=== PATIENT | female | born 1960 | race Caucasian/White ===

== ENCOUNTER 2023-01-13 11:48 | Outpatient (OUT) | payer OTHER, SELFPAY ==
[2023-01-13 12:17] LABS: Basophils Percent Auto 0.3 % (0.2-2.0); Eosinophils Absolute Auto 0.1 10^3/uL (0.0-0.7); Eosinophils Percent Auto 0.5 % (0.9-7.0); Hematocrit 39.6 % (36.0-48.0); Hemoglobin 13.7 g/dL (12.0-16.0); Immature Granulocytes Abs Auto 0.07 10^3/uL (0.00-0.03); Immature Granulocytes Pct Auto 0.5 % (0.0-0.5); Lymphocytes Absolute Auto 1.5 10^3/uL (1.2-3.8); Lymphocytes Percent Auto 11.8 % (20.5-60.0); Mean Corpuscular HGB Conc 34.6 g/dL (29.9-35.2); Mean Corpuscular Volume 109.7 fL (81.0-99.0); Mean Platelet Volume 8.8 fL (9.5-13.5); Monocytes Percent Auto 8.1 % (1.7-12.0); Neutrophils Absolute Auto 10.1 10^3/uL (1.4-6.5); Neutrophils Percent Auto 78.8 % (43.0-75.0); Platelet Count 405 10^3/uL (150-450); Red Blood Count 3.61 10^6/uL (4.20-5.40); Red Cell Distribution Width 15.8 % (11.0-15.0); White Blood Count 12.8 10^3/uL (4.0-11.0)
[2023-01-13 12:22] LABS: Erythrocyte Sedimentation Rate 17 mm/hr (<=30)
[2023-01-13 12:29] LABS: Bilirubin Urine NEGATIVE (NEGATIVE); Blood Urine NEGATIVE (NEGATIVE); Clarity Urine CLEAR (CLEAR); Color Urine YELLOW (YELLOW); Glucose Urine UA NEGATIVE (NEGATIVE); Ketones Urine NEGATIVE (NEGATIVE); Leukocyte Esterase Urine NEGATIVE (NEGATIVE); Nitrite Urine POSITIVE (NEGATIVE); Protein Urine NEGATIVE (NEG/TRACE)
[2023-01-13 12:44] LABS: Alanine Aminotransferase 60 U/L (14-59); Albumin Globulin Ratio 0.7; Albumin Level 2.9 g/dL (3.4-5.0); Alkaline Phosphatase 213 U/L (46-116); Amylase 46 U/L (25-115); Anion Gap 17.4; Aspartate Amino Transferase 100 U/L (15-37); BUN Creatinine Ratio 14.9; Bilirubin Total 0.4 mg/dL (0.2-1.0); Calcium 8.5 mg/dL (8.5-10.1); Carbon Dioxide 23.9 mmol/L (21.0-32.0); Chloride 101 mmol/L (98-107); Chol HDL Ratio 3.7; Cholesterol 174 mg/dL (<=200); Estimated GFR (African America >60 (>=60); Estimated GFR (Non-African Ame >60 (>=60); Glucose 87 mg/dL (74-106); HDL Cholesterol 47 mg/dL (40-60); Potassium 3.3 mmol/L (3.5-5.1); Sodium 139 mmol/L (136-145); Thyroid Stimulating Hormone 3.155 uIU/mL (0.358-3.740); Total Protein 6.9 g/dL (6.4-8.2); Triglycerides 154 mg/dL (<=150); VLDL CHOLESTEROL 30.8 mg/dL
[2023-01-13 12:50] LABS: Bacteria Urine LARGE #/HPF (NONE SEEN); Cast Seen? NONE SEEN #/LPF (NONE SEEN); Crystals Seen? None Seen #/HPF (None Seen); Mucus Urine TRACE (NONE SEEN); RBC Urine 0-2 #/HPF (0-2); Squamous Epithelial Cell Urine FEW #/LPF (NONE/RARE)
[2023-01-13 13:49] LABS: Free T4 0.88 ng/dL (0.76-1.46)
== END 2023-01-13 11:49 | disposition home or self-care (01) ==
LOC: LAB 11:53
PROVIDERS: PCP Nurse Practitioner; Visit Provider Nurse Practitioner
DX: R53.83 Other fatigue (principal); R10.9 Unspecified abdominal pain; N39.0 Urinary tract infection, site not specified
CPT/HCPCS: 36415; 80053; 80061; 81001; 82150; 82607; 82728; 83540; 83690; 84439; 84443; 85025; 85652; 87086; 87150; 87186

== ENCOUNTER 2023-02-04 09:02 | Outpatient (OUT) | payer MEDICARE, SELFPAY ==
--- NOTE | 2023-02-04 09:20 | NM_ITS ---
The [address] [address] Patient Name: FOUZIA MA MRN: [id number] date: 1960 Sex: F Assigned Patient Location: [place] Current Patient Location: [place] Accession/Order Number: [id number] Exam Date: 02/04/2023 09:15 Report Date: 02/04/2023 12:48 At the request of: CARI LOWE Procedure: TN hepatobiliary w pharm HIDA SCAN WITH GALLBLADDER EJECTION FRACTION HISTORY: Abdominal Pain. COMPARISON: Ultrasound 09/30/2022. METHOD: Following IV injection of 5.2 mCi of [id number], anterior imaging of the abdomen was acquired for 60 minutes. After the gallbladder was visualized the patient was given Ensure and the gallbladder ejection fraction was calculated. FINDINGS: There is satisfactory uptake of radiopharmaceutical by the liver. The gallbladder, bile duct, and bowel are seen in the expected period of time and sequence. The gallbladder ejection fraction is normal at 55%. TN/TN hepatobiliary w pharm IMPRESSION: Normal hepatic biliary scintigraphy and gallbladder ejection fraction. Electronically authenticated by: CLEMENTINA ZAMORA Date: 02/04/2023 12:48
== END 2023-02-04 09:03 | disposition home or self-care (01) ==
PROVIDERS: PCP Nurse Practitioner; Visit Provider Nurse Practitioner
DX: R79.89 Other specified abnormal findings of blood chemistry (principal); R93.2 Abnormal findings on diagnostic imaging of liver and biliary tract; R10.9 Unspecified abdominal pain
CPT/HCPCS: 78227; A9537

== ENCOUNTER 2023-03-07 13:28 | Outpatient (OUT) | payer MEDICARE, SELFPAY ==
[2023-03-07 13:31] LABS: Estimated GFR (African America >60 (>=60); Estimated GFR (Non-African Ame >60 (>=60)
--- NOTE | 2023-03-07 13:31 | CT_ITS ---
[address] [address] Patient Name: FOUZIA MA MRN: [id number] date: 1960 Sex: F Assigned Patient Location: LAB Current Patient Location: LAB Accession/Order Number: [id number] Exam Date: 03/07/2023 14:35 Report Date: 03/07/2023 17:14 At the request of: CARI LOWE Procedure: CT abdomen pelvis w con CT abdomen pelvis w con, 03/07/2023 2:35 PM EDT INDICATION: Abdominal pain R10.9 COMPARISON: This study was compared to the prior hepatobiliary scan. TECHNIQUE: Axial images of the abdomen were obtained after the administration of IV contrast. Multiplanar reformatted images were generated and reviewed as needed. Dose reduction techniques were achieved by using automated exposure control and/or adjustment of mA and/or kV according to patient size and/or use of iterative reconstruction technique. FINDINGS: Lungs: The base of lungs is clear. No pleural effusion is noted. Liver and gallbladder: There is hepatomegaly with severe hepatic steatosis with heterogeneous enhancement most likely due to regional perfusion differences. Mild irregularity of hepatic border is noted. The portal vein measures 1 cm. There is gallstone without pericholecystic fluid or wall thickening. Mild perihepatic ascites is noted. Genitourinary system: Mild right renal malrotation is noted. No nephrolithiasis or hydronephrosis is noted. No abnormality of the urinary bladder is noted. Other solid abdominal organs: adrenal glands, pancreas, and spleen are unremarkable. Aorta: The infrarenal abdominal aorta is nonaneurysmal. Free fluid: There is mild free fluid in the abdomen pelvis. Lymph node: No lymph node enlargement by size criteria is noted. Reactive lymph nodes along the gastrohepatic ligament measuring up to 5 mm. Bowel: No abnormality of small bowel is noted. There is thickening of the cecal and ascending colon with adjacent fatty stranding most likely due to portal hypertension. Appendix is unremarkable. Bone: There is no suspicious osteolytic or osteoblastic lesion. Lower lumbar spine degenerative changes are noted. There is diffuse demineralization of bone. CT/CT abdomen pelvis w con IMPRESSION: Severe hepatic steatosis with heterogeneous hepatic enhancement and mild irregular border and mild ascites. This may suggest early cirrhosis. An MRI is recommended to exclude hepatic mass. MRI or ultrasound Elastography may also be helpful for detection of cirrhosis/fibrosis. Mild cecal and ascending colon thickening with fatty stranding likely due to portal hypertension. However, ischemic or inflammatory or infectious process should be considered. Electronically authenticated by: LUÍS ORTIZ Date: 03/07/2023 17:14
== END 2023-03-07 13:29 | disposition home or self-care (01) ==
LOC: LAB 13:28
PROVIDERS: PCP Nurse Practitioner; Visit Provider Nurse Practitioner
DX: R10.9 Unspecified abdominal pain (principal)
CPT/HCPCS: 36415; 74177; 82565; Q9967

== ENCOUNTER 2023-03-21 15:02 | Outpatient (OUT) | payer MEDICARE, SELFPAY ==
[2023-03-21 15:56] LABS: Basophils Absolute Auto 0.1 10^3/uL (0.0-0.1); Basophils Percent Auto 0.6 % (0.2-2.0); Eosinophils Absolute Auto 0.2 10^3/uL (0.0-0.7); Hematocrit 32.3 % (36.0-48.0); Hemoglobin 10.9 g/dL (12.0-16.0); Immature Granulocytes Pct Auto 0.5 % (0.0-0.5); Lymphocytes Percent Auto 10.8 % (20.5-60.0); Mean Corpuscular HGB Conc 33.7 g/dL (29.9-35.2); Mean Corpuscular Hemoglobin 34.4 pg (26.7-34.0); Mean Corpuscular Volume 101.9 fL (81.0-99.0); Mean Platelet Volume 9.4 fL (9.5-13.5); Monocytes Absolute Auto 1.6 10^3/uL (0.3-0.8); Neutrophils Absolute Auto 14.3 10^3/uL (1.4-6.5); Neutrophils Percent Auto 78.1 % (43.0-75.0); Platelet Count 477 10^3/uL (150-450); Red Blood Count 3.17 10^6/uL (4.20-5.40); Red Cell Distribution Width 13.8 % (11.0-15.0); White Blood Count 18.3 10^3/uL (4.0-11.0)
[2023-03-21 16:06] LABS: Ammonia 19 umol/L (11-32)
[2023-03-21 16:07] LABS: Bilirubin Urine NEGATIVE (NEGATIVE); Blood Urine NEGATIVE (NEGATIVE); Clarity Urine CLEAR (CLEAR); Color Urine YELLOW (YELLOW); Glucose Urine UA NEGATIVE (NEGATIVE); Ketones Urine NEGATIVE (NEGATIVE); Leukocyte Esterase Urine NEGATIVE (NEGATIVE); Nitrite Urine POSITIVE (NEGATIVE); Protein Urine TRACE mg/dL (NEG/TRACE); Specific Gravity Urine 1.025 (1.005-1.025); pH Urine 6.5 (5.0-9.0)
[2023-03-21 16:08] LABS: Urine Microscopic Indicated YES
[2023-03-21 16:09] LABS: INR 1.11; Partial Thromboplastin Time 27.4 sec (22.3-36.2); Prothrombin Time 11.7 sec (9.0-11.6)
[2023-03-21 16:13] LABS: Bacteria Urine LARGE #/HPF (NONE SEEN); Cast Seen? NONE SEEN #/LPF (NONE SEEN); Crystals Seen? None Seen #/HPF (None Seen); Mucus Urine NONE SEEN (NONE SEEN); RBC Urine NONE SEEN #/HPF (0-2); Squamous Epithelial Cell Urine MODERATE #/LPF (NONE/RARE); WBC Urine 0-2 #/HPF (NONE SEEN)
[2023-03-21 16:14] LABS: Urine Culture Indicated YES
[2023-03-21 16:24] LABS: Alanine Aminotransferase 52 U/L (14-59); Albumin Globulin Ratio 0.6; Albumin Level 2.5 g/dL (3.4-5.0); Alkaline Phosphatase 462 U/L (46-116); Anion Gap 15.2; Aspartate Amino Transferase 123 U/L (15-37); BUN Creatinine Ratio 11.3; Bilirubin Direct 0.3 mg/dL (0.0-0.2); Bilirubin Total 0.5 mg/dL (0.2-1.0); Calcium 8.7 mg/dL (8.5-10.1); Carbon Dioxide 26.7 mmol/L (21.0-32.0); Chloride 100 mmol/L (98-107); Estimated GFR (African America >60 (>=60); Estimated GFR (Non-African Ame >60 (>=60); Globulin 4.1 g/dL; Glucose 72 mg/dL (74-106); Magnesium 1.5 mg/dL (1.8-2.4); Sodium 139 mmol/L (136-145); Total Protein 6.6 g/dL (6.4-8.2)
[2023-03-21 16:28] LABS: Gamma Glutamyl Transpeptidase 1239 U/L (8-55); Potassium 2.9 mmol/L (3.5-5.1)
[2023-03-23 04:07] LABS: Ceruloplasmin 28.1 mg/dL (19.0-39.0); Transferrin 128 mg/dL (192-364)
[2023-03-23 15:09] LABS: Antinuclear Antibodies, IFA Negative (.)
== END 2023-03-21 15:03 | disposition home or self-care (01) ==
LOC: LAB 15:04
PROVIDERS: PCP Nurse Practitioner; Visit Provider Nurse Practitioner
DX: K70.30 Alcoholic cirrhosis of liver without ascites (principal)
CPT/HCPCS: 36415; 80053; 80074; 81001; 82140; 82248; 82390; 82607; 82728; 82746; 82977; 83540; 83735; 84100; 84466; 85025; 85610; 85730; 86038; 87086; 87150; 87186

== ENCOUNTER 2023-03-21 19:53 | Emergency (ER) | payer MEDICARE, SELFPAY ==
[2023-03-21] VITALS (14 sets, daily range): BP systolic 129–138; BP diastolic 91–92; PULSE 102; RESP 18; TEMP 37.1; O2SAT 89–97; BMI 24.0
--- NOTE | 2023-03-21 20:22 | XR_ITS ---
The [address] [address] Patient Name: FOUZIA MA MRN: [id number] date: 1960 Sex: F Assigned Patient Location: ER Current Patient Location: ER Accession/Order Number: [id number] Exam Date: 03/21/2023 20:55 Report Date: 03/21/2023 21:17 At the request of: ANTONIO PEPPER Procedure: XR chest 2V EXAMINATION: XR chest 2V HISTORY: Edema COMPARISON: None. TECHNIQUE: Portable chest FINDINGS: The lung parenchyma is free of consolidation or infiltrate. No pneumothorax or pleural effusion. The cardiac, mediastinal and hilar contours are normal. The visualized osseous structures exhibit no gross abnormality. XR/XR chest 2V IMPRESSION: No acute cardiopulmonary abnormality. Electronically authenticated by: SIGIFREDO DENTON Date: 03/21/2023 21:17
--- NOTE | 2023-03-21 20:23 | ED_ITS ---
Documented by User: TOM Ugalde 03/21/23 22:27 HPI - General Adult General Chief complaint: Recheck/Abnormal Lab/Rx Stated complaint: pcp sent in d/t abnormal labs Time Seen by Provider: 03/21/23 20:03 Source: patient Mode of arrival: walk-in Limitations: no limitations History of Present Illness HPI narrative: patient is a 63-year-old female referred to the emergency department by her primary care provider for the evaluation of multiple abnormal lab studies as well as swelling of the abdomen and lower extremities. Patient has a history of alcoholism. Per her primary care provider, she has been having ongoing digestive issues and is scheduled to see a gastrointestinal specialist on March 30 in [place]. She had a CT scan several weeks ago and her PCP receive the results today showing significant fatty liver. She denies any fevers, chills, vomiting. She states she has had problems with constipation. She feels as though her abdomen is tight and swollen. She has also had swelling in the lower extremities. She has no chest pain but occasionally feels short of breath. She was prescribed Aldactone and Lasix today but has not started these. She has no significant abdominal pain. Related Data Home Medications Medication Instructions Recorded Confirmed albuterol sulfate 90 mcg/actuation 2 inh inhalation Q6H PRN shortness 03/21/23 03/21/23 aerosol inhaler (Ventolin HFA) of breath or wheezing amlodipine 2.5 mg tablet 2.5 mg PO DAILY 03/21/23 03/21/23 furosemide 20 mg tablet 20 mg PO Q12H 03/21/23 03/21/23 propranolol 20 mg tablet 20 mg PO Q12H 03/21/23 03/21/23 spironolactone 50 mg tablet 50 mg PO DAILY 03/21/23 03/21/23 venlafaxine 150 mg 150 mg PO DAILY 03/21/23 03/21/23 capsule,extended release 24 hr Allergies Allergy/AdvReac Type Severity Reaction Status Date / Time No Known Drug Allergies Allergy Verified 03/21/23 20:03 Review of Systems ROS Constitutional Denies: fever or chills Ears, nose, mouth, and throat Denies: throat pain or neck pain Cardiovascular Denies: chest pain Respiratory Reports: shortness of breath; Denies: cough Gastrointestinal Reports: constipation; Denies: abdominal pain, nausea or vomiting Musculoskeletal Reports: extremity swelling; Denies: back pain or neck pain Neurological Denies: headache Endocrine Denies: excessive urination Hematologic/Lymphatic Denies: easy bruising Exam Narrative Exam Narrative: Gen.: Awake, alert, in no distress Head: Normocephalic, atraumatic ENT: Moist mucous membranes Respiratory: No respiratory distress, lungs clear bilaterally Cardio: Regular rate and rhythm Gastrointestinal: Abdomen is firm but not rigid, distended. Nontender with no guarding or rebound Extremities: Moves extremities equally, 2+ pitting edema to the bilateral lower extremities Psych: Normal mood and affect Neuro: No focal neuro deficit Skin: Warm, dry, intact Constitutional Vital Signs, click to edit/add: Last Vital Signs Temp 98.7 F 03/21/23 19:57 Pulse 109 H 03/22/23 02:37 Resp 18 03/21/23 19:57 BP 132/77 03/22/23 02:37 Pulse Ox 93 L 03/22/23 02:37 O2 Del Method Room Air 03/21/23 19:57 Course Vital Signs Vital signs: Vital Signs Temperature 98.7 F 03/21/23 19:57 Pulse Rate 102 H 03/21/23 19:57 Respiratory Rate 18 03/21/23 19:57 Blood Pressure 129/92 H 03/21/23 19:57 Pulse Oximetry 97 03/21/23 19:57 Oxygen Delivery Method Room Air 03/21/23 19:57 Temperature 98.7 F 03/21/23 19:57 Pulse Rate 109 H 03/22/23 02:37 Respiratory Rate 18 03/21/23 19:57 Blood Pressure 132/77 03/22/23 02:37 Pulse Oximetry 93 L 03/22/23 02:37 Oxygen Delivery Method Room Air 03/21/23 19:57 Medical Decision Making MDM Narrative Medical decision making narrative: patient with no complaints of abdominal pain in the Emergency Room, she has no other upper respiratory symptoms, recent steroids or vomiting. Several the lab studies were repeated showing the patient does have leukocytosis, no bandemia and elevated lactic acid. Potassium is 2.9 in the Emergency Room. Lipase was not able to be run at this facility and it was sent to an outside facility to be run. CT of the abdomen and pelvis shows the patient has significant hepatic steatosis versus cirrhosis, there is cholelithiasis but no evidence of cholecystitis or obstructive stone. Chest x-ray with no evidence of acute cardiopulmonary changes. Patient's urine specimen earlier today was nitrate positive, contaminated. Urine specimen this evening is unremarkable. 2230: Repeat lactic acid, lipase are pending at this time. Case turned over to attending physician for disposition. Medical Records Medical records reviewed: Yes I reviewed the patient's medical records Lab Data Lab results reviewed: Yes I reviewed the patient's lab results Labs: Lab Results 03/21/23 03/21/23 03/21/23 Range/Units 20:21 20:22 21:30 WBC 21.2 H (4.0-11.0) 10^3/uL RBC 3.18 L (4.20-5.40) 10^6/uL Hgb 10.8 L (12.0-16.0) g/dL Hct 32.8 L (36.0-48.0) % MCV 103.1 H (81.0-99.0) fL MCH 34.0 (26.7-34.0) pg MCHC 32.9 (29.9-35.2) g/dL RDW 13.9 (11.0-15.0) % Plt Count 501 H (150-450) 10^3/uL MPV 9.2 L (9.5-13.5) fL Neut % (Auto) (43.0-75.0) % Lymph % (Auto) (20.5-60.0) % Mathews % (Auto) (1.7-12.0) % Eos % (Auto) (0.9-7.0) % Baso % (Auto) (0.2-2.0) % Neut # (Auto) (1.4-6.5) 10^3/uL Lymph # (Auto) (1.2-3.8) 10^3/uL Mathews # (Auto) (0.3-0.8) 10^3/uL Eos # (Auto) (0.0-0.7) 10^3/uL Baso # (Auto) (0.0-0.1) 10^3/uL Abs Immat Gran (auto) (0.00-0.03) 10^3/uL Seg Neuts % (Manual) 85.0 Lymphocytes % (Manual) 12.0 L (20.5-60.0) % Monocytes % (Manual) 3.0 (1.7-12.0) % Eosinophils % (Manual) 0.0 L (0.9-7.0) % Basophils % (Manual) 0.0 L (0.2-2.0) % Imm/Tot Granulo (auto) (0.0-0.5) % Neutrophils # (Manual) 18.02 H (1.4-6.5) 10^3/uL Lymphocytes # (Manual) 2.54 (1.20-3.80) 10^3/uL Monocytes # (Manual) 0.63 (0.30-0.80) 10^3/uL Eosinophils # (Manual) 0.00 (0.00-0.70) 10^3/uL Basophils # (Manual) 0.00 (0.00-0.10) 10^3/uL Sodium 135 L (136-145) mmol/L Potassium 2.9 L* (3.5-5.1) mmol/L Chloride 98 (98-107) mmol/L Carbon Dioxide 24.5 (21.0-32.0) mmol/L Anion Gap 15.4 BUN 5.0 L (7.0-18.0) mg/dL Creatinine 0.62 (0.55-1.02) mg/dL Est GFR ( Amer) >60 (>=60) Est GFR (Non-Af Amer) >60 (>=60) BUN/Creatinine Ratio 8.1 Glucose 74 (74-106) mg/dL Lactate 3.2 H* (0.4-2.0) mmol/L Calcium 8.5 (8.5-10.1) mg/dL Total Bilirubin 0.5 (0.2-1.0) mg/dL AST 121 H (15-37) U/L ALT 51 (14-59) U/L Alkaline Phosphatase 472 H (46-116) U/L Total Protein 6.7 (6.4-8.2) g/dL Albumin 2.5 L (3.4-5.0) g/dL Globulin 4.2 g/dL Albumin/Globulin Ratio 0.6 Amylase 32 (25-115) U/L Urine Color Lt. yellow (YELLOW) Urine Clarity Clear (CLEAR) Urine pH 7.0 (5.0-9.0) Ur Specific [place] <=1.005 A (1.005-1.025) Urine Protein Negative (NEG/TRACE) mg/dL Urine Glucose (UA) Negative (NEGATIVE) mg/dL Urine Ketones Negative (NEGATIVE) mg/dL Urine Occult Blood Negative (NEGATIVE) Urine Nitrite Negative (NEGATIVE) Urine Bilirubin Negative (NEGATIVE) Urine Urobilinogen 0.2 (0.2-1.0) EU/dL Ur Leukocyte Esterase Negative (NEGATIVE) Ethanol Quant 25 mg/dL 03/21/23 03/22/23 Range/Units 23:46 02:49 WBC 16.5 H (4.0-11.0) 10^3/uL RBC 2.83 L (4.20-5.40) 10^6/uL Hgb 9.6 L (12.0-16.0) g/dL Hct 28.3 L (36.0-48.0) % MCV 100.0 H (81.0-99.0) fL MCH 33.9 (26.7-34.0) pg MCHC 33.9 (29.9-35.2) g/dL RDW 13.7 (11.0-15.0) % Plt Count 388 (150-450) 10^3/uL MPV 9.3 L (9.5-13.5) fL Neut % (Auto) 79.1 H (43.0-75.0) % Lymph % (Auto) 8.9 L (20.5-60.0) % Mathews % (Auto) 10.3 (1.7-12.0) % Eos % (Auto) 0.7 L (0.9-7.0) % Baso % (Auto) 0.6 (0.2-2.0) % Neut # (Auto) 13.1 H (1.4-6.5) 10^3/uL Lymph # (Auto) 1.5 (1.2-3.8) 10^3/uL Mathews # (Auto) 1.7 H (0.3-0.8) 10^3/uL Eos # (Auto) 0.1 (0.0-0.7) 10^3/uL Baso # (Auto) 0.1 (0.0-0.1) 10^3/uL Abs Immat Gran (auto) 0.07 H (0.00-0.03) 10^3/uL Seg Neuts % (Manual) Lymphocytes % (Manual) (20.5-60.0) % Monocytes % (Manual) (1.7-12.0) % Eosinophils % (Manual) (0.9-7.0) % Basophils % (Manual) (0.2-2.0) % Imm/Tot Granulo (auto) 0.4 (0.0-0.5) % Neutrophils # (Manual) (1.4-6.5) 10^3/uL Lymphocytes # (Manual) (1.20-3.80) 10^3/uL Monocytes # (Manual) (0.30-0.80) 10^3/uL Eosinophils # (Manual) (0.00-0.70) 10^3/uL Basophils # (Manual) (0.00-0.10) 10^3/uL Sodium (136-145) mmol/L Potassium (3.5-5.1) mmol/L Chloride (98-107) mmol/L Carbon Dioxide (21.0-32.0) mmol/L Anion Gap BUN (7.0-18.0) mg/dL Creatinine (0.55-1.02) mg/dL Est GFR ( Amer) (>=60) Est GFR (Non-Af Amer) (>=60) BUN/Creatinine Ratio Glucose (74-106) mg/dL Lactate 1.1 (0.4-2.0) mmol/L Calcium (8.5-10.1) mg/dL Total Bilirubin (0.2-1.0) mg/dL AST (15-37) U/L ALT (14-59) U/L Alkaline Phosphatase (46-116) U/L Total Protein (6.4-8.2) g/dL Albumin (3.4-5.0) g/dL Globulin g/dL Albumin/Globulin Ratio Amylase (25-115) U/L Urine Color (YELLOW) Urine Clarity (CLEAR) Urine pH (5.0-9.0) Ur Specific [place] (1.005-1.025) Urine Protein (NEG/TRACE) mg/dL Urine Glucose (UA) (NEGATIVE) mg/dL Urine Ketones (NEGATIVE) mg/dL Urine Occult Blood (NEGATIVE) Urine Nitrite (NEGATIVE) Urine Bilirubin (NEGATIVE) Urine Urobilinogen (0.2-1.0) EU/dL Ur Leukocyte Esterase (NEGATIVE) Ethanol Quant mg/dL Imaging Data CT scan - abdomen: Attestation: I have reviewed the pertinent imaging results. Radiologist's impression: Procedure: CT abdomen pelvis w con EXAMINATION: CT ABDOMEN AND PELVIS WITH IV CONTRAST CLINICAL HISTORY: Abdominal pain TECHNIQUE: CT of the abdomen and pelvis was performed using standard technique, scanning from just above the dome of the diaphragm to the symphysis pubis. All CT scans at this facility use dose modulation, iterative reconstruction, and/or weight based dosing when appropriate to reduce radiation dose to as low as reasonably achievable. Contrast: IV: 100 ml of Omnipaque 300 COMPARISON: CT abdomen and pelvis 03/07/2023 RESULT: Liver: Severe hepatic steatosis, with heterogenous enhancement of the right hepatic lobe similar to prior CT chest. There is mild nodularity along the right hepatic contour. No discrete lesion is identified. Biliary: No bile duct dilation. Cholelithiasis. Small pericholecystic fluid improved compared with the most recent CT. Spleen: No mass. No splenomegaly. Pancreas: No mass or duct dilation. Adrenals: No mass. Kidneys: No mass, calculus or hydronephrosis. GI tract: The stomach is unremarkable. No bowel dilation or significant wall thickening. Colonic diverticulosis without diverticulitis. Lymph nodes: No abdominal or pelvic lymphadenopathy. Mesentery/Peritoneum: Small abdominopelvic ascites not significantly changed since 03/07/2023 Retroperitoneum: No mass. Vasculature: The celiac axis and SMA are patent. The portal vein and branches, splenic vein, SMV, and hepatic veins are patent. Abdominal aortic atherosclerotic disease without aneurysm. Pelvis: No mass, ascites or fluid collection. Urinary bladder is unremarkable. Bones/Soft Tissues: Diffuse subcutaneous edema. Degenerative changes of the lumbar spine. Lower thorax: Unremarkable. IMPRESSION: 1. No acute findings in the abdomen and pelvis. 2. Redemonstration severe hepatic steatosis with heterogeneous enhancement predominantly in the right hepatic lobe, and with mild contour nodularity. Findings are concerning for underlying chronic hepatic disease or cirrhosis. Recommend further evaluation with MRI of the liver. 3. Stable small abdominopelvic ascites. Electronically authenticated by: PAIGE GONZALEZ Date: 03/21/2023 22:16 Chest x-ray: Attestation: I have reviewed the pertinent imaging results. Radiologist's impression: Procedure: XR chest 2V EXAMINATION: XR chest 2V HISTORY: Edema COMPARISON: None. TECHNIQUE: Portable chest FINDINGS: The lung parenchyma is free of consolidation or infiltrate. No pneumothorax or pleural effusion. The cardiac, mediastinal and hilar contours are normal. The visualized osseous structures exhibit no gross abnormality. IMPRESSION: No acute cardiopulmonary abnormality. Electronically authenticated by: SIGIFREDO DENTON Date: 03/21/2023 21:17 Discharge Plan Discharge Chief Complaint: Recheck/Abnormal Lab/Rx Clinical Impression: Leukocytosis, Acute hypokalemia Patient Disposition: Still a Patient Prescriptions / Home Meds: No Action albuterol sulfate [Ventolin HFA] 90 mcg/actuation HFA aerosol inhaler 2 inh INHALATION Q6H PRN (Reason: shortness of breath or wheezing) amlodipine 2.5 mg tablet 2.5 mg PO DAILY furosemide 20 mg tablet 20 mg PO Q12H spironolactone 50 mg tablet 50 mg PO DAILY venlafaxine 150 mg capsule,extended release 24hr 150 mg PO DAILY propranolol 20 mg tablet 20 mg PO Q12H Instructions: Hypokalemia (ED), Leukocytosis (ED) Additional Instructions: follow up with your doctor in the next 2-3 days to have potassium rechecked Stand Alone Forms: Portal Instructions Referrals: Ashly Wu [Primary Care Provider] - 1 week Documented by User: Kevin Bajwa MD 03/22/23 03:41 HPI - General Adult General Chief complaint: Recheck/Abnormal Lab/Rx Stated complaint: pcp sent in d/t abnormal labs Time Seen by Provider: 03/21/23 20:03 Related Data Home Medications Medication Instructions Recorded Confirmed albuterol sulfate 90 mcg/actuation 2 inh inhalation Q6H PRN shortness 03/21/23 03/21/23 aerosol inhaler (Ventolin HFA) of breath or wheezing amlodipine 2.5 mg tablet 2.5 mg PO DAILY 03/21/23 03/21/23 furosemide 20 mg tablet 20 mg PO Q12H 03/21/23 03/21/23 propranolol 20 mg tablet 20 mg PO Q12H 03/21/23 03/21/23 spironolactone 50 mg tablet 50 mg PO DAILY 03/21/23 03/21/23 venlafaxine 150 mg 150 mg PO DAILY 03/21/23 03/21/23 capsule,extended release 24 hr Allergies Allergy/AdvReac Type Severity Reaction Status Date / Time No Known Drug Allergies Allergy Verified 03/21/23 20:03 Exam Constitutional Vital Signs, click to edit/add: Last Vital Signs Temp 98.7 F 03/21/23 19:57 Pulse 109 H 03/22/23 02:37 Resp 18 03/21/23 19:57 BP 132/77 03/22/23 02:37 Pulse Ox 93 L 03/22/23 02:37 O2 Del Method Room Air 03/21/23 19:57 Course Vital Signs Vital signs: Vital Signs Temperature 98.7 F 03/21/23 19:57 Pulse Rate 102 H 03/21/23 19:57 Respiratory Rate 18 03/21/23 19:57 Blood Pressure 129/92 H 03/21/23 19:57 Pulse Oximetry 97 03/21/23 19:57 Oxygen Delivery Method Room Air 03/21/23 19:57 Temperature 98.7 F 03/21/23 19:57 Pulse Rate 109 H 03/22/23 02:37 Respiratory Rate 18 03/21/23 19:57 Blood Pressure 132/77 03/22/23 02:37 Pulse Oximetry 93 L 03/22/23 02:37 Oxygen Delivery Method Room Air 03/21/23 19:57 Medical Decision Making [facility] Narrative Medical decision making narrative: patient with no complaints of abdominal pain in the Emergency Room, she has no other upper respiratory symptoms, recent steroids or vomiting. Several the lab studies were repeated showing the patient does have leukocytosis, no bandemia and elevated lactic acid. Potassium is 2.9 in the Emergency Room. Lipase was not able to be run at this facility and it was sent to an outside facility to be run. CT of the abdomen and pelvis shows the patient has significant hepatic steatosis versus cirrhosis, there is cholelithiasis but no evidence of cholecyst itis or obstructive stone. Chest x-ray with no evidence of acute cardiopulmonary changes. Patient's urine specimen earlier today was nitrate positive, contaminated. Urine specimen this evening is unremarkable. 2230: Repeat lactic acid, lipase are pending at this time. Case turned over to attending physician for disposition. patient re evaluated and she is asymptomatic. Labs with elevated WBC. did repeat her labs while here and her WBC declined. She is resting comfortably and in no distress. Recently started on diuretics for lower ext edema with improvement. Will discharge home with a prescription for potassium and have her to recheck with her PCP in the next 2-3 days Lab Data Labs: Lab Results 03/21/23 03/21/23 03/21/23 Range/Units 20:21 20:22 21:30 WBC 21.2 H (4.0-11.0) 10^3/uL RBC 3.18 L (4.20-5.40) 10^6/uL Hgb 10.8 L (12.0-16.0) g/dL Hct 32.8 L (36.0-48.0) % MCV 103.1 H (81.0-99.0) fL MCH 34.0 (26.7-34.0) pg MCHC 32.9 (29.9-35.2) g/dL RDW 13.9 (11.0-15.0) % Plt Count 501 H (150-450) 10^3/uL MPV 9.2 L (9.5-13.5) fL Neut % (Auto) (43.0-75.0) % Lymph % (Auto) (20.5-60.0) % Mathews % (Auto) (1.7-12.0) % Eos % (Auto) (0.9-7.0) % Baso % (Auto) (0.2-2.0) % Neut # (Auto) (1.4-6.5) 10^3/uL Lymph # (Auto) (1.2-3.8) 10^3/uL Mathews # (Auto) (0.3-0.8) 10^3/uL Eos # (Auto) (0.0-0.7) 10^3/uL Baso # (Auto) (0.0-0.1) 10^3/uL Abs Immat Gran (auto) (0.00-0.03) 10^3/uL Seg Neuts % (Manual) 85.0 Lymphocytes % (Manual) 12.0 L (20.5-60.0) % Monocytes % (Manual) 3.0 (1.7-12.0) % Eosinophils % (Manual) 0.0 L (0.9-7.0) % Basophils % (Manual) 0.0 L (0.2-2.0) % Imm/Tot Granulo (auto) (0.0-0.5) % Neutrophils # (Manual) 18.02 H (1.4-6.5) 10^3/uL Lymphocytes # (Manual) 2.54 (1.20-3.80) 10^3/uL Monocytes # (Manual) 0.63 (0.30-0.80) 10^3/uL Eosinophils # (Manual) 0.00 (0.00-0.70) 10^3/uL Basophils # (Manual) 0.00 (0.00-0.10) 10^3/uL Sodium 135 L (136-145) mmol/L Potassium 2.9 L* (3.5-5.1) mmol/L Chloride 98 (98-107) mmol/L Carbon Dioxide 24.5 (21.0-32.0) mmol/L Anion Gap 15.4 BUN 5.0 L (7.0-18.0) mg/dL Creatinine 0.62 (0.55-1.02) mg/dL Est GFR ( Amer) >60 (>=60) Est GFR (Non-Af Amer) >60 (>=60) BUN/Creatinine Ratio 8.1 Glucose 74 (74-106) mg/dL Lactate 3.2 H* (0.4-2.0) mmol/L Calcium 8.5 (8.5-10.1) mg/dL Total Bilirubin 0.5 (0.2-1.0) mg/dL AST 121 H (15-37) U/L ALT 51 (14-59) U/L Alkaline Phosphatase 472 H (46-116) U/L Total Protein 6.7 (6.4-8.2) g/dL Albumin 2.5 L (3.4-5.0) g/dL Globulin 4.2 g/dL Albumin/Globulin Ratio 0.6 Amylase 32 (25-115) U/L Urine Color Lt. yellow (YELLOW) Urine Clarity Clear (CLEAR) Urine pH 7.0 (5.0-9.0) Ur Specific [place] <=1.005 A (1.005-1.025) Urine Protein Negative (NEG/TRACE) mg/dL Urine Glucose (UA) Negative (NEGATIVE) mg/dL Urine Ketones Negative (NEGATIVE) mg/dL Urine Occult Blood Negative (NEGATIVE) Urine Nitrite Negative (NEGATIVE) Urine Bilirubin Negative (NEGATIVE) Urine Urobilinogen 0.2 (0.2-1.0) EU/dL Ur Leukocyte Esterase Negative (NEGATIVE) Ethanol Quant 25 mg/dL 03/21/23 03/22/23 Range/Units 23:46 02:49 WBC 16.5 H (4.0-11.0) 10^3/uL RBC 2.83 L (4.20-5.40) 10^6/uL Hgb 9.6 L (12.0-16.0) g/dL Hct 28.3 L (36.0-48.0) % MCV 100.0 H (81.0-99.0) fL MCH 33.9 (26.7-34.0) pg MCHC 33.9 (29.9-35.2) g/dL RDW 13.7 (11.0-15.0) % Plt Count 388 (150-450) 10^3/uL MPV 9.3 L (9.5-13.5) fL Neut % (Auto) 79.1 H (43.0-75.0) % Lymph % (Auto) 8.9 L (20.5-60.0) % Mathews % (Auto) 10.3 (1.7-12.0) % Eos % (Auto) 0.7 L (0.9-7.0) % Baso % (Auto) 0.6 (0.2-2.0) % Neut # (Auto) 13.1 H (1.4-6.5) 10^3/uL Lymph # (Auto) 1.5 (1.2-3.8) 10^3/uL Mathews # (Auto) 1.7 H (0.3-0.8) 10^3/uL Eos # (Auto) 0.1 (0.0-0.7) 10^3/uL Baso # (Auto) 0.1 (0.0-0.1) 10^3/uL Abs Immat Gran (auto) 0.07 H (0.00-0.03) 10^3/uL Seg Neuts % (Manual) Lymphocytes % (Manual) (20.5-60.0) % Monocytes % (Manual) (1.7-12.0) % Eosinophils % (Manual) (0.9-7.0) % Basophils % (Manual) (0.2-2.0) % Imm/Tot Granulo (auto) 0.4 (0.0-0.5) % Neutrophils # (Manual) (1.4-6.5) 10^3/uL Lymphocytes # (Manual) (1.20-3.80) 10^3/uL Monocytes # (Manual) (0.30-0.80) 10^3/uL Eosinophils # (Manual) (0.00-0.70) 10^3/uL Basophils # (Manual) (0.00-0.10) 10^3/uL Sodium (136-145) mmol/L Potassium (3.5-5.1) mmol/L Chloride (98-107) mmol/L Carbon Dioxide (21.0-32.0) mmol/L Anion Gap BUN (7.0-18.0) mg/dL Creatinine (0.55-1.02) mg/dL Est GFR ( Amer) (>=60) Est GFR (Non-Af Amer) (>=60) BUN/Creatinine Ratio Glucose (74-106) mg/dL Lactate 1.1 (0.4-2.0) mmol/L Calcium (8.5-10.1) mg/dL Total Bilirubin (0.2-1.0) mg/dL AST (15-37) U/L ALT (14-59) U/L Alkaline Phosphatase (46-116) U/L Total Protein (6.4-8.2) g/dL Albumin (3.4-5.0) g/dL Globulin g/dL Albumin/Globulin Ratio Amylase (25-115) U/L Urine Color (YELLOW) Urine Clarity (CLEAR) Urine pH (5.0-9.0) Ur Specific [place] (1.005-1.025) Urine Protein (NEG/TRACE) mg/dL Urine Glucose (UA) (NEGATIVE) mg/dL Urine Ketones (NEGATIVE) mg/dL Urine Occult Blood (NEGATIVE) Urine Nitrite (NEGATIVE) Urine Bilirubin (NEGATIVE) Urine Urobilinogen (0.2-1.0) EU/dL Ur Leukocyte Esterase (NEGATIVE) Ethanol Quant mg/dL Discharge Plan Discharge Chief Complaint: Recheck/Abnormal Lab/Rx Clinical Impression: Leukocytosis, Acute hypokalemia Patient Disposition: Still a Patient Prescriptions / Home Meds: No Action albuterol sulfate [Ventolin HFA] 90 mcg/actuation HFA aerosol inhaler 2 inh INHALATION Q6H PRN (Reason: shortness of breath or wheezing) amlodipine 2.5 mg tablet 2.5 mg PO DAILY furosemide 20 mg tablet 20 mg PO Q12H spironolactone 50 mg tablet 50 mg PO DAILY venlafaxine 150 mg capsule,extended release 24hr 150 mg PO DAILY propranolol 20 mg tablet 20 mg PO Q12H Instructions: Hypokalemia (ED), Leukocytosis (ED) Additional Instructions: follow up with your doctor in the next 2-3 days to have potassium rechecked Stand Alone Forms: Portal Instructions Referrals: Ashly Wu [Primary Care Provider] - 1 week
--- NOTE | 2023-03-21 20:27 | PC.NURSE ---
pt presents to ED because pt states that her pcp carolyn called and told her that her potassium, wbc, and ggt levels were abnormal. pt states that she had her blood drawn today around 3pm and was called to come to ER to have more testing done and potentially an mri to see what is going on. pt states that she feels fine at this time and denies abdominal pain or n/v. pt does have swelling to bilateral lower extremities and was recently prescribed diuretics to help push the fluid off.
[2023-03-21 20:29] LABS: Hematocrit 32.8 % (36.0-48.0); Hemoglobin 10.8 g/dL (12.0-16.0); Mean Corpuscular HGB Conc 32.9 g/dL (29.9-35.2); Mean Corpuscular Volume 103.1 fL (81.0-99.0); Mean Platelet Volume 9.2 fL (9.5-13.5); Platelet Count 501 10^3/uL (150-450); Red Blood Count 3.18 10^6/uL (4.20-5.40); Red Cell Distribution Width 13.9 % (11.0-15.0); White Blood Count 21.2 10^3/uL (4.0-11.0)
[2023-03-21] MEDS: POTASSIUM BICARBONATE/CIT 25 MEQ TABLET EFF 50 MEQ PO (20:47)
[2023-03-21] MEDS: NICOTINE 21 MG PATCH TD (20:47)
[2023-03-21 21:03] LABS: Alanine Aminotransferase 51 U/L (14-59); Albumin Globulin Ratio 0.6; Albumin Level 2.5 g/dL (3.4-5.0); Alkaline Phosphatase 472 U/L (46-116); Anion Gap 15.4; Aspartate Amino Transferase 121 U/L (15-37); BUN Creatinine Ratio 8.1; Bilirubin Total 0.5 mg/dL (0.2-1.0); Calcium 8.5 mg/dL (8.5-10.1); Carbon Dioxide 24.5 mmol/L (21.0-32.0); Chloride 98 mmol/L (98-107); Estimated GFR (African America >60 (>=60); Estimated GFR (Non-African Ame >60 (>=60); Globulin 4.2 g/dL; Glucose 74 mg/dL (74-106); Sodium 135 mmol/L (136-145); Total Protein 6.7 g/dL (6.4-8.2)
[2023-03-21 21:06] LABS: Lactate/Lactic Acid 3.2 mmol/L (0.4-2.0); Potassium 2.9 mmol/L (3.5-5.1)
--- NOTE | 2023-03-21 21:09 | PC.NURSE ---
critical K+ 2.9 Lactate 3.2 results verified and then given to Miroslava Urbina
[2023-03-21 21:55] LABS: Amylase 32 U/L (25-115); Ethanol 25 mg/dL
[2023-03-21 22:13] LABS: Bilirubin Urine NEGATIVE (NEGATIVE); Blood Urine NEGATIVE (NEGATIVE); Clarity Urine CLEAR (CLEAR); Color Urine LT. YELLOW (YELLOW); Glucose Urine UA NEGATIVE (NEGATIVE); Ketones Urine NEGATIVE (NEGATIVE); Leukocyte Esterase Urine NEGATIVE (NEGATIVE); Nitrite Urine NEGATIVE (NEGATIVE); Protein Urine NEGATIVE (NEG/TRACE); Specific Gravity Urine <=1.005 (1.005-1.025); Urobilinogen Urine 0.2 EU/dL (0.2-1.0)
[2023-03-21 22:15] LABS: Urine Microscopic Indicated NO
[2023-03-21 22:59] LABS: Lymphocytes Absolute Manual 2.54 10^3/uL (1.20-3.80); Monocytes Absolute Manual 0.63 10^3/uL (0.30-0.80); Segmented Neut Absolute Manual 18.02 10^3/uL (1.4-6.5)
[2023-03-22] VITALS (13 sets, daily range): BP systolic 132–139; BP diastolic 77–91; PULSE 109–111; O2SAT 89–96
[2023-03-22 00:33] LABS: Lactate/Lactic Acid 1.1 mmol/L (0.4-2.0)
[2023-03-22 02:56] LABS: Basophils Absolute Auto 0.1 10^3/uL (0.0-0.1); Basophils Percent Auto 0.6 % (0.2-2.0); Eosinophils Absolute Auto 0.1 10^3/uL (0.0-0.7); Eosinophils Percent Auto 0.7 % (0.9-7.0); Hematocrit 28.3 % (36.0-48.0); Hemoglobin 9.6 g/dL (12.0-16.0); Immature Granulocytes Abs Auto 0.07 10^3/uL (0.00-0.03); Immature Granulocytes Pct Auto 0.4 % (0.0-0.5); Lymphocytes Absolute Auto 1.5 10^3/uL (1.2-3.8); Lymphocytes Percent Auto 8.9 % (20.5-60.0); Mean Corpuscular HGB Conc 33.9 g/dL (29.9-35.2); Mean Corpuscular Hemoglobin 33.9 pg (26.7-34.0); Mean Platelet Volume 9.3 fL (9.5-13.5); Monocytes Absolute Auto 1.7 10^3/uL (0.3-0.8); Monocytes Percent Auto 10.3 % (1.7-12.0); Neutrophils Absolute Auto 13.1 10^3/uL (1.4-6.5); Neutrophils Percent Auto 79.1 % (43.0-75.0); Platelet Count 388 10^3/uL (150-450); Red Blood Count 2.83 10^6/uL (4.20-5.40); Red Cell Distribution Width 13.7 % (11.0-15.0); White Blood Count 16.5 10^3/uL (4.0-11.0)
== END 2023-03-22 04:30 | disposition home or self-care (01) ==
PROVIDERS: Physician Assistant; Emergency Provider Internal Medicine; PCP Nurse Practitioner
DX: K70.30 Alcoholic cirrhosis of liver without ascites (principal); E87.6 Hypokalemia; D72.829 Elevated white blood cell count, unspecified; Z79.899 Other long term (current) drug therapy; F10.20 Alcohol dependence, uncomplicated
CPT/HCPCS: 36415; 71046; 74177; 80053; 80320; 81001; 81003; 82140; 82150; 82248; 82390; 82607; 82728; 82746; 82977; 83540; 83605; 83690; 83735; 84100; 84466; 85025; 85027; 85610; 85730; 86038; 87086; 87150; 87186; 99285; Q9967

== ENCOUNTER 2023-03-24 11:40 | Outpatient (OUT) | payer MEDICARE, SELFPAY ==
[2023-03-24 12:32] LABS: BUN Creatinine Ratio 8.1; Calcium 8.8 mg/dL (8.5-10.1); Carbon Dioxide 33.8 mmol/L (21.0-32.0); Chloride 97 mmol/L (98-107); Estimated GFR (African America >60 (>=60); Estimated GFR (Non-African Ame >60 (>=60); Glucose 102 mg/dL (74-106); Sodium 140 mmol/L (136-145)
[2023-03-24 14:42] LABS: Potassium 2.8 mmol/L (3.5-5.1)
== END 2023-03-24 11:41 | disposition home or self-care (01) ==
LOC: LAB 11:42
PROVIDERS: PCP Nurse Practitioner; Visit Provider Nurse Practitioner
DX: K70.30 Alcoholic cirrhosis of liver without ascites (principal); E87.6 Hypokalemia
CPT/HCPCS: 36415; 80048

== ENCOUNTER 2023-03-30 13:08 | Emergency (ER) | payer MEDICARE, SELFPAY ==
[2023-03-30 13:16] VITALS: BP 120/80; PULSE 91; RESP 20; TEMP 37.1; O2SAT 97; BMI 24.0
--- NOTE | 2023-03-30 13:39 | ED.GENADUL1 ---
HPI - General Adult General Chief complaint: Neuro Symptoms/Deficit Stated complaint: NUMBNESS TO HANDS/FEET/FACE Time Seen by Provider: 03/30/23 13:15 Source: patient Mode of arrival: Wheelchair Limitations: no limitations History of Present Illness HPI narrative: 63-year-old female with past medical history of alcoholism and cirrhosis presents for numbness in her hands and feet that started at the same time that started yesterday and numbness to her forehead that started today. She was here 9 days ago for hypokalemia and hypomagnesemia. Its not clear from reading the previous chart if this was repleted and also says that she was sent home with a prescription for potassium, but this is not in the documented discharge prescriptions. She states that she is on a bunch of supplements and does not give me specific supplements that she is taking. It appears that she has edema from her alcoholism and was recently started on Lasix. She had an appointment with her GI physician today and 30 minutes, but was directed here by her family doctor. Denies fever, dizziness, headache, vision changes, abd or back pain, dysuria, n/v/d, SOB or CP Related Data Home Medications Medication Instructions Recorded Confirmed albuterol sulfate 90 mcg/actuation 2 inh inhalation Q6H PRN shortness 03/21/23 03/21/23 aerosol inhaler (Ventolin HFA) of breath or wheezing amlodipine 2.5 mg tablet 2.5 mg PO DAILY 03/21/23 03/21/23 furosemide 20 mg tablet 20 mg PO Q12H 03/21/23 03/21/23 propranolol 20 mg tablet 20 mg PO Q12H 03/21/23 03/21/23 spironolactone 50 mg tablet 50 mg PO DAILY 03/21/23 03/21/23 venlafaxine 150 mg 150 mg PO DAILY 03/21/23 03/21/23 capsule,extended release 24 hr Allergies Allergy/AdvReac Type Severity Reaction Status Date / Time No Known Drug Allergies Allergy Verified 03/21/23 20:03 Review of Systems ROS Status of ROS 10 or more systems reviewed and unremarkable except as noted in history and below Exam Narrative Exam Narrative: General: alert, no distress, talking in full an complete sentences skin: warm, dry, intact head: normocephalic, atraumatic eyes: EOMI nose: nares patent neck: supple, trachea midline cardiac: +S1/S1. no murmur respiratory: lungs CTA, non-labored, no wheezing, no retractions extremities: FROM x 4, strength +5/5, sensory intact neuro: A&Ox3, no focal neurological deficits psych: appropriate mood and affect, cooperative Constitutional Vital Signs, click to edit/add: Last Vital Signs Temp 98.8 F 03/30/23 13:16 Pulse 91 H 03/30/23 13:16 Resp 20 03/30/23 13:16 BP 120/80 03/30/23 13:16 Pulse Ox 97 03/30/23 13:16 O2 Del Method Room Air 03/30/23 13:16 Course Vital Signs Vital signs: Vital Signs Temperature 98.8 F 03/30/23 13:16 Pulse Rate 91 H 03/30/23 13:16 Respiratory Rate 20 03/30/23 13:16 Blood Pressure 120/80 03/30/23 13:16 Pulse Oximetry 97 03/30/23 13:16 Oxygen Delivery Method Room Air 03/30/23 13:16 Temperature 98.8 F 03/30/23 13:16 Pulse Rate 91 H 03/30/23 13:16 Respiratory Rate 20 03/30/23 13:16 Blood Pressure 120/80 03/30/23 13:16 Pulse Oximetry 97 03/30/23 13:16 Oxygen Delivery Method Room Air 03/30/23 13:16 Medical Decision Making MDM Narrative Medical decision making narrative: Previous medical records reviewed. Magnesium 1.5 and will be repleted with 2 g IV. Folate 7.3 and last week this was 3.3 and will be given 1 g folate. Abnormal labs are similar to her multiple previous labs. No other significant lab normalities. I discussed and imaging with patient, although symptoms are consistent with a focal brain cause, although I cannot rule out MS, but patient declines imaging. F/u with PCP. She is instructed that if symptoms continue, she would not have to follow-up with a neurologist for an EMG. Possibly small fiber neuropathy from the alcohol intake. Afebrile, not tachypneic, not tachycardic, tolerating p.o., not hypoxic, non toxic appearing and ambulating at baseline and hemodynamically stable to be d/c. answered all questions. pt in agreement with tx. educated when to return to ER. Lab Data Labs: Lab Results 03/30/23 Range/Units 13:45 WBC 18.2 H (4.0-11.0) 10^3/uL RBC 3.37 L (4.20-5.40) 10^6/uL Hgb 11.2 L (12.0-16.0) g/dL Hct 33.1 L (36.0-48.0) % MCV 98.2 (81.0-99.0) fL MCH 33.2 (26.7-34.0) pg MCHC 33.8 (29.9-35.2) g/dL RDW 13.6 (11.0-15.0) % Plt Count 472 H (150-450) 10^3/uL MPV 9.7 (9.5-13.5) fL Neut % (Auto) 76.4 H (43.0-75.0) % Lymph % (Auto) 7.5 L (20.5-60.0) % Sterling % (Auto) 11.7 (1.7-12.0) % Eos % (Auto) 3.4 (0.9-7.0) % Baso % (Auto) 0.6 (0.2-2.0) % Neut # (Auto) 13.9 H (1.4-6.5) 10^3/uL Lymph # (Auto) 1.4 (1.2-3.8) 10^3/uL Sterling # (Auto) 2.1 H (0.3-0.8) 10^3/uL Eos # (Auto) 0.6 (0.0-0.7) 10^3/uL Baso # (Auto) 0.1 (0.0-0.1) 10^3/uL Abs Immat Gran (auto) 0.08 H (0.00-0.03) 10^3/uL Imm/Tot Granulo (auto) 0.4 (0.0-0.5) % Sodium 138 (136-145) mmol/L Potassium 4.1 (3.5-5.1) mmol/L Chloride 98 (98-107) mmol/L Carbon Dioxide 30.5 (21.0-32.0) mmol/L Anion Gap 13.6 BUN 13.0 (7.0-18.0) mg/dL Creatinine 0.79 (0.55-1.02) mg/dL Est GFR ( Amer) >60 (>=60) Est GFR (Non-Af Amer) >60 (>=60) BUN/Creatinine Ratio 16.5 Glucose 87 (74-106) mg/dL Calcium 9.0 (8.5-10.1) mg/dL Magnesium 1.5 L (1.8-2.4) mg/dL Total Bilirubin 0.5 (0.2-1.0) mg/dL AST 95 H (15-37) U/L ALT 31 (14-59) U/L Alkaline Phosphatase 390 H (46-116) U/L Total Protein 7.0 (6.4-8.2) g/dL Albumin 2.6 L (3.4-5.0) g/dL Globulin 4.4 g/dL Albumin/Globulin Ratio 0.6 Folate 7.30 L (8.60-58.90) ng/mL Discharge Plan Discharge Chief Complaint: Neuro Symptoms/Deficit Clinical Impression: Paresthesia of upper and lower extremities of both sides, Hypomagnesemia, Constipation Patient Disposition: Home, Self-Care Time of Disposition Decision: 15:30 Condition: Good Mode of Transportation: Private Vehicle Prescriptions / Home Meds: No Action albuterol sulfate [Ventolin HFA] 90 mcg/actuation HFA aerosol inhaler 2 inh INHALATION Q6H PRN (Reason: shortness of breath or wheezing) amlodipine 2.5 mg tablet 2.5 mg PO DAILY furosemide 20 mg tablet 20 mg PO Q12H spironolactone 50 mg tablet 50 mg PO DAILY venlafaxine 150 mg capsule,extended release 24hr 150 mg PO DAILY propranolol 20 mg tablet 20 mg PO Q12H Instructions: Paresthesia (ED), Hypomagnesemia (ED) Stand Alone Forms: Portal Instructions Referrals: Ashly Wu [Primary Care Provider] - 1 week
[2023-03-30] MEDS: LACTULOSE 10 GM/15 ML UD CUP 30 GM PO (13:59)
[2023-03-30 14:20] LABS: Basophils Absolute Auto 0.1 10^3/uL (0.0-0.1); Basophils Percent Auto 0.6 % (0.2-2.0); Eosinophils Absolute Auto 0.6 10^3/uL (0.0-0.7); Eosinophils Percent Auto 3.4 % (0.9-7.0); Hematocrit 33.1 % (36.0-48.0); Hemoglobin 11.2 g/dL (12.0-16.0); Immature Granulocytes Abs Auto 0.08 10^3/uL (0.00-0.03); Immature Granulocytes Pct Auto 0.4 % (0.0-0.5); Lymphocytes Absolute Auto 1.4 10^3/uL (1.2-3.8); Lymphocytes Percent Auto 7.5 % (20.5-60.0); Mean Corpuscular HGB Conc 33.8 g/dL (29.9-35.2); Mean Corpuscular Hemoglobin 33.2 pg (26.7-34.0); Mean Corpuscular Volume 98.2 fL (81.0-99.0); Mean Platelet Volume 9.7 fL (9.5-13.5); Monocytes Absolute Auto 2.1 10^3/uL (0.3-0.8); Monocytes Percent Auto 11.7 % (1.7-12.0); Neutrophils Absolute Auto 13.9 10^3/uL (1.4-6.5); Neutrophils Percent Auto 76.4 % (43.0-75.0); Platelet Count 472 10^3/uL (150-450); Red Blood Count 3.37 10^6/uL (4.20-5.40); Red Cell Distribution Width 13.6 % (11.0-15.0); White Blood Count 18.2 10^3/uL (4.0-11.0)
[2023-03-30 14:33] LABS: Alanine Aminotransferase 31 U/L (14-59); Albumin Globulin Ratio 0.6; Albumin Level 2.6 g/dL (3.4-5.0); Alkaline Phosphatase 390 U/L (46-116); Anion Gap 13.6; Aspartate Amino Transferase 95 U/L (15-37); BUN Creatinine Ratio 16.5; Bilirubin Total 0.5 mg/dL (0.2-1.0); Carbon Dioxide 30.5 mmol/L (21.0-32.0); Chloride 98 mmol/L (98-107); Estimated GFR (African America >60 (>=60); Estimated GFR (Non-African Ame >60 (>=60); Globulin 4.4 g/dL; Glucose 87 mg/dL (74-106); Magnesium 1.5 mg/dL (1.8-2.4); Potassium 4.1 mmol/L (3.5-5.1); Sodium 138 mmol/L (136-145)
[2023-03-30] MEDS: MAGNESIUM SULFATE IN WATER 2 GM/50 ML PREMIX IV (14:57)
[2023-03-30] MEDS: FOLIC ACID 1 MG TABLET PO (15:26)
== END 2023-03-30 16:02 | disposition home or self-care (01) ==
PROVIDERS: Physician Assistant; Emergency Provider Emergency Medicine; PCP Nurse Practitioner
DX: R20.2 Paresthesia of skin (principal); E83.42 Hypomagnesemia; K59.00 Constipation, unspecified; F10.20 Alcohol dependence, uncomplicated; K70.30 Alcoholic cirrhosis of liver without ascites; Z79.899 Other long term (current) drug therapy
CPT/HCPCS: 36415; 80053; 82746; 83735; 85025; 96365; 99284

== ENCOUNTER 2023-03-31 13:14 | Emergency (ER) | payer MEDICARE, SELFPAY ==
[2023-03-31 13:24] VITALS: BP 101/66; PULSE 83; RESP 16; TEMP 37.2; O2SAT 95; BMI 23.1
--- NOTE | 2023-03-31 13:36 | CT_ITS ---
The [address] [address] Patient Name: FOUZIA MA MRN: [id number] date: 1960 Sex: F Assigned Patient Location: ER Current Patient Location: ER Accession/Order Number: [id number] Exam Date: 03/31/2023 13:53 Report Date: 03/31/2023 14:30 At the request of: ANTONIO PEPPER Procedure: CT head/brain wo con EXAM: CT head/brain wo con HISTORY: Paresthesia COMPARISON: None. TECHNIQUE: Axial CT scans through the head were obtained without IV contrast administration. Dose reduction techniques were achieved by using: automated exposure control and/or adjustment of mA and /or kV according to patient size and/or use of iterative reconstruction technique. FINDINGS: There is no evidence of acute intracranial hemorrhage or abnormal extra-axial fluid collection. No mass effect or midline shift is seen. There is no evidence of large acute territorial infarction. There is no hydrocephalus. Moderate enlargement of the ventricles and sulci, consistent with age appropriate cerebral atrophy. There are nonspecific mild low-attenuation patchy areas at the periventricular white matter, likely represents chronic microvascular ischemia. To the limit of CT, the posterior fossa appears unremarkable. No definite acute fracture is identified. Soft tissues are unremarkable. The visualized orbits show no abnormal mass. The visualized paranasal sinuses show no air-fluid level. Mastoid air cells are clear. CT/CT head/brain wo con IMPRESSION: No CT evidence of acute intracranial abnormality. Age-related diffuse cerebral atrophy. Mild chronic microvascular ischemia. Electronically authenticated by: ANDREW CARLSON Date: 03/31/2023 14:30
--- NOTE | 2023-03-31 13:36 | CT_ITS ---
The [address] [address] Patient Name: FOUZIA MA MRN: [id number] date: 1960 Sex: F Assigned Patient Location: ER Current Patient Location: Accession/Order Number: [id number] Exam Date: 03/31/2023 13:53 Report Date: 03/31/2023 14:40 At the request of: ANTONIO PEPPER Procedure: CT cervical spine wo con CT scan cervical spine 03/31/2023. HISTORY:Numbness and tingling sensations in both hands and bilateral feet starting yesterday. Paresthesia COMPARISON: None. TECHNIQUE: Multiple contiguous axial CT images of the cervical spine were obtained without contrast. Sagittal and coronal reformatted images were made. Dose reduction techniques were achieved by using automated exposure control and/or adjustment of mA and/or kV according to patient size and/or use of iterative reconstruction technique. FINDINGS: There are mild atherosclerotic vascular calcifications of the carotid arteries within the neck bilaterally. No fracture or subluxation is seen. There is mild reversal of the normal cervical lordosis centered at the C3-C4 level. There is moderate to severe discogenic disease at the C4-C5 through the C7-T1 levels. There is severe facet joint arthropathy on the right at the C2-C3 level and on the left at the C3-C4 level. There is also moderate facet joint arthropathy bilaterally at the C7-T1 level. C2-C3 level: No significant disc protrusion, spinal canal stenosis, or foraminal narrowing is seen. C3-C4 level: There is a small posterior disc-osteophyte complex which appears to cause mild spinal canal stenosis. Uncovertebral and facet joint arthropathy on the left appear to cause moderate to severe left foraminal narrowing. No right foraminal narrowing. C4-C5 level: There is a small posterior disc-osteophyte complex which appears to cause mild spinal canal stenosis. Uncovertebral arthropathy appears to cause moderate right and mild left foraminal narrowing. C5-C6 level: There is a posterior disc-osteophyte complex which is more prominent in the left paracentral region. This appears to cause probably at least moderate spinal canal stenosis. Uncovertebral arthropathy appears to cause severe bilateral foraminal narrowing. C6-C7 level: There is a small posterior disc-osteophyte complex which appears more prominent in the right paracentral region and this appears to cause at least moderate spinal canal stenosis. There is bilateral uncovertebral arthropathy and this appears to cause severe right and moderate to severe left foraminal narrowing. C7-T1 level: There is a small posterior disc-osteophyte complex, but there does not appear to be significant spinal canal stenosis. Uncovertebral arthropathy appears to cause severe bilateral foraminal narrowing. T1-T2 level: A right foraminal disc-osteophyte complex appears to cause severe right foraminal narrowing. No left foraminal narrowing or central spinal canal stenosis is seen. There is a mild rotatory levoconvex scoliosis of the cervical spine. There is a well-circumscribed ovoid 8 mm lucent focus within the right side of the C6 vertebral body. No other lucencies are identified of the bones. CT/CT cervical spine wo con IMPRESSION: 1. There is a well-circumscribed ovoid 8 mm lucency within the right side of the C6 vertebral body. Although this may represent a hemangioma, it is nonspecific. As a precautionary measure, an MRI of the cervical spine without contrast is recommended for further evaluation of this finding. 2. There is multilevel discogenic disease of the cervical spine with varying degrees of spinal canal stenosis at the C3-C4 through the C6-C7 level secondary to factors described above. 3. There is multilevel foraminal narrowing of the cervical spine and also of the right T1-T2 foramen secondary to uncovertebral and/or facet joint arthropathy. 4. Mild rotatory levoconvex scoliosis of the cervical spine. Electronically authenticated by: BLOSSOM CASTLE Date: 03/31/2023 14:40
[2023-03-31 14:25] LABS: Basophils Absolute Auto 0.1 10^3/uL (0.0-0.1); Basophils Percent Auto 0.5 % (0.2-2.0); Eosinophils Absolute Auto 0.6 10^3/uL (0.0-0.7); Eosinophils Percent Auto 3.2 % (0.9-7.0); Hematocrit 33.8 % (36.0-48.0); Hemoglobin 11.4 g/dL (12.0-16.0); Immature Granulocytes Abs Auto 0.08 10^3/uL (0.00-0.03); Immature Granulocytes Pct Auto 0.4 % (0.0-0.5); Lymphocytes Absolute Auto 1.6 10^3/uL (1.2-3.8); Lymphocytes Percent Auto 8.5 % (20.5-60.0); Mean Corpuscular HGB Conc 33.7 g/dL (29.9-35.2); Mean Corpuscular Hemoglobin 33.3 pg (26.7-34.0); Mean Corpuscular Volume 98.8 fL (81.0-99.0); Mean Platelet Volume 9.4 fL (9.5-13.5); Monocytes Percent Auto 10.4 % (1.7-12.0); Neutrophils Absolute Auto 14.5 10^3/uL (1.4-6.5); Platelet Count 486 10^3/uL (150-450); Red Blood Count 3.42 10^6/uL (4.20-5.40); Red Cell Distribution Width 13.6 % (11.0-15.0); White Blood Count 18.8 10^3/uL (4.0-11.0)
[2023-03-31 14:28] LABS: INR 1.08; Prothrombin Time 11.4 sec (9.0-11.6)
[2023-03-31 14:32] LABS: Erythrocyte Sedimentation Rate 43 mm/hr (<=30)
--- NOTE | 2023-03-31 14:33 | ED_ITS ---
HPI - General Adult General Chief complaint: Neuro Symptoms/Deficit Stated complaint: NUMBNESS TO HANDS AND FEET Time Seen by Provider: 03/31/23 13:33 Source: patient Mode of arrival: Wheelchair History of Present Illness HPI narrative: patient is a 63-year-old female to history of alcoholism who returns to the emergency department today complaining of numbness and tingling to her hands and feet. She states with movement of the legs she feels weakness and pain traveling up to her hips. She has a history of chronic low back pain that is not worse or different today. She denies any headaches, visual changes. She was seen in this emergency department yesterday for the same symptoms and was found to have low potassium and low magnesium, she was treated with IV magnesium with improvement. She was started on steroids yesterday. She states she was feeling better but then today her symptoms worsened again. No falls or injuries. She was recently seen by myself for abnormal liver function testing, she was due to follow up with gastrointestinal yesterday, she missed that appointment. She has no complaints of chest pain, shorttness of breath, abdominal pain or vomiting. No urinary symptoms. Related Data Home Medications Medication Instructions Recorded Confirmed albuterol sulfate 90 mcg/actuation 2 inh inhalation Q6H PRN shortness 03/21/23 03/31/23 aerosol inhaler (Ventolin HFA) of breath or wheezing amlodipine 2.5 mg tablet 2.5 mg PO DAILY 03/21/23 03/31/23 furosemide 20 mg tablet 20 mg PO DAILY 03/21/23 03/31/23 propranolol 20 mg tablet 20 mg PO Q12H 03/21/23 03/31/23 spironolactone 50 mg tablet 50 mg PO DAILY 03/21/23 03/31/23 venlafaxine 150 mg 150 mg PO DAILY 03/21/23 03/31/23 capsule,extended release 24 hr folic acid 1 mg tablet 1 mg PO DAILY 03/31/23 03/31/23 potassium chloride 20 mEq 20 meq PO DAILY 03/31/23 03/31/23 tablet,extended release(part/cryst) (Klor-Con M) trazodone 50 mg tablet 100 mg PO QPM 03/31/23 03/31/23 Previous Rx's Medication Instructions Recorded magnesium oxide 400 mg PO DAILY #14 caps 03/31/23 potassium chloride 20 mEq 20 meq PO DAILY #10 tabs 03/31/23 tablet,extended release Allergies Allergy/AdvReac Type Severity Reaction Status Date / Time No Known Drug Allergies Allergy Verified 03/21/23 20:03 Review of Systems ROS Constitutional Denies: fever or chills Ears, nose, mouth, and throat Denies: throat pain Cardiovascular Denies: chest pain Respiratory Denies: shortness of breath or cough Gastrointestinal Denies: abdominal pain, nausea or vomiting Musculoskeletal Reports: back pain Integumentary/Breast Denies: rash Neurological Reports: numbness in extremities and weakness in extremities; Denies: headache Endocrine Denies: excessive urination Hematologic/Lymphatic Denies: easy bruising Allergic/Immunologic Denies: hives Exam Narrative Exam Narrative: Gen.: Awake, alert, in no distress Head: Normocephalic, atraumatic ENT: Moist mucous membranes Respiratory: No respiratory distress, lungs clear bilaterally Cardio: Regular rate and rhythm Gastrointestinal: Abdomen is soft, nondistended and nontender to palpation Extremities: Moves extremities equally, no injuries noted; symmetric dorsiflexion and plantarflexion of the lower extremities with normal hip flexion bilaterally. No decrease in sensation to the medial thighs. 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 No unilateral weakness noted Psych: Normal mood and affect Neuro: No focal neuro deficit Skin: Warm, dry, intact Constitutional Vital Signs, click to edit/add: Last Vital Signs Temp 99.0 F 03/31/23 13:24 Pulse 83 03/31/23 13:24 Resp 16 03/31/23 13:24 BP 101/66 03/31/23 13:24 Pulse Ox 95 03/31/23 13:24 O2 Del Method Room Air 03/31/23 13:24 Course Vital Signs Vital signs: Vital Signs Temperature 99.0 F 03/31/23 13:24 Pulse Rate 83 03/31/23 13:24 Respiratory Rate 16 03/31/23 13:24 Blood Pressure 101/66 03/31/23 13:24 Pulse Oximetry 95 03/31/23 13:24 Oxygen Delivery Method Room Air 03/31/23 13:24 Temperature 99.0 F 03/31/23 13:24 Pulse Rate 83 03/31/23 13:24 Respiratory Rate 16 03/31/23 13:24 Blood Pressure 101/66 03/31/23 13:24 Pulse Oximetry 95 03/31/23 13:24 Oxygen Delivery Method Room Air 03/31/23 13:24 Medical Decision Making MDM Narrative Medical decision making narrative: labs compared to previous, stable leukocytosis noted with mild hypokalemia and normal magnesium levels. Otherwise unremarkable labs. CTs of the head and C- spine were performed, this shows a small lucency at the C6 vertebrae, consistent with a hemangioma although patient was encouraged to follow-up with her PCP for additional imaging is indicated. She has no focal neuro deficits in the Emergency Room. She'll be placed on potassium and magnesium supplementation for home. Return to the Emergency Room if symptoms change or worsen. she has a benign exam at time of recheck by attending physician. Medical Records Medical records reviewed: Yes I reviewed the patient's medical records Lab Data Lab results reviewed: Yes I reviewed the patient's lab results Labs: Lab Results 03/31/23 03/31/23 Range/Units 14:07 15:30 WBC 18.8 H (4.0-11.0) 10^3/uL RBC 3.42 L (4.20-5.40) 10^6/uL Hgb 11.4 L (12.0-16.0) g/dL Hct 33.8 L (36.0-48.0) % MCV 98.8 (81.0-99.0) fL MCH 33.3 (26.7-34.0) pg MCHC 33.7 (29.9-35.2) g/dL RDW 13.6 (11.0-15.0) % Plt Count 486 H (150-450) 10^3/uL MPV 9.4 L (9.5-13.5) fL Neut % (Auto) 77.0 H (43.0-75.0) % Lymph % (Auto) 8.5 L (20.5-60.0) % [place] % (Auto) 10.4 (1.7-12.0) % Eos % (Auto) 3.2 (0.9-7.0) % Baso % (Auto) 0.5 (0.2-2.0) % Neut # (Auto) 14.5 H (1.4-6.5) 10^3/uL Lymph # (Auto) 1.6 (1.2-3.8) 10^3/uL [place] # (Auto) 2.0 H (0.3-0.8) 10^3/uL Eos # (Auto) 0.6 (0.0-0.7) 10^3/uL Baso # (Auto) 0.1 (0.0-0.1) 10^3/uL Abs Immat Gran (auto) 0.08 H (0.00-0.03) 10^3/uL Imm/Tot Granulo (auto) 0.4 (0.0-0.5) % ESR 43 H (<=30) mm/hr PT 11.4 (9.0-11.6) sec INR 1.08 Sodium 137 (136-145) mmol/L Potassium 3.2 L (3.5-5.1) mmol/L Chloride 98 (98-107) mmol/L Carbon Dioxide 34.3 H (21.0-32.0) mmol/L Anion Gap 7.9 BUN 11.0 (7.0-18.0) mg/dL Creatinine 1.09 H (0.55-1.02) mg/dL Est GFR ( Amer) >60 (>=60) Est GFR (Non-Af Amer) 50 L (>=60) BUN/Creatinine Ratio 10.1 Glucose 126 H (74-106) mg/dL Calcium 8.4 L (8.5-10.1) mg/dL Phosphorus 3.2 (2.6-4.7) mg/dL Magnesium 2.0 (1.8-2.4) mg/dL Total Bilirubin 0.5 (0.2-1.0) mg/dL AST 97 H (15-37) U/L ALT 33 (14-59) U/L Alkaline Phosphatase 382 H (46-116) U/L C-Reactive Protein 6.7 H (<=1.0) mg/dL Total Protein 7.0 (6.4-8.2) g/dL Albumin 2.6 L (3.4-5.0) g/dL Globulin 4.4 g/dL Albumin/Globulin Ratio 0.6 TSH 3.645 (0.358-3.740) uIU/mL Urine Color Dk. yellow (YELLOW) Urine Clarity Clear (CLEAR) Urine pH 5.5 (5.0-9.0) Ur Specific [place] 1.025 (1.005-1.025) Urine Protein Trace (NEG/TRACE) mg/dL Urine Glucose (UA) Negative (NEGATIVE) mg/dL Urine Ketones Trace A (NEGATIVE) mg/dL Urine Occult Blood Negative (NEGATIVE) Urine Nitrite Negative (NEGATIVE) Urine Bilirubin Small A (NEGATIVE) Urine Urobilinogen 1.0 (0.2-1.0) EU/dL Ur Leukocyte Esterase Trace A (NEGATIVE) Urine RBC 2-5 A (0-2) #/HPF Urine WBC 5-10 A (NONE SEEN) #/HPF Ur Squamous Epith Cells Few A (NONE/RARE) #/LPF Ur Transition Epith Cell Few A (NONE SEEN) #/LPF Urine Crystals None seen (None Seen) #/HPF Urine Bacteria Trace A (NONE SEEN) #/HPF Urine Casts Seen A (NONE SEEN) #/LPF Hyaline Casts Few Urine Mucus Trace A (NONE SEEN) Ur Culture Indicated? Yes Ethanol Quant <3 mg/dL Imaging Data CT scan - head: Attestation: I have reviewed the pertinent imaging results. Radiologist's impression: Procedure: CT head/brain wo con EXAM: CT head/brain wo con HISTORY: Paresthesia COMPARISON: None. TECHNIQUE: Axial CT scans through the head were obtained without IV contrast administration. Dose reduction techniques were achieved by using: automated exposure control and/or adjustment of mA and /or kV according to patient size and/or use of iterative reconstruction technique. FINDINGS: There is no evidence of acute intracranial hemorrhage or abnormal extra-axial fluid collection. No mass effect or midline shift is seen. There is no evidence of large acute territorial infarction. There is no hydrocephalus. Moderate enlargement of the ventricles and sulci, consistent with age appropriate cerebral atrophy. There are nonspecific mild low-attenuation patchy areas at the periventricular white matter, likely represents chronic microvascular ischemia. To the limit of CT, the posterior fossa appears unremarkable. No definite acute fracture is identified. Soft tissues are unremarkable. The visualized orbits show no abnormal mass. The visualized paranasal sinuses show no air-fluid level. Mastoid air cells are clear. IMPRESSION: No CT evidence of acute intracranial abnormality. Age-related diffuse cerebral atrophy. Mild chronic microvascular ischemia. Electronically authenticated by: [facility] Date: 03/31/2023 14:30 CT cervical spine: Attestation: I have reviewed the pertinent imaging results. Radiologist's impression: Procedure: CT cervical spine wo con CT scan cervical spine 03/31/2023. HISTORY:Numbness and tingling sensations in both hands and bilateral feet starting yesterday. Paresthesia COMPARISON: None. TECHNIQUE: Multiple contiguous axial CT images of the cervical spine were obtained without contrast. Sagittal and coronal reformatted images were made. Dose reduction techniques were achieved by using automated exposure control and/or adjustment of mA and/or kV according to patient size and/or use of iterative reconstruction technique. FINDINGS: There are mild atherosclerotic vascular calcifications of the carotid arteries within the neck bilaterally. No fracture or subluxation is seen. There is mild reversal of the normal cervical lordosis centered at the C3-C4 level. There is moderate to severe discogenic disease at the C4-C5 through the C7-T1 levels. There is severe facet joint arthropathy on the right at the C2-C3 level and on the left at the C3-C4 level. There is also moderate facet joint arthropathy bilaterally at the C7-T1 level. C2-C3 level: No significant disc protrusion, spinal canal stenosis, or foraminal narrowing is seen. C3-C4 level: There is a small posterior disc-osteophyte complex which appears to cause mild spinal canal stenosis. Uncovertebral and facet joint arthropathy on the left appear to cause moderate to severe left foraminal narrowing. No right foraminal narrowing. C4-C5 level: There is a small posterior disc-osteophyte complex which appears to cause mild spinal canal stenosis. Uncovertebral arthropathy appears to cause moderate right and mild left foraminal narrowing. C5-C6 level: There is a posterior disc-osteophyte complex which is more prominent in the left paracentral region. This appears to cause probably at least moderate spinal canal stenosis. Uncovertebral arthropathy appears to cause severe bilateral foraminal narrowing. C6-C7 level: There is a small posterior disc-osteophyte complex which appears more prominent in the right paracentral region and this appears to cause at least moderate spinal canal stenosis. There is bilateral uncovertebral arthropathy and this appears to cause severe right and moderate to severe left foraminal narrowing. C7-T1 level: There is a small posterior disc-osteophyte complex, but there does not appear to be significant spinal canal stenosis. Uncovertebral arthropathy appears to cause severe bilateral foraminal narrowing. T1-T2 level: A right foraminal disc-osteophyte complex appears to cause severe right foraminal narrowing. No left foraminal narrowing or central spinal canal stenosis is seen. There is a mild rotatory levoconvex scoliosis of the cervical spine. There is a well-circumscribed ovoid 8 mm lucent focus within the right side of the C6 vertebral body. No other lucencies are identified of the bones. IMPRESSION: 1. There is a well-circumscribed ovoid 8 mm lucency within the right side of the C6 vertebral body. Although this may represent a hemangioma, it is nonspecific. As a precautionary measure, an MRI of the cervical spine without contrast is recommended for further evaluation of this finding. 2. There is multilevel discogenic disease of the cervical spine with varying degrees of spinal canal stenosis at the C3-C4 through the C6-C7 level secondary to factors described above. 3. There is multilevel foraminal narrowing of the cervical spine and also of the right T1-T2 foramen secondary to uncovertebral and/or facet joint arthropathy. 4. Mild rotatory levoconvex scoliosis of the cervical spine. Electronically authenticated by: BLOSSOM CASTLE Date: 03/31/2023 14:40 Discharge Plan Discharge Chief Complaint: Neuro Symptoms/Deficit Clinical Impression: Paresthesia of upper and lower extremities of both sides, Acute hypokalemia Patient Disposition: Home, Self-Care Time of Disposition Decision: 16:04 Condition: Good Prescriptions / Home Meds: New potassium chloride 20 mEq tablet extended release 20 meq PO DAILY Qty: 10 0RF magnesium oxide 400 mg magnesium capsule 400 mg PO DAILY Qty: 14 0RF No Action potassium chloride [Klor-Con M20] 20 mEq tablet,ER particles/crystals 20 meq PO DAILY folic acid 1 mg tablet 1 mg PO DAILY trazodone 50 mg tablet 100 mg PO QPM albuterol sulfate [Ventolin HFA] 90 mcg/actuation HFA aerosol inhaler 2 inh INHALATION Q6H PRN (Reason: shortness of breath or wheezing) amlodipine 2.5 mg tablet 2.5 mg PO DAILY furosemide 20 mg tablet 20 mg PO DAILY spironolactone 50 mg tablet 50 mg PO DAILY venlafaxine 150 mg capsule,extended release 24hr 150 mg PO DAILY propranolol 20 mg tablet 20 mg PO Q12H Instructions: Hypokalemia (ED), Paresthesia (ED) Stand Alone Forms: Portal Instructions Referrals: Ashly Wu [Primary Care Provider] - 1 week
[2023-03-31 14:38] LABS: Ethanol <3 mg/dL
[2023-03-31 14:39] LABS: Alanine Aminotransferase 33 U/L (14-59); Albumin Globulin Ratio 0.6; Albumin Level 2.6 g/dL (3.4-5.0); Alkaline Phosphatase 382 U/L (46-116); Anion Gap 7.9; Aspartate Amino Transferase 97 U/L (15-37); BUN Creatinine Ratio 10.1; Bilirubin Total 0.5 mg/dL (0.2-1.0); C Reactive Protein 6.7 mg/dL (<=1.0); Calcium 8.4 mg/dL (8.5-10.1); Carbon Dioxide 34.3 mmol/L (21.0-32.0); Chloride 98 mmol/L (98-107); Estimated GFR (African America >60 (>=60); Estimated GFR (Non-African Ame 50 (>=60); Globulin 4.4 g/dL; Glucose 126 mg/dL (74-106); Phosphorus 3.2 mg/dL (2.6-4.7); Potassium 3.2 mmol/L (3.5-5.1); Sodium 137 mmol/L (136-145); Thyroid Stimulating Hormone 3.645 uIU/mL (0.358-3.740)
[2023-03-31] MEDS: 0.9 % SODIUM CHLORIDE 1,000 ML 1000 ML IV (15:18)
[2023-03-31] MEDS: METHYLPREDNISOLONE SOD SUCC PF 125 MG/2 ML VIAL IVP (15:19)
[2023-03-31] MEDS: POTASSIUM BICARBONATE/CIT 25 MEQ TABLET EFF 50 MEQ PO (15:24)
[2023-03-31 15:41] LABS: Bilirubin Urine SMALL (NEGATIVE); Blood Urine NEGATIVE (NEGATIVE); Clarity Urine CLEAR (CLEAR); Color Urine DK. YELLOW (YELLOW); Glucose Urine UA NEGATIVE (NEGATIVE); Ketones Urine TRACE mg/dL (NEGATIVE); Leukocyte Esterase Urine TRACE (NEGATIVE); Nitrite Urine NEGATIVE (NEGATIVE); Protein Urine TRACE mg/dL (NEG/TRACE); Specific Gravity Urine 1.025 (1.005-1.025); pH Urine 5.5 (5.0-9.0)
[2023-03-31 15:42] LABS: Urine Microscopic Indicated YES
[2023-03-31 16:01] LABS: Cast Seen? SEEN #/LPF (NONE SEEN); Crystals Seen? None Seen #/HPF (None Seen); Hyaline Casts Urine FEW; Mucus Urine TRACE (NONE SEEN); Squamous Epithelial Cell Urine FEW #/LPF (NONE/RARE); Transitional Epi Cells Urine FEW #/LPF (NONE SEEN)
[2023-03-31 16:02] LABS: Bacteria Urine TRACE #/HPF (NONE SEEN); Urine Culture Indicated YES
[2023-03-31 16:17] VITALS: BP 128/78; PULSE 78; RESP 18; O2SAT 98
== END 2023-03-31 16:21 | disposition home or self-care (01) ==
PROVIDERS: Physician Assistant; Emergency Provider Emergency Medicine; PCP Nurse Practitioner
DX: E87.6 Hypokalemia (principal); R20.2 Paresthesia of skin; G89.29 Other chronic pain; M54.50 Low back pain, unspecified; Z79.899 Other long term (current) drug therapy; R93.7 Abnormal findings on diagnostic imaging of other parts of musculoskeletal system
CPT/HCPCS: 36415; 70450; 72125; 80053; 80320; 81001; 83735; 84100; 84443; 85025; 85610; 85652; 86140; 87086; 96374; 99285; J2930

== ENCOUNTER 2023-04-07 07:39 | Outpatient (OUT) | payer MEDICARE, SELFPAY ==
--- NOTE | 2023-04-07 07:42 | MR_ITS ---
The [address] [address] Patient Name: FOUZIA MA MRN: [id number] date: 1960 Sex: F Assigned Patient Location: MRI Current Patient Location: MRI Accession/Order Number: [id number] Exam Date: 04/07/2023 07:55 Report Date: 04/08/2023 15:49 At the request of: CARI LOWE Procedure: MR abdomen wo/w con EXAM: MR abdomen wo/w con 04/07/2023 COMPARISON STUDY: CT of the abdomen and pelvis with contrast 03/21/2023 and 03/07/2023. TECHNIQUE: Coronal T2, axial T1 in and out of phase, axial T2 with and without fat saturation, and axial T1-weighted images were obtained before and after the utilization of intravenous gadolinium contrast. Coronal T1 postcontrast fat-saturated images were also obtained. HISTORY: Alcoholic Liver Cirrhosis K70.30, Abnormal CT FINDINGS: Right hepatic lobe measures 16.6 cm superior to inferior. The spleen measures 10.5 cm. There is a small volume of perihepatic ascites as well as trace volume of pelvic ascites noted. Heart size is normal. Lung bases are grossly clear. Heterogeneous moderate to severe fat infiltration of both lobes of the liver are again identified. There is significant drop in signal intensity of the hepatic parenchyma in the areas of fat infiltration seen best on the T1 out of phase images. Gallbladder, spleen, pancreas, and kidneys demonstrate no acute abnormality. 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 Right adrenal is somewhat difficult to accurately localize. Left adrenal is also unremarkable in appearance. Aorta is nonaneurysmal. There are a few tiny gallstones identified. Subcentimeter high T2 signal scattered cysts are present. One for example within the anterior segment right hepatic lobe, image 7 of series 7 measures 8 mm. A cyst posterior to this measures 5 mm. A cyst near the fissure for the falciform ligament within the medial segment left hepatic lobe measures 4 mm. No significant biliary or pancreatic ductal dilatation. A posteriorly located midpole right renal cyst measures 6 mm. Right hepatic cyst anteriorly on image 17, series 8 measures 5 mm. On the postcontrast images there is no convincing evidence of hepatic mass. No significantly enlarged adenopathy noted. MR/MR abdomen wo/w con IMPRESSION: 1. Moderate to severe heterogeneous fatty infiltration of the liver similar to that seen on studies dating back to 03/07/2023. No discrete hepatic mass. Hepatic cirrhosis is likely present. 2. Cholelithiasis without acute cholecystitis. Negative for biliary or pancreatic ductal dilatation. 3. Subcentimeter hepatic cyst. 4. 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 Subcentimeter right renal cysts. 5. Small volume of abdominal and pelvic ascites. Electronically authenticated by: AMY VIDALES Date: 04/08/2023 15:49
== END 2023-04-07 07:40 | disposition home or self-care (01) ==
LOC: MRI 07:39
PROVIDERS: PCP Nurse Practitioner; Visit Provider Nurse Practitioner
DX: K70.30 Alcoholic cirrhosis of liver without ascites (principal); R93.5 Abnormal findings on diagnostic imaging of other abdominal regions, including retroperitoneum; R14.0 Abdominal distension (gaseous); R18.8 Other ascites; K80.20 Calculus of gallbladder without cholecystitis without obstruction; K76.89 Other specified diseases of liver
CPT/HCPCS: 74183; A9575

== ENCOUNTER 2023-04-08 07:52 | Outpatient (OUT) | payer MEDICARE, SELFPAY ==
--- NOTE | 2023-04-08 08:02 | MR_ITS ---
The [address] [address] Patient Name: FOUZIA MA MRN: [id number] date: 1960 Sex: F Assigned Patient Location: MRI Current Patient Location: MRI Accession/Order Number: [id number] Exam Date: 04/08/2023 08:05 Report Date: 04/08/2023 12:35 At the request of: CARI LOWE Procedure: MR cervical spine wo con EXAM: MR cervical spine wo con REASON FOR EXAM: Cervical Spine Abnormal CT Scan R93.7. TECHNIQUE: Multiplanar, multisequence imaging of the cervical spine was performed without contrast COMPARISON: CT scan 03/31/2023. FINDINGS: Study degraded by motion. Limited evaluation the posterior fossa is unremarkable. The visualized spinal cord demonstrates normal caliber and signal. Unchanged alignment of the cervical spine with overall straightening. Minimal anterolisthesis of C3-C4. The vertebral body heights and facet alignments are maintained. No acute or aggressive osseous abnormality identified. The bone marrow signal is diffusely heterogeneous, favoring to represent [id number] marrow reconversion. Specifically, there is no abnormal marrow signal identified at the C6 vertebral body level to correspond with CT finding. CT finding favors represent focal osteopenia. Limited evaluation of the paravertebral soft tissues is unremarkable. C2-C3: No focal disc herniation identified. No severe spinal canal stenosis. Mild left and moderate right neural foraminal stenosis secondary to uncovertebral degeneration and facet arthropathy. C3-C4: Broad-based disc bulge with flattening the ventral thecal sac. Mild spinal canal stenosis. Moderate to severe bilateral neural foraminal stenosis, left greater than right secondary to disc osteophyte complex, uncovertebral degeneration and facet arthropathy. C4-C5: Broad-based disc bulge with [id number] spinal canal stenosis. Moderate to severe bilateral neural foraminal stenosis, right greater than left secondary to disc osteophyte complex, uncovertebral degeneration and facet arthropathy. C5-C6: Broad-based disc bulge with moderate spinal canal stenosis. Severe bilateral neural foraminal stenosis secondary to disc osteophyte complex, uncovertebral degeneration and facet arthropathy. C6-C7: Broad-based disc bulge with moderate spinal canal stenosis. Severe bilateral neural foraminal stenosis secondary to disc osteophyte complex, uncovertebral degeneration and facet arthropathy. C7-T1: Mild broad-based disc bulge with mild spinal canal stenosis. Severe bilateral neural foraminal stenosis secondary to disc osteophyte complex, uncovertebral degeneration and facet arthropathy. MR/MR cervical spine wo con IMPRESSION: 1. Study mildly degraded by motion. 2. No acute or aggressive osseous abnormality identified. Specifically, no abnormal marrow signal identified in the C6 vertebral body. CT finding favors represent focal osteopenia. 3. Moderate to severe degenerative disc disease and facet arthropathy throughout the cervical spine, most significant at the C5-C6 level as described above. Electronically authenticated by: LEODAN SANDHU Date: 04/08/2023 12:35
== END 2023-04-08 07:53 | disposition home or self-care (01) ==
PROVIDERS: PCP Nurse Practitioner; Visit Provider Nurse Practitioner
DX: R93.7 Abnormal findings on diagnostic imaging of other parts of musculoskeletal system (principal); M50.30 Other cervical disc degeneration, unspecified cervical region
CPT/HCPCS: 72141

== ENCOUNTER 2023-05-19 07:49 | Outpatient (OUT) | payer MEDICARE, SELFPAY ==
--- NOTE | 2023-05-19 07:54 | P.CN_ITS ---
Consult Note: HPI Data of Consult Patient: new to practice Requesting Physician: Gretta Interiano NP Primary Care Provider: Ashly Wu Consult Narrative Reason for consult: establish care Narrative: Regina Kovacs a pleasant 63 year old female presents for evaluation and management of chronic neck and low back pain. Today pain 6/10 in low back with radiculopathy and weakness to both legs, left worse than right. Patient has numbness, tingling, and weakness to arms and legs. Patient has been unable to tolerate HEP and has had numerous falls in the last month. Has been seeing Neurosurgery Dr Mulligan, f/u with them next week. Patient has no surgical history. cc:: CC: Gretta Interiano NP Review of Systems ROS Status of ROS 10 or more systems reviewed and unremarkable except as noted in history and below Musculoskeletal Reports: back pain and neck pain Meds Home Medications and Allergies Home Medications Medication Instructions Recorded Confirmed Type albuterol sulfate 90 mcg/actuation 2 inh inhalation Q6H PRN shortness 03/21/23 03/31/23 History aerosol inhaler (Ventolin HFA) of breath or wheezing amlodipine 2.5 mg tablet 2.5 mg PO DAILY 03/21/23 03/31/23 History furosemide 20 mg tablet 20 mg PO DAILY 03/21/23 03/31/23 History propranolol 20 mg tablet 20 mg PO Q12H 03/21/23 03/31/23 History spironolactone 50 mg tablet 50 mg PO DAILY 03/21/23 03/31/23 History venlafaxine 150 mg 150 mg PO DAILY 03/21/23 03/31/23 History capsule,extended release 24 hr folic acid 1 mg tablet 1 mg PO DAILY 03/31/23 03/31/23 History magnesium oxide 400 mg PO DAILY #14 caps 03/31/23 Rx potassium chloride 20 mEq 20 meq PO DAILY #10 tabs 03/31/23 Rx tablet,extended release potassium chloride 20 mEq 20 meq PO DAILY 03/31/23 03/31/23 History tablet,extended release(part/cryst) (Klor-Con M) trazodone 50 mg tablet 100 mg PO QPM 03/31/23 03/31/23 History Allergies Allergy/AdvReac Type Severity Reaction Status Date / Time No Known Drug Allergies Allergy Verified 03/21/23 20:03 Exam Constitutional Documenting provider has reviewed patient's vital signs: yes Common normals: no apparent distress, oriented x3, healthy appearing, alert and well nourished General appearance: cooperative HENMT Common normals: normocephalic, hearing grossly normal bilaterally and moist oral mucous membranes Head and scalp: normocephalic Eye Common normals: PERRL Pupil: PERRL Neck & C-Spine Common normals: full ROM General: normal visual inspection Cervical spine: cervical ROM abnormal, pain with cervical ROM and paracervical muscle tenderness Other: neuropathy and weakness to bilateral hands Chest Common normals: inspection of chest normal Respiratory Common normals: normal respiratory effort, no retractions and no use of accessory muscles Back & Pelvis Lumbar spine/lower back: ROM limited, pain with ROM, straight leg raise positive right and straight leg raise positive left Sacroiliac joints: SI joint(s) abnormal (bilateral salome, thigh thrust, gaenslens +) Other: bilateral facet loading bilateral radiculopathy following L4,5,S1 dermatomal pattern reports cramping to buttocks and calves with ambulation Extremity Common normals: normal to inspection Neuro Common normals: oriented x3, CN's II-XII intact bilaterally, moves all extremities, no focal motor deficits, no sensory deficits noted and deep tendon reflexes 2+ bilaterally Sensorium/orientation: alert Gait (neuro): antalgic Motor exam: no movement abnormalities noted and strength abnormal (BUE BLE 4/5) Psych Common normals: mental status grossly normal, thought process normal, cooperative, affect normal, speech normal and activity/motor behavior normal Speech: normal speech Thought process: normal thought process Assessment and Plan Assessment and Plan (1) Low back pain: (2) Chronic neck pain: (3) Cervical radiculopathy: (4) Cervical spinal stenosis: (5) Lumbar spondylosis: (6) Lumbar radiculopathy: (7) Neurogenic claudication: Plan -[employer] reviewed and signed -continue HEP as tolerated, has formal PT but cannot complete due to pain/weakness/transportation issues -continue f/u with neurosurgery -EMG pending -ordered lumbar xray with flexion and extension, lumbar MRI without contrast -discussed TFESIs and facet blocks, patient not interested in injection therapy at this time. Would like additional imaging and testing first -f/u after imaging obtained
--- OUTSIDE RECORDS SUMMARY | 2023-06-08 00:30 | XMS_ITS | CCD ---
Author Name Unknown Address [address] [facility] [address] [place] [address] Organization [facility] Care Team Providers Care Fishing Rod Mechanic Name Role Phone AICHHOLZ, CONDUIT REAMER OPERATOR ASHLY Primary Care Unavailable AICHHOLZ, CONDUIT REAMER OPERATOR ASHLY Consulting Unavailable AICHHOLZ, CONDUIT REAMER OPERATOR ASHLY Admitting Unavailable AICHHOLZ, CONDUIT REAMER OPERATOR ASHLY Attending Unavailable AICHHOLZ, CONDUIT REAMER OPERATOR ASHLY Primary Care Unavailable DR SIGIFREDO VASQUES V Consulting Unavailable AICHHOLZ, CONDUIT REAMER OPERATOR ASHLY Admitting Unavailable AICHHOLZ, CONDUIT REAMER OPERATOR ASHLY Attending Unavailable AICHHOLZ, CONDUIT REAMER OPERATOR ASHLY Consulting Unavailable AICHHOLZ, CONDUIT REAMER OPERATOR ASHLY Admitting Unavailable AICHHOLZ, CONDUIT REAMER OPERATOR ASHLY Attending Unavailable AICHHOLZ, CONDUIT REAMER OPERATOR ASHLY Consulting Unavailable AICHHOLZ, CONDUIT REAMER OPERATOR ASHLY Primary Care Unavailable DR EPIFANIO ECKERT Consulting Unavailable AICHHOLZ, CONDUIT REAMER OPERATOR ASHLY Admitting Unavailable AICHHOLZ, CONDUIT REAMER OPERATOR ASHLY Attending Unavailable AICHHOLZ, CONDUIT REAMER OPERATOR ASHLY Consulting Unavailable AICHHOLZ, CONDUIT REAMER OPERATOR ASHLY Primary Care Unavailable AICHHOLZ, CONDUIT REAMER OPERATOR ASHLY Admitting Unavailable AICHHOLZ, CONDUIT REAMER OPERATOR ASHLY Attending Unavailable AICHHOLZ, CONDUIT REAMER OPERATOR AHSLY Consulting Unavailable AICHHOLZ, CONDUIT REAMER OPERATOR ASHLY Primary Care Unavailable AICHHOLZ, CONDUIT REAMER OPERATOR ASHLY Primary Care Unavailable AICHHOLZ, CONDUIT REAMER OPERATOR ASHLY Admitting Unavailable AICHHOLZ, CONDUIT REAMER OPERATOR ASHLY Attending Unavailable AICHHOLZ, CONDUIT REAMER OPERATOR ASHLY Consulting Unavailable Deneen Nix Consulting Unavailable ALIREZA PATEL Attending Unavailable Mohinder Maxwell Unavailable AICHHOLZ, ASHLY Attending Unavailable Aichholz, Ashly Fuad Primary Care Provider [phone] GREGORY Ha Attending Provider EULALIO Maxwell Attending Provider Alana Ha Admitting Unavailable Alana Ha Attending Unavailable Ashly Wu Primary Care Unavailable Mohinder Maxwell Admitting Unavailable Mohinder Maxwell Attending Unavailable Ashly Wu Primary Care Unavailable Medications Current Medications Medication Drug Class(es) Dates Sig (Normalized) Sig (Original) amLODIPine 2.5 mg oral tablet (4 sources) Dihydropyridine Calcium Channel Surinder Start: 05-01-2021 Amlodipine Active 2.5 MG PO As Directed May 01, 2021 12:00am busPIRone hydrochloride 5 mg oral tablet (2 sources) Start: 11-10-2020 take 7.5 mg by mouth once daily at bedtime Buspirone Active 7.5 MG PO Daily at bedtime November 09, 2020 11:00pm lidocaine 0.05 mg/mg medicated patch (1 source) Antiarrhythmic, Amide Local Anesthetic Start: 04-27-2023 Lidocaine 5 % 1 patch remove after 12 hours Externally Once a day for 30 Apr, Active predniSONE 10 mg oral tablet (1 source) Start: 04-27-2023 predniSONE 10 MG Take 3 tablets by mouth for 3 days then 2 tablets by mouth for 3 days then 1 tablet by mouth for 3 days Orally Once a day for Apr, Active propranolol hydrochloride 20 mg oral tablet (2 sources) beta-Adrenergic Surinder Start: 11-07-2020 take 20 mg by mouth twice daily Propranolol Active 20 MG PO Twice daily November 06, 2020 11:00pm traZODone hydrochloride 50 mg oral tablet (6 sources) Serotonin Reuptake Inhibitor Start: 11-10-2020 take 50 mg by mouth once daily at bedtime Trazodone Active 50 MG PO Daily at bedtime November 09, 2020 11:00pm Start: 11-07-2020 take 100 mg by mouth once daily at bedtime Trazodone Active 100 MG PO Daily at bedtime November 06, 2020 11:00pm 24 hr venlafaxine 150 mg extended release oral capsule (4 sources) Serotonin and Norepinephrine Reuptake Inhibitor Start: 11-07-2020 take 150 mg by mouth once daily Venlafaxine Active 150 MG PO Daily November 06, 2020 11:00pm Venlafaxine HCl ER 150 MG START WITH 1 CAPSULE DAILY FOR 7 DAYS, THEN INCREASE TO 2 CAPSULES DAILY Oral Once a day for 15 days Active take 1 capsule by [facility] once daily, then take 2 capsules by mouth once daily Venlafaxine HCl ER 37.5 MG START WITH 1 CAPSULE DAILY FOR 7 DAYS, THEN INCREASE TO 2 CAPSULES DAILY Oral for 15 Active vitamin b12 1 mg/ml injectable solution (2 sources) Vitamin B12 Start: 05-01-2021 Cyanocobalamin (Vitamin B-12) Active 600 MCG SOLUTION May 01, 2021 12:00am Completed/Discontinued Medications Medication Drug Class(es) Dates Sig (Normalized) Sig (Original) brimonidine tartrate 2 mg/ml ophthalmic solution (2 sources) alpha-Adrenergic Agonist Start: 11-07-2020 End: 05-01-2021 take 1 drop(s) into the eye(s) once daily in the morning Brimonidine Discontinued 3 DROPS EYE-BOTH Every morning November 06, 2020 11:00pm May 01, 2021 10:45am cephalexin 500 mg oral capsule (4 sources) Cephalosporin Antibacterial Start: 11-10-2020 End: 05-01-2021 take 500 mg by mouth twice daily Cephalexin Discontinued 500 MG PO Twice daily 10 November 09, 2020 11:00pm May 01, 2021 10:45am Start: 07-11-2020 End: 11-07-2020 take 500 mg by mouth three times daily Cephalexin Discontinued 500 MG PO Three times daily July 11, 2020 12:00am November 07, 2020 3:35pm hydroCHLOROthiazide 12.5 mg / lisinopril 20 mg oral tablet (4 sources) Thiazide Diuretic, Angiotensin Converting Enzyme Inhibitor Start: 07-08-2020 End: 05-01-2021 take 1 tablet by mouth once daily Lisinopril-Hydrochlorothiazide Discontinued 1 TAB PO Daily November 07, 2020 11:00pm May 01, 2021 10:45am mirtazapine 15 mg oral tablet (2 sources) Start: 07-11-2020 End: 11-07-2020 take 15 mg by mouth once daily at bedtime Mirtazapine Discontinued 15 MG PO Daily at bedtime July 11, 2020 12:00am November 07, 2020 3:35pm 24 hr nicotine 0.875 mg/hr transdermal system (2 sources) Cholinergic Nicotinic Agonist Start: 07-11-2020 End: 11-07-2020 Nicotine Discontinued 1 EACH TRANSDERML Daily July 11, 2020 12:00am November 07, 2020 3:35pm potassium chloride 10 meq extended release oral capsule (2 sources) Start: 11-07-2020 End: 05-01-2021 take 10 mEq by mouth twice daily Potassium Chloride Discontinued 10 MEQ PO Twice daily November 06, 2020 11:00pm May 01, 2021 10:46am Triamcinolone (2 sources) Corticosteroid Start: 09-15-2018 KENALOG - 10 mg Aug, 40 mg Problems Problem Classification Problem Date Documented Da te Episodic/Chronic Anxiety disorders (2 sources) Anxiety; Translations: [Anxiety disorder, unspecified] 07-08-2020 Chronic Essential hypertension (5 sources) Essential (primary) hypertension; Translations: [ESSENTIAL PRIMARY HYPERTENSION] Onset: 11-30-2021 Chronic Mood disorders (4 sources) Depressive disorder; Translations: [Depression] 07-08-2020 Chronic Nutritional deficiencies (5 sources) Deficiency of other specified B group vitamins; Translations: [DEFICIENCY SPEC B GROUP VITAMINS] Onset: 11-26-2021 Episodic Other connective tissue disease (1 source) Recurrent falls ; Translations: [Repeated falls] Episodic Other gastrointestinal disorders (1 source) Other specified symptoms and signs involving the digestive system and abdomen Episodic Other nervous system disorders (2 sources) Brachial plexus disorder; Translations: [Brachial plexus disorders] Chronic Other nutritional; endocrine; and metabolic disorders (1 source) Overweight; Translations: [OVERWEIGHT] Onset: 09-17-2022 Episodic Other nutritional; endocrine; and metabolic disorders (1 source) Anorexia; Translations: [Loss of appetite] Episodic Other nutritional; endocrine; and metabolic disorders (1 source) Loss of appetite; Translations: [Anorexia] Episodic Other screening for suspected conditions (not mental disorders or infectious disease) (12 sources) Encounter for screening mammogram for malignant neoplasm of breast; Translations: [Other specified abnormal findings of blood chemistry] Onset: 11-19-2021 Episodic Residual codes; unclassified (1 source) Early satiety Episodic Residual codes; unclassified (1 source) Postmenopausal state; Translations: [Asymptomatic menopausal state] Episodic Residual codes; unclassified (2 sources) Alcoholism; Translations: [Alcohol use disorder] 11-08-2020 Episodic Spondylosis; intervertebral disc disorders; other back problems (3 sources) Sacroiliac joint pain; Translations: [Sacrococcygeal disorders, not elsewhere classified] Onset: 05-31-2023 Episodic Suicide and intentional self-inflicted injury (2 sources) Suicidal thoughts; Translations: [Suicidal ideations] 07-08-2020 Episodic Results Test Name Value Interpretation Reference Range Facil ity XR cerv spine AP/LAT/FLX/EXT on 05-31-2023 XR cerv spine AP/LAT/FLX/EXT [facility] [address] [place] [address] XRay Report Signed Patient: Regina Ma MR#: [id number] : 1960 Acct:[id number] Age/Sex: 63 / F ADM Date: 05/31/23 Loc: XD Room: Type: [facility] Attending Dr: Alana JENKINS Copies to: GREGORY Swan Ordering Provider: GREGORY Swan Date of Service: 05/31/23 XR/XR cerv spine AP/LAT/FLX/EXT: M48.02 AP with lateral neutral, flexion and extension views of thecervical spine HISTORY: Bilateral feet and hand numbness for 2 months. COMPARISON: None POSTOPERATIVE CHANGES: None BONY ALIGNMENT: Reversal HYPERMOBILITY::No hypermobility. LISTHESIS:Mild midcervical degenerative listhesis. FRACTURE: None DISC DEGENERATION: August C4-5 spondylosis. Moderate C5-6, C6-7 and C7-T1 spondylosis. FACETS: Multilevel facet degenerative change. FORAMEN: Not assessed. DENS: Intact CRANIOCERVICAL JUNCTION: Unremarkable SOFT TISSUES: Unremarkable XR/XR cerv spine AP/LAT/FLX/EXT IMPRESSION: No hypermobility. Extensive mid cervical degenerative change. Impression dictated by: Alex Morel M.D.05/31/2023 4:27 PM Dictation Location: [place] [address] Transcribed By: [facility] 05/31/231626 Dictated By: Alex Morel DO 05/31/231624 Signed By: 05/31/231626 [facility] XR lumbar spine AP/LAT/FLX/E [facility]Ton 05-31-2023 XR lumbar spine AP/LAT/FLX/EXT [facility] [place] [address] [place], [place] [id number] XRay Report Signed Patient: Regina Ma MR#: [id number] : 1960 Acct:[id number] Age/Sex: 63 / F ADM Date: 05/31/23 Loc: XD Room: Type: [facility] Attending Dr: Alana LINDSEYC Copies to: GREGORY Swan Ordering Provider: GREGORY Swan Date of Service: 05/31/23 XR/XR lumbar spine AP/LAT/FLX/EXT: M53.3 AP with lateral neutral, flexion and extension views of the Lumbar Spine HISTORY: Bilateral foot numbness for 2 months and SI joint pain COMPARISON: None POSTSURGICAL CHANGES: None BONY ALIGNMENT: Mild scoliosis. HYPERMOBILITY:No bending imaging. LISTHESIS:5 mm L5-S1 anterolisthesis. Mild L2-3, L3-4 degenerative retrolisthesis. FRACTURE: None DEGENERATIVE CHANGES: Extensive lower lumbar hypertrophic facet changes. Extensive L1-2 disc space narrowing. Moderate L2-3 and L3-4 disc space narrowing. Extensive L5-S1 disc space narrowing. SOFT TISSUES: Unremarkable BONY MINERALIZATION:Adequate XR/XR lumbar spine AP/LAT/FLX/EXT IMPRESSION: No hypermobility. Mild to moderate degenerative listhesis. Multilevel spondylosis. Extensive lower lumbar degenerative change. Impression dictated by: Alex Morel M.D.05/31/2023 4:33 PM Dictation Location: [place] [address] Transcribed By: [facility] 05/31/23 1633 Dictated By: Alex Morel DO 05/31/23 1627 Signed By: 05/31/23 1633 Normal [facility] Lipase Levelon 03-22-2023 Lipase [Catalytic activity/Vol] 39 U/L Normal 13-5 8 [facility] Comment on above: Performed By: #### 2 [id number] #### [facility] Laboratory [address] [place] [address] Physician Orderon 03-22-2023 Physician Order [id number]:127 Normal [facility] MG MAMM SCREEN 3D CHEVY CADon 10-13-2022 MG MAMM SCREEN 3D CHEVY CAD Patient: REGINA MA Exam Date: 10/13/2022 : 1960 Gender:F Ordering : GEOFF WU CONDUIT REAMER OPERATOR Admission #: [id number] Family : Order #: [id number] CLICK HERE TO VIEW EXAM RADIOLOGY REPORT PROCEDURE: MAMMOGRAM SCREENING 3D BILATERAL CAD COMPARISON: MG MAMM SCREEN 3D CHEVY CAD, 05/18/2021. MG MAMM DX 3D RT CAD, 11/19/2021. INDICATIONS: Screening mammography Calculator Name NCI Breast Cancer Risk Assessment Tool 5 Year Breast Cancer Risk 1.80% Lifetime Breast Cancer Risk 7.20% Personal Breast Cancer No Personal Ovarian Cancer No Treatments None Family Cancers None LOCATION: [facility] BREAST COMPOSITION: Extremely dense, which lowers the sensitivity of mammography. FINDINGS: DIAGNOSTIC CATEGORY 2--BENIGN FINDING. NO CHANGE FROM COMPARISON. Scattered benign-appearing calcifications are present. Scattered benign-appearing lymph nodes are present. RIGHT BREAST: No significant suspicious finding. Stable focal asymmetry upper outer quadrant, mid breast. LEFT BREAST: No significant suspicious finding. RECOMMENDATIONS: ROUTINE MAMMOGRAM AND CLINICAL EVALUATION IN 12 MONTHS. PLEASE NOTE: A NORMAL MAMMOGRAM DOES NOT EXCLUDE THE POSSIBILITY OF BREAST CANCER. A CLINICALLY SUSPICIOUS PALPABLE LUMP SHOULD BE BIOPSIED. Dictated by: Sigifredo Vasques MD on 10/13/2022 at 11:52 Approved by: Sigifredo Vasques MD on 10/13/2022 at 12:39 Normal [facility] l HEPATITIS PANEL, ACUTEon HBsAg Screen Negative Normal Negative [facility] Comment on above: Performed By: #### F T4, IRON, B12FOL #### [facility] [address] [place] [address] [address] Heath Bauer HCV AB Non-Reactive Normal Non Reactive [facility] Comment on above: Performed By: #### F T4, IRON, B12FOL #### [facility] [address] [place], [place] [address] Dr. Heath Bauer Hep A Ab, IgM Negative Normal Negative [facility] Comment on above: Performed By: #### F T4, IRON, B12FOL #### [facility] [address] [place], [place] [address] Dr. Heath Bauer Hep B Core Ab, IgM Negative Normal Negative [facility] Comment on above: Performed By: #### F T4, IRON, B12FOL #### [facility] [address] [place], [place] [address] Dr. Heath Bauer Interpretation: Comment Normal [facility] Comment on above: Result Comment: Not infected with HCV unless early or acute infection is suspected (which may be delayed in an immunocompromised individual), or other evidence exists to indicate HCV infection. Performed By: #### F T4, IRON, B12FOL #### [facility] [address] [place], [place] [address] Dr. Heath Bauer US SINGLE QUAD RT UPPERon US SINGLE QUAD RT UPPER EXAM: US SINGLE QUAD RT UPPER HISTORY: Blood chemistry abnormal COMPARISON: None. TECHNIQUE: Right abdominal ultrasound including grayscale and Doppler imaging. FINDINGS: Right/left pleural space: No effusion. Liver: Increased echodensity of the liver, representing fatty infiltration. Gallbladder: No gallbladder wall thickening or pericholecystic fluid. There is a 1 cm echogenic material without posterior acoustic shadowing or vascular flow at the fundus, may represent gallbladder sludge. Negative sonographic Walker's sign. Focal tenderness: No right upper quadrant tenderness. Intrahepatic biliary ducts: No intrahepatic biliary duct dilatation. Extra hepatic biliary duct measures 6 mm. Pancreas: No abnormality demonstrated. Right kidney: Normal cortical echogenicity. No hydronephrosis. The right kidney measures 11 cm in length. There are multiple echogenic foci within the right kidney with faint posterior positioning, measuring up to 0.5 cm, likely representing stone. Aorta: No aneurysm. Peritoneal space: No ascites visualized within the visualized upper abdomen. Additional findings: None. IMPRESSION: Gallbladder sludge without sonographic evidence of acute cholecystitis. Nonobstructing right renal stones measuring up to 0.5 cm. Electronically authenticated by: DENEEN NIX Date: 2022-10-03 18:53 Normal [facility] LIVER PROFILEon 09-30-2022 Albumin [Mass/Vol] 3.0 g/dL Critically low 3.4-5.0 Th [facility] Comment on above: Performed By: #### F T4, IRON, B12FOL #### [facility] [address] [place] [address] Dr. Heath Bauer Albumin/Globulin [Mass ratio] 0.8 {ratio} Normal [facility] Comment on above: Performed By: #### F T4, IRON, B12FOL #### [facility] [address] [place] [address] Dr. Heath Bauer ALP [Catalytic activity/Vol] 125 U/L Critically high 46 -116 [facility] Comment on above: Performed By: #### F T4, IRON, B12FOL #### [facility] [address] [place] [address] Dr. Heath Bauer ALT [Catalytic activity/Vol] 86 U/L Critically high 14 -59 [facility] Comment on above: Performed By: #### F T4, IRON, B12FOL #### [facility] [address] [place] [address] Dr. Heath Bauer AST [Catalytic activity/Vol] 134 U/L Critically high 15 -37 [facility] Comment on above: Performed By: #### F T4, IRON, B12FOL #### [facility] [address] [place] [address] Dr. Heath Bauer BILI, CONJUGATED 0.2 mg/dL Normal 0.0-0.2 [facility] Comment on above: Performed By: #### F T4, IRON, B12FOL #### [facility] [address] [place] [address] Dr. Heath Bauer Bilirubin [Mass/Vol] 0.4 mg/dL Normal 0.2-1.0 [facility] Comment on above: Performed By: #### F T4, IRON, B12FOL #### [facility] [address] [place] [address] Dr. Heath Bauer Globulin (S) [Mass/Vol] 4.0 g/dL Normal T [facility] Comment on above: Performed By: #### F T4, IRON, B12FOL #### [facility] [address] [place] [address] Dr. Heath Bauer Protein [Mass/Vol] 7.0 g/dL Normal 6.4-8.2 [facility] Comment on above: Performed By: #### F T4, IRON, B12FOL #### [facility] [address] [place] [address] Dr. Heath Bauer CBC AUTO DIFFon 09-15-2022 BASO # 0.0 103/ul Normal 0.0-0.1 [facility] Comment on above: Performed By: #### C BC #### [facility] [address] [place] [address] Dr. Heath Bauer Basophils/100 WBC (Bld) 0.4 % Normal 0.2-2.0 [facility] Comment on above: Performed By: #### C BC #### [facility] [address] [place] [address] Dr. Heath Bauer EO # 0.1 103/ul Normal 0.0-0.7 [facility] Comment on above: Performed By: #### C BC #### [facility] [address] [place] [address] Dr. Heath Bauer Eosinophils/100 WBC (Bld) 1.3 % Normal 0.9-7.0 [facility] Comment on above: Performed By: #### C BC #### [facility] [address] [place] [address] Dr. Heath Bauer Erythrocyte distribution wid th (RBC) [Ratio] 16.2 % Critically high 11.0-15.0 [facility] Comment on above: Performed By: #### C BC #### [facility] [address] [place] [address] Dr. Heath Bauer Hematocrit (Bld) [Volume fraction] 42.1 % Normal 3 6.0-48.0 [facility] Comment on above: Performed By: #### C BC #### [facility] [address] [place] [address] Dr. Heath Bauer Hemoglobin (Bld) [Mass/Vol] 15.0 g/dL Normal 12.0-16. 0 [facility] Comment on above: Performed By: #### C BC #### [facility] [address] [place] [address] [address] Heath Bauer IG # 0.04 10e3/ul Critically high 0.00-0.03 [place] Comment on above: Performed By: #### C BC #### [facility] [address] [place] [address] [address] Heath Bauer IG % 0.4 % Normal 0.0-0.5 [facility] Comment on above: Performed By: #### C BC #### [facility] [address] [place] [address] Dr. Heath Bauer LYMPH # 1.3 103/ul Normal 1.2-3.8 [facility] Comment on above: Performed By: #### C BC #### [facility] [address] [place] [address] Dr. Heath Bauer Lymphocytes/100 WBC (Bld) 13.7 % Critically low 20.5-6 0.0 [facility] Comment on above: Performed By: #### C BC #### [facility] [address] [place] [address] Dr. Heath Bauer MANUAL DIFF REQ NO Normal [facility] Comment on above: Performed By: #### C BC #### [facility] [address] [place] [address] Dr. Heath Bauer MCH (RBC) [Entitic mass] 37.1 pg Critically high 26.7-3 4.0 [facility] Comment on above: Performed By: #### C BC #### [facility] [address] [place] [address] Dr. Heath Bauer MCHC (RBC) [Mass/Vol] 35.6 g/dL Critically high 29.9-35.2 [facility] Comment on above: Performed By: #### C BC #### [facility] [address] [place] [address] Dr. Heath Bauer MCV (RBC) [Entitic vol] 104.2 fL Critically high 81.0-99 .0 [facility] Comment on above: Performed By: #### C BC #### [facility] [address] [place] [address] [address] Heath Bauer MONO # 0.9 103/ul Critically high 0.3-0.8 [facility] Comment on above: Performed By: #### C BC #### [facility] [address] [place] [address] Dr. Haeth Bauer Monocytes/100 WBC (Bld) 10.0 % Normal 1.7-12.0 [facility] Comment on above: Performed By: #### C BC #### [facility] [address] [place] [address] Dr. Heath Bauer NEUT # 6.8 103/ul Critically high 1.4-6.5 [facility] Comment on above: Performed By: #### C BC #### [facility] [address] [place] [address] Dr. Heath Bauer Neutrophils/100 WBC (Bld) 74.2 % Normal 43.0-75.0 [facility] Comment on above: Performed By: #### C BC #### [facility] [address] [place] [address] Dr. Heath Bauer Platelet mean volume (Bld) [Entitic vol] 8.6 fL Critically low 9.5-13.5 [facility] Comment on above: Performed By: #### C BC #### [facility] [address] [place] [address] Dr. Heath Bauer PLT 274 103/ul Normal 150-450 [facility] Comment on above: Performed By: #### C BC #### [facility] [address] [place] [address] Dr. Heath Bauer RBC 4.04 106/ul Critically low 4.20-5.40 [facility] Comment on above: Performed By: #### C BC #### [facility] [address] [place] [address] Dr. Heath Bauer WBC 9.2 103/ul Normal 4.0-11.0 [facility] Comment on above: Performed By: #### C BC #### [facility] [address] [place], [place] [address] Dr. Heath Bauer FREE T4on 09-15-2022 Free T4 [Mass/Vol] 0.93 ng/dL Normal 0.76-1.46 [facility] Comment on above: Performed By: #### F T4, IRON, B12FOL #### [facility] [address] [place] [address] [address] Heath Bauer IRONon 09-15-2022 Iron [Mass/Vol] 112.0 ug/dL Normal 50.0-170.0 [facility] Comment on above: Performed By: #### F T4, IRON, B12FOL #### [facility] [address] [address] [address] Heath Bauer LIPID PROFILEon 09-15-2022 CHOL-HDL RATIO NORM SEE BELOW Normal [facility] Comment on above: Result Comment: 3.3 - 4.4 LOW RISK 4.4 - 7.1 AVERAGE RISK 7.1 - 11.0 MODERATE RISK >11.0 HIGH RISK Performed By: #### F T4, IRON, B12FOL #### [facility] [address] [address] [address] Heath Bauer Cholesterol [Mass/Vol] 246 mg/dL Critically high <=200 [facility] Comment on above: Performed By: #### F T4, IRON, B12FOL #### [facility] [address] [address] [address] Heath Bauer Cholesterol in HDL [Mass/Vol] 87 mg/dL Critically high 4 0-60 [facility] Comment on above: Performed By: #### F T4, IRON, B12FOL #### [facility] [address] [address] [address] Heath Bauer Cholesterol in LDL [Mass/Vol] 136.4 mg/dL Normal [facility] Comment on above: Performed By: #### F T4, IRON, B12FOL #### [facility] [address] [address] [address] Heath Bauer Cholesterol.total/Cholestero l in HDL [Mass ratio] 2.8 {ratio} Normal [facility] Comment on above: Performed By: #### F T4, IRON, B12FOL #### [facility] [address] [address] [address] Heath Bauer HDL NORMAL > or = 60 mg/dl - LO W CARDIOVASCULAR RISK <40 mg/dl - HIGH CARDIOVASCULAR RISK Normal [facility] Comment on above: Performed By: #### F T4, IRON, B12FOL #### [facility] [address] [address] [address] Heath Bauer LDL CALC NORMAL SEE BELOW Normal [facility] Comment on above: Result Comment: <100 mg/dl OPTIMAL 100 - 129 mg/dl NEAR OR ABOVE OPTIMAL 130 - 159 mg/dl BORDERLINE HIGH 160 - 189 mg/dl HIGH >190 mg/dl VERY HIGH Performed By: #### F T4, IRON, B12FOL #### [facility] [address] [place] [address] Dr. Heath Bauer Triglyceride [Mass/Vol] 113 mg/dL Normal <=150 [facility] Comment on above: Performed By: #### F T4, IRON, B12FOL #### [facility] [address] [address] [address] Heath Bauer VLDL CALC 22.6 mg/dL Normal [facility] Comment on above: Performed By: #### F T4, IRON, B12FOL #### [facility] [address] [place] [address] Dr. Heath Bauer PROF 14(COMP METB)on 023 Albumin [Mass/Vol] 3.6 g/dL Normal 3.4-5.0 [facility] Comment on above: Performed By: #### T SH, CMP, LIPID #### [facility] [address] [place] [address] Dr. Heath Bauer Albumin/Globulin [Mass ratio] 0.9 {ratio} Normal [facility] Comment on above: Performed By: #### T SH, CMP, LIPID #### [facility] [address] [address] [address] Heath Bauer ALP [Catalytic activity/Vol] 145 U/L Critically high 46 -116 [facility] Comment on above: Performed By: #### T SH, CMP, LIPID #### [facility] [address] [address] [address] Heath Bauer ALT [Catalytic activity/Vol] 61 U/L Critically high 14 -59 [facility] Comment on above: Performed By: #### T SH, CMP, LIPID #### [facility] [address] [address] [address] Heath Bauer Anion gap [Moles/Vol] 15.8 mmol/L Normal [facility] Comment on above: Performed By: #### T SH, CMP, LIPID #### [facility] [address] [place] [address] Dr. Heath Bauer AST [Catalytic activity/Vol] 136 U/L Critically high 15 -37 [facility] Comment on above: Performed By: #### T SH, CMP, LIPID #### [facility] [address] [place] [address] Dr. Heath Bauer Bilirubin [Mass/Vol] 0.6 mg/dL Normal 0.2-1.0 [facility] Comment on above: Performed By: #### T SH, CMP, LIPID #### [facility] [address] [place] [address] Dr. Heath Bauer Calcium [Mass/Vol] 9.5 mg/dL Normal 8.5-10.1 [facility] Comment on above: Performed By: #### T SH, CMP, LIPID #### [facility] [address] [place] [address] Dr. Heath Bauer Chloride [Moles/Vol] 102 mmol/L Normal 98-107 [facility] Comment on above: Performed By: #### T SH, CMP, LIPID #### [facility] [address] [place] [address] Dr. Heath Bauer CO2 [Moles/Vol] 28.5 mmol/L Normal 21.0-32.0 [facility] Comment on above: Performed By: #### T SH, CMP, LIPID #### [facility] [address] [place] [address] Dr. Heath Bauer Creatinine [Mass/Vol] 0.67 mg/dL Normal 0.55-1.02 [facility] Comment on above: Performed By: #### T SH, CMP, LIPID #### [facility] [address] [address] [address] Heath Bauer EGFR-AF BRUNEIAN >60 Normal >=60 [facility] Comment on above: Performed By: #### T SH, CMP, LIPID #### [facility] [address] [address] [address] Heath Bauer EGFR-NON AF BRUNEIAN >60 Normal >=60 [facility] Comment on above: Performed By: #### T SH, CMP, LIPID #### [facility] [address] [address] [address] Heath Bauer Globulin (S) [Mass/Vol] 3.9 g/dL Normal [facility] Comment on above: Performed By: #### T SH, CMP, LIPID #### [facility] [address] [place] [address] Dr. Heath Bauer Glucose [Mass/Vol] 92 mg/dL Normal 74-106 [facility] Comment on above: Performed By: #### T SH, CMP, LIPID #### [facility] [address] [address] [address] Heath Bauer Potassium [Moles/Vol] 3.3 mmol/L Critically low 3.5-5.1 [facility] Comment on above: Performed By: #### T SH, CMP, LIPID #### [facility] [address] [place] [address] Dr. Heath Bauer Protein [Mass/Vol] 7.5 g/dL Normal 6.4-8.2 [facility] Comment on above: Performed By: #### T SH, CMP, LIPID #### [facility] [address] [place] [address] Dr. Heath Bauer Sodium [Moles/Vol] 143 mmol/L Normal 136-145 [facility] Comment on above: Performed By: #### T SH, CMP, LIPID #### [facility] [address] [address] [address] Heath Bauer Urea nitrogen [Mass/Vol] 11.0 mg/dL Normal 7.0-18.0 [facility] Comment on above: Performed By: #### T SH, CMP, LIPID #### [facility] [address] [place] [address] Dr. Heath Bauer Urea nitrogen/Creatinine [Mass ratio] 16.4 mg/mg Normal [facility] Comment on above: Performed By: #### T SH, CMP, LIPID #### [facility] [address] [address] [address] Heath Bauer TSHon 09-15-2022 TSH 2.046 uIU/mL Normal 0.358-3.740 [facility] Comment on above: Performed By: #### F T4, IRON, B12FOL #### [facility] [address] [place] [address] Dr. Heath Bauer UA RANDOM W/MICROSCOPICon BACTERIA LARGE Abnormal NONE SEEN [facility] Comment on above: Performed By: #### F T4, IRON, B12FOL #### [facility] [address] [place] [address] Dr. Heath Bauer Bilirubin Ql (U) Negative Normal NEGATIVE [facility] Comment on above: Performed By: #### F T4, IRON, B12FOL #### [facility] [address] [place] [address] Dr. Heath Bauer CAST NONE SEEN Normal NONE SEEN [facility] Comment on above: Performed By: #### F T4, IRON, B12FOL #### [facility] [address] [place] [address] Dr. Heath Bauer Clarity (U) SL CLOUDY Abnormal CLEAR [facility] Comment on above: Performed By: #### F T4, IRON, B12FOL #### [facility] [address] [place] [address] Dr. Heath Bauer Color (U) YELLOW Normal YELLOW [facility] Comment on above: Performed By: #### F T4, IRON, B12FOL #### [facility] [address] [address] [address] Heath Bauer Crystals LM Nom (Urine sed) NONE SEEN Normal NONE SEE N [facility] Comment on above: Performed By: #### F T4, IRON, B12FOL #### [facility] [address] [address] [address] Hetah Bauer Epithelial cells LM Ql (Urin e sed) MANY Abnormal NONE SEEN /RARE [facility] Comment on above: Performed By: #### F T4, IRON, B12FOL #### [facility] [address] [address] [address] Heath Bauer Glucose Ql (U) Negative Normal NEGATIVE [facility] Comment on above: Performed By: #### F T4, IRON, B12FOL #### [facility] [address] [place] [address] Dr. Heath Bauer Hemoglobin Ql (U) Negative Normal NEGATIVE [facility] Comment on above: Performed By: #### F T4, IRON, B12FOL #### [facility] [address] [place] [address] Dr. Heath Bauer Ketones Ql (U) TRACE Abnormal NEGATIVE [facility] Comment on above: Performed By: #### F T4, IRON, B12FOL #### [facility] [address] [place] [address] Dr. Heath Bauer LEUKOCYTES Negative Normal NEGATIVE [facility] Comment on above: Performed By: #### F T4, IRON, B12FOL #### [facility] [address] [address] [address] Heath Bauer MUCOUS NONE SEEN Normal NONE SEEN [facility] Comment on above: Performed By: #### F T4, IRON, B12FOL #### [facility] [address] [place] [address] Dr. Heath Bauer Nitrite Ql (U) Positive Abnormal NEGATIVE [facility] Comment on above: Performed By: #### F T4, IRON, B12FOL #### [facility] [address] [place] [address] Dr. Heath Bauer pH (U) 6.0 [pH] Normal 5-9 [facility] Comment on above: Performed By: #### F T4, IRON, B12FOL #### [facility] [address] [place] [address] Dr. Heath Bauer RBC NONE SEEN Abnormal 0-2 [facility] Comment on above: Performed By: #### F T4, IRON, B12FOL #### [facility] [address] [place] [address] Dr. Heath Bauer SPEC GRAVITY 1.025 Normal 1.005-<=1.025 [facility] Comment on above: Performed By: #### F T4, IRON, B12FOL #### [facility] [address] [place] [address] Dr. Heath Bauer UA PROTEIN TRACE Normal NEGATIVE/ TRACE [facility] Comment on above: Performed By: #### F T4, IRON, B12FOL #### [facility] [address] [place] [address] Dr. Heath Bauer Urobilinogen Qn (U) 1.0 {[place]'U}/dL Normal 0.2 - 1. 0 [facility] Comment on above: Performed By: #### F T4, IRON, B12FOL #### [facility] [address] [place] [address] Dr. Heath Bauer WBC 0-2 Abnormal NONE SEEN [facility] Comment on above: Performed By: #### F T4, IRON, B12FOL #### [facility] [address] [place] [address] Dr. Heath Bauer VIT B12 AND FOLATEon 023 Cobalamin (Vitamin B12) [Mass/Vol] pg/mL Critically high 193.0-986.0 [facility] Comment on above: Performed By: #### F T4, IRON, B12FOL #### [facility] [address] [place] [address] Dr. Heath Bauer FOLATE 2.50 ng/mL Critically low 8.60-58.90 [facility] Comment on above: Performed By: #### F T4, IRON, B12FOL #### [facility] [address] [place] [address] Dr. Heath Bauer CBC AUTO DIFFon 11-26-2021 BASO # 0.0 103/ul Normal 0.0-0.1 [facility] Comment on above: Performed By: #### F T4, IRON, B12FOL #### [facility] [address] [place] [address] Dr. Heath Bauer Basophils/100 WBC (Bld) 0.5 % Normal 0.2-2.0 [facility] Comment on above: Performed By: #### F T4, IRON, B12FOL #### [facility] [address] [place] [address] Dr. Heath Bauer EO # 0.1 103/ul Normal 0.0-0.7 [facility] Comment on above: Performed By: #### F T4, IRON, B12FOL #### [facility] [address] [place] [address] Dr. Heath Bauer Eosinophils/100 WBC (Bld) 1.2 % Normal 0.9-7.0 [facility] Comment on above: Performed By: #### F T4, IRON, B12FOL #### [facility] [address] [place] [address] Dr. Heath Bauer Erythrocyte distribution wid th (RBC) [Ratio] 14.3 % Normal 11.0-15.0 [facility] Comment on above: Performed By: #### F T4, IRON, B12FOL #### [facility] [address] [place] [address] Dr. Heath Bauer Hematocrit (Bld) [Volume fraction] 42.6 % Normal 3 6.0-48.0 [facility] Comment on above: Performed By: #### F T4, IRON, B12FOL #### [facility] [address] [place] [address] Dr. Heath Bauer Hemoglobin (Bld) [Mass/Vol] 14.6 g/dL Normal 12.0-16. 0 [facility] Comment on above: Performed By: #### F T4, IRON, B12FOL #### [facility] [address] [place] [address] Dr. Heath Bauer IG # 0.04 10e3/ul Critically high 0.00-0.03 [place] Comment on above: Performed By: #### F T4, IRON, B12FOL #### [facility] [address] [place] [address] Dr. Heath Bauer IG % 0.5 % Normal 0.0-0.5 [facility] Comment on above: Performed By: #### F T4, IRON, B12FOL #### [facility] [address] [place] [address] Dr. Heath Bauer LYMPH # 1.3 103/ul Normal 1.2-3.8 [facility] Comment on above: Performed By: #### F T4, IRON, B12FOL #### [facility] [address] [place] [address] Dr. Heath Bauer Lymphocytes/100 WBC (Bld) 15.8 % Critically low 20.5-6 0.0 [facility] Comment on above: Performed By: #### F T4, IRON, B12FOL #### [facility] [address] [place] [address] Dr. Heath Bauer MANUAL DIFF REQ NO Normal [facility] Comment on above: Performed By: #### F T4, IRON, B12FOL #### [facility] [address] [place] [address] Dr. Heath Bauer MCH (RBC) [Entitic mass] 36.8 pg Critically high 26.7-3 4.0 [facility] Comment on above: Performed By: #### F T4, IRON, B12FOL #### [facility] [address] [place] [address] Dr. Heath Bauer MCHC (RBC) [Mass/Vol] 34.3 g/dL Normal 29.9-35.2 [facility] Comment on above: Performed By: #### F T4, IRON, B12FOL #### [facility] [address] [place] [address] Dr. Heath Bauer MCV (RBC) [Entitic vol] 107.3 fL Critically high 81.0-99 .0 [facility] Comment on above: Result Comment: Macr ocytosis 2+ Performed By: #### F T4, IRON, B12FOL #### [facility] [address] [place] [address] Dr. Heath Bauer MONO # 0.9 103/ul Critically high 0.3-0.8 [facility] Comment on above: Performed By: #### F T4, IRON, B12FOL #### [facility] [address] [place] [address] Dr. Heath Bauer Monocytes/100 WBC (Bld) 10.1 % Normal 1.7-12.0 [facility] Comment on above: Performed By: #### F T4, IRON, B12FOL #### [facility] [address] [place] [address] Dr. Heath Bauer NEUT # 6.1 103/ul Normal 1.4-6.5 [facility] Comment on above: Performed By: #### F T4, IRON, B12FOL #### [facility] [address] [place] [address] Dr. Heath Bauer Neutrophils/100 WBC (Bld) 71.9 % Normal 43.0-75.0 [facility] Comment on above: Performed By: #### F T4, IRON, B12FOL #### [facility] [address] [place] [address] Dr. Heath Bauer Platelet mean volume (Bld) [Entitic vol] 9.8 fL Normal 9.5-13.5 [facility] Comment on above: Performed By: #### F T4, IRON, B12FOL #### [facility] [address] [place] [address] Dr. Heath Bauer PLT 282 103/ul Normal 150-450 [facility] Comment on above: Performed By: #### F T4, IRON, B12FOL #### [facility] [address] [place] [address] Dr. Heath Bauer RBC 3.97 106/ul Critically low 4.20-5.40 [facility] Comment on above: Performed By: #### F T4, IRON, B12FOL #### [facility] [address] [place] [address] Dr. Heath Bauer WBC 8.4 103/ul Normal 4.0-11.0 [facility] Comment on above: Performed By: #### F T4, IRON, B12FOL #### [facility] [address] [place] [address] Dr. Heath Bauer PROF 14(COMP METB)on 022 Albumin [Mass/Vol] 3.5 g/dL Normal 3.4-5.0 [facility] Comment on above: Performed By: #### C MP #### [facility] [address] [place] [address] Dr. Heath Bauer Albumin/Globulin [Mass ratio] 0.9 {ratio} Normal [facility] Comment on above: Performed By: #### C MP #### [facility] [address] [place] [address] Dr. Heath Bauer ALP [Catalytic activity/Vol] 120 U/L Critically high 46 -116 [facility] Comment on above: Performed By: #### C MP #### [facility] [address] [place] [address] Dr. Heath Bauer ALT [Catalytic activity/Vol] 58 U/L Normal 14-59 [facility] Comment on above: Performed By: #### C MP #### [facility] [address] [place] [address] Dr. Heath Bauer Anion gap [Moles/Vol] 13.2 mmol/L Normal [facility] Comment on above: Performed By: #### C MP #### [facility] [address] [place] [address] Dr. Heath Bauer AST [Catalytic activity/Vol] 121 U/L Critically high 15 -37 [facility] Comment on above: Performed By: #### C MP #### [facility] [address] [place] [address] Dr. Heath Bauer Bilirubin [Mass/Vol] 0.7 mg/dL Normal 0.2-1.0 [facility] Comment on above: Performed By: #### C MP #### [facility] [address] [address] [address] Heath Bauer Calcium [Mass/Vol] 9.0 mg/dL Normal 8.5-10.1 [facility] Comment on above: Performed By: #### C MP #### [facility] [address] [address] [address] Heath Bauer Chloride [Moles/Vol] 99 mmol/L Normal 98-107 [facility] Comment on above: Performed By: #### C MP #### [facility] [address] [address] [address] Heath Bauer CO2 [Moles/Vol] 31.2 mmol/L Normal 21.0-32.0 [facility] Comment on above: Performed By: #### C MP #### [facility] [address] [address] [address] Heath Bauer Creatinine [Mass/Vol] 0.69 mg/dL Normal 0.55-1.02 [facility] Comment on above: Performed By: #### C MP #### [facility] [address] [place] [address] Dr. Heath Bauer EGFR-AF BRUNEIAN >60 Normal >=60 [facility] Comment on above: Performed By: #### C MP #### [facility] [address] [address] [address] Heath Bauer EGFR-NON AF BRUNEIAN >60 Normal >=60 [facility] Comment on above: Performed By: #### C MP #### [facility] [address] [address] [address] Heath Bauer Globulin (S) [Mass/Vol] 3.9 g/dL Normal [facility] Comment on above: Performed By: #### C MP #### [facility] [address] [place] [address] Dr. Heath Bauer Glucose [Mass/Vol] 98 mg/dL Normal 74-106 [facility] Comment on above: Performed By: #### C MP #### [facility] [address] [address] [address] Heath Bauer Potassium [Moles/Vol] 3.4 mmol/L Critically low 3.5-5.1 [facility] Comment on above: Performed By: #### C MP #### [facility] [address] [address] [address] Heath Bauer Protein [Mass/Vol] 7.4 g/dL Normal 6.4-8.2 [facility] Comment on above: Performed By: #### C MP #### [facility] [address] [address] [address] Heath Bauer Sodium [Moles/Vol] 140 mmol/L Normal 136-145 [facility] Comment on above: Performed By: #### C MP #### [facility] [address] [address] [address] Heath Bauer Urea nitrogen [Mass/Vol] 15.0 mg/dL Normal 7.0-18.0 [facility] Comment on above: Performed By: #### C MP #### [facility] [address] [address] [address] Heath Bauer Urea nitrogen/Creatinine [Mass ratio] 21.7 mg/mg Normal [facility] Comment on above: Performed By: #### C MP #### [facility] [address] [address] [address] Heath Bauer VITAMIN B12on 11-26-2021 Cobalamin (Vitamin B12) [Mass/Vol] 290.0 pg/mL Normal 193.0-986.0 [facility] Comment on above: Performed By: #### V ITB12 #### [facility] [address] [address] [address] Heath Bauer MG MAMM DX 3D RT CADon 11-19 MG MAMM DX 3D RT CAD Patient: CAROL MA Exam Date: 11/19/2021 : 1960 Gender:F Ordering : GEOFF WU CNP Admission #: [id number] Family : Order #: [id number] CLICK HERE TO VIEW EXAM RADIOLOGY REPORT PROCEDURE: MAMMOGRAM DIAGNOSTIC 3D RIGHT CAD, 11/19/2021, 14:19 ULTRASOUND BREAST RIGHT LIMITED, 11/19/2021, 14:42 COMPARISON: US BREAST RIGHT LIMITED, 05/26/2021. MG MAMM SCREEN 3D CHEVY CAD, 05/18/2021. INDICATIONS: Abnormal findings on diagnostic imaging of breast Calculator Name NCI Breast Cancer Risk Assessment Tool 5 Year Breast Cancer Risk 1.70% Lifetime Breast Cancer Risk 7.40% Personal Breast Cancer No Personal Ovarian Cancer No Treatments None Family Cancers None LOCATION: [facility] BREAST COMPOSITION: Extremely dense, which lowers the sensitivity of mammography. FINDINGS: DIAGNOSTIC CATEGORY 2--BENIGN FINDING: RIGHT BREAST: No significant suspicious finding. Previously seen area within the upper-outer quadrant is suspected represent an area of dense fibroglandular tissue is seen on today's mammogram and right breast ultrasound. Annual screening mammography is recommended. No significant change has occurred. RECOMMENDATIONS: ROUTINE MAMMOGRAM AND CLINICAL EVALUATION IN 12 MONTHS. PLEASE NOTE: A NORMAL MAMMOGRAM DOES NOT EXCLUDE THE POSSIBILITY OF BREAST CANCER. A CLINICALLY SUSPICIOUS PALPABLE LUMP SHOULD BE BIOPSIED. Dictated by: Epifanio Eckert M.D. on 11/19/2021 at 14:58 Approved by: Epifanio Eckert M.D. on 11/19/2021 at 15:56 Normal [facility] US BREAST RIGHT LIMITEDon US BREAST RIGHT LIMITED Patient: REGINA MA Exam Date: 11/19/2021 : 1960 Gender:F Ordering : [facility] Admission #: [id number] Family : Order #: [id number] CLICK HERE TO VIEW EXAM RADIOLOGY REPORT PROCEDURE: MAMMOGRAM DIAGNOSTIC 3D RIGHT CAD, 11/19/2021, 14:19 ULTRASOUND BREAST RIGHT LIMITED, 11/19/2021, 14:42 COMPARISON: US BREAST RIGHT LIMITED, 05/26/2021. MG MAMM SCREEN 3D CHEVY CAD, 05/18/2021. INDICATIONS: Abnormal findings on diagnostic imaging of breast Calculator Name NCI Breast Cancer Risk Assessment Tool 5 Year Breast Cancer Risk 1.70% Lifetime Breast Cancer Risk 7.40% Personal Breast Cancer No Personal Ovarian Cancer No Treatments None Family Cancers None LOCATION: [facility] BREAST COMPOSITION: Extremely dense, which lowers the sensitivity of mammography. FINDINGS: DIAGNOSTIC CATEGORY 2--BENIGN FINDING: RIGHT BREAST: No significant suspicious finding. Previously seen area within the upper-outer quadrant is suspected represent an area of dense fibroglandular tissue is seen on today's mammogram and right breast ultrasound. Annual screening mammography is recommended. No significant change has occurred. RECOMMENDATIONS: ROUTINE MAMMOGRAM AND CLINICAL EVALUATION IN 12 MONTHS. PLEASE NOTE: A NORMAL MAMMOGRAM DOES NOT EXCLUDE THE POSSIBILITY OF BREAST CANCER. A CLINICALLY SUSPICIOUS PALPABLE LUMP SHOULD BE BIOPSIED. Dictated by: Epifanio Eckert M.D. on 11/19/2021 at 14:58 Approved by: Epifanio Eckert M.D. on 11/19/2021 at 15:56 Normal [place] Luke 02-16-2021 CNPN Telephone (RHEUMN) REGINA MA ([id number]) 1960 F Date Time Provider Department 02/16/21 ROMULO TIWARI During your visit today, we recorded the following information about you: Romulo Tiwari, 02/16/2021 9:08 AM Signed Left patient a voicemail asking her to call me back to discuss labs. In my voicemail I did state her vitamin B12 and folate are low and we need to discuss supplementation. I left my call back number Romulo Karie, February 16, 2021 9:08 AM Allergies As of Date: 02/16/2021 Noted Allergy Reaction SEASONALE (LEVONORGESTREL-ETHINYL*02/13/2021 14 - Other: See Comments Date Reviewed: 02/13/2021 Reviewed by: Arnoldo Driscoll Ma - Fully Assessed Reason for Visit: Results [95] Prescriptions as of 02/16/2021 - amLODIPine (NORVASC) 2.5 mg tablet Take 2.5 mg by mouth once daily. - busPIRone (BUSPAR) 5 mg tablet Take by mouth twice daily at 6AM and 9PM. - propranolol (INDERAL) 20 mg tablet Take 20 mg by mouth twice daily. - traZODone (DESYREL) 50 mg tablet Take 100 mg by mouth daily at bedtime. - venlafaxine ER (EFFEXOR XR) 150 mg 24 hr capsule Take 150 mg by mouth once daily. Problem List As Of Date: 02/16/2021 (None) Encounter Status:Closed by ROMULO TIWARI on 02/16/21 Normal [facility] CBC and Differentialon 02-13 Abs Baso 0.03 k/uL Normal <0.11 [facility] Comment on above: Performed By: #### C K, CMP, SERFOL, B12, CBCDIF #### [place] [address] [place] [address] Abs [place] 0.72 k/uL Normal <0.87 [facility] Comment on above: Performed By: #### C K, CMP, SERFOL, B12, CBCDIF #### [place] [address] [place] [address] Abs Neut 6.04 k/uL Normal 1.45-7.50 [facility] Comment on above: Performed By: #### C K, CMP, SERFOL, B12, CBCDIF #### [facility] [address] [place] [address] Absolute nRBC <0.01 Normal <0.01 [facility] Comment on above: Performed By: #### C K, CMP, SERFOL, B12, CBCDIF #### [place] [address] [place] [phone] Basophils/100 WBC (Bld) 0.4 % Normal [facility] Comment on above: Performed By: #### C K, CMP, SERFOL, B12, CBCDIF #### [place] [address] [place], [place] [address] DTYPE Auto Diff Normal [facility] Comment on above: Performed By: #### C K, CMP, SERFOL, B12, CBCDIF #### [place] [address] [place], [place] [address] Eosinophils (Bld) [#/Vol] 0.09 10*3/uL Normal <0.46 [facility] Comment on above: Performed By: #### C K, CMP, SERFOL, B12, CBCDIF #### [place] [address] [place] [address] Eosinophils/100 WBC (Bld) 1.1 % Normal [facility] Comment on above: Performed By: #### C K, CMP, SERFOL, B12, CBCDIF #### [place] [address] [place] [address] Erythrocyte distribution wid th (RBC) [Ratio] 15.6 % High 11.5-15.0 [facility] Comment on above: Performed By: #### C K, CMP, SERFOL, B12, CBCDIF #### [place] [address] [place] [address] Hematocrit (Bld) [Volume fraction] 39.0 % Normal 3 6.0-46.0 [facility] Comment on above: Performed By: #### C K, CMP, SERFOL, B12, CBCDIF #### [place] [address] [place] [address] Hemoglobin (Bld) [Mass/Vol] 13.8 g/dL Normal 11.5-15. 5 [facility] Comment on above: Performed By: #### C K, CMP, SERFOL, B12, CBCDIF #### [place] [id number] [place] [id number] Lymphocytes (Bld) [#/Vol] 1.42 10*3/uL Normal 1.00-4.0 0 [facility] Comment on above: Performed By: #### C K, CMP, SERFOL, B12, CBCDIF #### [place] [address] [place], [place] [address] Lymphocytes/100 WBC (Bld) 17.1 % Normal [facility] Comment on above: Performed By: #### C K, CMP, SERFOL, B12, CBCDIF #### [place] [address] MCH 39.4 pG High 26.0-34.0 [facility] Comment on above: Performed By: #### C K, CMP, SERFOL, B12, CBCDIF #### [place] [address] MCHC (RBC) [Mass/Vol] 35.4 g/dL Normal 30.5-36.0 [facility] Comment on above: Performed By: #### C K, CMP, SERFOL, B12, CBCDIF #### [place] [address] MCV (RBC) [Entitic vol] 111.4 fL High 80.0-100.0 [facility] Comment on above: Performed By: #### C K, CMP, SERFOL, B12, CBCDIF #### [address] [address] Monocytes/100 WBC (Bld) 8.7 % Normal [facility] Comment on above: Performed By: #### C K, CMP, SERFOL, B12, CBCDIF #### [place] [address] [place] [address] Neutrophils/100 WBC (Bld) 72.7 % Normal [facility] Comment on above: Performed By: #### C K, CMP, SERFOL, B12, CBCDIF #### [place] [address] NRBCs 0.0 /100 WBC Normal 0 [facility] Comment on above: Performed By: #### C K, CMP, SERFOL, B12, CBCDIF #### [facility] [address] [place], [place] [address] Platelet mean volume (Bld) [ Entitic vol] 9.3 fL Normal 9.0-12.7 [facility] Comment on above: Performed By: #### C K, CMP, SERFOL, B12, CBCDIF #### [place] [address] [place] [address] Platelets (Bld) [#/Vol] 276 10*3/uL Normal 150-400 [facility] Comment on above: Performed By: #### C K, CMP, SERFOL, B12, CBCDIF #### [place] [address] [place] [address] RBC (Bld) [#/Vol] 3.50 10*6/uL Low 3.90-5.20 [facility] Comment on above: Performed By: #### C K, CMP, SERFOL, B12, CBCDIF #### [place] [id number] [place] [id number] Review Done Normal [facility] Comment on above: Performed By: #### C K, CMP, SERFOL, B12, CBCDIF #### [place] [address] [place] [address] WBC (Bld) [#/Vol] 8.30 10*3/uL Normal 3.70-11.00 [facility] Comment on above: Performed By: #### C K, CMP, SERFOL, B12, CBCDIF #### [place] [address] [place] [address] CKon 02-13-2021 CK [Catalytic activity/Vol] 72 U/L Normal 42-196 [facility] Comment on above: Performed By: #### C K, CMP, SERFOL, B12, CBCDIF #### [facility] [address] [place], [place] [address] RAMONOVyaneth 02-13-2021 CNOV Office Visit (RHEUMN ) REGINA MA ([id number]) 1960 F Date Time Provider Department 02/13/21 10:00 AM ROMULO TIWARI During your visit today, we recorded the following information about you: Pulse Blood pressure Weight 74/minute 153/87 54 kg Romulo Tiwari DO 02/16/2021 9:09 AM Addendum RHEUMATOLOGY NEW PATIENT NOTE 61 year old female with PMH significant for anxiety, depression, tobacco and EtOH abuse who presents for evaluation of positive BEL Consult requested by: Ashly Wu HPI Over the past year: Went through a bad bought of depression and anxiety, going through some things in her personal life History of EtOH abuse for months during this period, heavy daily drinking. No ER visits. Was in a recovery program for a month in august 2020. She still is drinking 3 drinks (vodka) daily. No illicit drugs. In a better place now but has had some more recent health problems: Feels very tired Goes to bed early, wakes up early, often un-refreshed, feels she needs to take a nap Unsure if she snores Appetite is OK however when she goes to eat she feels nauseas. +early satiety. East 3-4 bites and then full and nauseas. Occasional vomiting. She has been referred to GI, looking fore someone closer to home Intermittent diarrhea, not every day, but often intestinally lost 45 lbs after putting on a lot of weight, however now has now unintentionally lost 8 lbs over the last month Denies GERD Denies dysphagia No fevers, chills or night sweats No swollen neck glands No dry eyes or mouth No red or painful eye No sores in mouth or nose No rashes No photosensitivity No joint swelling No joint pain No muscle pain No muscle weakness aside from R hand (see below) No raynaud's Chronic smoker's cough No shortness of breath No chest pain No numbness or tingling 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 She has been seeing neurology and neurosurgery or for this and has had several MRIs and EMGs, felt to be coming from the neck but she is unsure, she will be having an MRI of the brachial plexus. There is no pain but there is muscle weakness in the right hand. No function in the R hand. 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 Found to have SONIA in November on routine labs. Hypokalemia Creatinine 2.5 on 12/05 Was not admitted but managed as an outpatient with IV fluids and frequent lab monitoring. 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 Has not heard back about the work up Did a 24 hour urine Has not heard back yet about the results Outside labs reviewed 10/03/20 unremarkable CBC, Na+ 134, Cl 92, creatinine 1.36, AST 72, albumin 3.2 10/20/20 K+ 3.2, creatinine 0.81, otherwise normal BMP 11/07/20 normal CBCdiff except MCV 100.8, K+ 2.9, AST 68, albumin 3.2, creatinine 0.85, negative SARS-CoV-2 antigen and PCR, negative urine tox, UA +LE, WBC CX>100k e.coli 11/25/20 K+ 3, creatinine 0.84, AST 63, remainder CMP normal, free T4 0.77 (L),TSH 1.125, ACTH 25.7, cortisol 28 12/04/20 K+ 3.3, creatinine 2.31 12/05/20 WBC 8.6, Hgb 13.2, MCV 101.8, plts 326, normal diff, CK 263, creatinine 2.53, AST 56, myoglobulin 317, CK 238, remainder of CMP normal, vitamin D 24.9, normal UA, BEL 1:160 speckled, PTH 112 12/08/20 WBC 8.8, Hgb 12.6, MCV 104.5, plts 336, normal differential, total protein, bili, globulin, A/G, creatine 0.98, AST 43, remainder CMP wnl, vitamin D 23.6, UA with trace blood, RBCs and WBCs, BEL 1:160 speckled, PTH 42, 12/17/20 CMP wnl, creatine 0.74, negative anti-histone, TAFFY PULLER, Sm, dsDNA, RF, SSA, SSB, ASO 64.9 12/23/20 AM cortisol 2.1 (L) 01/09/21 02/04/21 CKMB and hstrop normal, lipase 491 Past medical history Hypertension Tremors Anxiety Depression Tobacco abuse Surgical history none Family history No RA, SLE, PsO, or IBD Social history Lives in [place], [place] Retired, worked for a [employer] Smoker 1/2 ppd Current Outpatient Medications Medication Sig - amLODIPine (NORVASC) 2.5 mg tablet Take 2.5 mg by mouth once daily. - busPIRone (BUSPAR) 5 mg tablet Take by mouth twice daily at 6AM and 9PM. - propranolol (INDERAL) 20 mg tablet Take 20 mg by mouth twice daily. - traZODone (DESYREL) 50 mg tablet Take 100 mg by mouth daily at bedtime. - venlafaxine ER (EFFEXOR XR) 150 mg 24 hr capsule Take 150 mg by mouth once daily. No current facility-administered medications for this visit. Review Of Systems See HPI for full ROS. remainder of 10 pt ROS is negative Physical Exam BP 153/87 Pulse 74 Wt 54 kg (119 lb (more content not included)... Normal [facility] Comp Metabolic Panelon 02-13 Albumin [Mass/Vol] 3.9 g/dL Normal 3.9-4.9 [facility] Comment on above: Performed By: #### C K, CMP, SERFOL, B12, CBCDIF #### [facility] [address] [place], [place] [address] ALP [Catalytic activity/Vol] 94 U/L Normal 34-123 [facility] Comment on above: Performed By: #### C K, CMP, SERFOL, B12, CBCDIF #### [facility] [address] [place] [address] ALT [Catalytic activity/Vol] 21 U/L Normal 7-38 [facility] Comment on above: Performed By: #### C K, CMP, SERFOL, B12, CBCDIF #### [place] [address] [place] [address] Anion gap [Moles/Vol] 14 mmol/L Normal 9-18 [facility] Comment on above: Performed By: #### C K, CMP, SERFOL, B12, CBCDIF #### [place] [address] [place] [address] AST [Catalytic activity/Vol] 61 U/L High 13-35 [facility] Comment on above: Performed By: #### C K, CMP, SERFOL, B12, CBCDIF #### [facility] [address] [place] [address] Bilirubin [Mass/Vol] 0.6 mg/dL Normal 0.2-1.3 [facility] Comment on above: Performed By: #### C K, CMP, SERFOL, B12, CBCDIF #### [facility] [address] [place] [id number] Calcium [Mass/Vol] 9.7 mg/dL Normal 8.5-10.2 [facility] Comment on above: Performed By: #### C K, CMP, SERFOL, B12, CBCDIF #### [place] [address] [place] [id number] Chloride [Moles/Vol] 98 mmol/L Normal 97-105 [facility] Comment on above: Performed By: #### C K, CMP, SERFOL, B12, CBCDIF #### [facility] [address] [place] [address] CO2 [Moles/Vol] 27 mmol/L Normal 22-30 [facility] Comment on above: Performed By: #### C K, CMP, SERFOL, B12, CBCDIF #### [facility] [address] [place] [address] Creatinine [Mass/Vol] 0.70 mg/dL Normal 0.58-0.96 [facility] Comment on above: Performed By: #### C K, CMP, SERFOL, B12, CBCDIF #### [facility] [address] [place] [address] eGFR- Amer. >60 Normal [facility] Comment on above: Performed By: #### C K, CMP, SERFOL, B12, CBCDIF #### [facility] [address] [place] [address] eGFR-All Other Races >60 Normal [facility] Comment on above: Result Comment: eGFR (Estimated GFR) Units of measure: mL/min/1.73 meters squared eGFR is derived from the reexpressed MDRD Study equation using the following parameters: serum creatinine, age, gender and race. The creatinine assay has been calibrated to be traceable to IDMS. An eGFR <60 mL/min/1.73m2 for >3 months is consistent with chronic kidney disease. Refer to KDOQI guidelines for clinical interpretation. In patients with unstable renal function, e.g. those with acute kidney injury, the eGFR may not accurately reflect actual GFR. Performed By: #### C K, CMP, SERFOL, B12, CBCDIF #### [facility] [address] [place] [id number] Glucose [Mass/Vol] 103 mg/dL High 74-99 [facility] Comment on above: Result Comment: The [place] Diabetes Association (ADA) provides guidance for cutoff values for fasting glucose and random glucose. The ADA defines fasting as no caloric intake for at least 8 hours. Fasting plasma glucose results between 100 to 125 mg/dL indicate increased risk for diabetes (prediabetes). Fasting plasma glucose results greater than or equal to 126 mg/dL meet the criteria for diagnosis of diabetes. In the absence of unequivocal hyperglycemia, results should be confirmed by repeat testing. In a patient with classic symptoms of hyperglycemia or hyperglycemic crisis, random plasma glucose results greater than or equal to 200 mg/dL meet the criteria for diagnosis of diabetes. Reference: Standards of Medical Care in Diabetes 2016, [place] [employer] Association. Diabetes Care. 2016.39(Suppl 1). Performed By: #### C K, CMP, SERFOL, B12, CBCDIF #### [facility] [address] [place], [place] [address] Potassium [Moles/Vol] 3.3 mmol/L Low 3.7-5.1 [facility] Comment on above: Performed By: #### C K, CMP, SERFOL, B12, CBCDIF #### [place] [address] [place], [place] [address] Protein [Mass/Vol] 6.8 g/dL Normal 6.3-8.0 [facility] Comment on above: Performed By: #### C K, CMP, SERFOL, B12, CBCDIF #### [place] [address] [place], [place] [address] Sodium [Moles/Vol] 139 mmol/L Normal 136-144 [facility] Comment on above: Performed By: #### C K, CMP, SERFOL, B12, CBCDIF #### [facility] [address] [place], [place] [address] Urea nitrogen [Mass/Vol] 15 mg/dL Normal 7-21 [facility] Comment on above: Performed By: #### C K, CMP, SERFOL, B12, CBCDIF #### [place] [address] [place], [place] [address] Folate, Serumon 02-13-2021 Folate [Mass/Vol] ng/mL Low >4.7 [facility] Comment on above: Performed By: #### C K, CMP, SERFOL, B12, CBCDIF #### [facility] [address] [place], [place] [address] Vitamin B12on 02-13-2021 Cobalamin (Vitamin B12) [Mass/Vol] 285 pg/mL Normal 232-1245 [facility] Comment on above: Performed By: #### C K, CMP, SERFOL, B12, CBCDIF #### [facility] [address] [place], [place] [address] CNPNon 02-11-2021 CNPN Telephone (ORQ) REGINA MA ([id number]) 1960 F Date Time Provider Department 02/11/21 ROMULO TIWARI ORLaurie During your visit today, we recorded the following information about you: Esperanza Neff PaeDae Sec 02/11/2021 2:23 PM Signed Outside lab results received via fax and scanned to patients chart for your review. Please review under the Lab tab in patients chart. Allergies As of Date: 02/11/2021 (Not on File) Date Reviewed: Never Reviewed Reason for Visit: Outside Lab Results [753] Problem List As Of Date: 02/11/2021 (None) Encounter Status:Closed by ESVIN MED ESPERANZA PUGH on 02/11/21 Normal [facility] Vital Signs Date Time Vital Sign Value Performing Clinician Facility 04-26-2023 13:40-0500 Body height 162.56 cm Mohinder Maxwell Other [facility] Other 04-26-2023 13:40-0500 Body mass index (BMI) [Ratio] 28.78 kg/m2 Mohinder Maxwell Other [facility] Other 04-26-2023 13:40-0500 Body weight 76.07 kg Mohinder Maxwell Other [facility] Other 04-26-2023 13:40-0500 Diastolic blood pressure 78 mm[Hg] Mohinder Maxwell Other [facility] Other 04-26-2023 13:40-0500 Systolic blood pressure 120 mm[Hg] Mohinder Maxwell Other [place] [facility] Other Encounters Encounter Date Encounter Type Care Provider Facility Start: 06-02-2023 End: 06-02-2023 ambulatory Mohinder Maxwell Facility:[facility] Start: 06-02-2023 End: 06-02-2023 ambulatory Ashly Wu Work Phone: [facility] Work Phone: Start: 06-02-2023 End: 06-02-2023 Patient encounter procedure Ashly Bryce Work Phone: [facility] Work Phone: Start: 05-31-2023 End: 05-31-2023 ambulatory Alana Ha Facility:[facility] Start: 05-31-2023 End: 05-31-2023 ambulatory Ashly Fuad Wu Work Phone: [facility] Work Phone: Start: 05-31-2023 End: 05-31-2023 Patient encounter procedure Ashly Bryce Work Phone: [facility] [place] Work Phone: Start: 05-19-2023 End: 05-19-2023 ambulatory ASHLY WU [facility] [employer] Other Start: 05-19-2023 Telephone encounter Mohinder [facility] Start: 04-26-2023 End: 04-26-2023 ambulatory Mohinder Maxwell Other [facility] [employer] Other Start: 04-26-2023 Office outpatient ne w 30 minutes Mohinder Maxwell [facility] Start: 03-22-2023 End: 03-23-2023 ambulatory ALIREZA JORGE Facility:[facility] Start: 10-13-2022 End: 10-14-2022 ambulatory CONDUIT REAMER OPERATOR ASHLY AICHHOLZ Facility:[facility] Start: 10-02-2022 End: 10-03-2022 ambulatory CONDUIT REAMER OPERATOR ASHLY AICHHOLZ Facility:[facility] Start: 09-30-2022 End: 10-01-2022 ambulatory CONDUIT REAMER OPERATOR ASHLY AICHHOLZ Facility:[facility] Start: 09-15-2022 End: 09-16-2022 ambulatory CONDUIT REAMER OPERATOR ASHLY AICHHOLZ Facility:[facility] Start: 11-26-2021 End: 11-27-2021 ambulatory CONDUIT REAMER OPERATOR ASHLY AICHHOLZ Facility:[facility] Start: 11-19-2021 End: 11-20-2021 ambulatory CONDUIT REAMER OPERATOR ASHLY AICHHOLZ Facility:[facility] Procedures Date Procedure Procedure Detail Performing Clinician Start: 06-02-2023 Ultrasound elastogra phy of liver Ashly Aicalfonsoz Work Phone: Start: 05-31-2023 X-ray of cervical spine Ashly Aichholz Work Phone: Start: 05-31-2023 X-ray of lumbar spin e, four views Ashly Aichholz Work Phone: Plan of Treatment Date Care Activity Detail Author Start: 06-02-2023 [facility] Immunizations Immunization Date Immunization Notes Care Provider Fa cility 12-24-2020 COVID-19 Ad26.COV2.S (Jodi) Ashly Aichholz Work Phone: [facility] 07-09-2020 influenza, injectabl e, quadrivalent, preservative free Ashly Aichholz Work Phone: [facility] Payers Date Payer Category Payer Self-pay [id number] 2023 Private Health Insurance [id number] 1961 Unknown [id number] 1960 Unknown [id number] 2.16.84 [id number] 1960 Unknown [id number] 2.16.84 [id number] 1960 Unknown [id number] 2.16.84 [id number] 1960 Unknown [id number] 2.16.84 [id number] 1960 Unknown [id number] 2.16.84 [id number] 1960 Unknown [id number] 2.16.84 [id number] 1960 Unknown [id number] 2.16.840 .[id number] Private Health Insurance [id number] Unknown [id number] 2.16.8 [id number] Unknown [id number] 2.16.8 [id number] Social History Date Type Detail Facility Unknown if ever smoked [facility] Other Sex Assigned At Sex Assigned At Bir th [facility] Other Start: 05-01-2021 Tobacco smoking status MNIS Smoker (finding) [facility] Start: 1960 Sex Assigned At Female F [facility] Goals Date Patient Goal Desired Activity /State Evaluation note 04-26-2023 Note Date & Type Note Facility 04-26-2023 Evaluation note Encounter Date Diagnosis Assessment Notes Apr, Alternating constipation and diarrhea (ICD-10 - R19.8) Patient reports that this started about 1 month ago Patient reports that constipation can last for about 4-5 days followed by diarrhea Patient advised to start plenvue bowel prep followed by daily MiraLAX Patient is advised to start OTC fiber and probiotics RTO 1 month Apr, Early satiety (ICD-10 - R68.81) Patient reports that she can not eat much and gets full very fast [facility] Other Progress note 02-13-2021 Note Date & Type Note Facility 02-13-2021 Note HNO ID: [id number] Author: Romulo Tiwari, DO Service: ? Author Type: Physician Type: Progress Notes Filed: 02/16/2021 9:09 AM Note Text: RHEUMATOLOGY NEW PATIENT NOTE 61 year old female with PMH significant for anxiety, depression, tobacco and EtOH abuse who presents for evaluation of positive BEL Consult requested by: Ashly Wu HPI Over the past year: Went through a bad bought of depression and anxiety, going through some things in her personal life History of EtOH abuse for months during this period, heavy daily drinking. No ER visits. Was in a recovery program for a month in august 2020. She still is drinking 3 drinks (vodka) daily. No illicit drugs. In a better place now but has had some more recent health problems: Feels very tired Goes to bed early, wakes up early, often un-refreshed, feels she needs to take a nap Unsure if she snores Appetite is OK however when she goes to eat she feels nauseas. +early satiety. East 3-4 bites and then full and nauseas. Occasional vomiting. She has been referred to GI, looking fore someone closer to home Intermittent diarrhea, not every day, but often intestinally lost 45 lbs after putting on a lot of weight, however now has now unintentionally lost 8 lbs over the last month Denies GERD Denies dysphagia No fevers, chills or night sweats No swollen neck glands No dry eyes or mouth No red or painful eye No sores in mouth or nose No rashes No photosensitivity No joint swelling No joint pain No muscle pain No muscle weakness aside from R hand (see below) No raynaud's Chronic smoker's cough No shortness of breath No chest pain No numbness or tingling 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 She has been seeing neurology and neurosurgery or for this and has had several MRIs and EMGs, felt to be coming from the neck but she is unsure, she will be having an MRI of the brachial plexus. There is no pain but there is muscle weakness in the right hand. No function in the R hand. 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 Found to have SONIA in November on routine labs. Hypokalemia Creatinine 2.5 on 12/05 Was not admitted but managed as an outpatient with IV fluids and frequent lab monitoring. 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 Has not heard back about the work up Did a 24 hour urine Has not heard back yet about the results Outside labs reviewed 10/03/20 unremarkable CBC, Na+ 134, Cl 92, creatinine 1.36, AST 72, albumin 3.2 10/20/20 K+ 3.2, creatinine 0.81, otherwise normal BMP 11/07/20 normal CBCdiff except MCV 100.8, K+ 2.9, AST 68, albumin 3.2, creatinine 0.85, negative SARS-CoV-2 antigen and PCR, negative urine tox, UA +LE, WBC CX>100k e.coli 11/25/20 K+ 3, creatinine 0.84, AST 63, remainder CMP normal, free T4 0.77 (L),TSH 1.125, ACTH 25.7, cortisol 28 12/04/20 K+ 3.3, creatinine 2.31 12/05/20 WBC 8.6, Hgb 13.2, MCV 101.8, plts 326, normal diff, CK 263, creatinine 2.53, AST 56, myoglobulin 317, CK 238, remainder of CMP normal, vitamin D 24.9, normal UA, BEL 1:160 speckled, PTH 112 12/08/20 WBC 8.8, Hgb 12.6, MCV 104.5, plts 336, normal differential, total protein, bili, globulin, A/G, creatine 0.98, AST 43, remainder CMP wnl, vitamin D 23.6, UA with trace blood, RBCs and WBCs, BEL 1:160 speckled, PTH 42, 12/17/20 CMP wnl, creatine 0.74, negative anti-histone, TAFFY PULLER, Sm, dsDNA, RF, SSA, SSB, ASO 64.9 12/23/20 AM cortisol 2.1 (L) 01/09/21 02/04/21 CKMB and hstrop normal, lipase 491 Past medical history Hypertension Tremors Anxiety Depression Tobacco abuse Surgical history none Family history No RA, SLE, PsO, or IBD Social history Lives in [place], [place] Retired, worked for a [employer] Smoker 1/2 ppd Current Outpatient Medications Medication Sig - amLODIPine (NORVASC) 2.5 mg tablet Take 2.5 mg by mouth once daily. - busPIRone (BUSPAR) 5 mg tablet Take by mouth twice daily at 6AM and 9PM. - propranolol (INDERAL) 20 mg tablet Take 20 mg by mouth twice daily. - traZODone (DESYREL) 50 mg tablet Take 100 mg by mouth daily at bedtime. - venlafaxine ER (EFFEXOR XR) 150 mg 24 hr capsule Take 150 mg by mouth once daily. No current facility-administered medications for this visit. Review Of Systems See HPI for full ROS. remainder of 10 pt ROS is negative Physical Exam BP 153/87 Pulse 74 Wt 54 kg (119 lb) General appearance: well-appearing, alert, no distress, pleasant affect Eyes: no scleral icterus or erythema Face: [place] facies ENT: moist oral mucosa, good dentition, no ulcers or lesions Neck: no swelling or tenderness Resp: light wheezin (more content not included)... [facility] Evaluation note Note Date & Type Note Facility Evaluation note No Information [facility] [employer] Other Evaluation note Note Date & Type Note Facility Evaluation note No assessment information [facility] Work Phone: History general Narrative - Reported Note Date & Type Note Facility History general Narrative - Reported Type Medical History HTN Medical History chronic depression [facility] [employer] Other History general Narrative - Reported Note Date & Type Note Facility History general Narrative - Reported Type Medical History HTN Medical History chronic depression Medical History anemia [facility] [employer] Other Summary Purpose Family History No Family History Records Found Relationship Condition Age at Onset Recorded Date/T shawna Not Specified No pertinent family history Unknown Advance Directives No Advanced Directives Records Found Advance Directive Response Recorded Date/ Time Advance Directives No July 08, 2020 4:00pm Chief Complaint and Reason for Visit Chief Complaint m53.3 m48.02 Chief Complaint m53.3 m48.02 Elevated Liver Enzymes Additional Source Comments INFORMATION SOURCE (unrecogn ized section and content) DATE CREATED AUTHOR 07/24/2021 [facility] DATE CREATED AUTHOR AUTHOR'S ORGANIZ ATION 10/16/2022 [facility] DATE CREATED AUTHOR AUTHOR'S ORGANIZ ATION 03/26/2023 [facility] DATE CREATED AUTHOR AUTHOR'S ORGANIZ ATION 05/22/2023 [facility] EPIC DATE CREATED AUTHOR AUTHOR'S ORGANIZ ATION 06/06/2023 [facility] REASON FOR VISIT (unrecogniz ed section and content) PT IS HERE FOR CONSTIPATION OR DIARRHEAMessage Care Teams (unrecognized sec tion and content) Team Status: Active Member Role Status Dates Ashly Wu Primary Care Provider Active Team Status: Inactive Member Role Status Dates Ahsly Wu Primary Care Provider Active GREGORY Ruiz Attending Provider Active Team Status: Inactive Member Role Status Dates Ashly Wu Primary Care Provider Active Mohinder Maxwell APRN Attending Provider Active Goals (unrecognized section and content) Goals may be documented in a n alternate section FOR RECORDS PERTAINING TO PATIENTS WHO ARE OR HAVE BEEN ENROLLED IN A CHEMICAL DEPENDENCY/SUBSTANCEABUSE PROGRAM, SOME INFORMATION MAY BE OMITTED. This clinical summary was aggregated from multiple sources. Caution should be exercised in using it in the provision of clinical care. This summary normalizes information from multiple sources, and as a consequence, information in this document may materially change the coding, format and clinical context of patient data. In addition, data may be omitted in some cases. CLINICAL DECISIONS SHOULD BE BASED ON THE PRIMARY CLINICAL RECORDS. [facility]. provides no warranty or guarantee of the accuracy or completeness of information in this document.
== END 2023-05-19 07:50 | disposition home or self-care (01) ==
LOC: PM 07:50
PROVIDERS: PCP Nurse Practitioner; Visit Provider Nurse Practitioner
DX: M54.50 Low back pain, unspecified (principal); M54.2 Cervicalgia; M54.12 Radiculopathy, cervical region; M48.02 Spinal stenosis, cervical region; M47.816 Spondylosis without myelopathy or radiculopathy, lumbar region; M54.16 Radiculopathy, lumbar region; M48.062 Spinal stenosis, lumbar region with neurogenic claudication
CPT/HCPCS: G0463

== ENCOUNTER 2023-05-23 14:26 | Outpatient (OUT) | payer MEDICARE, SELFPAY ==
--- NOTE | 2023-05-23 14:54 | MR_ITS ---
The [address] [address] Patient Name: FOUZIA MA MRN: [id number] date: 1960 Sex: F Assigned Patient Location: MRI Current Patient Location: MRI Accession/Order Number: [id number] Exam Date: 05/23/2023 15:00 Report Date: 05/24/2023 12:14 At the request of: JEREMIAH GUTIÉRREZ Procedure: MR lumbar spine wo con HISTORY: Low back pain with numbness in the feet. Lumbar radiculopathy. MR lumbar spine wo con: 05/23/2023 3:00 PM EST COMPARISON: None. TECHNIQUE: Sagittal T1, T2, STIR, axial T1 and axial T2-weighted images of the lumbar spine were obtained. FINDINGS: There is a mild rotatory dextroconvex scoliosis of the lumbar spine. There is anterolisthesis of L5 on S1 of 3 mm. There is retrolisthesis of 2 mm at the L1-L2 and L2-L3 level. There is no compression fracture. There is moderate to severe discogenic disease at the L1-L2, L2-L3 and L5-S1 levels. There are small Schmorl's node deformities and mild type I Modic endplate change seen posteriorly at the L2-L3 level. The bone marrow signal intensity appears age appropriate. There are a few small scattered hemangiomas seen within the bone marrow. The bone marrow signal intensity appears age appropriate. The conus medullaris is not studied in detail, but it appears grossly unremarkable. L1-L2 level: There is a small posterior disc-osteophyte complex, but this does not appear to cause significant spinal canal stenosis or foraminal narrowing. L2-L3 level: There is a small posterior disc-osteophyte complex which appears to cause mild bilateral foraminal narrowing. There is also a small left paracentral disc extrusion dissecting caudally 7 mm into the left lateral recess and this appears to cause moderate narrowing of the left lateral recess in the region of the descending left L3 nerve root. There is no central spinal canal stenosis. L3-L4 level: There is a small posterior disc-osteophyte complex which is more prominent in the right foraminal region and this appears to cause mild right foraminal narrowing. There is no left foraminal narrowing or central spinal canal stenosis. Mild facet joint arthropathy. L4-L5 level: There is a small posterior disc-osteophyte complex which combines with moderate to severe facet joint arthropathy to cause mild bilateral foraminal narrowing. There is no central spinal canal stenosis. L5-S1 level: Anterolisthesis is secondary to severe facet joint arthropathy. There is a posterior disc-osteophyte complex which combines with disc space narrowing and facet joint arthropathy/hypertrophy to cause mild left and moderate to severe right foraminal narrowing. There is no central spinal canal stenosis. MR/MR lumbar spine wo con IMPRESSION: 1. Mild rotatory dextroconvex scoliosis of the lumbar spine with multilevel discogenic disease and facet joint arthropathy with multilevel foraminal narrowing. 2. At the L2-L3 level there is a small left paracentral disc extrusion dissecting caudally into the left lateral recess and this appears to cause moderate narrowing of the left lateral recess in the region of the descending left L3 nerve root. 3. No central spinal canal stenosis of the lumbar spine is seen. 4. Degenerative grade 1 anterolisthesis of L5 on S1 of 3 mm. Electronically authenticated by: BLOSSOM CASTLE Date: 05/24/2023 12:14
== END 2023-05-23 14:27 | disposition home or self-care (01) ==
PROVIDERS: PCP Nurse Practitioner; Visit Provider Nurse Practitioner
DX: K70.31 Alcoholic cirrhosis of liver with ascites (principal); M54.16 Radiculopathy, lumbar region; M41.9 Scoliosis, unspecified
CPT/HCPCS: 36415; 72148; 80053; 85025

== ENCOUNTER 2023-05-23 14:41 | Outpatient (OUT) | payer MEDICARE, SELFPAY ==
[2023-05-23 14:57] LABS: Basophils Percent Auto 0.5 % (0.2-2.0); Eosinophils Absolute Auto 0.1 10^3/uL (0.0-0.7); Eosinophils Percent Auto 1.6 % (0.9-7.0); Hematocrit 36.4 % (36.0-48.0); Immature Granulocytes Abs Auto 0.03 10^3/uL (0.00-0.03); Immature Granulocytes Pct Auto 0.4 % (0.0-0.5); Lymphocytes Absolute Auto 1.8 10^3/uL (1.2-3.8); Lymphocytes Percent Auto 22.2 % (20.5-60.0); Mean Corpuscular Hemoglobin 30.8 pg (26.7-34.0); Mean Corpuscular Volume 93.3 fL (81.0-99.0); Monocytes Absolute Auto 0.7 10^3/uL (0.3-0.8); Monocytes Percent Auto 8.4 % (1.7-12.0); Neutrophils Absolute Auto 5.4 10^3/uL (1.4-6.5); Neutrophils Percent Auto 66.9 % (43.0-75.0); Platelet Count 357 10^3/uL (150-450); Red Cell Distribution Width 16.9 % (11.0-15.0); White Blood Count 8.1 10^3/uL (4.0-11.0)
[2023-05-23 15:10] LABS: Alanine Aminotransferase 32 U/L (14-59); Albumin Globulin Ratio 0.9; Alkaline Phosphatase 235 U/L (46-116); Anion Gap 11.9; Aspartate Amino Transferase 82 U/L (15-37); BUN Creatinine Ratio 9.4; Bilirubin Total 0.4 mg/dL (0.2-1.0); Calcium 8.8 mg/dL (8.5-10.1); Chloride 100 mmol/L (98-107); Estimated GFR (African America >60 (>=60); Estimated GFR (Non-African Ame >60 (>=60); Globulin 3.5 g/dL; Glucose 96 mg/dL (74-106); Sodium 140 mmol/L (136-145); Total Protein 6.5 g/dL (6.4-8.2)
[2023-05-23 16:00] LABS: Potassium 2.9 mmol/L (3.5-5.1)
== END 2023-05-23 14:42 | disposition home or self-care (01) ==
LOC: LAB 14:42
PROVIDERS: PCP Nurse Practitioner; Visit Provider Nurse Practitioner
DX: K70.31 Alcoholic cirrhosis of liver with ascites (principal)
CPT/HCPCS: 36415; 80053; 85025

== ENCOUNTER 2023-07-12 12:52 | Outpatient (RCR) | payer MEDICARE, SELFPAY | END 2023-08-03 15:34 | disposition home or self-care (01) | LOC: PT 12:52 | PROVIDERS: PCP Nurse Practitioner; Visit Provider Nurse Practitioner Family | DX: M48.02 Spinal stenosis, cervical region (principal); R26.9 Unspecified abnormalities of gait and mobility; R26.89 Other abnormalities of gait and mobility | CPT/HCPCS: 97110; 97112; 97162; 97530 ==

== ENCOUNTER 2023-07-28 13:00 | Outpatient (RCR) | payer MEDICARE, SELFPAY | END 2023-08-12 11:33 | disposition home or self-care (01) | LOC: OT 13:00 | PROVIDERS: PCP Nurse Practitioner; Visit Provider Nurse Practitioner Family | DX: R53.1 Weakness (principal); M79.641 Pain in right hand; M79.642 Pain in left hand | CPT/HCPCS: 97166; 97530 ==

== ENCOUNTER 2023-08-02 11:08 | Outpatient (OUT) | payer MEDICARE, SELFPAY ==
--- OUTSIDE RECORDS SUMMARY | 2023-08-02 11:18 | XMS_ITS | CCD ---
Author Name Unknown Address [address] [facility] [address] [place] [address] Organization [facility] Care Team Providers Care Transformer Assembler Name Role Phone AICHHOLZ, ASSEMBLER SEMICONDUCTOR ASHLY Primary Care Unavailable AICHHOLZ, ASSEMBLER SEMICONDUCTOR ASHLY Consulting Unavailable AICHHOLZ, ASSEMBLER SEMICONDUCTOR ASHLY Admitting Unavailable AICHHOLZ, ASSEMBLER SEMICONDUCTOR ASHLY Attending Unavailable AICHHOLZ, ASSEMBLER SEMICONDUCTOR ASHLY Primary Care Unavailable DR SIGIFREDO VASQUES V Consulting Unavailable AICHHOLZ, ASSEMBLER SEMICONDUCTOR ASHLY Admitting Unavailable AICHHOLZ, ASSEMBLER SEMICONDUCTOR ASHLY Attending Unavailable AICHHOLZ, ASSEMBLER SEMICONDUCTOR ASHLY Consulting Unavailable AICHHOLZ, ASSEMBLER SEMICONDUCTOR ASHLY Admitting Unavailable AICHHOLZ, ASSEMBLER SEMICONDUCTOR ASHLY Attending Unavailable AICHHOLZ, ASSEMBLER SEMICONDUCTOR ASHLY Consulting Unavailable AICHHOLZ, ASSEMBLER SEMICONDUCTOR ASHLY Primary Care Unavailable DR EPIFANIO ECKERT Consulting Unavailable AICHHOLZ, ASSEMBLER SEMICONDUCTOR ASHLY Admitting Unavailable AICHHOLZ, ASSEMBLER SEMICONDUCTOR ASHLY Attending Unavailable AICHHOLZ, ASSEMBLER SEMICONDUCTOR ASHLY Consulting Unavailable AICHHOLZ, ASSEMBLER SEMICONDUCTOR ASHLY Primary Care Unavailable AICHHOLZ, ASSEMBLER SEMICONDUCTOR ASHLY Admitting Unavailable AICHHOLZ, ASSEMBLER SEMICONDUCTOR ASHLY Attending Unavailable AICHHOLZ, ASSEMBLER SEMICONDUCTOR ASHLY Consulting Unavailable AICHHOLZ, ASSEMBLER SEMICONDUCTOR ASHLY Primary Care Unavailable AICHHOLZ, ASSEMBLER SEMICONDUCTOR ASHLY Primary Care Unavailable AICHHOLZ, ASSEMBLER SEMICONDUCTOR ASHYL Admitting Unavailable AICHHOLZ, ASSEMBLER SEMICONDUCTOR ASHLY Attending Unavailable AICHHOLZ, ASSEMBLER SEMICONDUCTOR ASHLY Consulting Unavailable Deneen Nix Consulting Unavailable ALIREZA PATEL Attending Unavailable Mohinder Maxwell Unavailable Ashly Wu Primary Care Provider [phone] GREGORY Ha Attending Provider EULALIO Maxwell Attending Provider Alana Ha Unavailable EULALIO Maxwell Referring Provider Ashly Wu Primary Care Unavailable Mohinder Maxwell Referring Unavailable Alana Ha Attending Unavailable Alana Ha Admitting Unavailable Ashly Wu Primary Care Unavailable Mohinder Maxwell Attending Unavailable Mohinder Maxwell Admitting Unavailable Alana Ha Attending Unavailable Alana Ha Admitting Unavailable Ashly Wu Primary Care Unavailable ASHLY WU Attending Unavailable ASHLY WU Attending Unavailable Medications Current Medications Medication Drug Class(es) Dates Sig (Normalized) Sig (Original) amLODIPine 2.5 mg oral tablet (9 sources) Dihydropyridine Calcium Channel Surinder Start: 05-01-2021 Amlodipine Active 2.5 MG PO As Directed May 01, 2021 12:00am busPIRone hydrochloride 5 mg oral tablet (3 sources) Start: 11-10-2020 take 7.5 mg by mouth once daily at bedtime Buspirone Active 7.5 MG PO Daily at bedtime November 09, 2020 11:00pm Folic Acid (2 sources) Folic Acid Activ e Furosemide (2 sources) Loop Diuretic Lasix Active lidocaine 0.05 mg/mg medicated patch (5 sources) Antiarrhythmic, Amide Local Anesthetic Start: 04-27-2023 Lidocaine 5 % 1 patch remove after 12 hours Externally Once a day for Apr, Active Magnesium (2 sources) Magnesium Active Potassium (2 sources) Potassium Active propranolol hydrochloride 20 mg oral tablet (3 sources) beta-Adrenergic Surinder Start: 11-07-2020 take 20 mg by mouth twice daily Propranolol Active 20 MG PO Twice daily November 06, 2020 11:00pm Spironolactone (2 sources) Aldosterone Antagonist Spironolactone Active traZODone hydrochloride 50 mg oral tablet (12 sources) Serotonin Reuptake Inhibitor Start: 11-10-2020 take 50 mg by mouth once daily at bedtime Trazodone Active 50 MG PO Daily at bedtime November 09, 2020 11:00pm Start: 11-07-2020 take 100 mg by mouth once daily at bedtime Trazodone Active 100 MG PO Daily at bedtime November 06, 2020 11:00pm 24 hr venlafaxine 150 mg extended release oral capsule (9 sources) Serotonin and Norepinephrine Reuptake Inhibitor Start: 11-07-2020 take 150 mg by mouth once daily Venlafaxine Active 150 MG PO Daily November 06, 2020 11:00pm Venlafaxine HCl ER 150 MG START WITH 1 CAPSULE DAILY FOR 7 DAYS, THEN INCREASE TO 2 CAPSULES DAILY Oral Once a day for 15 days Active take 1 capsule by [facility] once daily, then take 2 capsules by mouth once daily Venlafaxine HCl ER 37.5 MG START WITH 1 CAPSULE DAILY FOR 7 DAYS, THEN INCREASE TO 2 CAPSULES DAILY Oral for 15 Active vitamin b12 1 mg/ml injectable solution (3 sources) Vitamin B12 Start: 05-01-2021 Cyanocobalamin (Vitamin B-12) Active 600 MCG SOLUTION May 01, 2021 12:00am Completed/Discontinued Medications Medication Drug Class(es) Dates Sig (Normalized) Sig (Original) brimonidine tartrate 2 mg/ml ophthalmic solution (3 sources) alpha-Adrenergic Agonist Start: 11-07-2020 End: 05-01-2021 take 1 drop(s) into the eye(s) once daily in the morning Brimonidine Discontinued 3 DROPS EYE-BOTH Every morning November 06, 2020 11:00pm May 01, 2021 10:45am cephalexin 500 mg oral capsule (6 sources) Cephalosporin Antibacterial Start: 11-10-2020 End: 05-01-2021 [...] mg / lisinopril 20 mg oral tablet (6 sources) Thiazide Diuretic, Angiotensin Converting Enzyme Inhibitor Start: 07-08-2020 End: 05-01-2021 take 1 tablet by mouth once daily Lisinopril-Hydrochlorothiazide Discontinued 1 TAB PO Daily November 07, 2020 11:00pm May 01, 2021 10:45am mirtazapine 15 mg oral tablet (3 sources) Start: 07-11-2020 End: 11-07-2020 take 15 mg by mouth once daily at bedtime Mirtazapine Discontinued 15 MG PO Daily at bedtime July 11, 2020 12:00am November 07, 2020 3:35pm 24 hr nicotine 0.875 mg/hr transdermal system (3 sources) Cholinergic Nicotinic Agonist Start: 07-11-2020 End: 11-07-2020 Nicotine Discontinued 1 EACH TRANSDERML Daily July 11, 2020 12:00am November 07, 2020 3:35pm potassium chloride 10 meq extended release oral capsule (3 sources) Start: 11-07-2020 End: 05-01-2021 take 10 mEq by mouth twice daily Potassium Chloride Discontinued 10 MEQ PO Twice daily November 06, 2020 11:00pm May 01, 2021 10:46am predniSONE 10 mg oral tablet (5 sources) Start: 04-27-2023 predniSONE 10 MG Take 3 tabl ets by mouth for 3 days then 2 tablets by mouth for 3 days then 1 tablet by mouth for 3 days Orally Once a day for Apr, Not-Taking/PRN Triamcinolone (6 sources) Corticosteroid Start: 09-15-2018 KENALOG - 10 mg Aug, 40 mg Problems Problem Classification Problem Date Documented Da te Episodic/Chronic Anxiety disorders (3 sources) Anxiety; Translations: [Anxiety disorder, unspecified] 07-08-2020 Chronic Essential hypertension (5 sources) Essential (primary) hypertension; Translations: [ESSENTIAL PRIMARY HYPERTENSION] Onset: 11-30-2021 Chronic Mood disorders (6 sources) Depressive disorder; Translations: [Depression] 07-08-2020 Chronic Nutritional deficiencies (5 sources) Deficiency of other specified B group vitamins; Translations: [DEFICIENCY SPEC B GROUP VITAMINS] Onset: 11-26-2021 Episodic Other connective tissue disease (5 sources) Recurrent falls ; Translations: [Repeated falls] Episodic Other gastrointestinal disorders (1 source) Other specified symptoms and signs involving the digestive system and abdomen Episodic Other liver diseases (4 sources) Steatosis of liver; Translations: [Fatty (change of) liver, not elsewhere classified] Chronic Other liver diseases (2 sources) Fatty (change of) liver, not elsewhere classified; Translations: [Fatty (change of) liver, not elsewhere classified] Onset: 07-01-2023 Chronic Other liver diseases (4 sources) Unspecified cirrhosis of liver; Translations: [Cirrhotic] Onset: 06-02-2023 Chronic Other nervous system disorders (6 sources) Brachial plexus disorder; Translations: [Brachial plexus disorders] Chronic Other nervous system disorders (4 sources) Bilateral carpal tunnel syndrome; Translations: [Carpal tunnel syndrome, bilateral upper limbs] Chronic Other nervous system disorders (1 source) Carpal tunnel syndrome, bilateral upper limbs Chronic Other nutritional; endocrine; and metabolic disorders (1 source) Overweight; Translations: [OVERWEIGHT] Onset: 09-17-2022 Episodic Other nutritional; endocrine; and metabolic disorders (1 source) Anorexia; Translations: [Loss of appetite] Episodic Other nutritional; endocrine; and metabolic disorders (5 sources) Loss of appetite; Translations: [Anorexia] Episodic Other screening for suspected conditions (not mental disorders or infectious disease) (12 sources) Encounter for screening mammogram for malignant neoplasm of breast; Translations: [Other specified abnormal findings of blood chemistry] Onset: 11-19-2021 Episodic Residual codes; unclassified (1 source) Early satiety Episodic Residual codes; unclassified (5 sources) Postmenopausal state; Translations: [Asymptomatic menopausal state] Episodic Residual codes; unclassified (3 sources) Alcoholism; Translations: [Alcohol use disorder] 11-08-2020 Episodic Spondylosis; intervertebral disc disorders; other back problems (13 sources) Sacroiliac joint pain; Translations: [Sacrococcygeal disorders, not elsewhere classified] Onset: 05-31-2023 Episodic Suicide and intentional self-inflicted injury (3 sources) Suicidal thoughts; Translations: [Suicidal ideations] 07-08-2020 Episodic Results Test Name Value Interpretation Reference Range Facility Alanine aminotransferase [En zymatic activity/volume] in Serum or PlasmaOrdered By: Mohinder Maxwell on 07-01-2023 ALT [Catalytic activity/Vol] 38 U/L 7-52 [facility] Albumin [Mass/volume] in Ser um or Plasma by Bromocresol green (BCG) dye binding methoOrdered By: Mohinder Maxwell on 07-01-2023 Albumin BCG dye [Mass/Vol] 3.9 g/dL 3.5-5.7 [facility] Alkaline phosphatase [Enzyma tic activity/volume] in Serum or PlasmaOrdered By: Mohinder Maxwell on 07-01-2023 ALP [Catalytic activity/Vol] 271 U/L 34-104 [facility] Aspartate aminotransferase [ Enzymatic activity/volume] in Serum or PlasmaOrdered By: Mohinder Maxwell on 07-01-2023 AST [Catalytic activity/Vol] 84 U/L 13-39 [facility] Bilirubin.total [Mass/volume ] in Serum or PlasmaOrdered By: Mohinder Maxwell on 07-01-2023 Bilirubin [Mass/Vol] 0.9 mg/dL 0.3-1.0 [facility] Calcium [Mass/volume] in Ser um or PlasmaOrdered By: Mohinder Maxwell on 07-01-2023 Calcium [Mass/Vol] 9.3 mg/dL 8.6-10.3 [facility] Carbon dioxide, total [Moles /volume] in Serum or PlasmaOrdered By: Mohinder Maxwell on 07-01-2023 CO2 [Moles/Vol] 29.9 mmol/L 21.0-31.0 [facility] Chloride [Moles/volume] in S charity or PlasmaOrdered By: Mohinder Maxwell on 07-01-2023 Chloride [Moles/Vol] 100 mmol/L 98-107 [facility] Comprehensive Metabolic Pane april 07-01-2023 Albumin [Mass/Vol] 3.9 g/dL Normal 3.5-5.7 [facility] Comment on above: Order Comment: Reaso n for Exam Fatty liver Performed By: #### C MP #### [facility] [address] Albumin/Globulin [Mass ratio] 1.3 {ratio} Normal [facility] Comment on above: Order Comment: Reaso n for Exam Fatty liver Performed By: #### C MP #### [facility] [address] [place] [address] [place] ALP [Catalytic activity/Vol] 271 U/L High 34-104 [facility] Comment on above: Order Comment: Reaso n for Exam Fatty liver Result Comment: PERF ORMED BY: [facility] [address] [place] [address] PATHOLOGIST BUSINESS INFORMATION ANALYST CRISTOBAL WARE M.D. Performed By: #### C MP #### [facility] [address] ALT [Catalytic activity/Vol] 38 U/L Normal 7-52 [facility] Comment on above: Order Comment: Reaso n for Exam Fatty liver Performed By: #### C MP #### [facility] [address] Anion gap [Moles/Vol] 12.4 mmol/L Normal 6.0-15.0 [facility] Comment on above: Order Comment: Reaso n for Exam Fatty liver Performed By: #### C MP #### [facility] [address] AST [Catalytic activity/Vol] 84 U/L High 13-39 [facility] Comment on above: Order Comment: Reaso n for Exam Fatty liver Performed By: #### C MP #### [facility] [address] [place] [address] Bilirubin [Mass/Vol] 0.9 mg/dL Normal 0.3-1.0 [facility] Comment on above: Order Comment: Reaso n for Exam Fatty liver Performed By: #### C MP #### [facility] [address] [place] [address] [place] Calcium [Mass/Vol] 9.3 mg/dL Normal 8.6-10.3 [facility] Comment on above: Order Comment: Reaso n for Exam Fatty liver Performed By: #### C MP #### [facility] [address] [place] [address] [place] Chloride [Moles/Vol] 100 mmol/L Normal 98-107 [facility] Comment on above: Order Comment: Reaso n for Exam Fatty liver Performed By: #### C MP #### [facility] [address] [place] [address] [place] CO2 [Moles/Vol] 29.9 mmol/L Normal 21.0-31.0 [facility] Comment on above: Order Comment: Reaso n for Exam Fatty liver Performed By: #### C MP #### [facility] [address] [place] [address] [place] Creatinine [Mass/Vol] 0.57 mg/dL Low 0.60-1.20 [facility] Comment on above: Order Comment: Reaso n for Exam Fatty liver Performed By: #### C MP #### [facility] [address] [place] [address] [place] GFR/1.73 sq M.predicted MDRD (S/P/Bld) [Vol rate/Area] mL/min/{1.73_m2} Normal [facility] Comment on above: Order Comment: Reaso n for Exam Fatty liver Performed By: #### C MP #### [facility] [address] [place] [address] [place] Globulin (S) [Mass/Vol] 3.1 g/dL Normal [facility] Comment on above: Order Comment: Reaso n for Exam Fatty liver Performed By: #### C MP #### [address] Glucose [Mass/Vol] 79 mg/dL Normal 70-100 [facility] Comment on above: Order Comment: Reaso n for Exam Fatty liver Result Comment: [facility] Glucose Reference Range is dependent on time and content of last meal. Glucose of more than 200 mg/dL in a nonstressed, ambulatory subject supports the diagnosis of Diabetes Mellitus. ADA recommended reference range Performed By: #### C MP #### [address] Potassium [Moles/Vol] 3.3 mmol/L Low 3.5-5.1 [facility] Comment on above: Order Comment: Reaso n for Exam Fatty liver Performed By: #### C MP #### [place] [address] [place] Protein [Mass/Vol] 7.0 g/dL Normal 6.4-8.9 [facility] Comment on above: Order Comment: Reaso n for Exam Fatty liver Performed By: #### C MP #### [facility] [address] [place] [address] [place] Sodium [Moles/Vol] 139 mmol/L Normal 136-145 [facility] Comment on above: Order Comment: Reaso n for Exam Fatty liver Performed By: #### C MP #### [facility] [address] [place] [address] [place] Urea nitrogen [Mass/Vol] 9 mg/dL Normal 7-25 [facility] Comment on above: Order Comment: Reaso n for Exam Fatty liver Performed By: #### C MP #### [facility] [address] [place] [address] [place] Creatinine [Mass/volume] in Serum or PlasmaOrdered By: Mohinder Maxwell on 07-01-2023 Creatinine [Mass/Vol] 0.57 mg/dL 0.60-1.20 [facility] Globulin Calc (S) [Mass/Vol] Ordered By: Mohinder Maxwell on 07-01-2023 Globulin (S) [Mass/Vol] 3.1 g/dL F [facility] Glucose [Mass/volume] in Ser um or PlasmaOrdered By: Mohinder Maxwell on 07-01-2023 Glucose [Mass/Vol] 79 mg/dL 70-100 [facility] Comment on above: ADA recommended refe rence rangeRandom Glucose Reference Range is dependent on time and content of last meal. Glucose of more than 200 mg/dL in a nonstressed, ambulatory subject supports the diagnosis of Diabetes Mellitus. No Panel InformationOrdered By: Mohinder Maxwell on 07-01-2023 Estimated GFR (CKD-EPI) > 60.0 mL/Min [facility] Creatinine Clearance (Chem N/A [facility] Potassium [Moles/volume] in Serum or PlasmaOrdered By: Mohinder Maxwell on 07-01-2023 Potassium [Moles/Vol] 3.3 mmol/L 3.5-5.1 [facility] Protein [Mass/volume] in Ser um or PlasmaOrdered By: Mohinder Maxwell on 07-01-2023 Protein [Mass/Vol] 7.0 g/dL 6.4-8.9 [facility] Serum or plasma albumin/glob ulin mass ratioOrdered By: Mohinder Maxwlel on 07-01-2023 Albumin/Globulin [Mass ratio] 1.3 {ratio} [facility] Serum or plasma anion gap de terminationOrdered By: Mohinder Maxwell on 07-01-2023 Anion gap [Moles/Vol] 12.4 mmol/L 6.0-15.0 [facility] Sodium [Moles/volume] in Ser um or PlasmaOrdered By: Mohinder Maxwell on 07-01-2023 Sodium [Moles/Vol] 139 mmol/L 136-145 [facility] Urea nitrogen [Mass/volume] in Serum or PlasmaOrdered By: Mohinder Maxwell on 07-01-2023 Urea nitrogen [Mass/Vol] 9 mg/dL 7-25 [facility] XR cerv spine AP/LAT/FLX/EXT on 05-31-2023 XR cerv spine AP/LAT/FLX/EXT [facility] [place] [address] XRay Report Signed Patient: Regina Ma MR#: [id number] : 1960 Acct:[id number] Age/Sex: 63 / F ADM Date: 05/31/23 Loc: XD Room: Type: [facility] Attending Dr: Alana LINDSEYC Copies to: GREGORY [...] Alex Morel M.D.05/31/2023 4:27 PM Dictation Location: [place] [address] Transcribed By: [facility] 05/31/23 8293 Dictated By: Alex Morel DO 05/31/23 162 Signed By: 05/31/23 162 [facility] XR lumbar spine AP/LAT/FLX/E XTon 05-31-2023 XR lumbar spine AP/LAT/FLX/EXT [facility] [place] [address] [place] [address] XRay Report Signed Patient: Regina Ma MR#: [id number] : 1960 Acct:[id number] Age/Sex: 63 / F ADM Date: 05/31/23 Loc: XD Room: Type: [facility] Attending Dr: Alana Ha NP-C Copies to: GREGORY Swan Ordering Provider: GREGORY [...] disc space narrowing. SOFT TISSUES: Unremarkable BONY MINERALIZATION:[place] te XR/XR lumbar spine AP/LAT/FLX/EXT IMPRESSION: No hypermobility. Mild to moderate degenerative listhesis. Multilevel spondylosis. Extensive lower lumbar degenerative change. Impression dictated by: Alex Morel M.D.05/31/2023 4:33 PM Dictation Location: [place] [address] Transcribed By: [facility] 05/31/231632 Dictated By: Alex Morel DO 05/31/231626 Signed By: 05/31/23 163 [facility] Lipase Levelon 03-22-2023 Lipase [Catalytic activity/Vol] 39 U/L Normal 13-58 [facility] Comment on above: Performed By: #### [id number] #### [facility] [address] [place] [id number] Physician Orderon 03-22-2023 Physician Order [id number] 1.00CD:127 Normal [facility] MG MAMM SCREEN 3D CHEVY CADon 10-13-2022 MG MAMM SCREEN 3D CHEVY CAD Patient: REGINA MA Exam Date: 10/13/2022 : 1960 Gender:F Ordering : GEOFF ASHLY WU ASSEMBLER SEMICONDUCTOR Admission #: [id number] Family : Order #: [id number] CLICK HERE TO VIEW EXAM RADIOLOGY REPORT [...] Treatments None Family Cancers None LOCATION: [facility] BREAST COMPOSITION: Extremely dense, which lowers the [...] MD on 10/13/2022 at 12:39 Normal [facility] HEPATITIS PANEL, ACUTEon HBsAg Screen Negative Normal Negative [facility] Comment on above: Performed By: #### F T4, IRON, B12FOL #### [facility] [address] [place], [place] [address] Dr. Heath Bauer HCV AB Non-Reactive Normal Non Reactive [facility] Comment on above: Performed By: #### F T4, IRON, B12FOL #### [facility] [address] [place], [place] [address] Dr. Heath Bauer Hep A Ab, IgM Negative Normal Negative [facility] Comment on above: Performed By: #### F T4, IRON, B12FOL #### [facility] [address] [place], [place] [address] Dr. Heath Bauer Hep B Core Ab, IgM Negative Normal Negative [facility] Comment on above: Performed By: #### F T4, IRON, B12FOL #### [facility] [address] [place], [place] [address] Dr. Heath Bauer Interpretation: Comment Normal [facility] Comment on above: Result Comment: Not infected with HCV unless early or acute infection is suspected (which may be delayed in an immunocompromised individual), or other evidence exists to indicate HCV infection. Performed By: #### F T4, IRON, B12FOL #### [facility] [address] [place], [place] [address] Dr. Heath Bauer US SINGLE QUAD RT [...] DENEEN NIX Date: 2022-10-03 18:53 Normal [facility] LIVER PROFILEon 09-30-2022 Albumin [Mass/Vol] 3.0 g/dL Critically low 3.4-5.0 [facility] Comment on above: Performed By: #### F T4, IRON, B12FOL #### [facility] [address] [place] [address] [address] Heath Bauer Albumin/Globulin [Mass ratio] 0.8 {ratio} Normal [facility] Comment on above: Performed By: #### F T4, IRON, B12FOL #### [facility] [address] [place] [address] [address] Heath Bauer ALP [Catalytic activity/Vol] 125 U/L Critically high 46-116 [facility] Comment on above: Performed By: #### F T4, IRON, B12FOL #### [facility] [address] [place] [address] [address] Heath Bauer ALT [Catalytic activity/Vol] 86 U/L Critically high 14-59 [facility] Comment on above: Performed By: #### F T4, IRON, B12FOL #### [facility] [address] [place] [address] [address] Heath Baeur AST [Catalytic activity/Vol] 134 U/L Critically high 15-37 [facility] Comment on above: Performed By: #### F T4, IRON, B12FOL #### [facility] [address] [place] [address] [address] Heath Bauer BILI, CONJUGATED 0.2 mg/dL Normal 0.0-0.2 [facility] Comment on above: Performed By: #### F T4, IRON, B12FOL #### [facility] [address] [place] [address] [address] Heath Bauer Bilirubin [Mass/Vol] 0.4 mg/dL Normal 0.2-1.0 [facility] Comment on above: Performed By: #### F T4, IRON, B12FOL #### [facility] [address] [place] [address] [address] Heath Bauer Globulin (S) [Mass/Vol] 4.0 g/dL Normal T [facility] Comment on above: Performed By: #### F T4, IRON, B12FOL #### [facility] [address] [place] [address] Dr. Heath Bauer Protein [Mass/Vol] 7.0 g/dL Normal 6.4-8.2 [facility] Comment on above: Performed By: #### F T4, IRON, B12FOL #### [facility] [address] [place] [address] Dr. Heath Bauer CBC AUTO DIFFon 09-15-2022 BASO # 0.0 103/ul Normal 0.0-0.1 [facility] Comment on above: Performed By: #### C BC #### [facility] [address] [place] [address] Dr. Heath Bauer Basophils/100 WBC (Bld) 0.4 % Normal 0.2-2.0 [facility] Comment on above: Performed By: #### C BC #### [facility] [address] [place] [address] Dr. Heath Bauer EO # 0.1 103/ul Normal 0.0-0.7 [facility] Comment on above: Performed By: #### C BC #### [facility] [address] [place] [address] Dr. Heath Bauer Eosinophils/100 WBC (Bld) 1.3 % Normal 0.9-7.0 [facility] Comment on above: Performed By: #### C BC #### [facility] [address] [place] [address] Dr. Heath Bauer Erythrocyte distribution width (RBC) [Ratio] 16.2 % Critically high 11.0-15.0 [facility] Comment on above: Performed By: #### C BC #### [facility] [address] [place] [address] Dr. Heath Bauer Hematocrit (Bld) [Volume fraction] 42.1 % Normal 36.0-48.0 [facility] [facility] Comment on above: Performed By: #### C BC #### [facility] [address] [place] [address] Dr. Heath Bauer Hemoglobin (Bld) [Mass/Vol] 15.0 g/dL Normal 12.0-16.0 [facility] Comment on above: Performed By: #### C BC #### [facility] [address] [place] [address] Dr. Heath Bauer IG # 0.04 10e3/ul Critically high 0.00-0.03 [facility] Comment on above: Performed By: #### C BC #### [facility] [address] [place] [address] Dr. Heath Bauer IG % 0.4 % Normal 0.0-0.5 [facility] Comment on above: Performed By: #### C BC #### [facility] [address] [place] [address] Dr. Heath Bauer LYMPH # 1.3 103/ul Normal 1.2-3.8 [facility] Comment on above: Performed By: #### C BC #### [facility] [address] [place] [address] Dr. Heath Bauer Lymphocytes/100 WBC (Bld) 13.7 % Critically low 20.5-60.0 [facility] Comment on above: Performed By: #### C BC #### [facility] [address] [place] [address] Dr. Heath Bauer MANUAL DIFF REQ NO Normal [facility] Comment on above: Performed By: #### C BC #### [facility] [address] [place] [address] Dr. Heath Bauer MCH (RBC) [Entitic mass] 37.1 pg Critically high 26.7-3 4.0 [facility] Comment on above: Performed By: #### C BC #### [facility] [address] [place] [address] Dr. Heath Baure MCHC (RBC) [Mass/Vol] 35.6 g/dL Critically high 29.9-35.2 [facility] Comment on above: Performed By: #### C BC #### [facility] [address] [place] [address] Dr. Heath Bauer MCV (RBC) [Entitic vol] 104.2 fL Critically high 81.0-99 .0 [facility] Comment on above: Performed By: #### C BC #### [facility] [address] [place] [address] Dr. Heath Bauer MONO # 0.9 103/ul Critically high 0.3-0.8 [facility] Comment on above: Performed By: #### C BC #### [facility] [address] [place] [address] Dr. Heath Bauer Monocytes/100 WBC (Bld) 10.0 % Normal 1.7-12.0 [facility] Comment on above: Performed By: #### C BC #### [facility] [address] [place] [address] Dr. Heath Bauer NEUT # 6.8 103/ul Critically high 1.4-6.5 [facility] Comment on above: Performed By: #### C BC #### [facility] [address] [place] [address] Dr. Heath Bauer Neutrophils/100 WBC (Bld) 74.2 % Normal 43.0-75.0 [facility] Comment on above: Performed By: #### C BC #### [facility] [address] [place] [address] Dr. Heath Bauer Platelet mean volume (Bld) [Entitic vol] 8.6 fL Critically low 9.5-13.5 [facility] Comment on above: Performed By: #### C BC #### [facility] [address] [place] [address] Dr. Heath Bauer PLT 274 103/ul Normal 150-450 [facility] Comment on above: Performed By: #### C BC #### [facility] [address] [place] [address] Dr. Heath Bauer RBC 4.04 106/ul Critically low 4.20-5.40 [facility] Comment on above: Performed By: #### C BC #### [facility] [address] [place] [address] Dr. Heath Bauer WBC 9.2 103/ul Normal 4.0-11.0 [facility] Comment on above: Performed By: #### C BC #### [facility] [address] [address] [address] Heath Bauer FREE T4on 09-15-2022 Free T4 [Mass/Vol] 0.93 ng/dL Normal 0.76-1.46 [facility] Comment on above: Performed By: #### F T4, IRON, B12FOL #### [facility] [address] [address] [address] Heath Bauer IRONon 09-15-2022 Iron [Mass/Vol] 112.0 ug/dL Normal 50.0-170.0 [facility] Comment on above: Performed By: #### F T4, IRON, B12FOL #### [facility] [address] [place] [address] Dr. Heath Bauer LIPID PROFILEon 09-15-2022 CHOL-HDL RATIO NORM SEE BELOW Normal [facility] Comment on above: Result Comment: 3.3 - 4.4 LOW RISK 4.4 - 7.1 AVERAGE RISK 7.1 - 11.0 MODERATE RISK >11.0 HIGH RISK Performed By: #### F T4, IRON, B12FOL #### [facility] [address] [place] [address] Dr. Heath Bauer Cholesterol [Mass/Vol] 246 mg/dL Critically high <=200 [facility] Comment on above: Performed By: #### F T4, IRON, B12FOL #### [facility] [address] [place] [address] Dr. Heath Bauer Cholesterol in HDL [Mass/Vol] 87 mg/dL Critically high 40-60 [facility] Comment on above: Performed By: #### F T4, IRON, B12FOL #### [facility] [address] [place] [address] Dr. Heath Bauer Cholesterol in LDL [Mass/Vol] 136.4 mg/dL Normal [facility] Comment on above: Performed By: #### F T4, IRON, B12FOL #### [facility] [address] [place] [address] Dr. Heath Bauer Cholesterol.total/Choles terol in HDL [Mass ratio] 2.8 {ratio} Normal [facility] Comment on above: Performed By: #### F T4, IRON, B12FOL #### [facility] [address] [place] [address] Dr. Heath Bauer HDL NORMAL > or = 60 mg/dl - LO W CARDIOVASCULAR RISK <40 mg/dl - HIGH CARDIOVASCULAR RISK Normal [facility] Comment on above: Performed By: #### F T4, IRON, B12FOL #### [facility] [address] [address] [address] Heath Bauer LDL CALC NORMAL SEE BELOW Normal [facility] Comment on above: Result Comment: <100 mg/dl OPTIMAL 100 - 129 mg/dl NEAR OR ABOVE OPTIMAL 130 - 159 mg/dl BORDERLINE HIGH 160 - 189 mg/dl HIGH >190 mg/dl VERY HIGH Performed By: #### F T4, IRON, B12FOL #### [facility] [address] [address] [address] Heath Bauer Triglyceride [Mass/Vol] 113 mg/dL Normal <=150 [facility] Comment on above: Performed By: #### F T4, IRON, B12FOL #### [facility] [address] [place] [address] Dr. Heath Bauer VLDL CALC 22.6 mg/dL Normal [facility] Comment on above: Performed By: #### F T4, IRON, B12FOL #### [facility] [address] [place] [address] Dr. Heath Bauer PROF 14(COMP METB)on 023 Albumin [Mass/Vol] 3.6 g/dL Normal 3.4-5.0 [facility] Comment on above: Performed By: #### T SH, CMP, LIPID #### [facility] [address] [place] [address] Dr. Heath Bauer Albumin/Globulin [Mass ratio] 0.9 {ratio} Normal [facility] Comment on above: Performed By: #### T SH, CMP, LIPID #### [facility] [address] [place] [address] Dr. Heath Bauer ALP [Catalytic activity/Vol] 145 U/L Critically high 46-116 [facility] Comment on above: Performed By: #### T SH, CMP, LIPID #### [facility] [address] [address] [address] Heath Bauer ALT [Catalytic activity/Vol] 61 U/L Critically high 14-59 [facility] Comment on above: Performed By: #### T SH, CMP, LIPID #### [facility] [address] [address] [address] Heath Bauer Anion gap [Moles/Vol] 15.8 mmol/L Normal [facility] Comment on above: Performed By: #### T SH, CMP, LIPID #### [facility] [address] [address] [address] Heath Bauer AST [Catalytic activity/Vol] 136 U/L Critically high 15-37 [facility] Comment on above: Performed By: #### T SH, CMP, LIPID #### [facility] [address] [address] [address] Heath Buaer Bilirubin [Mass/Vol] 0.6 mg/dL Normal 0.2-1.0 [facility] Comment on above: Performed By: #### T SH, CMP, LIPID #### [facility] [address] [address] [address] Heath Bauer Calcium [Mass/Vol] 9.5 mg/dL Normal 8.5-10.1 [facility] Comment on above: Performed By: #### T SH, CMP, LIPID #### [facility] [address] [address] [address] Heath Bauer Chloride [Moles/Vol] 102 mmol/L Normal 98-107 [facility] Comment on above: Performed By: #### T SH, CMP, LIPID #### [facility] [address] [address] [address] Heath Bauer CO2 [Moles/Vol] 28.5 mmol/L Normal 21.0-32.0 [facility] Comment on above: Performed By: #### T SH, CMP, LIPID #### [facility] [address] [address] [address] Heath Bauer Creatinine [Mass/Vol] 0.67 mg/dL Normal 0.55-1.02 [facility] Comment on above: Performed By: #### T SH, CMP, LIPID #### [facility] [address] [address] [address] Heath Bauer EGFR-AF CYPRIOT >60 Normal >=60 [facility] Comment on above: Performed By: #### T SH, CMP, LIPID #### [facility] [address] [address] [address] Heath Bauer EGFR-NON AF CYPRIOT >60 Normal >=60 [facility] Comment on above: Performed By: #### T SH, CMP, LIPID #### [facility] [address] [address] [address] Heath Bauer Globulin (S) [Mass/Vol] 3.9 g/dL Normal [facility] Comment on above: Performed By: #### T SH, CMP, LIPID #### [facility] [address] [address] [address] Heath Bauer Glucose [Mass/Vol] 92 mg/dL Normal 74-106 [facility] Comment on above: Performed By: #### T SH, CMP, LIPID #### [facility] [address] [address] [address] Heath Bauer Potassium [Moles/Vol] 3.3 mmol/L Critically low 3.5-5.1 [facility] Comment on above: Performed By: #### T SH, CMP, LIPID #### [facility] [address] [address] [address] Heath Bauer Protein [Mass/Vol] 7.5 g/dL Normal 6.4-8.2 [facility] Comment on above: Performed By: #### T SH, CMP, LIPID #### [facility] [address] [address] [address] Heath Bauer Sodium [Moles/Vol] 143 mmol/L Normal 136-145 [facility] Comment on above: Performed By: #### T SH, CMP, LIPID #### [facility] [address] [place] [address] Dr. Heath Bauer Urea nitrogen [Mass/Vol] 11.0 mg/dL Normal 7.0-18.0 [facility] Comment on above: Performed By: #### T SH, CMP, LIPID #### [facility] [address] [place] [address] Dr. Heath Bauer Urea nitrogen/Creatinine [Mass ratio] 16.4 mg/mg Normal [facility] Comment on above: Performed By: #### T SH, CMP, LIPID #### [facility] [address] [place] [address] Dr. Heath Bauer TSHon 09-15-2022 TSH 2.046 uIU/mL Normal 0.358-3.740 [facility] Comment on above: Performed By: #### F T4, IRON, B12FOL #### [facility] [address] [place] [address] Dr. Heath Bauer UA RANDOM W/MICROSCOPICon BACTERIA LARGE Abnormal NONE SEEN [facility] Comment on above: Performed By: #### F T4, IRON, B12FOL #### [facility] [address] [place] [address] Dr. Heath Bauer Bilirubin Ql (U) Negative Normal NEGATIVE [facility] Comment on above: Performed By: #### F T4, IRON, B12FOL #### [facility] [address] [place] [address] Dr. Heath Bauer CAST NONE SEEN Normal NONE SEEN [facility] Comment on above: Performed By: #### F T4, IRON, B12FOL #### [facility] [address] [place] [address] Dr. Heath Bauer Clarity (U) SL CLOUDY Abnormal CLEAR [facility] Comment on above: Performed By: #### F T4, IRON, B12FOL #### [facility] [address] [place] [address] Dr. Heath Bauer Color (U) YELLOW Normal YELLOW [facility] Comment on above: Performed By: #### F T4, IRON, B12FOL #### [facility] [address] [address] [address] Heath Bauer Crystals LM Nom (Urine sed) NONE SEEN Normal NONE SEEN [facility] Comment on above: Performed By: #### F T4, IRON, B12FOL #### [facility] [address] [address] [address] Heath Bauer Epithelial cells LM Ql (Urine sed) MANY Abnormal NONE SEEN /RARE [facility] Comment on above: Performed By: #### F T4, IRON, B12FOL #### [facility] [address] [place] [address] Dr. Heath Bauer Glucose Ql (U) Negative Normal NEGATIVE [facility] Comment on above: Performed By: #### F T4, IRON, B12FOL #### [facility] [address] [place] [address] Dr. Heath Bauer Hemoglobin Ql (U) Negative Normal NEGATIVE [facility] Comment on above: Performed By: #### F T4, IRON, B12FOL #### [facility] [address] [place] [address] Dr. Heath Bauer Ketones Ql (U) TRACE Abnormal NEGATIVE [facility] Comment on above: Performed By: #### F T4, IRON, B12FOL #### [facility] [address] [place] [address] Dr. Heath Bauer LEUKOCYTES Negative Normal NEGATIVE [facility] Comment on above: Performed By: #### F T4, IRON, B12FOL #### [facility] [address] [address] [address] Heath Bauer MUCOUS NONE SEEN Normal NONE SEEN [facility] Comment on above: Performed By: #### F T4, IRON, B12FOL #### [facility] [address] [place] [address] Dr. Heath Bauer Nitrite Ql (U) Positive Abnormal NEGATIVE [facility] Comment on above: Performed By: #### F T4, IRON, B12FOL #### [facility] [address] [place] [address] Dr. Heath Bauer pH (U) 6.0 [pH] Normal 5-9 [facility] Comment on above: Performed By: #### F T4, IRON, B12FOL #### [facility] [address] [place] [address] Dr. Heath Bauer RBC NONE SEEN Abnormal 0-2 [facility] Comment on above: Performed By: #### F T4, IRON, B12FOL #### [facility] [address] [place] [address] Dr. Heath Bauer SPEC GRAVITY 1.025 Normal 1.005-<=1.02 5 [facility] Comment on above: Performed By: #### F T4, IRON, B12FOL #### [facility] [address] [place] [address] Dr. Heath Bauer UA PROTEIN TRACE Normal NEGATIVE/ TRACE [facility] Comment on above: Performed By: #### F T4, IRON, B12FOL #### [facility] [address] [place] [address] Dr. Heath Bauer Urobilinogen Qn (U) 1.0 {[place]'U}/dL Normal 0.2 - 1. 0 [facility] Comment on above: Performed By: #### F T4, IRON, B12FOL #### [facility] [address] [place] [address] Dr. Heath Bauer WBC 0-2 Abnormal NONE SEEN [facility] Comment on above: Performed By: #### F T4, IRON, B12FOL #### [facility] [address] [place] [address] Dr. Heath Bauer VIT B12 AND FOLATEon 023 Cobalamin (Vitamin B12) [Mass/Vol] pg/mL Critically high 193.0-986.0 [facility] Comment on above: Performed By: #### F T4, IRON, B12FOL #### [facility] [address] [place] [address] Dr. Heath Bauer FOLATE 2.50 ng/mL Critically low 8.60-58.90 [facility] Comment on above: Performed By: #### F T4, IRON, B12FOL #### [facility] [address] [place] [address] Dr. Heath Bauer CBC AUTO DIFFon 11-26-2021 BASO # 0.0 103/ul Normal 0.0-0.1 [facility] Comment on above: Performed By: #### F T4, IRON, B12FOL #### [facility] [address] [place] [address] Dr. Heath Bauer Basophils/100 WBC (Bld) 0.5 % Normal 0.2-2.0 [facility] Comment on above: Performed By: #### F T4, IRON, B12FOL #### [facility] [address] [place] [address] Dr. Heath Bauer EO # 0.1 103/ul Normal 0.0-0.7 [facility] Comment on above: Performed By: #### F T4, IRON, B12FOL #### [facility] [address] [place] [address] Dr. Heath Bauer Eosinophils/100 WBC (Bld) 1.2 % Normal 0.9-7.0 [facility] Comment on above: Performed By: #### F T4, IRON, B12FOL #### [facility] [address] [place] [address] Dr. Heath Bauer Erythrocyte distribution width (RBC) [Ratio] 14.3 % Normal 11.0-15.0 [facility] Comment on above: Performed By: #### F T4, IRON, B12FOL #### [facility] [address] [place] [address] Dr. Heath Bauer Hematocrit (Bld) [Volume fraction] 42.6 % Normal 36.0-48.0 [facility] Comment on above: Performed By: #### F T4, IRON, B12FOL #### [facility] [address] [place] [address] Dr. Heath Bauer Hemoglobin (Bld) [Mass/Vol] 14.6 g/dL Normal 12.0-16.0 [facility] Comment on above: Performed By: #### F T4, IRON, B12FOL #### [facility] [address] [address] [address] Heath Bauer IG # 0.04 10e3/ul Critically high 0.00-0.03 [facility] Comment on above: Performed By: #### F T4, IRON, B12FOL #### [facility] [address] [place] [address] Dr. Heath Bauer IG % 0.5 % Normal 0.0-0.5 [facility] Comment on above: Performed By: #### F T4, IRON, B12FOL #### [facility] [address] [place] [address] Dr. Heath Bauer LYMPH # 1.3 103/ul Normal 1.2-3.8 [facility] Comment on above: Performed By: #### F T4, IRON, B12FOL #### [facility] [address] [place] [address] Dr. Heath Bauer Lymphocytes/100 WBC (Bld) 15.8 % Critically low 20.5-60.0 [facility] Comment on above: Performed By: #### F T4, IRON, B12FOL #### [facility] [address] [place] [address] Dr. Heath Bauer MANUAL DIFF REQ NO Normal [facility] Comment on above: Performed By: #### F T4, IRON, B12FOL #### [facility] [address] [place] [address] Dr. Heath Bauer MCH (RBC) [Entitic mass] 36.8 pg Critically high 26.7-3 4.0 [facility] Comment on above: Performed By: #### F T4, IRON, B12FOL #### [facility] [address] [place] [address] Dr. Heath Bauer MCHC (RBC) [Mass/Vol] 34.3 g/dL Normal 29.9-35.2 [facility] Comment on above: Performed By: #### F T4, IRON, B12FOL #### [facility] [address] [place] [address] Dr. Heath Bauer MCV (RBC) [Entitic vol] 107.3 fL Critically high 81.0-99 .0 [facility] Comment on above: Result Comment: Macr ocytosis 2+ Performed By: #### F T4, IRON, B12FOL #### [facility] [address] [place] [address] Dr. Heath Bauer MONO # 0.9 103/ul Critically high 0.3-0.8 [facility] Comment on above: Performed By: #### F T4, IRON, B12FOL #### [facility] [address] [place] [address] Dr. Heath Bauer Monocytes/100 WBC (Bld) 10.1 % Normal 1.7-12.0 [facility] Comment on above: Performed By: #### F T4, IRON, B12FOL #### [facility] [address] [place] [address] Dr. Heath Bauer NEUT # 6.1 103/ul Normal 1.4-6.5 [facility] Comment on above: Performed By: #### F T4, IRON, B12FOL #### [facility] [address] [place] [address] Dr. Heath Bauer Neutrophils/100 WBC (Bld) 71.9 % Normal 43.0-75.0 [facility] Comment on above: Performed By: #### F T4, IRON, B12FOL #### [facility] [address] [place] [address] Dr. Heath Bauer Platelet mean volume (Bld) [Entitic vol] 9.8 fL Normal 9.5-13.5 [facility] Comment on above: Performed By: #### F T4, IRON, B12FOL #### [facility] [address] [place] [address] Dr. Heath Bauer PLT 282 103/ul Normal 150-450 [facility] Comment on above: Performed By: #### F T4, IRON, B12FOL #### [facility] [address] [place] [address] Dr. Heath Bauer RBC 3.97 106/ul Critically low 4.20-5.40 [facility] Comment on above: Performed By: #### F T4, IRON, B12FOL #### [facility] [address] [address] [address] Heath Bauer WBC 8.4 103/ul Normal 4.0-11.0 [facility] Comment on above: Performed By: #### F T4, IRON, B12FOL #### [facility] [address] [address] [address] Heath Bauer PROF 14(COMP METB)on 022 Albumin [Mass/Vol] 3.5 g/dL Normal 3.4-5.0 [facility] Comment on above: Performed By: #### C MP #### [facility] [address] [place] [address] Dr. Heath Bauer Albumin/Globulin [Mass ratio] 0.9 {ratio} Normal [facility] Comment on above: Performed By: #### C MP #### [facility] [address] [place] [address] Dr. Heath Bauer ALP [Catalytic activity/Vol] 120 U/L Critically high 46-116 [facility] Comment on above: Performed By: #### C MP #### [facility] [address] [place] [address] Dr. Heath Bauer ALT [Catalytic activity/Vol] 58 U/L Normal 14-59 [facility] Comment on above: Performed By: #### C MP #### [facility] [address] [place] [address] Dr. Heath Bauer Anion gap [Moles/Vol] 13.2 mmol/L Normal [facility] Comment on above: Performed By: #### C MP #### [facility] [address] [place] [address] Dr. Heath Bauer AST [Catalytic activity/Vol] 121 U/L Critically high 15-37 [facility] Comment on above: Performed By: #### C MP #### [facility] [address] [place] [address] Dr. Heath Bauer Bilirubin [Mass/Vol] 0.7 mg/dL Normal 0.2-1.0 [facility] Comment on above: Performed By: #### C MP #### [facility] [address] [address] [address] Heath Bauer Calcium [Mass/Vol] 9.0 mg/dL Normal 8.5-10.1 [facility] Comment on above: Performed By: #### C MP #### [facility] [address] [address] [address] Heath Bauer Chloride [Moles/Vol] 99 mmol/L Normal 98-107 [facility] Comment on above: Performed By: #### C MP #### [facility] [address] [address] [address] Heath Bauer CO2 [Moles/Vol] 31.2 mmol/L Normal 21.0-32.0 [facility] Comment on above: Performed By: #### C MP #### [facility] [address] [place] [address] Dr. Heath Bauer Creatinine [Mass/Vol] 0.69 mg/dL Normal 0.55-1.02 [facility] Comment on above: Performed By: #### C MP #### [facility] [address] [place] [address] Dr. Heath Bauer EGFR-AF CYPRIOT >60 Normal >=60 [facility] Comment on above: Performed By: #### C MP #### [facility] [address] [place] [address] Dr. Heath Bauer EGFR-NON AF CYPRIOT >60 Normal >=60 [facility] Comment on above: Performed By: #### C MP #### [facility] [address] [place] [address] Dr. Heath Bauer Globulin (S) [Mass/Vol] 3.9 g/dL Normal [facility] Comment on above: Performed By: #### C MP #### [facility] [address] [place] [address] Dr. Heath Bauer Glucose [Mass/Vol] 98 mg/dL Normal 74-106 [facility] Comment on above: Performed By: #### C MP #### [facility] [address] [place] [address] Dr. Heath Bauer Potassium [Moles/Vol] 3.4 mmol/L Critically low 3.5-5.1 [facility] Comment on above: Performed By: #### C MP #### [facility] [address] [place] [address] Dr. Heath Bauer Protein [Mass/Vol] 7.4 g/dL Normal 6.4-8.2 [facility] Comment on above: Performed By: #### C MP #### [facility] [address] [address] [address] Heath Bauer Sodium [Moles/Vol] 140 mmol/L Normal 136-145 [facility] Comment on above: Performed By: #### C MP #### [facility] [address] [place] [address] Dr. Heath Bauer Urea nitrogen [Mass/Vol] 15.0 mg/dL Normal 7.0-18.0 [facility] Comment on above: Performed By: #### C MP #### [facility] [address] [place] [address] Dr. Heath Bauer Urea nitrogen/Creatinine [Mass ratio] 21.7 mg/mg Normal [facility] Comment on above: Performed By: #### C MP #### [facility] [address] [place] [address] Dr. Heath Bauer VITAMIN B12on 11-26-2021 Cobalamin (Vitamin B12) [Mass/Vol] 290.0 pg/mL Normal 193.0-986.0 [facility] Comment on above: Performed By: #### V ITB12 #### [facility] [address] [place] [address] Dr. Heath Bauer MG MAMM DX 3D RT CADon 11-19 MG MAMM DX 3D RT CAD Patient: REGINA MA Exam Date: 11/19/2021 : 1960 Gender:F Ordering : GEOFF [employer]U [employer] Admission #: [id number] Family : Order #: [id number] CLICK HERE TO VIEW EXAM RADIOLOGY REPORT [...] Treatments None Family Cancers None LOCATION: [facility] BREAST COMPOSITION: Extremely dense, which lowers the [...] M.D. on 11/19/2021 at 15:56 Normal [facility] US BREAST RIGHT LIMITEDon US BREAST RIGHT LIMITED Patient: REGINA MA Exam Date: 11/19/2021 : 1960 Gender:F Ordering : [facility] Admission #: [id number] Family : Order #: [id number] CLICK HERE TO VIEW EXAM RADIOLOGY REPORT [...] Treatments None Family Cancers None LOCATION: [facility] BREAST COMPOSITION: Extremely dense, which lowers the [...] Eckert M.D. on 11/19/2021 at 15:56 Normal [facility] 02-16-2021 CNPN Telephone (RHEUMN) REGINA MA ([id number]) 1960 F Date Time Provider Department 02/16/21 ROMULO TIWARI During your visit today, we recorded the following information about you: Romulo Tiwari DO 02/16/2021 9:08 AM Signed Left patient a voicemail asking her to call me back to discuss labs. In my voicemail I did state her vitamin B12 and folate are low and we need to discuss supplementation. I left my call back number Romulo Tiwari DO February 16, 2021 9:08 AM Allergies As of Date: 02/16/2021 Noted Allergy Reaction SEASONALE (LEVONORGESTREL-ETHIN YL*02/13/2021 14 - Other: See Comments Date Reviewed: [...] Status:Closed by ROMULO TIWARI on 02/16/21 Normal [facility] CBC and Differentialon 02-13 Abs Baso 0.03 k/uL Normal <0.11 [facility] Comment on above: Performed By: #### C K, CMP, SERFOL, B12, CBCDIF #### [place] [phone] Abs Davidson 0.72 k/uL Normal <0.87 [facility] Comment on above: Performed By: #### C K, CMP, SERFOL, B12, CBCDIF #### [place] [phone] Abs Neut 6.04 k/uL Normal 1.45-7.50 [facility] Comment on above: Performed By: #### C K, CMP, SERFOL, B12, CBCDIF #### [place] [phone] Absolute nRBC <0.01 Normal <0.01 [facility] Comment on above: Performed By: #### C K, CMP, SERFOL, B12, CBCDIF #### [place] [id number] [place] [phone] Basophils/100 WBC (Bld) 0.4 % Normal C [facility] Comment on above: Performed By: #### C K, CMP, SERFOL, B12, CBCDIF #### [place] [id number] [place] [phone] DTYPE Auto Diff Normal [facility] Comment on above: Performed By: #### C K, CMP, SERFOL, B12, CBCDIF #### [facility] [address] [place] [address] Eosinophils (Bld) [#/Vol] 0.09 10*3/uL Normal <0.46 [facility] Comment on above: Performed By: #### C K, CMP, SERFOL, B12, CBCDIF #### [place] [address] [place] [address] Eosinophils/100 WBC (Bld) 1.1 % Normal [facility] Comment on above: Performed By: #### C K, CMP, SERFOL, B12, CBCDIF #### [place] [address] [place] [address] Erythrocyte distribution width (RBC) [Ratio] 15.6 % High 11.5-15.0 [facility] Comment on above: Performed By: #### C K, CMP, SERFOL, B12, CBCDIF #### [place] [id number] [place] [address] Hematocrit (Bld) [Volume fraction] 39.0 % Normal 36.0-46.0 [facility] Comment on above: Performed By: #### C K, CMP, SERFOL, B12, CBCDIF #### [place] [id number] [place] [address] Hemoglobin (Bld) [Mass/Vol] 13.8 g/dL Normal 11.5-15.5 [facility] Comment on above: Performed By: #### C K, CMP, SERFOL, B12, CBCDIF #### [place] [id number] [place] [address] Lymphocytes (Bld) [#/Vol] 1.42 10*3/uL Normal 1.00-4.00 [facility] Comment on above: Performed By: #### C K, CMP, SERFOL, B12, CBCDIF #### [place] [address] [place] [address] Lymphocytes/100 WBC (Bld) 17.1 % Normal [facility] Comment on above: Performed By: #### C K, CMP, SERFOL, B12, CBCDIF #### [place] [address] MCH 39.4 pG High 26.0-34.0 [facility] Comment on above: Performed By: #### C K, CMP, SERFOL, B12, CBCDIF #### [place] [address] MCHC (RBC) [Mass/Vol] 35.4 g/dL Normal 30.5-36.0 [facility] Comment on above: Performed By: #### C K, CMP, SERFOL, B12, CBCDIF #### [place] [address] MCV (RBC) [Entitic vol] 111.4 fL High 80.0-100.0 [facility] Comment on above: Performed By: #### C K, CMP, SERFOL, B12, CBCDIF #### [place] [address] Monocytes/100 WBC (Bld) 8.7 % Normal C [facility] Comment on above: Performed By: #### C K, CMP, SERFOL, B12, CBCDIF #### [place] [address] Neutrophils/100 WBC (Bld) 72.7 % Normal [facility] Comment on above: Performed By: #### C K, CMP, SERFOL, B12, CBCDIF #### [place] [address] NRBCs 0.0 /100 WBC Normal 0 [facility] Comment on above: Performed By: #### C K, CMP, SERFOL, B12, CBCDIF #### [address] [place], [place] [address] Platelet mean volume (Bld) [Entitic vol] 9.3 fL Normal 9.0-12.7 [facility] Comment on above: Performed By: #### C K, CMP, SERFOL, B12, CBCDIF #### [place] [address] [place], [place] [address] Platelets (Bld) [#/Vol] 276 10*3/uL Normal 150-400 [facility] Comment on above: Performed By: #### C K, CMP, SERFOL, B12, CBCDIF #### [place] [id number] [place] [address] RBC (Bld) [#/Vol] 3.50 10*6/uL Low 3.90-5.20 [facility] Comment on above: Performed By: #### C K, CMP, SERFOL, B12, CBCDIF #### [place] [address] Review Done Normal [facility] Comment on above: Performed By: #### C K, CMP, SERFOL, B12, CBCDIF #### [place] [address] [place] [id number] WBC (Bld) [#/Vol] 8.30 10*3/uL Normal 3.70-11.00 [facility] Comment on above: Performed By: #### C K, CMP, SERFOL, B12, CBCDIF #### [place] [address] [place], [place] [address] CKon 02-13-2021 CK [Catalytic activity/Vol] 72 U/L Normal 42-196 [facility] Comment on above: Performed By: #### C K, CMP, SERFOL, B12, CBCDIF #### [place] [address] [place], [place] [address] CNOVon 02-13-2021 CNOV Office Visit (RHEUMN ) REGINA MA ([id number]) 1960 F Date Time Provider Department 02/13/21 10:00 AM ROMULO TIWARI RHEUMN During your visit today, we recorded the [...] and low cortisol She was referred to clinical care manager Has not heard back about the work [...] 12/17/20 CMP wnl, creatine 0.74, negative anti-histone, 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 Normal [facility] Comp Metabolic Panelon 02-13 Albumin [Mass/Vol] 3.9 g/dL Normal 3.9-4.9 [facility] Comment on above: Performed By: #### C K, CMP, SERFOL, B12, CBCDIF #### [facility] [employer] [address] [place], [place] [address] ALP [Catalytic activity/Vol] 94 U/L Normal 34-123 [facility] Comment on above: Performed By: #### C K, CMP, SERFOL, B12, CBCDIF #### [facility] [employer] [address] [place], [place] [address] ALT [Catalytic activity/Vol] 21 U/L Normal 7-38 [facility] Comment on above: Performed By: #### C K, CMP, SERFOL, B12, CBCDIF #### [facility] [address] [place], [place] [address] Anion gap [Moles/Vol] 14 mmol/L Normal 9-18 [facility] Comment on above: Performed By: #### C K, CMP, SERFOL, B12, CBCDIF #### [place] [address] [place] [address] AST [Catalytic activity/Vol] 61 U/L High 13-35 [facility] Comment on above: Performed By: #### C K, CMP, SERFOL, B12, CBCDIF #### [address] [address] Bilirubin [Mass/Vol] 0.6 mg/dL Normal 0.2-1.[address] [facility] Comment on above: Performed By: #### C K, CMP, SERFOL, B12, CBCDIF #### [place] [address] [place], [place] [address] Calcium [Mass/Vol] 9.7 mg/dL Normal 8.5-10.2 [facility] Comment on above: Performed By: #### C K, CMP, SERFOL, B12, CBCDIF #### [place] [address] [place], [place] [address] Chloride [Moles/Vol] 98 mmol/L Normal 97-[address] [facility] Comment on above: Performed By: #### C K, CMP, SERFOL, B12, CBCDIF #### [place] [address] [place], [place] [address] CO2 [Moles/Vol] 27 mmol/L Normal 22-30 [facility] Comment on above: Performed By: #### C K, CMP, SERFOL, B12, CBCDIF #### [place] [address] [place] [place] [address] Creatinine [Mass/Vol] 0.70 mg/dL Normal 0.58-0.96 [facility] Comment on above: Performed By: #### C K, CMP, SERFOL, B12, CBCDIF #### [facility] [address] [place] [address] eGFR- Amer. >60 Normal [facility] Comment on above: Performed By: #### C K, CMP, SERFOL, B12, CBCDIF #### [facility] [address] [place] [address] eGFR-All Other Races >[address] [facility] Comment on above: Result Comment: eGFR [...] C K, CMP, SERFOL, B12, CBCDIF #### [facility] [address] [place] [address] Glucose [Mass/Vol] 103 mg/dL High 74-99 [facility] Comment on above: Result Comment: The [employer] Diabetes Association (ADA) provides guidance for cutoff [...] Standards of Medical Care in Diabetes 2016, [employer] Diabetes Association. Diabetes Care. 2016.39(Suppl 1). Performed By: #### C K, CMP, SERFOL, B12, CBCDIF #### [facility] [address] [place], [place] [address] Potassium [Moles/Vol] 3.3 mmol/L Low 3.7-5.1 [facility] Comment on above: Performed By: #### C K, CMP, SERFOL, B12, CBCDIF #### [place] [address] [place], [place] [address] Protein [Mass/Vol] 6.8 g/dL Normal 6.3-8.0 [facility] Comment on above: Performed By: #### C K, CMP, SERFOL, B12, CBCDIF #### [place] [address] [place] [address] Sodium [Moles/Vol] 139 mmol/L Normal 136-144 [facility] Comment on above: Performed By: #### C K, CMP, SERFOL, B12, CBCDIF #### [place] [address] [place], [place] [address] Urea nitrogen [Mass/Vol] 15 mg/dL Normal 7-21 [facility] Comment on above: Performed By: #### C K, CMP, SERFOL, B12, CBCDIF #### [place] [address] [place], [place] [address] Folate, Serumon 02-13-2021 Folate [Mass/Vol] ng/mL Low >4.7 [facility] Comment on above: Performed By: #### C K, CMP, SERFOL, B12, CBCDIF #### [place] [address] [place], [place] [address] Vitamin B12on 02-13-2021 Cobalamin (Vitamin B12) [Mass/Vol] 285 pg/mL Normal 232-1245 [facility] Comment on above: Performed By: #### C K, CMP, SERFOL, B12, CBCDIF #### [facility] [address] [place], [place] [address] Luke 02-11-2021 CNPN Telephone (ORQ) REGINA MA ([id number]) 1960 F Date Time Provider Department 02/11/21 ROMULO TIWARI ORQ During your visit today, we recorded the following information about you: Esperanza [place] 02/11/2021 2:23 PM Signed Outside lab results received via fax and scanned to patients chart for your review. Please review under the Lab tab in patients chart. Allergies As of Date: 02/11/2021 (Not on File) Date Reviewed: Never Reviewed Reason for Visit: Outside Lab Results [753] Problem List As Of Date: 02/11/2021 (None) Encounter Status:Closed by ESVIN MED ESPERANZA PUGH on 02/11/21 Normal [facility] Vital Signs Date Time Vital Sign Value Performing Clinician Facility 07-22-2023 09:20-0500 Body height 162.56 cm Mohinder Maxwell Other [facility] Other 07-22-2023 09:20-0500 Body mass index (BMI) [Ratio] 20.05 kg/m2 Mohinder Maxwell Other [facility] Other 07-22-2023 09:20-0500 Body weight 52.98 kg Mohinder Maxwell Other [facility] Other 07-22-2023 09:20-0500 Diastolic blood pressure 84 mm[Hg] Mohinder Scovanner Other [facility] Other 07-22-2023 09:20-0500 Systolic blood pressure 125 mm[Hg] Mohinder Scovanner Other [facility] Other 06-22-2023 10:00-0500 Body height 162.56 cm Patient Communicator Other [facility] Other 06-22-2023 10:00-0500 Body mass index (BMI) [Ratio] 20.25 kg/m2 Patient Communicator Other [facility] Other 06-22-2023 10:00-0500 Body weight 53.52 kg Patient Communicator Other [facility] Other 04-26-2023 13:40-0500 Body height 162.56 cm Mohinder Scovanner Other [facility] Other 04-26-2023 13:40-0500 Body mass index (BMI) [Ratio] 28.78 kg/m2 Mohinder Scovanner Other [facility] Other 04-26-2023 13:40-0500 Body weight 76.07 kg Mohinder Scovanner Other [facility] Other 04-26-2023 13:40-0500 Diastolic blood pressure 78 mm[Hg] Mohinder Scovanner Other [facility] Other 04-26-2023 13:40-0500 Systolic blood pressure 120 mm[Hg] Mohinder Scovanner Other [facility] Other Encounters Encounter Date Encounter Type Care Provider Facility Start: 07-22-2023 End: 07-22-2023 ambulatory Mohinder Maxwell Other [facility] Other Start: 07-22-2023 Office outpatient visit 15 minutes Mohinder Maxwell [facility] Start: 07-20-2023 End: 07-20-2023 ambulatory ASHLY BRYCE Not Available Start: 07-05-2023 End: 07-05-2023 ambulatory Alana Ha Other [facility] [employer] Other Start: 07-05-2023 Telephone encounter Alana Ha [facility] Start: 07-01-2023 End: 07-01-2023 ambulatory Ashly Fuad Bandahholz Facility:[facility] Start: 07-01-2023 End: 07-01-2023 ambulatory Ashly J Solohholz Work Phone: [facility] Work Phone: Start: 07-01-2023 End: 07-01-2023 Patient encounter procedure Ashly Bryce Work Phone: [facility] Work Phone: Start: 06-29-2023 End: 06-29-2023 ambulatory Alana Ha Other [facility] Other Start: 06-29-2023 Telephone encounter Alana Ha [facility] Start: 06-22-2023 End: 06-22-2023 ambulatory Alana Ha Other [facility] [employer] Other Start: 06-22-2023 Office outpatient visit 25 minutes Alana Ha [facility] Start: 06-02-2023 End: 06-02-2023 ambulatory Ashly J Solohholz Facility:[facility] Start: 06-02-2023 End: 06-02-2023 ambulatory Ashly J Aichholz Work Phone: [facility] Work Phone: Start: 06-02-2023 End: 06-02-2023 Patient encounter procedure Ashlybart Wu Work Phone: [facility] Work Phone: Start: 05-31-2023 End: 05-31-2023 ambulatory Alana Ha Facility:[facility] Start: 05-31-2023 End: 05-31-2023 ambulatory Ashly Wu Work Phone: [facility] Work Phone: Start: 05-31-2023 End: 05-31-2023 Patient encounter procedure Ashly Wu Work Phone: [facility] [place] Work Phone: Start: 05-19-2023 End: 05-19-2023 ambulatory ASHLY KIRANZ [facility] [employer] Other Start: 05-19-2023 Telephone encounter [facility]inder [facility] Start: 04-26-2023 End: 04-26-2023 ambulatory Mohinder Maxwell Other [place] [facility] Other Start: 04-26-2023 Office outpatient ne w 30 minutes Mohinder Maxwell [facility] Start: 03-22-2023 End: 03-23-2023 ambulatory ALIREZA PATEL [facility] Start: 10-13-2022 End: 10-14-2022 ambulatory [employer] ASHLY AICParisJESSICAZ Facility:[facility] Start: 10-02-2022 End: 10-03-2022 ambulatory ASSEMBLER SEMICONDUCTOR ASHLY AICHHOLZ Facility:[facility] Start: 09-30-2022 End: 10-01-2022 ambulatory ASSEMBLER SEMICONDUCTOR ASHLY AICHHOLZ Facility:[facility] Start: 09-15-2022 End: 09-16-2022 ambulatory ASSEMBLER SEMICONDUCTOR ASLHY AICHHOLZ Facility:[facility] Start: 11-26-2021 End: 11-27-2021 ambulatory ASSEMBLER SEMICONDUCTOR ASHLY AICHHOLZ Facility:[facility] Start: 11-19-2021 End: 11-20-2021 ambulatory ASSEMBLER SEMICONDUCTOR ASLHY WU Facility:[facility] Procedures Date Procedure Procedure Detail Performing Clinician Start: 07-01-2023 Dual energy X-ray absorptiometry Ashly Wu Work Phone: Start: 06-02-2023 Ultrasound elastogra phy of liver Ashly Wu Work Phone: Start: 05-31-2023 X-ray of cervical spine Ashly Wu Work Phone: Start: 05-31-2023 X-ray of lumbar spin e, four views Ashly Wu Work Phone: Plan of Treatment Date Care Activity Detail Author Start: 06-02-2023 [facility] Immunizations Immunization Date Immunization Notes Care Provider Fa cility 12-24-2020 COVID-19 Ad26.COV2.S ([employer]) Ashly Wu Work Phone: [facility] 07-09-2020 influenza, injectabl e, quadrivalent, preservative free Ashly Wu Work Phone: [facility] Payers Date Payer Category Payer Self-pay [id number] 2023 Private Health Insurance [id number] 1961 Unknown [id number] 1960 Unknown [id number] 2.16.84 [id number] 1960 Unknown [id number] 2.16.84 [id number] 1960 Unknown [id number] 2.16.84 [id number] 1960 Unknown [id number] 2.16.84 [id number] 1960 Unknown [id number] 2.16.84 [id number] 1960 Unknown [id number] 2.16.84 [id number] 1960 Unknown [id number] 2.16.84 [id number] 1960 Unknown [id number] 2.16.840 .[id number] Private Health Insurance [id number] Unknown [id number] 2.16.8 [id number] Unknown [id number] 2.16.8 [id number] Unknown [id number] 2.16.8 [id number] Social History Date Type Detail Facility Unknown if ever smoked [facility] Other Sex Assigned At Sex Assigned At Bir th [facility] Other Start: 05-01-2021 Tobacco smoking status [facility] Smoker (finding) [facility] Start: 1960 Sex Assigned At Female F [facility] Goals Date Patient Goal Desired Activity /State Evaluation note 07-22-2023 Note Date & Type Note Facility 07-22-2023 Evaluation note Encounter Date Diagnosis Assessment Notes Jul, Fatty liver (ICD-10 - K76.0) Jul, Cirrhosis (ICD-10 - K74.60) [facility] Other Evaluation note 06-22-2023 Note Date & Type Note Facility 06-22-2023 Evaluation note Encounter Date Diagnosis Assessment Notes Jun, Cervical radiculopathy (ICD-10 - M54.12) Jun, Sacroiliac pain (ICD-10 - M53.3) Jun, Bilateral carpal tunnel syndrome (ICD-10 - G56.03) I reviewed the EMG and which shows a remote C8 radiculopathy on the right which is severe degree electrically which is similar to the evaluation from 09/08/2020. There is bilateral median neuropathies at the distal to the wrist such as carpal tunnel syndrome which is moderate in degree electrically on the right mild in degree electrically on the left. Upon discussion, patient's biggest symptoms is difficulty holding things due to the numbness, more so with the right. Dr Mulligan will be out of the office for then next 12 weeks in which I will refer patient to hand specialist for surgical consult for CTR. Follow up as needed. [facility] Other Evaluation note 04-26-2023 Note Date & Type [...] eat much and gets full very fast [facility] Other Progress note 02-13-2021 Note Date & Type Note Facility 02-13-2021 Note HNO ID: [id number] Author: Romulo Tiwari, DO Service: ? 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 [facility] Evaluation note Note Date & Type Note Facility Evaluation note No Information [facility] [employer] Other Evaluation note Note Date & Type Note Facility Evaluation note No assessment information availa [facility] Work Phone: History general Narrative - Reported Note Date & Type Note Facility History general Narrative - Reported Type Medical History HTN Medical History chronic depression [facility] [employer] Other History general Narrative - Reported Note Date & Type Note Facility History general Narrative - Reported Type Medical History HTN Medical History chronic depression Medical History anemia [facility] [employer] Other History general Narrative - Reported Note Date & Type Note Facility History general Narrative - Reported Type Medical History HTN Medical History chronic depression Medical History anemia Surgical History none [facility] [employer] Other Summary Purpose Family History Relationship Condition Age at Onset Recorded Date/T shawna Not Specified No pertinent family history Unknown Advance Directives Advance Directive Response Recorded Date/ Time Advance Directives No July 08, 2020 4:00pm Chief Complaint and Reason for Visit Chief Complaint m53.3 m48.02 Chief Complaint m53.3 m48.02 Elevated Liver Enzymes Chief Complaint m53.3 m48.02 Elevated Liver Enzymes z78.0;K76.0 Additional Source Comments INFORMATION SOURCE (unrecogn ized section and content) DATE CREATED AUTHOR 07/24/2021 [facility] DATE CREATED AUTHOR AUTHOR'S ORGANIZ ATION [facility]16[facility]2022 [facility] DATE CREATED AUTHOR AUTHOR'S ORGANIZ ATION 03/26/2023 [facility] DATE CREATED AUTHOR AUTHOR'S ORGANIZ ATION 07/02/2023 [facility] DATE CREATED AUTHOR AUTHOR'S ORGANIZ ATION 07/22/2023 [facility] EPIC REASON FOR VISIT (unrecogniz ed section and content) PT IS HERE FOR CONSTIPATION OR DIARRHEAMessageDEXA/Xray/EMG resultsPTPatient is here for a follow up from a fibroscanORTHO REFERRAL UPDATE Care Teams (unrecognized sec tion and content) Team Status: Active Member Role Status Dates Ashly Merida Bryce Primary Care Provider Active Team Status: Inactive Member Role Status Dates Ashly Merida Soloparisjyothi Primary Care Provider Active GREGORY Ruiz Attending Provider Active Team Status: Inactive Member Role Status Dates Ashly Wu Primary Care Provider Active Mohinder Maxwell APRN Attending Provider Active Team Status: Inactive Member Role Status Dates Ashly Merida Bryce Primary Care Provider Active GREGORY Ruiz Attending Provider Active Mohinder Maxwell APRN Referring Provider Active Goals (unrecognized section and content) [...] BE BASED ON THE PRIMARY CLINICAL RECORDS. [employer] provides no warranty or guarantee of the accuracy or completeness of information in this document.
[2023-08-02 11:44] LABS: Basophils Absolute Auto 0.1 10^3/uL (0.0-0.1); Basophils Percent Auto 0.6 % (0.2-2.0); Eosinophils Absolute Auto 0.1 10^3/uL (0.0-0.7); Eosinophils Percent Auto 0.9 % (0.9-7.0); Hemoglobin 13.1 g/dL (12.0-16.0); Immature Granulocytes Abs Auto 0.04 10^3/uL (0.00-0.03); Immature Granulocytes Pct Auto 0.4 % (0.0-0.5); Lymphocytes Absolute Auto 1.2 10^3/uL (1.2-3.8); Lymphocytes Percent Auto 12.3 % (20.5-60.0); Mean Corpuscular HGB Conc 33.6 g/dL (29.9-35.2); Mean Corpuscular Hemoglobin 33.3 pg (26.7-34.0); Mean Corpuscular Volume 99.2 fL (81.0-99.0); Mean Platelet Volume 9.2 fL (9.5-13.5); Monocytes Absolute Auto 0.8 10^3/uL (0.3-0.8); Monocytes Percent Auto 8.8 % (1.7-12.0); Neutrophils Absolute Auto 7.4 10^3/uL (1.4-6.5); Platelet Count 294 10^3/uL (150-450); Red Blood Count 3.93 10^6/uL (4.20-5.40); Red Cell Distribution Width 19.7 % (11.0-15.0); White Blood Count 9.6 10^3/uL (4.0-11.0)
[2023-08-02 12:45] LABS: Alanine Aminotransferase 57 U/L (14-59); Albumin Globulin Ratio 0.8; Alkaline Phosphatase 203 U/L (46-116); Aspartate Amino Transferase 90 U/L (15-37); BUN Creatinine Ratio 22.9; Bilirubin Total 0.5 mg/dL (0.2-1.0); Calcium 9.2 mg/dL (8.5-10.1); Carbon Dioxide 27.5 mmol/L (21.0-32.0); Chloride 104 mmol/L (98-107); Estimated GFR (African America >60 (>=60); Estimated GFR (Non-African Ame >60 (>=60); Globulin 3.8 g/dL; Glucose 100 mg/dL (74-106); Potassium 3.5 mmol/L (3.5-5.1); Prealbumin 23.6 mg/dL (20.9-45.5); Sodium 140 mmol/L (136-145); Total Protein 6.8 g/dL (6.4-8.2)
== END 2023-08-02 11:09 | disposition home or self-care (01) ==
LOC: LAB 11:10
PROVIDERS: PCP Nurse Practitioner; Visit Provider Nurse Practitioner
DX: K76.0 Fatty (change of) liver, not elsewhere classified (principal); K70.30 Alcoholic cirrhosis of liver without ascites; I10 Essential (primary) hypertension
CPT/HCPCS: 36415; 80053; 82105; 84134; 85025

== ENCOUNTER 2023-08-02 11:12 | Outpatient (OUT) | payer MEDICARE, SELFPAY ==
--- OUTSIDE RECORDS SUMMARY | 2023-08-02 11:19 | XMS_ITS | CCD ---
Author Name Unknown Address [address] [facility] [address] [place] [address] Organization [facility] Care Team Providers Care Enrollment Eligibility Representative Name Role Phone AICHHOLZ, JET BLADE POLISHER ASHLY Primary Care Unavailable AICHHOLZ, JET BLADE POLISHER ASHLY Consulting Unavailable AICHHOLZ, JET BLADE POLISHER ASHLY Admitting Unavailable AICHHOLZ, JET BLADE POLISHER ASHLY Attending Unavailable AICHHOLZ, JET BLADE POLISHER ASHLY Primary Care Unavailable DR SIGIFREDO VASQUES V Consulting Unavailable AICHHOLZ, JET BLADE POLISHER ASHLY Admitting Unavailable AICHHOLZ, JET BLADE POLISHER ASHLY Attending Unavailable AICHHOLZ, JET BLADE POLISHER ASHLY Consulting Unavailable AICHHOLZ, JET BLADE POLISHER ASHLY Admitting Unavailable AICHHOLZ, JET BLADE POLISHER ASHLY Attending Unavailable AICHHOLZ, JET BLADE POLISHER ASHLY Consulting Unavailable AICHHOLZ, JET BLADE POLISHER ASHLY Primary Care Unavailable DR EPIFANIO ECKERT Consulting Unavailable AICHHOLZ, JET BLADE POLISHER ASHLY Admitting Unavailable AICHHOLZ, JET BLADE POLISHER ASHLY Attending Unavailable AICHHOLZ, JET BLADE POLISHER ASHLY Consulting Unavailable AICHHOLZ, JET BLADE POLISHER ASHLY Primary Care Unavailable AICHHOLZ, JET BLADE POLISHER ASHLY Admitting Unavailable AICHHOLZ, JET BLADE POLISHER ASHLY Attending Unavailable AICHHOLZ, JET BLADE POLISHER ASHLY Consulting Unavailable AICHHOLZ, JET BLADE POLISHER ASHLY Primary Care Unavailable AICHHOLZ, JET BLADE POLISHER ASHLY Primary Care Unavailable AICHHOLZ, JET BLADE POLISHER ASHLY Admitting Unavailable AICHHOLZ, JET BLADE POLISHER ASHLY Attending Unavailable AICHHOLZ, JET BLADE POLISHER ASHLY Consulting Unavailable Deneen Nix Consulting Unavailable ALIREZA PATEL Attending Unavailable Mohinder Maxwell Unavailable Ashly Wu Primary Care Provider GREGORY Ha Attending Provider EULALIO Maxwell Attending [...] 15 days Active take 1 capsule by [facility] once daily, then take 2 capsules by [...] [Catalytic activity/Vol] 38 U/L 7-52 [facility] Albumin [Mass/volume] in Ser um or Plasma by Bromocresol green (BCG) dye binding methoOrdered By: Mohinder Maxwell on 07-01-2023 Albumin BCG dye [Mass/Vol] 3.9 g/dL 3.5-5.7 [facility] Alkaline phosphatase [Enzyma tic activity/volume] in Serum or PlasmaOrdered By: Mohinder Maxwell on 07-01-2023 ALP [Catalytic activity/Vol] 271 U/L 34-104 [facility] Aspartate aminotransferase [ Enzymatic activity/volume] in Serum or PlasmaOrdered By: Mohinder Maxwell on 07-01-2023 AST [Catalytic activity/Vol] 84 U/L 13-39 [facility] Bilirubin.total [Mass/volume ] in Serum or PlasmaOrdered By: Mohinder Maxwell on 07-01-2023 Bilirubin [Mass/Vol] 0.9 mg/dL 0.3-1.0 [facility] Calcium [Mass/volume] in Ser um or PlasmaOrdered By: Mohinder Maxwell on 07-01-2023 Calcium [Mass/Vol] 9.3 mg/dL 8.6-10.[address] [facility] Carbon dioxide, total [Moles /volume] in Serum or PlasmaOrdered By: Mohinder Maxwell on 07-01-2023 CO2 [Moles/Vol] 29.9 mmol/L 21.0-31.0 [facility] Chloride [Moles/volume] in S charity or PlasmaOrdered By: Mohinder Maxwell on 07-01-2023 Chloride [Moles/Vol] 100 mmol/L 98-107 [facility] Comprehensive Metabolic Pane april 07-01-2023 Albumin [Mass/Vol] 3.9 g/dL Normal 3.5-5.[address] [facility] Comment on above: Order Comment: Reaso n for Exam Fatty liver Performed By: #### C MP #### [facility] [address] Albumin/Globulin [Mass ratio] 1.3 {ratio} Normal [facility] Comment on above: Order Comment: Reaso n for Exam Fatty liver Performed By: #### C MP #### [facility] [address] [place] [address] [place] ALP [Catalytic activity/Vol] 271 U/L High 34-104 [facility] Comment on above: Order Comment: Reaso n for Exam Fatty liver Result Comment: PERF ORMED BY: [facility] [address] [place] [address] PATHOLOGIST REGULATORY SERVICES CONSULTANT CRISTOBAL WARE M.D. Performed By: #### C MP #### [facility] [address] ALT [Catalytic activity/Vol] 38 U/L Normal 7-52 [facility] Comment on above: Order Comment: Reaso n for Exam Fatty liver Performed By: #### C MP #### [facility] [address] Anion gap [Moles/Vol] 12.4 mmol/L Normal 6.0-15.0 [facility] Comment on above: Order Comment: Reaso n for Exam Fatty liver Performed By: #### C MP #### [facility] [address] AST [Catalytic activity/Vol] 84 U/L High 13-39 [facility] Comment on above: Order Comment: Reaso n for Exam Fatty liver Performed By: #### C MP #### [facility] [address] [place] [address] Bilirubin [Mass/Vol] 0.9 mg/dL Normal 0.3-1.0 [facility] Comment on above: Order Comment: Reaso n for Exam Fatty liver Performed By: #### C MP #### [facility] [address] [place] [address] [place] Calcium [Mass/Vol] 9.3 mg/dL Normal 8.6-10.[address] [facility] Comment on above: Order Comment: Reaso n for Exam Fatty liver Performed By: #### C MP #### [facility] [address] [place] [address] [place] Chloride [Moles/Vol] 100 mmol/L Normal 98-107 [facility] Comment on above: Order Comment: Reaso n for Exam Fatty liver Performed By: #### C MP #### [facility] [address] [place] [address] [place] CO2 [Moles/Vol] 29.9 mmol/L Normal 21.0-31.0 [facility] Comment on above: Order Comment: Reaso n for Exam Fatty liver Performed By: #### C MP #### [facility] [address] [place] [address] [place] Creatinine [Mass/Vol] 0.57 mg/dL Low 0.60-1.20 [facility] Comment on above: Order Comment: Reaso n for Exam Fatty liver Performed By: #### C MP #### [facility] [address] [place] [address] [place] GFR/1.73 sq M.predicted MDRD (S/P/Bld) [Vol rate/Area] mL/min/{1.73_m2} Normal [facility] Comment on above: Order Comment: Reaso n for Exam Fatty liver Performed By: #### C MP #### [facility] [address] [place] [address] [place] Globulin (S) [Mass/Vol] 3.1 g/dL Normal [facility] Comment on above: Order Comment: Reaso n for Exam Fatty liver Performed By: #### C MP #### [address] Glucose [Mass/Vol] 79 mg/dL Normal 70-[address] [facility] Comment on above: Order Comment: Reaso n for Exam Fatty liver Result Comment: [facility] Glucose Reference Range is dependent on time and content of last meal. Glucose of more than 200 mg/dL in a nonstressed, ambulatory subject supports the diagnosis of Diabetes Mellitus. ADA recommended reference range Performed By: #### C MP #### [address] Potassium [Moles/Vol] 3.3 mmol/L Low 3.5-5.1 [facility] Comment on above: Order Comment: Reaso n for Exam Fatty liver Performed By: #### C MP #### [place] [address] [place] Protein [Mass/Vol] 7.0 g/dL Normal 6.4-8.[address] [facility] Comment on above: Order Comment: Reaso n for Exam Fatty liver Performed By: #### C MP #### [facility] [address] [place] [address] [place] Sodium [Moles/Vol] 139 mmol/L Normal 136-[address] [facility] Comment on above: Order Comment: Reaso n for Exam Fatty liver Performed By: #### C MP #### [facility] [address] [place] [address] [place] Urea nitrogen [Mass/Vol] 9 mg/dL Normal 7-25 [facility] Comment on above: Order Comment: Reaso n for Exam Fatty liver Performed By: #### C MP #### [facility] [address] [place] [address] [place] Creatinine [Mass/volume] in Serum or PlasmaOrdered By: Mohinder Maxwell on 07-01-2023 Creatinine [Mass/Vol] 0.57 mg/dL 0.60-1.20 [facility] Globulin Calc (S) [Mass/Vol] Ordered By: Mohinder Maxwell on 07-01-2023 Globulin (S) [Mass/Vol] 3.1 g/dL [facility] Glucose [Mass/volume] in Ser um or PlasmaOrdered By: Mohinder Maxwell on 07-01-2023 Glucose [Mass/Vol] 79 mg/dL 70-[address] [facility] Comment on above: ADA recommended refe rence rangeRandom Glucose Reference Range is dependent on time and content of last meal. Glucose of more than 200 mg/dL in a nonstressed, ambulatory subject supports the diagnosis of Diabetes Mellitus. No Panel InformationOrdered By: Mohinder Maxwell on 07-01-2023 Estimated GFR (CKD-EPI) > 60.0 mL/Min [facility] Creatinine Clearance (Chem N/A [facility] Potassium [Moles/volume] in Serum or PlasmaOrdered By: Mohinder Maxwell on 07-01-2023 Potassium [Moles/Vol] 3.3 mmol/L 3.5-5.1 [facility] Protein [Mass/volume] in Ser um or PlasmaOrdered By: Mohinedr Maxwell on 07-01-2023 Protein [Mass/Vol] 7.0 g/dL 6.4-8.[address] [facility] Serum or plasma albumin/glob ulin mass ratioOrdered By: Mohinder Maxwell on 07-01-2023 Albumin/Globulin [Mass ratio] 1.3 {ratio} [facility] Serum or plasma anion gap de terminationOrdered By: Mohinder Maxwell on 07-01-2023 Anion gap [Moles/Vol] 12.4 mmol/L 6.0-15.0 [facility] Sodium [Moles/volume] in Ser um or PlasmaOrdered By: Mohinder Maxwell on 07-01-2023 Sodium [Moles/Vol] 139 mmol/L 136-[address] [facility] Urea nitrogen [Mass/volume] in Serum or PlasmaOrdered By: Mohinder Maxwell on 07-01-2023 Urea nitrogen [Mass/Vol] 9 mg/dL 7-25 [facility] XR cerv spine AP/LAT/FLX/EXT on 05-31-2023 XR cerv spine AP/LAT/FLX/EXT [facility] [place] [address] XRay Report Signed Patient: Regina Ma MR#: [id number] : 1960 Acct:[id number] Age/Sex: 63 / F ADM Date: 05/31/23 Loc: XD Room: Type: [facility] Attending Dr: Alana LINDSEYC Copies to: GREGORY [...] Alex Morel M.D.05/31/2023 4:27 PM Dictation Location: [place] [address] Transcribed By: [facility] 05/31/23 9493 Dictated By: Alxe Morel DO 05/31/23 162 Signed By: 05/31/[address] [facility] XR lumbar spine AP/LAT/FLX/E XTon 05-31-2023 XR lumbar spine AP/LAT/FLX/EXT [facility] Main [place] [address] [place] [address] XRay Report Signed Patient: Regina Ma MR#: [id number] : 1960 Acct:[id number] Age/Sex: 63 / F ADM Date: 05/31/23 Loc: XD Room: Type: [facility] Attending Dr: Alana Ha NP-C Copies to: [...] Alex Morel M.D.05/31/2023 4:33 PM Dictation Location: [place] [address] Transcribed By: [facility] 05/31/231632 Dictated By: Alex Morel DO 05/31/231626 Signed By: 05/31/[address] [facility] Lipase Levelon 03-22-2023 Lipase [Catalytic activity/Vol] 39 U/L Normal 13-58 [facility] Comment on above: Performed By: #### [id number] #### [facility] [address] [place] [id number] Physician Orderon 03-22-2023 Physician Order [id number] 1.00CD:127 Normal [facility] MG MAMM SCREEN 3D CHEVY CADon 10-13-2022 MG MAMM SCREEN 3D CHEVY CAD Patient: REGINA MA Exam Date: 10/13/2022 : 1960 Gender:F Ordering : GEOFF ASHLY WU JET BLADE POLISHER Admission #: [id number] Family : Order #: [id number] CLICK HERE TO VIEW EXAM RADIOLOGY REPORT [...] Treatments None Family Cancers None LOCATION: [facility] BREAST COMPOSITION: Extremely dense, which [...] MD on 10/13/2022 at 12:39 Normal [facility] HEPATITIS PANEL, ACUTEon HBsAg Screen Negative Normal Negative [facility] Comment on above: Performed By: #### F T4, IRON, B12FOL #### [facility] [address] [place], [place] [address] Dr. Heath Bauer HCV AB Non-Reactive Normal Non Reactive [facility] Comment on above: Performed By: #### F T4, IRON, B12FOL #### [facility] [address] [place], [place] [address] Dr. Heath Bauer Hep A Ab, IgM Negative Normal Negative [facility] Comment on above: Performed By: #### F T4, IRON, B12FOL #### [facility] [address] [place], [place] [address] Dr. Heath Bauer Hep B Core Ab, IgM Negative Normal Negative [facility] Comment on above: Performed By: #### F T4, IRON, B12FOL #### [facility] [address] [place], [place] [address] Dr. Heath Bauer Interpretation: Comment Normal [facility] Comment on above: Result Comment: Not infected with HCV unless early or acute infection is suspected (which may be delayed in an immunocompromised individual), or other evidence exists to indicate HCV infection. Performed By: #### F T4, IRON, B12FOL #### [facility] [address] [place], [place] [address] Dr. Heath Bauer US SINGLE QUAD RT [...] DENEEN NIX Date: 2022-10-03 18:53 Normal [facility] LIVER PROFILEon 09-30-2022 Albumin [Mass/Vol] 3.0 g/dL Critically low 3.4-5.0 [facility] Comment on above: Performed By: #### F T4, IRON, B12FOL #### [facility] [address] [place] [address] [address] Heath Bauer Albumin/Globulin [Mass ratio] 0.8 {ratio} Normal [facility] Comment on above: Performed By: #### F T4, IRON, B12FOL #### [facility] [address] [place] [address] [address] Heath Bauer ALP [Catalytic activity/Vol] 125 U/L Critically high 46-116 [facility] Comment on above: Performed By: #### F T4, IRON, B12FOL #### [facility] [address] [place] [address] [address] Heath Bauer ALT [Catalytic activity/Vol] 86 U/L Critically high 14-59 [facility] Comment on above: Performed By: #### F T4, IRON, B12FOL #### [facility] [address] [place] [address] [address] Heath Bauer AST [Catalytic activity/Vol] 134 U/L Critically high 15-37 [facility] Comment on above: Performed By: #### F T4, IRON, B12FOL #### [facility] [address] [place] [address] [address] Heath Bauer BILI, CONJUGATED 0.2 mg/dL Normal 0.0-0.2 [facility] Comment on above: Performed By: #### F T4, IRON, B12FOL #### [facility] [address] [place] [address] [address] Heath Bauer Bilirubin [Mass/Vol] 0.4 mg/dL Normal 0.2-1.0 [facility] Comment on above: Performed By: #### F T4, IRON, B12FOL #### [facility] [address] [place] [address] [address] Heath Bauer Globulin (S) [Mass/Vol] 4.0 g/dL Normal [facility] Comment on above: Performed By: #### F T4, IRON, B12FOL #### [facility] [address] [place] [address] Dr. Heath Bauer Protein [Mass/Vol] 7.0 g/dL Normal 6.4-8.2 [facility] Comment on above: Performed By: #### F T4, IRON, B12FOL #### [facility] [address] [place] [address] Dr. Heath Bauer CBC AUTO DIFFon 09-15-2022 BASO # 0.0 103/ul Normal 0.0-0.1 [facility] Comment on above: Performed By: #### C BC #### [facility] [address] [place] [address] Dr. Heath Bauer Basophils/100 WBC (Bld) 0.4 % Normal 0.2-2.0 [facility] Comment on above: Performed By: #### C BC #### [facility] [address] [place] [address] Dr. Heath Bauer EO # 0.1 103/ul Normal 0.0-0.7 [facility] Comment on above: Performed By: #### C BC #### [facility] [address] [place] [address] Dr. Heath Bauer Eosinophils/100 WBC (Bld) 1.3 % Normal 0.9-7.0 [facility] Comment on above: Performed By: #### C BC #### [facility] [address] [place] [address] Dr. Heath Bauer Erythrocyte distribution width (RBC) [Ratio] 16.2 % Critically high 11.0-15.0 [facility] Comment on above: Performed By: #### C BC #### [facility] [address] [place] [address] Dr. Heath Bauer Hematocrit (Bld) [Volume fraction] 42.1 % Normal 36.0-48.0 [facility] Comment on above: Performed By: #### C BC #### [facility] [address] [place] [address] Dr. Heath Bauer Hemoglobin (Bld) [Mass/Vol] 15.0 g/dL Normal 12.0-16.0 [facility] Comment on above: Performed By: #### C BC #### [facility] [address] [place] [address] Dr. Heath Bauer IG # 0.04 10e3/ul Critically high 0.00-0.03 [facility] Comment on above: Performed By: #### C BC #### [facility] [address] [place] [address] Dr. Heath Bauer IG % 0.4 % Normal 0.0-0.5 [facility] Comment on above: Performed By: #### C BC #### [facility] [address] [place] [address] Dr. Heath Bauer LYMPH # 1.3 103/ul Normal 1.2-3.8 [facility] Comment on above: Performed By: #### C BC #### [facility] [address] [place] [address] Dr. Heath Bauer Lymphocytes/100 WBC (Bld) 13.7 % Critically low 20.5-60.0 [facility] Comment on above: Performed By: #### C BC #### [facility] [address] [place] [address] Dr. Heath Bauer MANUAL DIFF REQ NO Normal [facility] Comment on above: Performed By: #### C BC #### [facility] [address] [place] [address] Dr. Heath Bauer MCH (RBC) [Entitic mass] 37.1 pg Critically high 26.7-3 4.0 [facility] Comment on above: Performed By: #### C BC #### [facility] [address] [place] [address] Dr. Heath Bauer MCHC (RBC) [Mass/Vol] 35.6 g/dL Critically high 29.9-35.2 [facility] Comment on above: Performed By: #### C BC #### [facility] [address] [place] [address] Dr. Heath Bauer MCV (RBC) [Entitic vol] 104.2 fL Critically high 81.0-99 .0 [facility] Comment on above: Performed By: #### C BC #### [facility] [address] [place] [address] Dr. Heath Bauer MONO # 0.9 103/ul Critically high 0.3-0.8 [facility] Comment on above: Performed By: #### C BC #### [facility] [address] [place] [address] Dr. Heath Bauer Monocytes/100 WBC (Bld) 10.0 % Normal 1.7-12.0 [facility] Comment on above: Performed By: #### C BC #### [facility] [address] [place] [address] Dr. Heath Bauer NEUT # 6.8 103/ul Critically high 1.4-6.5 [facility] Comment on above: Performed By: #### C BC #### [facility] [address] [place] [address] Dr. Heath Bauer Neutrophils/100 WBC (Bld) 74.2 % Normal 43.0-75.0 [facility] Comment on above: Performed By: #### C BC #### [facility] [address] [place] [address] Dr. Heath Bauer Platelet mean volume (Bld) [Entitic vol] 8.6 fL Critically low 9.5-13.5 [facility] Comment on above: Performed By: #### C BC #### [facility] [address] [place] [address] Dr. Heath Bauer PLT 274 103/ul Normal 150-450 [facility] Comment on above: Performed By: #### C BC #### [facility] [address] [place] [address] Dr. Heath Bauer RBC 4.04 106/ul Critically low 4.20-5.40 [facility] Comment on above: Performed By: #### C BC #### [facility] [address] [place] [address] Dr. Heath Bauer WBC 9.2 103/ul Normal 4.0-11.0 [facility] Comment on above: Performed By: #### C BC #### [facility] [address] [place] [address] [address] Heath Bauer FREE T4on 09-15-2022 Free T4 [Mass/Vol] 0.93 ng/dL Normal 0.76-1.46 [facility] Comment on above: Performed By: #### F T4, IRON, B12FOL #### [facility] [address] [place] [address] [address] Heath Bauer IRONon 09-15-2022 Iron [Mass/Vol] 112.0 ug/dL Normal 50.0-170.0 [facility] Comment on above: Performed By: #### F T4, IRON, B12FOL #### [facility] [address] [place] [address] Dr. Heath Bauer LIPID PROFILEon 09-15-2022 CHOL-HDL RATIO NORM SEE BELOW Normal [facility] Comment on above: Result Comment: 3.3 - 4.4 LOW RISK 4.4 - 7.1 AVERAGE RISK 7.1 - 11.0 MODERATE RISK >11.0 HIGH RISK Performed By: #### F T4, IRON, B12FOL #### [facility] [address] [place] [address] Dr. Heath Bauer Cholesterol [Mass/Vol] 246 mg/dL Critically high <=200 [facility] Comment on above: Performed By: #### F T4, IRON, B12FOL #### [facility] [address] [place] [address] Dr. Heath Bauer Cholesterol in HDL [Mass/Vol] 87 mg/dL Critically high 40-60 [facility] Comment on above: Performed By: #### F T4, IRON, B12FOL #### [facility] [address] [place] [address] Dr. Heath Bauer Cholesterol in LDL [Mass/Vol] 136.4 mg/dL Normal [facility] Comment on above: Performed By: #### F T4, IRON, B12FOL #### [facility] [address] [place] [address] Dr. Haeth Bauer Cholesterol.total/Choles terol in HDL [Mass ratio] 2.8 {ratio} Normal [facility] Comment on above: Performed By: #### F T4, IRON, B12FOL #### [facility] [address] [place] [address] Dr. Heath Bauer HDL NORMAL > or = 60 mg/dl - LO W CARDIOVASCULAR RISK <40 mg/dl - HIGH CARDIOVASCULAR RISK Normal [facility] Comment on above: Performed By: #### F T4, IRON, B12FOL #### [facility] [address] [place] [address] [address] Heath Bauer LDL CALC NORMAL SEE BELOW Normal [facility] Comment on above: Result Comment: <100 mg/dl OPTIMAL 100 - 129 mg/dl NEAR OR ABOVE OPTIMAL 130 - 159 mg/dl BORDERLINE HIGH 160 - 189 mg/dl HIGH >190 mg/dl VERY HIGH Performed By: #### F T4, IRON, B12FOL #### [facility] [address] [place] [address] [address] Heath Bauer Triglyceride [Mass/Vol] 113 mg/dL Normal <=150 [facility] Comment on above: Performed By: #### F T4, IRON, B12FOL #### [facility] [address] [place] [address] Dr. Heath Bauer VLDL CALC 22.6 mg/dL Normal [facility] Comment on above: Performed By: #### F T4, IRON, B12FOL #### [facility] [address] [place] [address] Dr. Heath Bauer PROF 14(COMP METB)on 023 Albumin [Mass/Vol] 3.6 g/dL Normal 3.4-5.0 [facility] Comment on above: Performed By: #### T SH, CMP, LIPID #### [facility] [address] [place] [address] Dr. Heath Bauer Albumin/Globulin [Mass ratio] 0.9 {ratio} Normal [facility] Comment on above: Performed By: #### T SH, CMP, LIPID #### [facility] [address] [place] [address] Dr. Heath Bauer ALP [Catalytic activity/Vol] 145 U/L Critically high 46-116 [facility] Comment on above: Performed By: #### T SH, CMP, LIPID #### [facility] [address] [place] [address] [address] Heath Bauer ALT [Catalytic activity/Vol] 61 U/L Critically high 14-59 [facility] Comment on above: Performed By: #### T SH, CMP, LIPID #### [facility] [address] [place] [address] [address] Heath Bauer Anion gap [Moles/Vol] 15.8 mmol/L Normal [facility] Comment on above: Performed By: #### T SH, CMP, LIPID #### [facility] [address] [address] [address] Heath Bauer AST [Catalytic activity/Vol] 136 U/L Critically high 15-37 [facility] Comment on above: Performed By: #### T SH, CMP, LIPID #### [facility] [address] [address] [address] Heath Bauer Bilirubin [Mass/Vol] 0.6 mg/dL Normal 0.2-1.0 [facility] Comment on above: Performed By: #### T SH, CMP, LIPID #### [facility] [address] [address] [address] Heath Bauer Calcium [Mass/Vol] 9.5 mg/dL Normal 8.5-10.1 [facility] Comment on above: Performed By: #### T SH, CMP, LIPID #### [facility] [address] [address] [address] Heath Bauer Chloride [Moles/Vol] 102 mmol/L Normal 98-107 [facility] Comment on above: Performed By: #### T SH, CMP, LIPID #### [facility] [address] [address] [address] Heath Bauer CO2 [Moles/Vol] 28.5 mmol/L Normal 21.0-32.0 [facility] Comment on above: Performed By: #### T SH, CMP, LIPID #### [facility] [address] [address] [address] Heath Bauer Creatinine [Mass/Vol] 0.67 mg/dL Normal 0.55-1.02 [facility] Comment on above: Performed By: #### T SH, CMP, LIPID #### [facility] [address] [address] [address] Heath Bauer EGFR-AF ERITREAN >60 Normal >=60 [facility] Comment on above: Performed By: #### T SH, CMP, LIPID #### [facility] [address] [address] [address] Heath Bauer EGFR-NON AF ERITREAN >60 Normal >=60 [facility] Comment on above: Performed By: #### T SH, CMP, LIPID #### [facility] [address] [address] [address] Heath Bauer Globulin (S) [Mass/Vol] 3.9 g/dL Normal [facility] Comment on above: Performed By: #### T SH, CMP, LIPID #### [facility] [address] [address] [address] Heath Bauer Glucose [Mass/Vol] 92 mg/dL Normal 74-106 [facility] Comment on above: Performed By: #### T SH, CMP, LIPID #### [facility] [address] [address] [address] Heath Bauer Potassium [Moles/Vol] 3.3 mmol/L Critically low 3.5-5.1 [facility] Comment on above: Performed By: #### T SH, CMP, LIPID #### [facility] [address] [address] [address] Heath Bauer Protein [Mass/Vol] 7.5 g/dL Normal 6.4-8.2 [facility] Comment on above: Performed By: #### T SH, CMP, LIPID #### [facility] [address] [address] [address] Heath Bauer Sodium [Moles/Vol] 143 mmol/L Normal 136-145 [facility] Comment on above: Performed By: #### T SH, CMP, LIPID #### [facility] [address] [place] [address] Dr. Heath Bauer Urea nitrogen [Mass/Vol] 11.0 mg/dL Normal 7.0-18.0 [facility] Comment on above: Performed By: #### T SH, CMP, LIPID #### [facility] [address] [place] [address] Dr. Heath Bauer Urea nitrogen/Creatinine [Mass ratio] 16.4 mg/mg Normal [facility] Comment on above: Performed By: #### T SH, CMP, LIPID #### [facility] [address] [place] [address] Dr. Heath Bauer TSHon 09-15-2022 TSH 2.046 uIU/mL Normal 0.358-3.740 [facility] Comment on above: Performed By: #### F T4, IRON, B12FOL #### [facility] [address] [place] [address] Dr. Heath Bauer UA RANDOM W/MICROSCOPICon BACTERIA LARGE Abnormal NONE SEEN [facility] Comment on above: Performed By: #### F T4, IRON, B12FOL #### [facility] [address] [place] [address] Dr. Heath Bauer Bilirubin Ql (U) Negative Normal NEGATIVE [facility] Comment on above: Performed By: #### F T4, IRON, B12FOL #### [facility] [address] [place] [address] Dr. Heath Bauer CAST NONE SEEN Normal NONE SEEN [facility] Comment on above: Performed By: #### F T4, IRON, B12FOL #### [facility] [address] [place] [address] Dr. Heath Bauer Clarity (U) SL CLOUDY Abnormal CLEAR [facility] Comment on above: Performed By: #### F T4, IRON, B12FOL #### [facility] [address] [place] [address] Dr. Heath Bauer Color (U) YELLOW Normal YELLOW [facility] Comment on above: Performed By: #### F T4, IRON, B12FOL #### [facility] [address] [address] [address] Heath Bauer Crystals LM Nom (Urine sed) NONE SEEN Normal NONE SEEN [facility] Comment on above: Performed By: #### F T4, IRON, B12FOL #### [facility] [address] [address] [address] Heath Bauer Epithelial cells LM Ql (Urine sed) MANY Abnormal NONE SEEN /RARE [facility] Comment on above: Performed By: #### F T4, IRON, B12FOL #### [facility] [address] [place] [address] Dr. Heath Bauer Glucose Ql (U) Negative Normal NEGATIVE [facility] Comment on above: Performed By: #### F T4, IRON, B12FOL #### [facility] [address] [place] [address] Dr. Heath Bauer Hemoglobin Ql (U) Negative Normal NEGATIVE [facility] Comment on above: Performed By: #### F T4, IRON, B12FOL #### [facility] [address] [place] [address] Dr. Heath Bauer Ketones Ql (U) TRACE Abnormal NEGATIVE [facility] Comment on above: Performed By: #### F T4, IRON, B12FOL #### [facility] [address] [place] [address] Dr. Heath Bauer LEUKOCYTES Negative Normal NEGATIVE [facility] Comment on above: Performed By: #### F T4, IRON, B12FOL #### [facility] [address] [address] [address] Heath Bauer MUCOUS NONE SEEN Normal NONE SEEN [facility] Comment on above: Performed By: #### F T4, IRON, B12FOL #### [facility] [address] [place] [address] Dr. Heath Bauer Nitrite Ql (U) Positive Abnormal NEGATIVE [facility] Comment on above: Performed By: #### F T4, IRON, B12FOL #### [facility] [address] [place] [address] Dr. Heath Bauer pH (U) 6.0 [pH] Normal 5-9 [facility] Comment on above: Performed By: #### F T4, IRON, B12FOL #### [facility] [address] [place] [address] Dr. Heath Bauer RBC NONE SEEN Abnormal 0-2 [facility] Comment on above: Performed By: #### F T4, IRON, B12FOL #### [facility] [address] [place] [address] Dr. Heath Bauer SPEC GRAVITY 1.025 Normal 1.005-<=1.02 5 [facility] Comment on above: Performed By: #### F T4, IRON, B12FOL #### [facility] [address] [place] [address] Dr. Heath Bauer UA PROTEIN TRACE Normal NEGATIVE/ TRACE [facility] Comment on above: Performed By: #### F T4, IRON, B12FOL #### [facility] [address] [place] [address] Dr. Heath Bauer Urobilinogen Qn (U) 1.0 {[place]'U}/dL Normal 0.2 - 1. 0 [facility] Comment on above: Performed By: #### F T4, IRON, B12FOL #### [facility] [address] [place] [address] Dr. Heath Bauer WBC 0-2 Abnormal NONE SEEN [facility] Comment on above: Performed By: #### F T4, IRON, B12FOL #### [facility] [address] [place] [address] Dr. Heath Bauer VIT B12 AND FOLATEon 023 Cobalamin (Vitamin B12) [Mass/Vol] pg/mL Critically high 193.0-986.0 [facility] Comment on above: Performed By: #### F T4, IRON, B12FOL #### [facility] [address] [place] [address] Dr. Heath Bauer FOLATE 2.50 ng/mL Critically low 8.60-58.90 [facility] Comment on above: Performed By: #### F T4, IRON, B12FOL #### [facility] [address] [place] [address] Dr. Heath Bauer CBC AUTO DIFFon 11-26-2021 BASO # 0.0 103/ul Normal 0.0-0.1 [facility] Comment on above: Performed By: #### F T4, IRON, B12FOL #### [facility] [address] [place] [address] Dr. Heath Bauer Basophils/100 WBC (Bld) 0.5 % Normal 0.2-2.0 [facility] Comment on above: Performed By: #### F T4, IRON, B12FOL #### [facility] [address] [place] [address] Dr. Heath Bauer EO # 0.1 103/ul Normal 0.0-0.7 [facility] Comment on above: Performed By: #### F T4, IRON, B12FOL #### [facility] [address] [place] [address] Dr. Heath Bauer Eosinophils/100 WBC (Bld) 1.2 % Normal 0.9-7.0 [facility] Comment on above: Performed By: #### F T4, IRON, B12FOL #### [facility] [address] [place] [address] Dr. Heath Bauer Erythrocyte distribution width (RBC) [Ratio] 14.3 % Normal 11.0-15.0 [facility] Comment on above: Performed By: #### F T4, IRON, B12FOL #### [facility] [address] [place] [address] Dr. Heath Bauer Hematocrit (Bld) [Volume fraction] 42.6 % Normal 36.0-48.0 [facility] Comment on above: Performed By: #### F T4, IRON, B12FOL #### [facility] [address] [place] [address] Dr. Heath Bauer Hemoglobin (Bld) [Mass/Vol] 14.6 g/dL Normal 12.0-16.0 [facility] Comment on above: Performed By: #### F T4, IRON, B12FOL #### [facility] [address] [address] [address] Heath Bauer IG # 0.04 10e3/ul Critically high 0.00-0.03 [facility] Comment on above: Performed By: #### F T4, IRON, B12FOL #### [facility] [address] [place] [address] Dr. Heath Bauer IG % 0.5 % Normal 0.0-0.5 [facility] Comment on above: Performed By: #### F T4, IRON, B12FOL #### [facility] [address] [place] [address] Dr. Heath Bauer LYMPH # 1.3 103/ul Normal 1.2-3.8 [facility] Comment on above: Performed By: #### F T4, IRON, B12FOL #### [facility] [address] [place] [address] Dr. Heath Bauer Lymphocytes/100 WBC (Bld) 15.8 % Critically low 20.5-60.0 [facility] Comment on above: Performed By: #### F T4, IRON, B12FOL #### [facility] [address] [place] [address] Dr. Heath Bauer MANUAL DIFF REQ NO Normal [facility] Comment on above: Performed By: #### F T4, IRON, B12FOL #### [facility] [address] [place] [address] Dr. Heath Bauer MCH (RBC) [Entitic mass] 36.8 pg Critically high 26.7-3 4.0 [facility] Comment on above: Performed By: #### F T4, IRON, B12FOL #### [facility] [address] [place] [address] Dr. Heath Bauer MCHC (RBC) [Mass/Vol] 34.3 g/dL Normal 29.9-35.2 [facility] Comment on above: Performed By: #### F T4, IRON, B12FOL #### [facility] [address] [place] [address] Dr. Heath Bauer MCV (RBC) [Entitic vol] 107.3 fL Critically high 81.0-99 .0 [facility] Comment on above: Result Comment: Macr ocytosis 2+ Performed By: #### F T4, IRON, B12FOL #### [facility] [address] [place] [address] Dr. Heath Bauer MONO # 0.9 103/ul Critically high 0.3-0.[address] [facility] Comment on above: Performed By: #### F T4, IRON, B12FOL #### [facility] [address] [place] [address] Dr. Heath Bauer Monocytes/100 WBC (Bld) 10.1 % Normal 1.7-12.0 [facility] Comment on above: Performed By: #### F T4, IRON, B12FOL #### [facility] [address] [place] [address] Dr. Heath Bauer NEUT # 6.1 103/ul Normal 1.4-6.5 [facility] Comment on above: Performed By: #### F T4, IRON, B12FOL #### [facility] [address] [place] [address] Dr. Heath Bauer Neutrophils/100 WBC (Bld) 71.9 % Normal 43.0-75.0 [facility] Comment on above: Performed By: #### F T4, IRON, B12FOL #### [facility] [address] [place] [address] Dr. Heath Bauer Platelet mean volume (Bld) [Entitic vol] 9.8 fL Normal 9.5-13.5 [facility] Comment on above: Performed By: #### F T4, IRON, B12FOL #### [facility] [address] [place] [address] Dr. Heath Bauer PLT 282 103/ul Normal 150-450 [facility] Comment on above: Performed By: #### F T4, IRON, B12FOL #### [facility] [address] [place] [address] Dr. Heath Bauer RBC 3.97 106/ul Critically low 4.20-5.[address] [facility] Comment on above: Performed By: #### F T4, IRON, B12FOL #### [facility] [address] [address] [address] Heath Bauer WBC 8.4 103/ul Normal 4.0-11.0 [facility] Comment on above: Performed By: #### F T4, IRON, B12FOL #### [facility] [address] [address] [address] Heath Bauer PROF 14(COMP METB)on 022 Albumin [Mass/Vol] 3.5 g/dL Normal 3.4-5.0 [facility] Comment on above: Performed By: #### C MP #### [facility] [address] [place] [address] Dr. Heath Bauer Albumin/Globulin [Mass ratio] 0.9 {ratio} Normal [facility] Comment on above: Performed By: #### C MP #### [facility] [address] [place] [address] Dr. Heath Bauer ALP [Catalytic activity/Vol] 120 U/L Critically high 46-116 [facility] Comment on above: Performed By: #### C MP #### [facility] [address] [place] [address] Dr. Heath Bauer ALT [Catalytic activity/Vol] 58 U/L Normal 14-59 [facility] Comment on above: Performed By: #### C MP #### [facility] [address] [place] [address] Dr. Heath Bauer Anion gap [Moles/Vol] 13.2 mmol/L Normal [facility] Comment on above: Performed By: #### C MP #### [facility] [address] [place] [address] Dr. Heath Bauer AST [Catalytic activity/Vol] 121 U/L Critically high 15-37 [facility] Comment on above: Performed By: #### C MP #### [facility] [address] [place] [address] Dr. Heath Bauer Bilirubin [Mass/Vol] 0.7 mg/dL Normal 0.2-1.0 [facility] Comment on above: Performed By: #### C MP #### [facility] [address] [address] [address] Heath Bauer Calcium [Mass/Vol] 9.0 mg/dL Normal 8.5-10.1 [facility] Comment on above: Performed By: #### C MP #### [facility] [address] [address] [address] Heath Bauer Chloride [Moles/Vol] 99 mmol/L Normal 98-107 [facility] Comment on above: Performed By: #### C MP #### [facility] [address] [address] [address] Heath Bauer CO2 [Moles/Vol] 31.2 mmol/L Normal 21.0-32.0 [facility] Comment on above: Performed By: #### C MP #### [facility] [address] [place] [address] Dr. Heath Bauer Creatinine [Mass/Vol] 0.69 mg/dL Normal 0.55-1.02 [facility] Comment on above: Performed By: #### C MP #### [facility] [address] [place] [address] Dr. Heath Bauer EGFR-AF ERITREAN >60 Normal >=60 [facility] Comment on above: Performed By: #### C MP #### [facility] [address] [place] [address] Dr. Heath Bauer EGFR-NON AF ERITREAN >60 Normal >=60 [facility] Comment on above: Performed By: #### C MP #### [facility] [address] [place] [address] Dr. Heath Bauer Globulin (S) [Mass/Vol] 3.9 g/dL Normal [facility] Comment on above: Performed By: #### C MP #### [facility] [address] [place] [address] Dr. Heath Bauer Glucose [Mass/Vol] 98 mg/dL Normal 74-106 [facility] Comment on above: Performed By: #### C MP #### [facility] [address] [place] [address] Dr. Heath Bauer Potassium [Moles/Vol] 3.4 mmol/L Critically low 3.5-5.1 [facility] Comment on above: Performed By: #### C MP #### [facility] [address] [place] [address] Dr. Heath Bauer Protein [Mass/Vol] 7.4 g/dL Normal 6.4-8.2 [facility] Comment on above: Performed By: #### C MP #### [facility] [address] [address] [address] Heath Bauer Sodium [Moles/Vol] 140 mmol/L Normal 136-145 [facility] Comment on above: Performed By: #### C MP #### [facility] [address] [place] [address] Dr. Heath Bauer Urea nitrogen [Mass/Vol] 15.0 mg/dL Normal 7.0-18.0 [facility] Comment on above: Performed By: #### C MP #### [facility] [address] [place] [address] Dr. Heath Bauer Urea nitrogen/Creatinine [Mass ratio] 21.7 mg/mg Normal [facility] Comment on above: Performed By: #### C MP #### [facility] [address] [place] [address] Dr. Heath Bauer VITAMIN B12on 11-26-2021 Cobalamin (Vitamin B12) [Mass/Vol] 290.0 pg/mL Normal 193.0-986.0 [facility] Comment on above: Performed By: #### V ITB12 #### [facility] [address] [place] [address] Dr. Heath Bauer MG MAMM DX 3D RT CADon 11-19 MG MAMM DX 3D RT CAD Patient: REGINA MA Exam Date: 11/19/2021 : 1960 Gender:F Ordering : GEOFF WU [employer] Admission #: [id number] Family : Order #: [id number] CLICK HERE TO VIEW EXAM RADIOLOGY REPORT [...] Treatments None Family Cancers None LOCATION: [facility] BREAST COMPOSITION: Extremely dense, which [...] M.D. on 11/19/2021 at 15:56 Normal [facility] US BREAST RIGHT LIMITEDon US BREAST RIGHT LIMITED Patient: REGINA MA Exam Date: 11/19/2021 : 1960 Gender:F Ordering : GEOFF [facility]U [facility] Admission #: [id number] Family : Order #: [id number] CLICK HERE TO VIEW EXAM RADIOLOGY REPORT [...] Treatments None Family Cancers None LOCATION: [facility] BREAST COMPOSITION: Extremely dense, which [...] Eckert M.D. on 11/19/2021 at 15:56 Normal [facility] 02-16-2021 CNPN Telephone (RHEUMN) REGINA MA ([id number]) 1960 F Date Time Provider Department 02/16/21 [...] Status:Closed by ROMULO TIWARI on 02/16/21 Normal [facility] CBC and Differentialon 02-13 Abs Baso 0.03 k/uL Normal <0.11 [facility] Comment on above: Performed By: #### C K, CMP, SERFOL, B12, CBCDIF #### [address] [phone] Abs [place] 0.72 k/uL Normal <0.87 [facility] Comment on above: Performed By: #### C K, CMP, SERFOL, B12, CBCDIF #### [address] [place] [phone] Abs Neut 6.04 k/uL Normal 1.45-7.50 [facility] Comment on above: Performed By: #### C K, CMP, SERFOL, B12, CBCDIF #### [address] [place] [phone] Absolute nRBC <0.01 Normal <0.01 [facility] Comment on above: Performed By: #### C K, CMP, SERFOL, B12, CBCDIF #### [address] [place] [phone] Basophils/100 WBC (Bld) 0.4 % Normal [facility] Comment on above: Performed By: #### C K, CMP, SERFOL, B12, CBCDIF #### [address] [place] [phone] DTYPE Auto Diff Normal [facility] Comment on above: Performed By: #### C K, CMP, SERFOL, B12, CBCDIF #### [facility] [address] [address] Eosinophils (Bld) [#/Vol] 0.09 10*3/uL Normal <0.46 [facility] Comment on above: Performed By: #### C K, CMP, SERFOL, B12, CBCDIF #### [address] [place] [address] Eosinophils/100 WBC (Bld) 1.1 % Normal [facility] Comment on above: Performed By: #### C K, CMP, SERFOL, B12, CBCDIF #### [address] [place] [address] Erythrocyte distribution width (RBC) [Ratio] 15.6 % High 11.5-15.0 [facility] Comment on above: Performed By: #### C K, CMP, SERFOL, B12, CBCDIF #### [address] [place] [address] Hematocrit (Bld) [Volume fraction] 39.0 % Normal 36.0-46.0 [facility] Comment on above: Performed By: #### C K, CMP, SERFOL, B12, CBCDIF #### [address] [place] [address] Hemoglobin (Bld) [Mass/Vol] 13.8 g/dL Normal 11.5-15.5 [facility] Comment on above: Performed By: #### C K, CMP, SERFOL, B12, CBCDIF #### [address] [place] [address] Lymphocytes (Bld) [#/Vol] 1.42 10*3/uL Normal 1.00-4.00 [facility] Comment on above: Performed By: #### C K, CMP, SERFOL, B12, CBCDIF #### [address] [place] [address] Lymphocytes/100 WBC (Bld) 17.1 % Normal [facility] Comment on above: Performed By: #### C K, CMP, SERFOL, B12, CBCDIF #### [place] [address] MCH 39.4 pG High 26.0-34.0 [facility] Comment on above: Performed By: #### C K, CMP, SERFOL, B12, CBCDIF #### [address] [place] [address] MCHC (RBC) [Mass/Vol] 35.4 g/dL Normal 30.5-36.0 [facility] Comment on above: Performed By: #### C K, CMP, SERFOL, B12, CBCDIF #### [address] [place] [address] MCV (RBC) [Entitic vol] 111.4 fL High 80.0-100.0 [facility] Comment on above: Performed By: #### C K, CMP, SERFOL, B12, CBCDIF #### [address] [place] [address] Monocytes/100 WBC (Bld) 8.7 % Normal [facility] Comment on above: Performed By: #### C K, CMP, SERFOL, B12, CBCDIF #### [place] [address] Neutrophils/100 WBC (Bld) 72.7 % Normal [facility] Comment on above: Performed By: #### C K, CMP, SERFOL, B12, CBCDIF #### [place] [address] NRBCs 0.0 /100 WBC Normal 0 [facility] Comment on above: Performed By: #### C K, CMP, SERFOL, B12, CBCDIF #### [address] [place], [place] [address] Platelet mean volume (Bld) [Entitic vol] 9.3 fL Normal 9.0-12.7 [facility] Comment on above: Performed By: #### C K, CMP, SERFOL, B12, CBCDIF #### [address] [place], [place] [address] Platelets (Bld) [#/Vol] 276 10*3/uL Normal 150-400 [facility] Comment on above: Performed By: #### C K, CMP, SERFOL, B12, CBCDIF #### [address] [place] [address] RBC (Bld) [#/Vol] 3.50 10*6/uL Low 3.90-5.20 [facility] Comment on above: Performed By: #### C K, CMP, SERFOL, B12, CBCDIF #### [place] [address] Review Done Normal [facility] Comment on above: Performed By: #### C K, CMP, SERFOL, B12, CBCDIF #### [address] [place] [address] [place] [phone] WBC (Bld) [#/Vol] 8.30 10*3/uL Normal 3.70-11.00 [facility] Comment on above: Performed By: #### C K, CMP, SERFOL, B12, CBCDIF #### [address] [place], [place] [address] CKon 02-13-2021 CK [Catalytic activity/Vol] 72 U/L Normal 42-196 [facility] Comment on above: Performed By: #### C K, CMP, SERFOL, B12, CBCDIF #### [address] [place], [place] [address] CNOVon 02-13-2021 CNOV Office Visit (RHEUMN ) REGINA MA ([id number]) 1960 F Date Time Provider Department 02/13/21 [...] and low cortisol 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 Normal [facility] Comp Metabolic Panelon 02-13 Albumin [Mass/Vol] 3.9 g/dL Normal 3.9-4.9 [facility] Comment on above: Performed By: #### C K, CMP, SERFOL, B12, CBCDIF #### [facility] [employer] [address] [place], [place] [address] ALP [Catalytic activity/Vol] 94 U/L Normal 34-123 [facility] Comment on above: Performed By: #### C K, CMP, SERFOL, B12, CBCDIF #### [facility] [employer] [address] [place], [place] [address] ALT [Catalytic activity/Vol] 21 U/L Normal 7-38 [facility] Comment on above: Performed By: #### C K, CMP, SERFOL, B12, CBCDIF #### [facility] [address] [place], [place] [address] Anion gap [Moles/Vol] 14 mmol/L Normal 9-18 [facility] Comment on above: Performed By: #### C K, CMP, SERFOL, B12, CBCDIF #### [place] [address] [place] [address] AST [Catalytic activity/Vol] 61 U/L High 13-35 [facility] Comment on above: Performed By: #### C K, CMP, SERFOL, B12, CBCDIF #### [address] [address] Bilirubin [Mass/Vol] 0.6 mg/dL Normal 0.2-1.3 [facility] Comment on above: Performed By: #### C K, CMP, SERFOL, B12, CBCDIF #### [address] [place] [place], [place] [address] Calcium [Mass/Vol] 9.7 mg/dL Normal 8.5-10.2 [facility] Comment on above: Performed By: #### C K, CMP, SERFOL, B12, CBCDIF #### [address] [place], [place] [address] Chloride [Moles/Vol] 98 mmol/L Normal 97-105 [facility] Comment on above: Performed By: #### C K, CMP, SERFOL, B12, CBCDIF #### [address] [place], [place] [address] CO2 [Moles/Vol] 27 mmol/L Normal 22-30 [facility] Comment on above: Performed By: #### C K, CMP, SERFOL, B12, CBCDIF #### [place] [address] [place] [address] Creatinine [Mass/Vol] 0.70 mg/dL Normal 0.58-0.96 [facility] Comment on above: Performed By: #### C K, CMP, SERFOL, B12, CBCDIF #### [facility] [address] [place] [address] eGFR- Amer. >60 Normal [facility] Comment on above: Performed By: #### C K, CMP, SERFOL, B12, CBCDIF #### [facility] [address] [place] [address] eGFR-All Other Races >60 Normal [facility] Comment on above: Result Comment: eGFR [...] C K, CMP, SERFOL, B12, CBCDIF #### [facility] [address] [place] [address] Glucose [Mass/Vol] 103 mg/dL High 74-99 [facility] Comment on above: Result Comment: The [place] Diabetes Association (ADA) provides guidance for cutoff [...] Standards of Medical Care in Diabetes 2016, [place] Diabetes Association. Diabetes Care. 2016.39(Suppl 1). Performed By: #### C K, CMP, SERFOL, B12, CBCDIF #### [facility] [address] [place], [place] [address] Potassium [Moles/Vol] 3.3 mmol/L Low 3.7-5.1 [facility] Comment on above: Performed By: #### C K, CMP, SERFOL, B12, CBCDIF #### [address] [place] [place], [place] [address] Protein [Mass/Vol] 6.8 g/dL Normal 6.3-8.0 [facility] Comment on above: Performed By: #### C K, CMP, SERFOL, B12, CBCDIF #### [place] [address] [place] [address] Sodium [Moles/Vol] 139 mmol/L Normal 136-144 [facility] Comment on above: Performed By: #### C K, CMP, SERFOL, B12, CBCDIF #### [address] [place], [place] [address] Urea nitrogen [Mass/Vol] 15 mg/dL Normal 7-21 [facility] Comment on above: Performed By: #### C K, CMP, SERFOL, B12, CBCDIF #### [address] [place], [place] [address] Folate, Serumon 02-13-2021 Folate [Mass/Vol] ng/mL Low >4.7 [facility] Comment on above: Performed By: #### C K, CMP, SERFOL, B12, CBCDIF #### [address] [place], [place] [address] Vitamin B12on 02-13-2021 Cobalamin (Vitamin B12) [Mass/Vol] 285 pg/mL Normal 232-1245 [facility] Comment on above: Performed By: #### C K, CMP, SERFOL, B12, CBCDIF #### [facility] [address] [place] [place], [place] [address] Luke 02-11-2021 CNPN Telephone (ORQ) REGINA MA ([id number]) 1960 F Date Time Provider Department 02/11/21 ROMULO TIWARI ORQ During your visit today, we recorded the following information about you: Esperanza Neff Nuka [employer] 02/11/2021 2:23 PM Signed Outside lab results received via fax and scanned to patients chart for your review. Please review under the Lab tab in patients chart. Allergies As of Date: 02/11/2021 (Not on File) Date Reviewed: Never Reviewed Reason for Visit: Outside Lab Results [753] Problem List As Of Date: 02/11/2021 (None) Encounter Status:Closed by ESVIN MED ESPERANZA PUGH on 02/11/21 Normal [facility] Vital Signs Date Time Vital Sign Value Performing Clinician Facility 07-22-2023 09:20-0500 Body height 162.56 cm Mohinder Maxwell Other [facility] Other 07-22-2023 09:20-0500 Body mass index (BMI) [Ratio] 20.05 kg/m2 Mohinder Maxwell Other [facility] Other 07-22-2023 09:20-0500 Body weight 52.98 kg Mohinder Maxwell Other [facility] Other 07-22-2023 09:20-0500 Diastolic blood pressure 84 mm[Hg] Mohinder Scovanner Other [facility] Other 07-22-2023 09:20-0500 Systolic blood pressure 125 mm[Hg] Mohinder Scovanner Other [facility] Other 06-22-2023 10:00-0500 Body height 162.56 cm [employer] Other [facility] Other 06-22-2023 10:00-0500 Body mass index (BMI) [Ratio] 20.25 kg/m2 [employer] Other [facility] Other 06-22-2023 10:00-0500 Body weight 53.52 kg [employer] Other [facility] Other 04-26-2023 13:40-0500 Body height 162.56 cm Mohinder Scovanner Other [facility] Other 04-26-2023 13:40-0500 Body mass index (BMI) [Ratio] 28.78 kg/m2 Mohinder Scovanner Other [facility] Other 04-26-2023 13:40-0500 Body weight 76.07 kg Mohinder Scovanner Other [facility] Other 04-26-2023 13:40-0500 Diastolic blood pressure 78 mm[Hg] Mohinder Scovanner Other [facility] Other 04-26-2023 13:40-0500 Systolic blood pressure 120 mm[Hg] Mohinder Scovanner Other [facility] Other Encounters Encounter Date Encounter Type Care Provider Facility Start: 07-22-2023 End: 07-22-2023 ambulatory Mohinder Maxwell Other [place] [employer] Other Start: 07-22-2023 Office outpatient visit 15 minutes Mohinder Maxwell [facility] Start: 07-20-2023 End: 07-20-2023 ambulatory ASHLY BRYCE Not Available Start: 07-05-2023 End: 07-05-2023 ambulatory Alana Ha Other [facility] [employer] Other Start: 07-05-2023 Telephone encounter Alana Ha [facility] Start: 07-01-2023 End: 07-01-2023 ambulatory Ashly Fuad Bandahholz Facility:[facility] Start: 07-01-2023 End: 07-01-2023 ambulatory Ashly J Solohholz Work Phone: [facility] Work Phone: Start: 07-01-2023 End: 07-01-2023 Patient encounter procedure Ashly Bryce Work Phone: [facility] Work Phone: Start: 06-29-2023 End: 06-29-2023 ambulatory Alana Ha Other [place] [employer] Other Start: 06-29-2023 Telephone encounter Alana Ha [facility] Start: 06-22-2023 End: 06-22-2023 ambulatory Alana Ha Other [facility] [employer] Other Start: 06-22-2023 Office outpatient visit 25 minutes Alana Ha [facility] Start: 06-02-2023 End: 06-02-2023 ambulatory Ashly J Solohholz Facility:[facility] Start: 06-02-2023 End: 06-02-2023 ambulatory Ashly J Aichholz Work Phone: [facility] Work Phone: Start: 06-02-2023 End: 06-02-2023 Patient encounter procedure Ashlybart Wu Work Phone: [facility] Work Phone: Start: 05-31-2023 End: 05-31-2023 ambulatory Alana Ha Facility:[facility] Start: 05-31-2023 End: 05-31-2023 ambulatory Ashly Wu Work Phone: [facility] Work Phone: Start: 05-31-2023 End: 05-31-2023 Patient encounter procedure Ashly Wu Work Phone: [facility] [place] Work Phone: Start: 05-19-2023 End: 05-19-2023 ambulatory ASHLY KIRANZ [facility] [employer] Other Start: 05-19-2023 Telephone encounter [facility]inder [facility] Start: 04-26-2023 End: 04-26-2023 ambulatory Mohinder Maxwell Other [place] [employer] Other Start: 04-26-2023 Office outpatient ne w 30 minutes Mohinder Maxwell [facility] Start: 03-22-2023 End: 03-23-2023 ambulatory ALIREZA PATEL Facility[facility] Start: 10-13-2022 End: 10-14-2022 ambulatory [employer] ASHLY AICParisJESSICAZ Facility:[facility] Start: 10-02-2022 End: 10-03-2022 ambulatory [employer] ASHLY AICHHOLZ Facility:[facility] Start: 09-30-2022 End: 10-01-2022 ambulatory [employer] ASHLY AICHHOLZ Facility:[facility] Start: 09-15-2022 End: 09-16-2022 ambulatory [employer] ASHLY AICHHOLZ Facility:[facility] Start: 11-26-2021 End: 11-27-2021 ambulatory [employer] ASHLY AICHHOLZ Facility:[facility] Start: 11-19-2021 End: 11-20-2021 ambulatory [employer] ASHLY WU Facility:[facility] Procedures Date Procedure Procedure Detail [...] Activity Detail Author Start: 06-02-2023 [facility] Immunizations Immunization Date Immunization Notes Care Provider Fa cility 12-24-2020 COVID-19 Ad26.COV2.S ([employer]) Ashly Wu Work Phone: [facility] 07-09-2020 influenza, injectabl e, quadrivalent, preservative free Ashly Wu Work Phone: [facility] Payers Date Payer Category Payer Self-pay [id number] 2023 Private Health Insurance [id number] 1961 Unknown [id number] 1960 Unknown [id number] 2.16.84 [id number] 1960 Unknown [id number] 2.16.84 [id number] 1960 Unknown [id number] 2.16.84 [id number] 1960 Unknown [id number] 2.16.84 [id number] 1960 Unknown [id number] 2.16.84 [id number] 1960 Unknown [id number] 2.16.84 [id number] 1960 Unknown [id number] 2.16.84 [id number] 1960 Unknown [id number] 2.16.840 .[id number] Private Health Insurance [id number] Unknown [id number] 2.16.8 [id number] Unknown [id number] 2.16.8 [id number] Unknown [id number] 2.16.8 [id number] Social History Date Type Detail Facility Unknown if ever smoked [facility] Other Sex Assigned At Sex Assigned At Bir th [facility] Other Start: 05-01-2021 Tobacco smoking status [facility] Smoker (finding) [facility] Start: 1960 Sex Assigned At Female F [facility] Goals Date Patient Goal Desired Activity /State Evaluation note 07-22-2023 Note Date & Type Note Facility 07-22-2023 Evaluation note Encounter Date Diagnosis Assessment Notes Jul, Fatty liver (ICD-10 - K76.0) Jul, Cirrhosis (ICD-10 - K74.60) [facility] Other Evaluation note 06-22-2023 Note Date & [...] consult for CTR. Follow up as needed. [facility] Other Evaluation note 04-26-2023 Note Date & [...] eat much and gets full very fast [facility] Other Progress note 02-13-2021 Note Date & Type Note Facility 02-13-2021 Note HNO ID: [id number] Author: Romulo Tiwari, DO Service: ? 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 [facility] Evaluation note Note Date & Type Note Facility Evaluation note No Information [facility] [employer] Other Evaluation note Note Date & Type Note Facility Evaluation note No assessment information availa [facility] Work Phone: History general Narrative - Reported Note Date & Type Note Facility History general Narrative - Reported Type Medical History HTN Medical History chronic depression [facility] [employer] Other History general Narrative - Reported Note Date & Type Note Facility History general Narrative - Reported Type Medical History HTN Medical History chronic depression Medical History anemia [facility] [employer] Other History general Narrative - Reported Note Date & Type Note Facility History general Narrative - Reported Type Medical History HTN Medical History chronic depression Medical History anemia Surgical History none [facility] [employer] Other Summary Purpose Family History Relationship Condition [...] section and content) DATE CREATED AUTHOR 07/24/2021 [facility] DATE CREATED AUTHOR AUTHOR'S ORGANIZ ATION 10/16/2022 [facility] DATE CREATED AUTHOR AUTHOR'S ORGANIZ ATION 03/26/2023 [facility] DATE CREATED AUTHOR AUTHOR'S ORGANIZ ATION 07/02/2023 [facility] DATE CREATED AUTHOR AUTHOR'S ORGANIZ ATION 07/22/2023 [facility] EPIC REASON FOR VISIT (unrecogniz [...] BE BASED ON THE PRIMARY CLINICAL RECORDS. [facility] [employer] provides no warranty or guarantee of the accuracy or completeness of information in this document.
[2023-08-03 04:07] LABS: AFP, Serum, Tumor Marker 4.1 ng/mL (0.0-9.2)
== END 2023-08-02 11:13 | disposition home or self-care (01) ==
LOC: LAB 11:13
PROVIDERS: PCP Nurse Practitioner
DX: K76.0 Fatty (change of) liver, not elsewhere classified (principal)
CPT/HCPCS: 36415; 82105

== ENCOUNTER 2023-09-30 10:01 | Outpatient (OUT) | payer MEDICARE, SELFPAY ==
--- OUTSIDE RECORDS SUMMARY | 2023-09-30 10:18 | XMS_ITS | CCD ---
Author Organization [facility] Care Team Providers Care Managed Care Nurse Name Role Phone AICHHOLZ, ELECTRONIC COILS SUPERVISOR ASHLY Primary Care Unavailable AICHHOLZ, ELECTRONIC COILS SUPERVISOR ASHLY Consulting Unavailable AICHHOLZ, ELECTRONIC COILS SUPERVISOR ASHLY Admitting Unavailable AICHHOLZ, ELECTRONIC COILS SUPERVISOR ASHLY Attending Unavailable AICHHOLZ, ELECTRONIC COILS SUPERVISOR ASHLY Primary Care Unavailable DR SIGIFREDO VASQUES V Consulting Unavailable AICHHOLZ, ELECTRONIC COILS SUPERVISOR ASHLY Admitting Unavailable AICHHOLZ, ELECTRONIC COILS SUPERVISOR ASHLY Attending Unavailable AICHHOLZ, ELECTRONIC COILS SUPERVISOR ASHLY Consulting Unavailable AICHHOLZ, ELECTRONIC COILS SUPERVISOR ASHLY Admitting Unavailable AICHHOLZ, ELECTRONIC COILS SUPERVISOR ASHLY Attending Unavailable AICHHOLZ, ELECTRONIC COILS SUPERVISOR ASHLY Consulting Unavailable AICHHOLZ, ELECTRONIC COILS SUPERVISOR ASHLY Primary Care Unavailable DR EPIFANIO ECKERT Consulting Unavailable AICHHOLZ, ELECTRONIC COILS SUPERVISOR ASHLY Admitting Unavailable AICHHOLZ, ELECTRONIC COILS SUPERVISOR ASHLY Attending Unavailable AICHHOLZ, ELECTRONIC COILS SUPERVISOR ASHLY Consulting Unavailable AICHHOLZ, ELECTRONIC COILS SUPERVISOR ASHLY Primary Care Unavailable AICHHOLZ, ELECTRONIC COILS SUPERVISOR ASHLY Admitting Unavailable AICHHOLZ, ELECTRONIC COILS SUPERVISOR ASHLY Attending Unavailable AICHHOLZ, ELECTRONIC COILS SUPERVISOR ASHLY Consulting Unavailable AICHHOLZ, ELECTRONIC COILS SUPERVISOR ASHLY Primary Care Unavailable AICHHOLZ, ELECTRONIC COILS SUPERVISOR ASHLY Primary Care Unavailable AICHHOLZ, ELECTRONIC COILS SUPERVISOR ASHLY Admitting Unavailable AICHHOLZ, ELECTRONIC COILS SUPERVISOR ASHLY Attending Unavailable AICHHOLZ, ELECTRONIC COILS SUPERVISOR ASHLY Consulting Unavailable Deneen Nix Consulting Unavailable ALIREZA PATEL Attending Unavailable Mohinder Maxwell Unavailable Ashly Wu Primary Care Provider [phone] GREGORY Ha Attending Provider EULALIO Maxwell Attending Provider Alana Ha Unavailable EULALIO Maxwell Referring Provider Ashly Wu Primary Care Unavailable Scovanner, Mohinder M Referring Unavailable Alana Ha Attending Unavailable Alana Ha Admitting Unavailable Ashly Wu Primary Care Unavailable Mohinder Maxwell Attending Unavailable Mohinder Maxwell Admitting Unavailable Alana Ha Attending Unavailable Alana Ha Admitting Unavailable Ashly Wu Primary Care Unavailable Bryce ALONZO, Ashly Unavailable Parker Arroyo MD Primary Care Provider ASHLY WU Attending Unavailable JAQUELINE FATIMA Attending Unavailable JR. DELGADO GEORGE C Attending Unavaila ble ASHLY WU Attending Unavailable ASHLY WU Attending Unavailable Medications Current Medications Medication Drug Class(es) Dates Sig (Normalized) Sig (Original) [id number] 200 actuat albuterol 0.09 mg/actuat metered dose inhaler (4 sources) beta2-Adrenergic Agonist Start: 05-22-2023 take 2 puff(s) by inhalation every six hours for wheezing albuterol HFA 90 mcg/act inhaler Indications: Wheezing Inhale 2 puffs every 6 (six) hours if needed for wheezing. 18 g 1 05/22/2023 Active amLODIPine 2.5 mg oral tablet (13 sources) Dihydropyridine Calcium Channel Surinder Start: 05-01-2021 Amlodipine Active 2.5 MG PO As Directed May 01, 2021 12:00am busPIRone hydrochloride 5 mg oral tablet (3 sources) Start: 11-10-2020 take 7.5 mg by mouth once daily at bedtime Buspirone Active 7.5 MG PO Daily at bedtime November 09, 2020 11:00pm cholecalciferol 0.025 mg oral tablet (4 sources) Vitamin D take 1 tablet by mouth in the morning cholecalciferol (Vitamin D-3) 25 MCG (1000 UT) tablet Take 1,000 Units by mouth in the morning. 0 Active folic acid 1 mg oral tablet (6 sources) Start: 07-18-2023 End: 10-16-2023 take 1 tablet by mouth in the morning folic acid (Folvite) 1 MG tablet Indications: Deficiency of other specified B group vitamins Take 1 tablet (1,000 mcg) by mouth in the morning. 90 tablet 0 07/18/2023 10/16/2023 Active Folic Acid Activ e furosemide 20 mg oral tablet (6 sources) Loop Diuretic take 1 tablet by mouth in the morning furosemide (Lasix) 20 MG tablet Take 20 mg by mouth in the morning. 0 Active Lasix Active lidocaine 0.05 mg/mg medicated patch (5 sources) Antiarrhythmic, Amide Local Anesthetic Start: 04-27-2023 Lidocaine 5 % 1 patch remove after 12 hours Externally Once a day for Apr, Active Magnesium (2 sources) Magnesium Active pantoprazole 40 mg delayed release oral tablet (4 sources) Proton Pump Inhibitor take 1 tablet by mouth before mealtime pantoprazole (ProtoNix) 40 MG EC tablet Take 40 mg by mouth in the morning. Take before meals. Do not crush, chew, or split. . 0 Active Potassium (2 sources) Potassium Active potassium chloride 20 meq extended release oral tablet (7 sources) Start: 03-31-2023 take 1 tablet by mouth in the morning potassium chloride CR (K-Tab) 20 MEQ ER tablet Take 20 mEq by mouth in the morning. 0 03/31/2023 Active Start: 11-07-2020 End: 05-01-2021 take 10 mEq by mouth twice daily Potassium Chloride Discontinued 10 MEQ PO Twice daily November 06, 2020 11:00pm May 01, 2021 10:46am propranolol hydrochloride 20 mg oral tablet (7 sources) beta-Adrenergic Surinder Start: 11-07-2020 take 20 mg by mouth twice daily Propranolol Active 20 MG PO Twice daily November 06, 2020 11:00pm spironolactone 50 mg oral tablet (6 sources) Aldosterone Antagonist Start: 06-06-2023 End: 09-04-2023 take 1 tablet by mouth in the morning spironolactone (Aldactone) 50 MG tablet Indications: Alcoholic cirrhosis of liver with ascites (CMS/HCC) Take 1 tablet (50 mg) by mouth in the morning. 90 tablet 0 06/06/2023 09/04/2023 Active Spironolactone A ctive traZODone hydrochloride 50 mg oral tablet (16 sources) Serotonin Reuptake Inhibitor Start: 11-10-2020 take 50 mg by mouth once daily at bedtime Trazodone Active 50 MG PO Daily at bedtime November 09, 2020 11:00pm Start: 11-07-2020 take 100 mg by mouth once daily at bedtime Trazodone Active 100 MG PO Daily at bedtime November 06, 2020 11:00pm take 2 tablets by mo [facility] at bedtime traZODone (Desyrel) 50 MG tablet Take 100 mg by mouth at bedtime. 0 Active 24 hr venlafaxine 150 mg extended release oral capsule (13 sources) Serotonin and Norepinephrine Reuptake Inhibitor Start: 07-18-2023 End: 10-16-2023 take 1 capsule by mouth every twenty-four hours in the morning venlafaxine XR (Effexor XR) 150 MG 24 hr capsule Indications: Anxiety disorder, unspecified , Anxiety state (CMS/HCC) Take 1 capsule (150 mg) by mouth in the morning. 90 capsule 0 07/18/2023 10/16/2023 Active Start: 11-07-2020 take 150 mg by mouth once randolph y Venlafaxine Active 150 MG PO Daily November 06, 2020 11:00pm Venlafaxine HCl ER 150 MG START WITH 1 CAPSULE DAILY FOR 7 DAYS, THEN INCREASE TO 2 CAPSULES DAILY Oral Once a day for 15 days Active take 1 capsule by [facility] once daily, then take 2 capsules by [...] 11, 2020 12:00am November 07, 2020 3:35pm predniSONE 10 mg oral tablet (5 sources) Start: 04-27-2023 predniSONE 10 MG Take 3 tabl ets by mouth for 3 days then 2 tablets by mouth for 3 days then 1 tablet by mouth for 3 days Orally Once a day for 9 Apr, Not-Taking/PRN Triamcinolone (6 sources) Corticosteroid Start: 09-15-2018 KENALOG - 10 mg Aug, 40 mg Problems Problem Classification Problem Date Documented Da te Episodic/Chronic Acute and unspecified renal failure (4 sources) Acute injury of kidney; Translations: [Acute kidney failure, unspecified] Onset: 05-17-2023 05-17-2023 Episodic Alcohol-related disorders (8 sources) Alcoholism; Translations: [Alcohol dependence, uncomplicated] Onset: 05-17-2023 05-17-2023 Chronic Anxiety disorders (7 sources) Anxiety; Translations: [Anxiety disorder, unspecified] Onset: 05-17-2023 07-08-2020 Chronic Deficiency and other anemia (4 sources) Anemia; Translations: [Anemia, unspecified] Onset: 05-17-2023 05-17-2023 Episodic Essential hypertension (9 sources) Essential (primary) hypertension; Translations: [Essential hypertension] Onset: 11-30-2021 Chronic Fluid and electrolyte disorders (4 sources) Hypokalemia; Translations: [Hypokalemia] Onset: 05-17-2023 05-17-2023 Episodic Immunizations and screening for infectious disease (4 sources) Anti-nuclear factor positive; Translations: [Other specified abnormal immunological findings in serum] Onset: 05-17-2023 05-17-2023 Episodic Malaise and fatigue (4 sources) Fatigue; Translations: [Other fatigue] Onset: 05-17-2023 05-17-2023 Episodic Mood disorders (10 sources) Depressive disorder; Translations: [Depression] Onset: 05-17-2023 07-08-2020 Chronic Nutritional deficiencies (5 sources) Deficiency of other specified B group vitamins; Translations: [DEFICIENCY SPEC B GROUP VITAMINS] Onset: 11-26-2021 Episodic Other connective tissue disease (5 sources) Recurrent falls ; Translations: [Repeated falls] Episodic Other gastrointestinal disorders (1 source) Other specified symptoms and signs involving the digestive system and abdomen Episodic Other gastrointestinal disorders (4 sources) Abdominal bloating; Translations: [Abdominal distension (gaseous)] Onset: 05-17-2023 05-17-2023 Episodic Other liver diseases (4 sources) Steatosis of liver; Translations: [Fatty (change of) liver, not elsewhere classified] Chronic Other liver diseases (2 sources) Fatty (change of) liver, not elsewhere classified; Translations: [Fatty (change of) liver, not elsewhere classified] Onset: 07-01-2023 Chronic Other liver diseases (4 sources) Unspecified cirrhosis of liver; Translations: [Cirrhotic] Onset: 06-02-2023 Chronic Other lower respiratory disease (4 sources) Wheezing; Translations: [Wheezing] Onset: 05-22-2023 05-22-2023 Episodic Other nervous system disorders (6 sources) Brachial plexus disorder; Translations: [Brachial plexus disorders] Chronic Other nervous system disorders (10 sources) Bilateral carpal tunnel syndrome; Translations: [Carpal tunnel syndrome, bilateral upper limbs] Onset: 06-21-2023 06-21-2023 Chronic Other nervous system disorders (1 source) Carpal tunnel syndrome, bilateral upper limbs Chronic Other non-traumatic joint disorders (2 sources) Pain of right wrist; Translations: [Pain in right wrist] 08-02-2023 Episodic Other non-traumatic joint disorders (2 sources) Pain of left wrist; Translations: [Pain in left wrist] 08-02-2023 Episodic Other nutritional; endocrine; and metabolic disorders (4 sources) Hypomagnesemia; Translations: [Hypomagnesemia] Onset: 05-17-2023 05-17-2023 Chronic Other nutritional; endocrine; and metabolic disorders [...] Alcoholism; Translations: [Alcohol use disorder] 11-08-2020 Episodic Residual codes; unclassified (4 sources) Insomnia; Translations: [Insomnia, unspecified] Onset: 05-17-2023 05-17-2023 Episodic Residual codes; unclassified (4 sources) Tobacco user; Translations: [Tobacco use] Onset: 07-20-2023 07-20-2023 Episodic Spondylosis; intervertebral disc disorders; other back problems (20 sources) Sacroiliac joint pain; Translations: [Sacrococcygeal disorders, not elsewhere classified] Onset: 05-17-2023 Episodic Suicide and intentional self-inflicted injury (3 sources) Suicidal thoughts; Translations: [Suicidal ideations] 07-08-2020 Episodic Results Test Name Value Interpretation Reference Range Facility ALL CBC WITH AUTO DIFFon BASOPHILS ABSOLUTE AUTO 0.1 [facility] Basophils/100 WBC (Bld) 0.6 % 0.2 - 2.0 % [facility] Eosinophils/100 WBC (Bld) 0.9 % 0.9 - 7.0 % [facility] Erythrocyte distribution width (RBC) [Ratio] 19.7 % High 11.0 - 15.0 % [facility] Hematocrit (Bld) [Volume fraction] 39.0 % 36.0 - 48.0 % [facility] Hemoglobin (Bld) [Mass/Vol] 13.1 g/dL 12.0 - 16.0 g/dL [facility] IMMATURE GRANULOCYTES ABS AUTO 0.04 High [facility] Immature granulocytes/100 WBC (Bld) 0.4 % 0.0 - 0.5 % [facility] Interpretation and review of laboratory results Abnormal [facility] LYMPHOCYTES ABSOLUTE AUTO 1.2 [facility] Lymphocytes/100 WBC (Bld) 12.3 % Low 20.5 - 60.0 % [facility] MCH (RBC) [Entitic mass] 33.3 pg 26. 7 - 34.0 pg [facility] MCHC (RBC) [Mass/Vol] 33.6 g/dL 29.9 - 35.2 g/dL [facility] MCV (RBC) [Entitic vol] 99.2 fL High 81.0 - 99.0 fL [facility] MONOCYTES ABSOLUTE AUTO 0.8 N [facility] Monocytes/100 WBC (Bld) 8.8 % 1.7 - 12.0 % [facility] NEUTROPHILS ABSOLUTE AUTO 7.4 High [facility] Neutrophils/100 WBC (Bld) 77.0 % High 43.0 - 75.0 % [facility] Platelet mean volume (Bld) [Entitic vol] 9.2 fL Low 9.5 - 13.5 fL [facility] TBH EO # 0.1 [facility] TB PLT 294 [facility] RBC 3.93 Low [facility] WBC 9.6 [facility] Alanine aminotransferase [En zymatic activity/volume] in Serum or PlasmaOrdered By: Mohinder Maxwell on 07-01-2023 ALT [Catalytic activity/Vol] 38 U/L 7-52 [facility] Albumin [Mass/volume] in Ser um or Plasma by Bromocresol green (BCG) dye binding methoOrdered By: Mohinder Maxwell on 07-01-2023 Albumin BCG dye [Mass/Vol] 3.9 g/dL 3.5-5.7 [facility] Alkaline phosphatase [Enzyma tic activity/volume] in Serum or PlasmaOrdered By: Mohinder Maxwell on 07-01-2023 ALP [Catalytic activity/Vol] 271 U/L 34-104 [facility] Aspartate aminotransferase [ Enzymatic activity/volume] in Serum or PlasmaOrdered By: Mohinder Maxwell on 07-01-2023 AST [Catalytic activity/Vol] 84 U/L 13-39 [facility] Bilirubin.total [Mass/volume ] in Serum or PlasmaOrdered By: Mohinder Maxwell on 07-01-2023 Bilirubin [Mass/Vol] 0.9 mg/dL 0.3-1.0 [facility] Calcium [Mass/volume] in Ser um or PlasmaOrdered By: Mohinder Maxwell on 07-01-2023 Calcium [Mass/Vol] 9.3 mg/dL 8.6-10.3 [facility] Carbon dioxide, total [Moles /volume] in Serum or PlasmaOrdered By: Mohinder Maxwell on 07-01-2023 CO2 [Moles/Vol] 29.9 mmol/L 21.0-31.0 [facility] Chloride [Moles/volume] in S charity or PlasmaOrdered By: Mohinder Maxwell on 07-01-2023 Chloride [Moles/Vol] 100 mmol/L 98-107 [facility] Comprehensive Metabolic Pane april 07-01-2023 Albumin [Mass/Vol] 3.9 g/dL Normal 3.5-5.7 [facility] Comment on above: Order Comment: Reaso n for Exam Fatty liver Performed By: #### C MP #### [facility] [address] Albumin/Globulin [Mass ratio] 1.3 {ratio} Normal [facility] Comment on above: Order Comment: Reaso n for Exam Fatty liver Performed By: #### C MP #### [facility] [address] ALP [Catalytic activity/Vol] 271 U/L High 34-104 [facility] Comment on above: Order Comment: Reaso n for Exam Fatty liver Result Comment: PERF ORMED BY: [facility] [address] [place] [address] PATHOLOGIST WHEEL PRESS CLERK CRISTOBAL WARE M.D. Performed By: #### C MP #### [facility] [address] [place] [address] ALT [Catalytic activity/Vol] 38 U/L Normal 7-52 [facility] Comment on above: Order Comment: Reaso n for Exam Fatty liver Performed By: #### C MP #### [facility] [address] [place] [address] Anion gap [Moles/Vol] 12.4 mmol/L Normal 6.0-15.0 [facility] Comment on above: Order Comment: Reaso n for Exam Fatty liver Performed By: #### C MP #### [address] AST [Catalytic activity/Vol] 84 U/L High 13-39 [facility] Comment on above: Order Comment: Reaso n for Exam Fatty liver Performed By: #### C MP #### [address] Bilirubin [Mass/Vol] 0.9 mg/dL Normal 0.3-1.0 [facility] Comment on above: Order Comment: Reaso n for Exam Fatty liver Performed By: #### C MP #### [address] Calcium [Mass/Vol] 9.3 mg/dL Normal 8.6-10.3 [facility] Comment on above: Order Comment: Reaso n for Exam Fatty liver Performed By: #### C MP #### [facility] [address] [place] [address] [place] Chloride [Moles/Vol] 100 mmol/L Normal 98-107 [facility] Comment on above: Order Comment: Reaso n for Exam Fatty liver Performed By: #### C MP #### [facility] [address] [place] [address] [place] CO2 [Moles/Vol] 29.9 mmol/L Normal 21.0-31.0 [facility] Comment on above: Order Comment: Reaso n for Exam Fatty liver Performed By: #### C MP #### [facility] [address] Creatinine [Mass/Vol] 0.57 mg/dL Low 0.60-1.20 [facility] Comment on above: Order Comment: Reaso n for Exam Fatty liver Performed By: #### C MP #### [facility] [address] GFR/1.73 sq M.predicted MDRD (S/P/Bld) [Vol rate/Area] mL/min/{1.73_m2} Normal [facility] Comment on above: Order Comment: Reaso n for Exam Fatty liver Performed By: #### C MP #### [facility] [address] Globulin (S) [Mass/Vol] 3.1 g/dL Normal [facility] Comment on above: Order Comment: Reaso n for Exam Fatty liver Performed By: #### C MP #### [address] Glucose [Mass/Vol] 79 mg/dL Normal 70-100 [facility] Comment on above: Order Comment: Reaso n for Exam Fatty liver Result Comment: [place] Glucose Reference Range is dependent on time and content of last meal. Glucose of more than 200 mg/dL in a nonstressed, ambulatory subject supports the diagnosis of Diabetes Mellitus. ADA recommended reference range Performed By: #### C MP #### [address] Potassium [Moles/Vol] 3.3 mmol/L Low 3.5-5.1 [facility] Comment on above: Order Comment: Reaso n for Exam Fatty liver Performed By: #### C MP #### [facility] [address] Protein [Mass/Vol] 7.0 g/dL Normal 6.4-8.9 [facility] Comment on above: Order Comment: Reaso n for Exam Fatty liver Performed By: #### C MP #### [place] [address] [place] Sodium [Moles/Vol] 139 mmol/L Normal 136-145 [facility] Comment on above: Order Comment: Reaso n for Exam Fatty liver Performed By: #### C MP #### [facility] [address] [place] [address] [place] Urea nitrogen [Mass/Vol] 9 mg/dL Normal 7-25 [facility] Comment on above: Order Comment: Reaso n for Exam Fatty liver Performed By: #### C MP #### [facility] [address] [place] [address] [place] Creatinine [Mass/volume] in Serum or PlasmaOrdered By: Mohinder Maxwell on 07-01-2023 Creatinine [Mass/Vol] 0.57 mg/dL 0.60-1.20 [facility] Globulin Calc (S) [Mass/Vol] Ordered By: Mohinder Maxwell on 07-01-2023 Globulin (S) [Mass/Vol] 3.1 g/dL F [facility] Glucose [Mass/volume] in Ser um or PlasmaOrdered By: Mohinder Maxwell on 07-01-2023 Glucose [Mass/Vol] 79 mg/dL 70-100 [facility] Comment on above: ADA recommended refe rence rangeRandom Glucose Reference Range is dependent on time and content of last meal. Glucose of more than 200 mg/dL in a nonstressed, ambulatory subject supports the diagnosis of Diabetes Mellitus. No Panel InformationOrdered By: Mohinder Maxwell on 07-01-2023 Estimated GFR (CKD-EPI) > 60.0 mL/Min [facility] Creatinine Clearance (Chem N/A [facility] Potassium [Moles/volume] in Serum or PlasmaOrdered By: Mohinder Maxwell on 07-01-2023 Potassium [Moles/Vol] 3.3 mmol/L 3.5-5.1 [facility] Protein [Mass/volume] in Ser um or PlasmaOrdered By: Mohinder Maxwell on 07-01-2023 Protein [Mass/Vol] 7.0 g/dL 6.4-8.9 [facility] Serum or plasma albumin/glob ulin mass ratioOrdered By: Mohinder Maxwell on 07-01-2023 Albumin/Globulin [Mass ratio] 1.3 {ratio} [facility] Serum or plasma anion gap de terminationOrdered By: Mohinder Maxwell on 07-01-2023 Anion gap [Moles/Vol] 12.4 mmol/L 6.0-15.0 [facility] Sodium [Moles/volume] in Ser um or PlasmaOrdered By: Mohinder Maxwell on 07-01-2023 Sodium [Moles/Vol] 139 mmol/L 136-145 [facility] Urea nitrogen [Mass/volume] in Serum or PlasmaOrdered By: Mohinder Maxwell on 07-01-2023 Urea nitrogen [Mass/Vol] 9 mg/dL 7-25 [facility] XR cerv spine AP/LAT/FLX/EXT on 05-31-2023 XR cerv spine AP/LAT/FLX/[place] [address] XRay Report Signed Patient: Regina Ma MR#: [id number] : 1960 Acct:[id number] Age/Sex: 63 / F ADM Date: 05/31/23 Loc: XD Room: Type: [facility] Attending Dr: Alana JENKINS Copies to: GREGORY Swan Ordering Provider: GREGORY Swan Date of Service: 05/31/23 XR/XR cerv spine AP/LAT/FLX/EXT: M48.02 AP with lateral neutral, flexion and extension views of thecervical spine HISTORY: Bilateral feet and hand numbness for 2 months. COMPARISON: None POSTOPERATIVE CHANGES: None BONY ALIGNMENT: Reversal HYPERMOBILITY::No hypermobility. LISTHESIS:Mild midcervical degenerative listhesis. FRACTURE: None DISC DEGENERATION: March C4-5 spondylosis. Moderate C5-6, C6-7 and C7-T1 spondylosis. FACETS: Multilevel facet degenerative change. FORAMEN: Not assessed. DENS: Intact CRANIOCERVICAL JUNCTION: Unremarkable SOFT TISSUES: Unremarkable XR/XR cerv spine AP/LAT/FLX/EXT IMPRESSION: No hypermobility. Extensive mid cervical degenerative change. Impression dictated by: Alex Morel M.D.05/31/2023 4:27 PM Dictation Location: RADIO-PC-12 Transcribed By: DONNY 05/31/231626 Dictated By: Alex Morel DO 05/31/231624 Signed By: 05/31/231626 [facility] XR lumbar spine AP/LAT/FLX/E XTon 05-31-2023 XR lumbar spine AP/LAT/FLX/[place] [address] XRay Report Signed Patient: Regina Ma MR#: [id number] : 1960 Acct:[id number] Age/Sex: 63 / F ADM Date: 05/31/23 Loc: XD Room: Type: [facility] Attending Dr: Alana JENKNIS Copies to: GREGORY Swan Ordering Provider: GREGORY [...] disc space narrowing. SOFT TISSUES: Unremarkable BONY MINERALIZATION:Adequ ate XR/XR lumbar spine AP/LAT/FLX/EXT IMPRESSION: No hypermobility. Mild to moderate degenerative listhesis. Multilevel spondylosis. Extensive lower lumbar degenerative change. Impression dictated by: Alex Morel M.D.05/31/2023 4:33 PM Dictation Location: RADIO-PC-12 Transcribed By: DONNY 05/31/231632 Dictated By: Alex Morel DO 05/31/231626 Signed By: 05/31/23 1633 [facility] Lipase Levelon 03-22-2023 Lipase [Catalytic activity/Vol] 39 U/L Normal 13-58 [facility] Comment on above: Performed By: #### [id number] #### [facility] [address] [place] [address] Physician Orderon 03-22-2023 Physician Order [id number] 0#[id number]:127 Normal [facility] MG MAMM SCREEN 3D CHEVY CADon 10-13-2022 MG MAMM SCREEN 3D CHEVY CAD Patient: REGINA MA Exam Date: 10/13/2022 : 1960 Gender:F Ordering : GEOFF WU ELECTRONIC 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 Heath Bauer HCV AB Non-Reactive Normal Non Reactive [facility] Comment on above: Performed By: #### F T4, IRON, B12FOL #### [facility] [address], [place] [address] Dr. Heath Bauer Hep A Ab, IgM Negative Normal Negative [facility] Comment on above: Performed By: #### F T4, IRON, B12FOL #### [facility] [address], [place] [address] Dr. Heath Bauer Hep B Core Ab, IgM Negative Normal Negative [facility] Comment on above: Performed By: #### F T4, IRON, B12FOL #### [facility] [address], [place] [address] Dr. Heath Bauer Interpretation: Comment Normal [facility] Comment on above: Result Comment: Not infected with HCV unless early or acute infection is suspected (which may be delayed in an immunocompromised individual), or other evidence exists to indicate HCV infection. Performed By: #### F T4, IRON, B12FOL #### [facility] [address], [place] [address] Dr. Heath Bauer US SINGLE QUAD RT [...] DENEEN NIX Date: 2022-10-03 18:53 Normal [facility] LIVER PROFILEon 09-30-2022 Albumin [Mass/Vol] 3.0 g/dL Critically low 3.4-5.0 Th e [facility] Comment on above: Performed By: #### F T4, IRON, B12FOL #### [facility] [address] [address] [address] Heath Bauer Albumin/Globulin [Mass ratio] 0.8 {ratio} Normal [facility] Comment on above: Performed By: #### F T4, IRON, B12FOL #### [facility] [address] [place] [address] Dr. Heath Bauer ALP [Catalytic activity/Vol] 125 U/L Critically high 46-116 [facility] Comment on above: Performed By: #### F T4, IRON, B12FOL #### [facility] [address] [place] [address] Dr. Heath Bauer ALT [Catalytic activity/Vol] 86 U/L Critically high 14-59 [facility] Comment on above: Performed By: #### F T4, IRON, B12FOL #### [facility] [address] [place] [address] Dr. Heath Bauer AST [Catalytic activity/Vol] 134 U/L Critically high 15-37 [facility] Comment on above: Performed By: #### F T4, IRON, B12FOL #### [facility] [address] [place] [address] Dr. Heath Bauer BILI, CONJUGATED 0.2 mg/dL Normal 0.0-0.2 [facility] Comment on above: Performed By: #### F T4, IRON, B12FOL #### [facility] [address] [place] [address] Dr. Heath Bauer Bilirubin [Mass/Vol] 0.4 mg/dL Normal 0.2-1.0 [facility] Comment on above: Performed By: #### F T4, IRON, B12FOL #### [facility] [address] [place] [address] Dr. Heath Bauer Globulin (S) [Mass/Vol] 4.0 g/dL Normal [facility] Comment on above: Performed By: #### F T4, IRON, B12FOL #### [facility] [address] [place] [address] Dr. Heath Bauer Protein [Mass/Vol] 7.0 g/dL Normal 6.4-8.2 [facility] Comment on above: Performed By: #### F T4, IRON, B12FOL #### [facility] [address] [place] [address] Dr. Heath Bauer CBC AUTO DIFFon 09-15-2022 BASO # 0.0 103/ul Normal 0.0-0.1 [facility] Comment on above: Performed By: #### C BC #### [facility] [address] [place] [address] Dr. Heath Bauer Basophils/100 WBC (Bld) 0.4 % Normal 0.2-2.0 [facility] Comment on above: Performed By: #### C BC #### [facility] [address] [place] [address] Dr. Heath Bauer EO # 0.1 103/ul Normal 0.0-0.7 [facility] Comment on above: Performed By: #### C BC #### [facility] [address] [place] [address] Dr. Heath Bauer Eosinophils/100 WBC (Bld) 1.3 % Normal 0.9-7.0 [facility] Comment on above: Performed By: #### C BC #### [facility] [address] [place] [address] Dr. Heath Bauer Erythrocyte distribution width (RBC) [Ratio] 16.2 % Critically high 11.0-15.0 [facility] Comment on above: Performed By: #### C BC #### [facility] [address] [place] [address] Dr. Heath Bauer Hematocrit (Bld) [Volume fraction] 42.1 % Normal 36.0-48.0 [facility] Comment on above: Performed By: #### C BC #### [facility] [address] [address] [address] Heath Bauer Hemoglobin (Bld) [Mass/Vol] 15.0 g/dL Normal 12.0-16.0 [facility] Comment on above: Performed By: #### C BC #### [facility] [address] [address] [address] Heath Bauer IG # 0.04 10e3/ul Critically high 0.00-0.03 [facility] Comment on above: Performed By: #### C BC #### [facility] [address] [address] [address] Heath Bauer IG % 0.4 % Normal 0.0-0.5 [facility] Comment on above: Performed By: #### C BC #### [facility] [address] [address] [address] Heath Bauer LYMPH # 1.3 103/ul Normal 1.2-3.8 [facility] Comment on above: Performed By: #### C BC #### [facility] [address] [address] [address] Heath Bauer Lymphocytes/100 WBC (Bld) 13.7 % Critically low 20.5-60.0 [facility] Comment on above: Performed By: #### C BC #### [facility] [address] [address] [address] Heath Bauer MANUAL DIFF REQ NO Normal [facility] Comment on above: Performed By: #### C BC #### [facility] [address] [address] [address] Heath Bauer MCH (RBC) [Entitic mass] 37.1 pg Critically high 26.7-3 4.0 [facility] Comment on above: Performed By: #### C BC #### [facility] [address] [address] [address] Heath Bauer MCHC (RBC) [Mass/Vol] 35.6 g/dL Critically high 29.9-35.2 [facility] Comment on above: Performed By: #### C BC #### [facility] [address] [address] [address] Heath Bauer MCV (RBC) [Entitic vol] 104.2 fL Critically high 81.0-99 .0 [facility] Comment on above: Performed By: #### C BC #### [facility] [address] [address] [address] Heath Bauer MONO # 0.9 103/ul Critically high 0.3-0.8 [facility] Comment on above: Performed By: #### C BC #### [facility] [address] [address] [address] Heath Bauer Monocytes/100 WBC (Bld) 10.0 % Normal 1.7-12.0 [facility] Comment on above: Performed By: #### C BC #### [facility] [address] [address] [address] Heath Bauer NEUT # 6.8 103/ul Critically high 1.4-6.5 [facility] Comment on above: Performed By: #### C BC #### [facility] [address] [address] [address] Heath Bauer Neutrophils/100 WBC (Bld) 74.2 % Normal 43.0-75.0 [facility] Comment on above: Performed By: #### C BC #### [facility] [address] [address] [address] Heath Bauer Platelet mean volume (Bld) [Entitic vol] 8.6 fL Critically low 9.5-13.5 [facility] Comment on above: Performed By: #### C BC #### [facility] [address] [address] [address] Heath Bauer PLT 274 103/ul Normal 150-450 [facility] Comment on above: Performed By: #### C BC #### [facility] [address] [address] [address] Heath Bauer RBC 4.04 106/ul Critically low 4.20-5.40 [facility] Comment on above: Performed By: #### C BC #### [facility] [address] [address] [address] Heath Bauer WBC 9.2 103/ul Normal 4.0-11.0 [facility] Comment on above: Performed By: #### C BC #### [facility] [address] [address] [address] Heath Bauer FREE T4on 09-15-2022 Free T4 [Mass/Vol] 0.93 ng/dL Normal 0.76-1.46 [facility] Comment on above: Performed By: #### F T4, IRON, B12FOL #### [facility] [address] [address] [address] Heath Bauer IRONon 09-15-2022 Iron [Mass/Vol] 112.0 ug/dL Normal 50.0-170.0 [facility] Comment on above: Performed By: #### F T4, IRON, B12FOL #### [facility] [address] [place] [address] Dr. Heath Bauer LIPID PROFILEon 09-15-2022 CHOL-HDL RATIO NORM SEE BELOW Normal [facility] Comment on above: Result Comment: 3.3 - 4.4 LOW RISK 4.4 - 7.1 AVERAGE RISK 7.1 - 11.0 MODERATE RISK >11.0 HIGH RISK Performed By: #### F T4, IRON, B12FOL #### [facility] [address] [place] [address] Dr. Heath Bauer Cholesterol [Mass/Vol] 246 mg/dL Critically high <=200 [facility] Comment on above: Performed By: #### F T4, IRON, B12FOL #### [facility] [address] [place] [address] Dr. Heath Bauer Cholesterol in HDL [Mass/Vol] 87 mg/dL Critically high 40-60 [facility] Comment on above: Performed By: #### F T4, IRON, B12FOL #### [facility] [address] [place] [address] Dr. Heath Bauer Cholesterol in LDL [Mass/Vol] 136.4 mg/dL Normal [facility] Comment on above: Performed By: #### F T4, IRON, B12FOL #### [facility] [address] [address] [address] Heath Bauer Cholesterol.total/Choles terol in HDL [Mass ratio] 2.8 {ratio} Normal [facility] Comment on above: Performed By: #### F T4, IRON, B12FOL #### [facility] [address] [address] [address] Heath Bauer HDL NORMAL > or = 60 mg/dl - LOW CARDIOVASCULAR RISK <40 mg/dl - HIGH CARDIOVASCULAR RISK Normal [facility] Comment on above: Performed By: #### F T4, IRON, B12FOL #### [facility] [address] [address] [address] Heath Bauer LDL CALC NORMAL SEE BELOW Normal [facility] Comment on above: Result Comment: <100 mg/dl OPTIMAL 100 - 129 mg/dl NEAR OR ABOVE OPTIMAL 130 - 159 mg/dl BORDERLINE HIGH 160 - 189 mg/dl HIGH >190 mg/dl VERY HIGH Performed By: #### F T4, IRON, B12FOL #### [facility] [address] [address] [address] Heath Bauer Triglyceride [Mass/Vol] 113 mg/dL Normal <=150 [facility] [place] [facility] Comment on above: Performed By: #### F T4, IRON, B12FOL #### [facility] [address] [address] [address] Heath Bauer VLDL CALC 22.6 mg/dL Normal [facility] Comment on above: Performed By: #### F T4, IRON, B12FOL #### [facility] [address] [address] [address] Heath Bauer PROF 14(COMP METB)on 023 Albumin [Mass/Vol] 3.6 g/dL Normal 3.4-5.0 [facility] Comment on above: Performed By: #### T SH, CMP, LIPID #### [facility] [address] [address] [address] Heath Bauer Albumin/Globulin [Mass ratio] 0.9 {ratio} Normal [facility] Comment on above: Performed By: #### T SH, CMP, LIPID #### [facility] [address] [address] [address] Heath Bauer ALP [Catalytic activity/Vol] 145 U/L Critically high 46-116 [facility] Comment on above: Performed By: #### T SH, CMP, LIPID #### [facility] [address] [address] [address] Heath Bauer ALT [Catalytic activity/Vol] 61 U/L Critically high 14-59 [facility] Comment on above: Performed By: #### T SH, CMP, LIPID #### [facility] [address] [address] [address] Heath Bauer Anion gap [Moles/Vol] 15.8 mmol/L Normal [facility] Comment on above: Performed By: #### T SH, CMP, LIPID #### [facility] [address] [address] [address] Heath Bauer AST [Catalytic activity/Vol] 136 U/L Critically high 15-37 [facility] Comment on above: Performed By: #### T SH, CMP, LIPID #### [facility] [address] [address] [address] Heath Bauer Bilirubin [Mass/Vol] 0.6 mg/dL Normal 0.2-1.0 [facility] Comment on above: Performed By: #### T SH, CMP, LIPID #### [facility] [address] [address] [address] Heath Bauer Calcium [Mass/Vol] 9.5 mg/dL Normal 8.5-10.1 [facility] Comment on above: Performed By: #### T SH, CMP, LIPID #### [facility] [address] [place] [address] Dr. Heath Bauer Chloride [Moles/Vol] 102 mmol/L Normal 98-107 [facility] Comment on above: Performed By: #### T SH, CMP, LIPID #### [facility] [address] [place] [address] Dr. Heath Bauer CO2 [Moles/Vol] 28.5 mmol/L Normal 21.0-32.0 [facility] Comment on above: Performed By: #### T SH, CMP, LIPID #### [facility] [address] [address] [address] Heath Bauer Creatinine [Mass/Vol] 0.67 mg/dL Normal 0.55-1.02 [facility] Comment on above: Performed By: #### T SH, CMP, LIPID #### [facility] [address] [address] [address] Heath Bauer EGFR-AF [place] >60 Normal >=60 [facility] Comment on above: Performed By: #### T SH, CMP, LIPID #### [facility] [address] [address] [address] Heath Bauer EGFR-NON AF [place] >60 Normal >=60 [facility] Comment on above: Performed By: #### T SH, CMP, LIPID #### [facility] [address] [address] [address] Heath Bauer Globulin (S) [Mass/Vol] 3.9 g/dL Normal [facility] Comment on above: Performed By: #### T SH, CMP, LIPID #### [facility] [address] [address] [address] Heath Bauer Glucose [Mass/Vol] 92 mg/dL Normal 74-106 [facility] Comment on above: Performed By: #### T SH, CMP, LIPID #### [facility] [address] [address] [address] Heath Bauer Potassium [Moles/Vol] 3.3 mmol/L Critically low 3.5-5.1 [facility] Comment on above: Performed By: #### T SH, CMP, LIPID #### [facility] [address] [address] [address] Heath Bauer Protein [Mass/Vol] 7.5 g/dL Normal 6.4-8.2 [facility] Comment on above: Performed By: #### T SH, CMP, LIPID #### [facility] [address] [address] [address] Heath Bauer Sodium [Moles/Vol] 143 mmol/L Normal 136-145 [facility] Comment on above: Performed By: #### T SH, CMP, LIPID #### [facility] [address] [place] [address] Dr. Heath Bauer Urea nitrogen [Mass/Vol] 11.0 mg/dL Normal 7.0-18.0 [facility] Comment on above: Performed By: #### T SH, CMP, LIPID #### [facility] [address] [place] [address] Dr. Heath Bauer Urea nitrogen/Creatinine [Mass ratio] 16.4 mg/mg Normal [facility] Comment on above: Performed By: #### T ANDREW, CMP, LIPID #### [facility] [address] [place] [address] Dr. Heath Bauer TSHon 09-15-2022 TSH 2.046 uIU/mL Normal 0.358-3.[address] [facility] Comment on above: Performed By: #### F T4, IRON, B12FOL #### [facility] [address] [place] [address] Dr. Heath Bauer UA RANDOM W/MICROSCOPICon BACTERIA LARGE Abnormal NONE SEEN [facility] Comment on above: Performed By: #### F T4, IRON, B12FOL #### [facility] [address] [place] [address] Dr. Heath Bauer Bilirubin Ql (U) Negative Normal NEGATIVE [facility] Comment on above: Performed By: #### F T4, IRON, B12FOL #### [facility] [address] [place] [address] Dr. Heath Bauer CAST NONE SEEN Normal NONE SEEN [facility] Comment on above: Performed By: #### F T4, IRON, B12FOL #### [facility] [address] [place] [address] Dr. Heath Bauer Clarity (U) SL CLOUDY Abnormal CLEAR [facility] Comment on above: Performed By: #### F T4, IRON, B12FOL #### [facility] [address] [place], [place] [id number] Dr. Heath Bauer Color (U) YELLOW Normal YELLOW [facility] Comment on above: Performed By: #### F T4, IRON, B12FOL #### [facility] [address] [place] [address] Dr. Heath Bauer Crystals LM Nom (Urine sed) NONE SEEN Normal NONE SEEN [facility] Comment on above: Performed By: #### F T4, IRON, B12FOL #### [facility] [address] [address] [address] Heath Bauer Epithelial cells LM Ql (Urine sed) MANY Abnormal NONE SEEN /RARE [facility] Comment on above: Performed By: #### F T4, IRON, B12FOL #### [facility] [address] [place] [address] Dr. Heath Bauer Glucose Ql (U) Negative Normal NEGATIVE [facility] Comment on above: Performed By: #### F T4, IRON, B12FOL #### [facility] [address] [place] [address] Dr. Heath Bauer Hemoglobin Ql (U) Negative Normal NEGATIVE [facility] Comment on above: Performed By: #### F T4, IRON, B12FOL #### [facility] [address] [place] [address] Dr. Heath Bauer Ketones Ql (U) TRACE Abnormal NEGATIVE [facility] Comment on above: Performed By: #### F T4, IRON, B12FOL #### [facility] [address] [place] [address] Dr. Heath Bauer LEUKOCYTES Negative Normal NEGATIVE [facility] Comment on above: Performed By: #### F T4, IRON, B12FOL #### [facility] [address] [place] [address] Dr. Heath Bauer MUCOUS NONE SEEN Normal NONE SEEN [facility] Comment on above: Performed By: #### F T4, IRON, B12FOL #### [facility] [address] [place] [address] Dr. Heath Bauer Nitrite Ql (U) Positive Abnormal NEGATIVE [facility] Comment on above: Performed By: #### F T4, IRON, B12FOL #### [facility] [address] [place] [address] Dr. Heath Bauer pH (U) 6.0 [pH] Normal 5-9 [facility] Comment on above: Performed By: #### F T4, IRON, B12FOL #### [facility] [address] [address] [address] Heath Bauer RBC NONE SEEN Abnormal 0-2 [facility] Comment on above: Performed By: #### F T4, IRON, B12FOL #### [facility] [address] [address] [address] Heath Bauer SPEC GRAVITY 1.025 Normal 1.005-<=1.02 5 [facility] Comment on above: Performed By: #### F T4, IRON, B12FOL #### [facility] [address] [place] [address] Dr. Heath Bauer UA PROTEIN TRACE Normal NEGATIVE/ TRACE [facility] Comment on above: Performed By: #### F T4, IRON, B12FOL #### [facility] [address] [place] [address] Dr. Heath Bauer Urobilinogen Qn (U) 1.0 {[place]'U}/dL Normal 0.2 - 1. 0 [facility] Comment on above: Performed By: #### F T4, IRON, B12FOL #### [facility] [address] [place] [address] Dr. Heath Bauer WBC 0-2 Abnormal NONE SEEN [facility] Comment on above: Performed By: #### F T4, IRON, B12FOL #### [facility] [address] [place] [address] Dr. Heath Bauer VIT B12 AND FOLATEon 023 Cobalamin (Vitamin B12) [Mass/Vol] pg/mL Critically high 193.0-986.0 [facility] Comment on above: Performed By: #### F T4, IRON, B12FOL #### [facility] [address] [address] [address] Heath Bauer FOLATE 2.50 ng/mL Critically low 8.60-58.90 [facility] Comment on above: Performed By: #### F T4, IRON, B12FOL #### [facility] [address] [place] [address] Dr. Heath Bauer CBC AUTO DIFFon 11-26-2021 BASO # 0.0 103/ul Normal 0.0-0.1 [facility] Comment on above: Performed By: #### F T4, IRON, B12FOL #### [facility] [address] [place] [address] Dr. Heath Bauer Basophils/100 WBC (Bld) 0.5 % Normal 0.2-2.0 [facility] Comment on above: Performed By: #### F T4, IRON, B12FOL #### [facility] [address] [place] [address] Dr. Heath Bauer EO # 0.1 103/ul Normal 0.0-0.7 [facility] Comment on above: Performed By: #### F T4, IRON, B12FOL #### [facility] [address] [place] [address] Dr. Heath Bauer Eosinophils/100 WBC (Bld) 1.2 % Normal 0.9-7.0 [facility] Comment on above: Performed By: #### F T4, IRON, B12FOL #### [facility] [address] [place] [address] Dr. Heath Bauer Erythrocyte distribution width (RBC) [Ratio] 14.3 % Normal 11.0-15.0 [facility] Comment on above: Performed By: #### F T4, IRON, B12FOL #### [facility] [address] [place] [address] Dr. Heath Bauer Hematocrit (Bld) [Volume fraction] 42.6 % Normal 36.0-48.0 [facility] Comment on above: Performed By: #### F T4, IRON, B12FOL #### [facility] [address] [place] [address] Dr. Heath Bauer Hemoglobin (Bld) [Mass/Vol] 14.6 g/dL Normal 12.0-16.0 [facility] Comment on above: Performed By: #### F T4, IRON, B12FOL #### [facility] [address] [address] [address] Heath Bauer IG # 0.04 10e3/ul Critically high 0.00-0.03 [facility] Comment on above: Performed By: #### F T4, IRON, B12FOL #### [facility] [address] [place] [address] Dr. Heath Bauer IG % 0.5 % Normal 0.0-0.5 [facility] Comment on above: Performed By: #### F T4, IRON, B12FOL #### [facility] [address] [place] [address] Dr. Heath Bauer LYMPH # 1.3 103/ul Normal 1.2-3.8 [facility] Comment on above: Performed By: #### F T4, IRON, B12FOL #### [facility] [address] [place] [address] Dr. Heath Bauer Lymphocytes/100 WBC (Bld) 15.8 % Critically low 20.5-60.0 [facility] Comment on above: Performed By: #### F T4, IRON, B12FOL #### [facility] [address] [place] [address] Dr. Heath Bauer MANUAL DIFF REQ NO Normal [facility] Comment on above: Performed By: #### F T4, IRON, B12FOL #### [facility] [address] [place] [address] Dr. Heath Bauer MCH (RBC) [Entitic mass] 36.8 pg Critically high 26.7-3 4.0 [facility] Comment on above: Performed By: #### F T4, IRON, B12FOL #### [facility] [address] [place] [address] Dr. Heath Bauer MCHC (RBC) [Mass/Vol] 34.3 g/dL Normal 29.9-35.2 [facility] Comment on above: Performed By: #### F T4, IRON, B12FOL #### [facility] [address] [place] [address] Dr. Heath Bauer MCV (RBC) [Entitic vol] 107.3 fL Critically high 81.0-99 .0 [facility] Comment on above: Result Comment: Macr ocytosis 2+ Performed By: #### F T4, IRON, B12FOL #### [facility] [address] [place] [address] Dr. Heath Bauer MONO # 0.9 103/ul Critically high 0.3-0.8 [facility] Comment on above: Performed By: #### F T4, IRON, B12FOL #### [facility] [address] [place] [address] Dr. Heath Bauer Monocytes/100 WBC (Bld) 10.1 % Normal 1.7-12.0 [facility] Comment on above: Performed By: #### F T4, IRON, B12FOL #### [facility] [address] [place] [address] Dr. Heath Bauer NEUT # 6.1 103/ul Normal 1.4-6.5 [facility] Comment on above: Performed By: #### F T4, IRON, B12FOL #### [facility] [address] [place] [address] Dr. Heath Bauer Neutrophils/100 WBC (Bld) 71.9 % Normal 43.0-75.0 [facility] Comment on above: Performed By: #### F T4, IRON, B12FOL #### [facility] [address] [place] [address] Dr. Heath Bauer Platelet mean volume (Bld) [Entitic vol] 9.8 fL Normal 9.5-13.5 [facility] Comment on above: Performed By: #### F T4, IRON, B12FOL #### [facility] [address] [place] [address] Dr. Heath Bauer PLT 282 103/ul Normal 150-450 [facility] Comment on above: Performed By: #### F T4, IRON, B12FOL #### [facility] [address] [place] [address] Dr. Heath Bauer RBC 3.97 106/ul Critically low 4.20-5.40 [facility] Comment on above: Performed By: #### F T4, IRON, B12FOL #### [facility] [address] [place] [address] Dr. Heath Bauer WBC 8.4 103/ul Normal 4.0-11.0 [facility] Comment on above: Performed By: #### F T4, IRON, B12FOL #### [facility] [address] [place] [address] Dr. Heath Bauer PROF 14(COMP METB)on 022 Albumin [Mass/Vol] 3.5 g/dL Normal 3.4-5.0 [facility] Comment on above: Performed By: #### C MP #### [facility] [address] [place] [address] Dr. Heath Bauer Albumin/Globulin [Mass ratio] 0.9 {ratio} Normal [facility] Comment on above: Performed By: #### C MP #### [facility] [address] [place] [address] Dr. Heath Bauer ALP [Catalytic activity/Vol] 120 U/L Critically high 46-116 [facility] Comment on above: Performed By: #### C MP #### [facility] [address] [place] [address] Dr. Heath Bauer ALT [Catalytic activity/Vol] 58 U/L Normal 14-59 [facility] Comment on above: Performed By: #### C MP #### [facility] [address] [place] [address] Dr. Heath Bauer Anion gap [Moles/Vol] 13.2 mmol/L Normal [facility] Comment on above: Performed By: #### C MP #### [facility] [address] [place] [address] Dr. Heath Bauer AST [Catalytic activity/Vol] 121 U/L Critically high 15-37 [facility] Comment on above: Performed By: #### C MP #### [facility] [address] [place] [address] Dr. Heath Bauer Bilirubin [Mass/Vol] 0.7 mg/dL Normal 0.2-1.0 [facility] Comment on above: Performed By: #### C MP #### [facility] [address] [place] [address] Dr. Heath Bauer Calcium [Mass/Vol] 9.0 mg/dL Normal 8.5-10.1 [facility] Comment on above: Performed By: #### C MP #### [facility] [address] [place] [address] Dr. Heath Bauer Chloride [Moles/Vol] 99 mmol/L Normal 98-107 [facility] Comment on above: Performed By: #### C MP #### [facility] [address] [place] [address] Dr. Heath Bauer CO2 [Moles/Vol] 31.2 mmol/L Normal 21.0-32.0 [facility] Comment on above: Performed By: #### C MP #### [facility] [address] [place] [address] Dr. Heath Bauer Creatinine [Mass/Vol] 0.69 mg/dL Normal 0.55-1.02 [facility] Comment on above: Performed By: #### C MP #### [facility] [address] [place] [address] Dr. Heath Bauer EGFR-AF [place] >60 Normal >=60 [facility] Comment on above: Performed By: #### C MP #### [facility] [address] [place] [address] Dr. Heaht Bauer EGFR-NON AF [place] >60 Normal >=60 [facility] Comment on above: Performed By: #### C MP #### [facility] [address] [place] [address] Dr. Heath Baure Globulin (S) [Mass/Vol] 3.9 g/dL Normal T [facility] Comment on above: Performed By: #### C MP #### [facility] [address] [place] [address] Dr. Heath Bauer Glucose [Mass/Vol] 98 mg/dL Normal 74-106 [facility] Comment on above: Performed By: #### C MP #### [facility] [address] [address] [address] Heath Bauer Potassium [Moles/Vol] 3.4 mmol/L Critically low 3.5-5.1 [facility] Comment on above: Performed By: #### C MP #### [facility] [address] [address] [address] Heath Bauer Protein [Mass/Vol] 7.4 g/dL Normal 6.4-8.2 [facility] Comment on above: Performed By: #### C MP #### [facility] [address] [address] [address] Heath Bauer Sodium [Moles/Vol] 140 mmol/L Normal 136-145 [facility] Comment on above: Performed By: #### C MP #### [facility] [address] [address] [address] Heath Bauer Urea nitrogen [Mass/Vol] 15.0 mg/dL Normal 7.0-18.0 [facility] Comment on above: Performed By: #### C MP #### [facility] [address] [address] [address] Heath Bauer Urea nitrogen/Creatinine [Mass ratio] 21.7 mg/mg Normal [facility] Comment on above: Performed By: #### C MP #### [facility] [address] [address] [address] Heath Bauer VITAMIN B12on 11-26-2021 Cobalamin (Vitamin B12) [Mass/Vol] 290.0 pg/mL Normal 193.0-986.0 [facility] Comment on above: Performed By: #### V ITB12 #### [facility] [address] [address] [address] Heath Bauer MG MAMM DX 3D RT CADon 11-19 MG MAMM DX 3D RT CAD Patient: REGINA MA Exam Date: 11/19/2021 : 1960 Gender:F Ordering : GEOFF WU CNP Admission #: [id number] Family : Order #: [id number] CLICK HERE TO VIEW EXAM RADIOLOGY REPORT [...] Treatments None Family Cancers None LOCATION: [facility] BREAST COMPOSITION: Extremely dense, which lowers the [...] M.D. on 11/19/2021 at 15:56 Normal [facility] US BREAST RIGHT LIMITEDon US BREAST RIGHT LIMITED Patient: REGINA MA Exam Date: 11/19/2021 : 1960 Gender:F Ordering : GEOFF WU [facility] Admission #: [id number] Family : Order #: [id number] CLICK HERE TO VIEW EXAM RADIOLOGY REPORT [...] Treatments None Family Cancers None LOCATION: [facility] BREAST COMPOSITION: Extremely dense, which lowers the [...] Eckert M.D. on 11/19/2021 at 15:56 Normal [facility] 02-16-2021 CNPN Telephone (RHEUMN) REGINA MA ([id number]) 1960 F Date Time Provider Department 02/16/21 [...] I left my call back number Romulo DO Karie February 16, 2021 9:08 AM Allergies As of Date: 02/16/2021 Noted Allergy Reaction SEASONALE (LEVONORGESTREL-ETHI NYL*02/13/2021 14 - Other: See Comments Date Reviewed: [...] Status:Closed by ROMULO TIWARI on 02/16/21 Normal [facility] CBC and Differentialon 02-13 Abs Baso 0.03 k/uL Normal <0.11 [facility] Comment on above: Performed By: #### C K, CMP, SERFOL, B12, CBCDIF #### [facility] [address] [address] Abs [place] 0.72 k/uL Normal <0.87 [facility] Comment on above: Performed By: #### C K, CMP, SERFOL, B12, CBCDIF #### [facility] [address] [address] Abs Neut 6.04 k/uL Normal 1.45-7.50 [facility] Comment on above: Performed By: #### C K, CMP, SERFOL, B12, CBCDIF #### [facility] [address] [address] Absolute nRBC <0.01 Normal <0.01 [facility] Comment on above: Performed By: #### C K, CMP, SERFOL, B12, CBCDIF #### [facility] [address] [address] Basophils/100 WBC (Bld) 0.4 % Normal [facility] Comment on above: Performed By: #### C K, CMP, SERFOL, B12, CBCDIF #### [facility] [address] [address] DTYPE Auto Diff Normal [facility] Comment on above: Performed By: #### C K, CMP, SERFOL, B12, CBCDIF #### [address] [place] [phone] Eosinophils (Bld) [#/Vol] 0.09 10*3/uL Normal <0.46 [facility] Comment on above: Performed By: #### C K, CMP, SERFOL, B12, CBCDIF #### [place] [address] Eosinophils/100 WBC (Bld) 1.1 % Normal [facility] Comment on above: Performed By: #### C K, CMP, SERFOL, B12, CBCDIF #### [address] [place] [phone] Erythrocyte distribution width (RBC) [Ratio] 15.6 % High 11.5-15.0 [facility] Comment on above: Performed By: #### C K, CMP, SERFOL, B12, CBCDIF #### [place] [phone] Hematocrit (Bld) [Volume fraction] 39.0 % Normal 36.0-46.0 [facility] Comment on above: Performed By: #### C K, CMP, SERFOL, B12, CBCDIF #### [place] [address] Hemoglobin (Bld) [Mass/Vol] 13.8 g/dL Normal 11.5-15.5 [facility] Comment on above: Performed By: #### C K, CMP, SERFOL, B12, CBCDIF #### [place] [address] Lymphocytes (Bld) [#/Vol] 1.42 10*3/uL Normal 1.00-4.00 [facility] Comment on above: Performed By: #### C K, CMP, SERFOL, B12, CBCDIF #### [facility] [address] [place], [place] [address] Lymphocytes/100 WBC (Bld) 17.1 % Normal [facility] Comment on above: Performed By: #### C K, CMP, SERFOL, B12, CBCDIF #### [address] [place], [place] [address] MCH 39.4 pG High 26.0-34.0 [facility] Comment on above: Performed By: #### C K, CMP, SERFOL, B12, CBCDIF #### [address] [place], [place] [address] MCHC (RBC) [Mass/Vol] 35.4 g/dL Normal 30.5-36.0 [facility] Comment on above: Performed By: #### C K, CMP, SERFOL, B12, CBCDIF #### [address] [address] MCV (RBC) [Entitic vol] 111.4 fL High 80.0-100.0 [facility] Comment on above: Performed By: #### C K, CMP, SERFOL, B12, CBCDIF #### [address] [place], [place] [address] Monocytes/100 WBC (Bld) 8.7 % Normal [facility] Comment on above: Performed By: #### C K, CMP, SERFOL, B12, CBCDIF #### [address] [place], [place] [address] Neutrophils/100 WBC (Bld) 72.7 % Normal [facility] Comment on above: Performed By: #### C K, CMP, SERFOL, B12, CBCDIF #### [address] [place], [place] [address] NRBCs 0.0 /100 WBC Normal 0 [facility] Comment on above: Performed By: #### C K, CMP, SERFOL, B12, CBCDIF #### [address] [place] [address] Platelet mean volume (Bld) [Entitic vol] 9.3 fL Normal 9.0-12.7 [facility] Comment on above: Performed By: #### C K, CMP, SERFOL, B12, CBCDIF #### [address] [place] [address] Platelets (Bld) [#/Vol] 276 10*3/uL Normal 150-400 [facility] Comment on above: Performed By: #### C K, CMP, SERFOL, B12, CBCDIF #### [place] [phone] RBC (Bld) [#/Vol] 3.50 10*6/uL Low 3.90-5.20 [facility] Comment on above: Performed By: #### C K, CMP, SERFOL, B12, CBCDIF #### [place] [address] Review Done Normal [facility] Comment on above: Performed By: #### C K, CMP, SERFOL, B12, CBCDIF #### [address] [place] [phone] WBC (Bld) [#/Vol] 8.30 10*3/uL Normal 3.70-11.00 [facility] Comment on above: Performed By: #### C K, CMP, SERFOL, B12, CBCDIF #### [address] [place] [address] CKon 02-13-2021 CK [Catalytic activity/Vol] 72 U/L Normal 42-196 [facility] Comment on above: Performed By: #### C K, CMP, SERFOL, B12, CBCDIF #### [facility] [address] [place], [place] [address] CNOVon 02-13-2021 CNOV Office Visit (RHEUMN) REGINA MA ([id number]) 1960 F Date Time Provider Department 02/13/21 [...] and low cortisol She was referred to golf teacher Has not heard back about the work [...] 12/17/20 CMP wnl, creatine 0.74, negative anti-histone, IP/MOSAIC TECHNICIAN, Sm, dsDNA, RF, SSA, SSB, ASO 64.9 12/23/20 AM cortisol 2.1 (L) 01/09/21 02/04/21 CKMB and hstrop normal, lipase 491 Past medical history Hypertension Tremors Anxiety Depression Tobacco abuse Surgical history none Family history No RA, SLE, PsO, or IBD Social history Lives in [place], [place] Retired, worked for a [employer] Smoker 1/2 ppd Current Outpatient Medications Medication [...] mg by mouth once daily. No current facility-administere d medications for this visit. Review Of Systems See HPI for full ROS. remainder of 10 pt ROS is negative Physical Exam BP 153/87 Pulse 74 Wt 54 kg (119 lb (more content not included)... Normal [facility] Comp Metabolic Panelon 02-13 Albumin [Mass/Vol] 3.9 g/dL Normal 3.9-4.9 [facility] Comment on above: Performed By: #### C K, CMP, SERFOL, B12, CBCDIF #### [facility] [employer] [address] [place], [place] [address] ALP [Catalytic activity/Vol] 94 U/L Normal 34-123 [facility] Comment on above: Performed By: #### C K, CMP, SERFOL, B12, CBCDIF #### [facility] [address] [place], [place] [address] ALT [Catalytic activity/Vol] 21 U/L Normal 7-38 [facility] Comment on above: Performed By: #### C K, CMP, SERFOL, B12, CBCDIF #### [facility] [address] [place], [place] [address] Anion gap [Moles/Vol] 14 mmol/L Normal 9-18 [facility] Comment on above: Performed By: #### C K, CMP, SERFOL, B12, CBCDIF #### [facility] [address] [place], [place] [address] AST [Catalytic activity/Vol] 61 U/L High 13-35 [facility] Comment on above: Performed By: #### C K, CMP, SERFOL, B12, CBCDIF #### [facility] [address] [place], [place] [address] Bilirubin [Mass/Vol] 0.6 mg/dL Normal 0.2-1.3 [facility] Comment on above: Performed By: #### C K, CMP, SERFOL, B12, CBCDIF #### [facility] [address] [place], [place] [address] Calcium [Mass/Vol] 9.7 mg/dL Normal 8.5-10.2 [facility] Comment on above: Performed By: #### C K, CMP, SERFOL, B12, CBCDIF #### [facility] [address] [place], [place] [address] Chloride [Moles/Vol] 98 mmol/L Normal 97-105 [facility] Comment on above: Performed By: #### C K, CMP, SERFOL, B12, CBCDIF #### [facility] [address] [place], [place] [address] CO2 [Moles/Vol] 27 mmol/L Normal 22-30 [facility] Comment on above: Performed By: #### C K, CMP, SERFOL, B12, CBCDIF #### [facility] [address] [address] Creatinine [Mass/Vol] 0.70 mg/dL Normal 0.58-0.96 [facility] Comment on above: Performed By: #### C K, CMP, SERFOL, B12, CBCDIF #### [facility] [address] [address] eGFR- Amer. >60 Normal [facility] Comment on above: Performed By: #### C K, CMP, SERFOL, B12, CBCDIF #### [facility] [address] [address] eGFR-All Other Races >60 Normal [facility] Comment on above: Result Comment: eGFR [...] C K, CMP, SERFOL, B12, CBCDIF #### [facility] [address] [address] Glucose [Mass/Vol] 103 mg/dL High 74-99 [facility] Comment on above: Result Comment: The [place] Diabetes Association (ADA) provides guidance for cutoff [...] Standards of Medical Care in Diabetes 2016, [place] [employer] Association. Diabetes Care. 2016.39(Suppl 1). Performed By: #### C K, CMP, SERFOL, B12, CBCDIF #### [facility] [address] [address] Potassium [Moles/Vol] 3.3 mmol/L Low 3.7-5.1 [facility] Comment on above: Performed By: #### C K, CMP, SERFOL, B12, CBCDIF #### [place] [address] Protein [Mass/Vol] 6.8 g/dL Normal 6.3-8.0 [facility] Comment on above: Performed By: #### C K, CMP, SERFOL, B12, CBCDIF #### [address] [place] [address] Sodium [Moles/Vol] 139 mmol/L Normal 136-144 [facility] Comment on above: Performed By: #### C K, CMP, SERFOL, B12, CBCDIF #### [address] [place] [address] Urea nitrogen [Mass/Vol] 15 mg/dL Normal 7-21 [facility] Comment on above: Performed By: #### C K, CMP, SERFOL, B12, CBCDIF #### [address] [place] [address] Folate, Serumon 02-13-2021 Folate [Mass/Vol] ng/mL Low >4.7 [facility] Comment on above: Performed By: #### C K, CMP, SERFOL, B12, CBCDIF #### [address] [place], [place] [address] Vitamin B12on 02-13-2021 Cobalamin (Vitamin B12) [Mass/Vol] 285 pg/mL Normal 232-1245 [facility] Comment on above: Performed By: #### C K, CMP, SERFOL, B12, CBCDIF #### [facility] [address] [place], [place] [address] CNPNon 02-11-2021 CNPN Telephone (ORQ) REGINA MA ([id number]) 1960 F Date Time Provider Department 02/11/21 ROMULO TIWARI ORLaurie During your visit today, we recorded the following information about you: Esperanza Neff [employer] Sec 02/11/2021 2:23 PM Signed Outside lab [...] ESVIN MED ESPERANZA PUGH on 02/11/21 Normal [facility] Vital Signs Date Time Vital Sign Value Performing Clinician Facility 08-02-2023 10:47-0500 Body height 162.6 cm Jaqueline Fatima NP Work Phone: [facility] 08-02-2023 10:47-0500 Body mass index (BMI) [Ratio] 19.91 kg/m2 Jaqueline Fatima NP Work Phone: [facility] 08-02-2023 10:47-0500 Body weight 52.62 kg Jaqueline Fatima NP Work Phone: [facility] 07-22-2023 09:20-0500 Body height 162.56 cm Mohinder Scovanner Other [employer] Other 07-22-2023 09:20-0500 Body mass index (BMI) [Ratio] 20.05 kg/m2 Mohinder Scovanner Other [employer] Other 07-22-2023 09:20-0500 Body weight 52.98 kg Mohinder Scovanner Other [employer] Other 07-22-2023 09:20-0500 Diastolic blood pressure 84 mm[Hg] Mohinder Scovanner Other [employer] Other 07-22-2023 09:20-0500 Systolic blood pressure 125 mm[Hg] Mohinder Scovanner Other [employer] Other 06-22-2023 10:00-0500 Body height 162.56 cm [employer] Other [employer] Other 06-22-2023 10:00-0500 Body mass index (BMI) [Ratio] 20.25 kg/m2 [employer] Other [employer] Other 06-22-2023 10:00-0500 Body weight 53.52 kg [employer] Other [employer] Other 04-26-2023 13:40-0500 Body height 162.56 cm Mohinder Scovanjavad Other [employer] Other 04-26-2023 13:40-0500 Body mass index (BMI) [Ratio] 28.78 kg/m2 Mohinder Scovanner Other [employer] Other 04-26-2023 13:40-0500 Body weight 76.07 kg Mohinder Maxwell Other [employer] Other 04-26-2023 13:40-0500 Diastolic blood pressure 78 mm[Hg] Mohinder Maxwell Other [employer] Other 04-26-2023 13:40-0500 Systolic blood pressure 120 mm[Hg] Mohinder Maxwell Other [employer] Other Encounters Encounter Date Encounter Type Care Provider Facility Start: 09-19-2023 End: 09-19-2023 ambulatory ASHLY WU Not Available Start: 08-03-2023 End: 08-03-2023 ambulatory GERTRUDIS FERNANDEZ Not Available Start: 08-02-2023 Zooplaheet Jaqueline Fatima TRADE SPECIALIST Work Phone: [facility] Start: 08-02-2023 Bamboo flowsheet Jaqueline Fatima TRADE SPECIALIST Work Phone: [facility] Start: 08-02-2023 Clinisync Result Encounter Ashly Wu TRADE SPECIALIST Work Phone: [facility] External Department Unsolicited Start: 08-02-2023 End: 08-02-2023 ambulatory JAQUELINE FATIMA Not Available Start: 08-02-2023 End: 08-02-2023 Office outpatient new 30 minutes Jaqueline Fatima TRADE SPECIALIST Work Phone: [facility] Comment on above: Bilateral carpal ifrah mateusz syndrome (Primary Dx); Right wrist pain; Left wrist pain Start: 07-22-2023 End: 07-22-2023 ambulatory Mohinder Maxwell Other [employer] Other Start: 07-22-2023 Office outpatient visit 15 minutes Mohinder Maxwell [facility] Start: 07-20-2023 End: 07-20-2023 ambulatory ASHLY KIRANZ Not Available Start: 07-05-2023 End: 07-05-2023 ambulatory Alana Ha Other [employer] Other Start: 07-05-2023 Telephone encounter Alana Ha [employer] Start: 07-01-2023 End: 07-01-2023 ambulatory Ashly Merida Soloparisjenniferz Facility:[facility] Start: 07-01-2023 End: 07-01-2023 ambulatory Ashly Razaholz Work Phone: [facility] Work Phone: Start: 07-01-2023 End: 07-01-2023 Patient encounter procedure Ashly Razajenniferbarrington Work Phone: [facility] Work Phone: Start: 06-29-2023 End: 06-29-2023 ambulatory Alana aH Other [employer] Other Start: 06-29-2023 Telephone encounter Alana Ha [facility] Start: 06-22-2023 End: 06-22-2023 ambulatory Alana Ha Other [employer] Other Start: 06-22-2023 Office outpatient visit 25 minutes Alana Ha [facility] Start: 06-02-2023 End: 06-02-2023 ambulatory Ashly J Soloparisjenniferbarrington Facility:[facility] Start: 06-02-2023 End: 06-02-2023 ambulatory Ashly Merida Soloalfonsoz Work Phone: [facility] Work Phone: Start: 06-02-2023 End: 06-02-2023 Patient encounter procedure Ashly Wu Work Phone: [facility] Work Phone: Start: 05-31-2023 End: 05-31-2023 ambulatory Alana Ha Facility:[facility] Start: 05-31-2023 End: 05-31-2023 ambulatory Ashly Wu Work Phone: [facility] Work Phone: Start: 05-31-2023 End: 05-31-2023 Patient encounter procedure Ashly Soloparisjyothi Work Phone: [facility] [place] Work Phone: Start: 05-19-2023 End: 05-19-2023 ambulatory ASHLY SOLOHHOLZ [facility] [employer] Other Start: 05-19-2023 Telephone encounter Mohinder Bolton [facility] Start: 04-26-2023 End: 04-26-2023 ambulatory Mohinder Maxwell Other [employer] Other Start: 04-26-2023 Office outpatient ne w 30 minutes Mohinder Maxwell [facility] Start: 03-22-2023 End: 03-23-2023 ambulatory ALIREZA JORGE [place] [place] Start: 10-13-2022 End: 10-14-2022 ambulatory ELECT[employer]IL[employer] SUPERVISOR ASHLY AICHHOLZ Facility:[facility] Start: 10-02-2022 End: 10-03-2022 ambulatory ELECTRONIC COILS SUPERVISOR ASHLY AICHHOLZ Facility:[facility] Start: 09-30-2022 End: 10-01-2022 ambulatory ELECTRONIC COILS SUPERVISOR ASHLY AICHHOLZ Facility:[facility] Start: 09-15-2022 End: 09-16-2022 ambulatory ELECTRONIC COILS SUPERVISOR ASHLY AICHHOLZ Facility:[facility] Start: 11-26-2021 End: 11-27-2021 ambulatory ELECTRONIC COILS SUPERVISOR ASHLY AICHHOLZ Facility:[facility] Start: 11-19-2021 End: 11-20-2021 ambulatory ELECTRONIC COILS SUPERVISOR ASHLY AICHHOLZ Facility:[facility] Procedures Date Procedure Procedure Detail Performing Clinician Start: 08-02-2023 ALL CBC WITH AUTO DIFF Ashly Bryce TRADE SPECIALIST Work Phone: Start: 07-01-2023 Dual energy X-ray absorptiometry Ashly Bryce Work Phone: Start: 06-02-2023 Ultrasound elastogra phy of liver Ashly Wu Work Phone: Start: 05-31-2023 X-ray of cervical spine Ashyl Wu Work Phone: Start: 05-31-2023 X-ray of lumbar spin e, four views Ashly Wu Work Phone: Start: 05-19-2023 Microscopic observat ion [Identifier] in Cervix by Cyto stain Jaqueline Fatima NP Work Phone: Start: 10-13-2022 Mammography Jaqueline doherty NP Work Phone: Start: 05-01-2021 Colonoscopy Jaqueline doherty NP Work Phone: Plan of Treatment Date Care Activity Detail Author Start: 05-01-2031 Screening for malign ant neoplasm of colon [facility] Start: 05-19-2026 Screening for malign ant neoplasm of cervix [facility] [facility] Start: 12-18-2023 Influenza vaccination Influenza Vacc ine (#1) [facility] Comment on above: Postponed from 02/18 (Patient Does Not Have Time) Start: 10-14-2023 Screening for malign ant neoplasm of breast Mammogram [facility] Start: 08-31-2023 End: 08-31-2023 Patient encounter procedure 08/31/2023 2:20 PM EDT Office Visit [facility] [address] [place] [id number] Ashly Wu NP [address] [place] [id number] [facility] Start: 08-31-2023 Pneumococcal Vaccine : 65+ Years (1 - PCV) Pneumococcal Vaccine: 65+ Years (1 - PCV) [facility] Comment on above: Postponed from 02/01 (Other Patient Reasons) Start: 08-03-2023 End: 08-03-2023 Patient encounter procedure 08/03/2023 1:00 PM EST Office Visit [facility] [address] [place] [address] Jr. Gertrudis Delgado, [address] [place] [address] [facility] Start: 08-02-2023 End: 08-02-2023 Patient encounter procedure 08/02/2023 10:30 AM EST Office Visit [facility] [address] [facility] [address] [place] [phone] Jaqueline Fatima, [address] [place] [address] Arrived [facility] Comment on above: Arrived Start: 06-02-2023 [facility] Start: 02-02-1988 Screening for malign ant neoplasm of cervix HPV/Cotest [facility] Start: 1960 Medicare Annual Wellness (AWV) Medicare Annual Wellness (AWV) [facility] Start: 1960 Screening for malign ant neoplasm of colon [facility] Immunizations Immunization Date Immunization Notes Care Provider Fa cility 12-24-2020 COVID-19 Ad26.COV2.S (Jodi) Ashly Wu Work Phone: [facility] 07-09-2020 influenza, injectabl e, quadrivalent, preservative free Ashly Wu Work Phone: [facility] 07-09-2020 influenza virus vaccine, unspecified formulation Jaqueline Fatima NP Work Phone: [facility] Healthcare Payers Date Payer Category Payer Self-pay [id number] 2023 Medicare [facility] DUAL [facility] [id number] 2023-Present [address] [place] [address] [id number] 2023 Private Health Insurance [facility] [id number] 1959 Unknown [id number] 1960 Unknown [id number] 2.16.840.1.623618.3.579.2. 593 1958 Unknown [id number] 2.16.840.1.780258.3.579.2. 593 1958 Unknown [id number] 2.16.840.1.263074.3.579.2. 593 1958 Unknown [id number] 2.16.840.1.993496.3.579.2. 593 1958 Unknown [id number] 2.16.840.1.680579.3.579.2. 593 1958 Unknown [id number] 2.16.840.1.831151.3.579.2. 593 1958 Unknown [id number] 2.16.840.1.901135.3.579.2. 1259 1958 Unknown [id number] 2.16.840.1.798145.3.579.2. 1259 1958 Unknown [id number] 2.16.840.1.982765.3.579.2. 1259 1958 Unknown [id number] 2.16.840.1.639443.3.579.2. 1259 1958 Unknown [id number] 2.16.840.1.380909.3.579.2. 1259 Private Health Insurance [id number] 2.16.840.1.966697.19 Unknown [id number] 2.16.840.1.751606.3.579.2. 531 Unknown [id number] 2.16.840.1.406488.3.579.2. 531 Unknown [id number] 2.16.840.1.753200.3.579.2. 531 Social History Date Type Detail Facility Unknown if ever smoked [employer] Other Start: 05-19-2023 End: 07-20-2023 Sex Assigned At [facility] Start: 05-01-2021 [facility] Start: 1960 Sex Assigned At Female F [facility] Start: 05-19-2023 [facility] History of tobacco use Cigarette Smoker [facility] Start: 05-19-2023 End: 07-20-2023 Cigarettes smoked current (pack per day) - Reported 1 [facility] History of tobacco use Passive smoker [facility] Start: 05-19-2023 Tobacco use and exposure Smokeless tobacco non-user [facility] Start: 07-20-2023 Alcohol intake Ex-drinker (finding) [facility] Within the last year , have you been afraid of your partner or ex-partner? No [facility] Are you now , , , , never or living with a partner? [facility] How often to you hav e a drink containing alcohol? Never [facility] How many standard drinks containing alcohol do you have on a typical day? Patient does not drink [facility] How hard is it for y ou to pay for the very basics like food, housing, medical care, and heating Not very hard [facility] Do you feel stress - tense, restless, nervous, or anxious, or unable to sleep at night because your mind is troubled all the time - these days [OSQ] To some extent [facility] (I/We) worried wheth er (my/our) food would run out before (I/we) got money to buy more. Never true [facility] Start: 05-19-2023 Alcohol Comment stopped with i n the last year [facility] Start: 1960 Sex Assigned At Not on file [facility] Start: 08-02-2023 Alcohol intake Current drinke r of alcohol (finding) [facility] Goals Date Patient Goal Desired Activity /State Clinical Notes 02-13-2021 to 08-02-2023 Jaqueline Fatima NP - 08/02/2023 10:30 AM EST Note Date & Type Note Facility 08-02-2023 History of Presen t illness Narrative Images from the original note were not included. NAME: Regina Ma : 1960 HISTORY OF PRESENT ILLNESS: Regina Ma is an 63 y.o. @ female. ASHLY WU REFERRAL. RT WRIST/HAND PAIN, RT>LT. PAIN SINCE 03/2023 (4 MTHS), NKI. WOKE UP AND B/L HANDS AND FEET WERE NUMB. EMG BEL 06/15/23 OT AT [facility] STATES HANDS HAVE BEEN COMPLETELY NUMB SINCE MARCH. TAKING TYL. TRIED BIOFREEZE. CURRENTLY DOING OT AT [facility]. WAKES PT AT HS. UNABLE TO GRAB OR ORACLE ANALYST. ABLE TO MAKE A FIST. CONSTANT COLDNESS IN HAND. MUSCLE ATROPHY IN RT HAND FOR THE LAST 5-6 YRS. RT HANDED. PAST MEDICAL HISTORY: Past Medical History: Diagnosis Date Abdominal pain Abnormal gallbladder ultrasound Abnormal kidney function Abnormal mammogram of right breast SONIA (acute kidney injury) (CMS/HCC) Alcoholism (CMS/HCC) BEL positive Anemia Anxiety Bilateral carpal tunnel syndrome 06/21/2023 Cervical spinal stenosis Depression, major (CMS/HCC) Elevated liver enzymes Essential hypertension (CMS/HCC) Facial swelling Fatigue Hypokalemia Insomnia Kidney stone on right side Liver cirrhosis, alcoholic (CMS/HCC) Radiculopathy, cervical Right hand pain Tobacco user 07/20/2023 Tremors of nervous system Vitamin B12 deficiency Weight gain Wheezing PAST SURGICAL HISTORY: History reviewed. No pertinent surgical history. ALLERGIES: No Known Allergies HOME MEDICATIONS: Current Outpatient Medications Medication Instructions albuterol HFA 90 mcg/act inhaler 2 puffs, Inhalation, Every 6 hours PRN amLODIPine (NORVASC) 2.5 mg, Oral, Daily cholecalciferol (VITAMIN D-3) 1,000 Units, Oral, Daily folic acid (FOLVITE) 1,000 mcg, Oral, Daily furosemide (LASIX) 20 mg, Oral, Daily pantoprazole (PROTONIX) 40 mg, Oral, Daily before breakfast, Do not crush, chew, or split. potassium chloride CR (K-Tab) 20 MEQ ER tablet 20 mEq, Oral, Daily propranolol (INDERAL) 20 mg, Oral, 2 times daily spironolactone (ALDACTONE) 50 mg, Oral, Daily traZODone (DESYREL) 100 mg, Oral, Nightly venlafaxine XR (EFFEXOR XR) 150 mg, Oral, Daily Vitals: Body mass index is 19.91 kg/m . PHYSICAL EXAM: Right Hand Exam Tenderness Right hand tenderness location: volar wrist tenderness. Tests Phalen s sign: positive Tinel's sign (median nerve): positive Other Erythema: absent Sensation: decreased (constant numbness in fingers) Pulse: present Comments: Noted to have severe thenar atrophy and flexion contracture of ring finger that is passively correctable Left Hand Exam Tenderness Left hand tenderness location: volar wrist tenderness. Tests Phalen s sign: positive Tinel's sign (median nerve): positive Other Left hand sensation: constant numbness in fingers. Pulse: present Comments: Mild thenar atrophy IMAGING: I reviewed EMG from [facility] dated 06/15/23. She is noted to have severe C8 radiculopathy on the right and bilateral CTS of both wrists and polyneuropathy of lower extremities. Procedures ASSESSMENT: ICD-10-CM 1. Bilateral carpal tunnel syndrome G56.03 2. Right wrist pain M25.531 3. Left wrist pain M25.532 PLAN: I reviewed EMG findings with the patient and discussed treatment options, answered questions. I believe that patient has severe ulnar neuropathy and CTS of the right hand and CTS of the left hand. I educated patient that there is likely permanent nerve damage and that surgery is likely not going to relieve all symptoms as some of her right hand symptoms are likely due to C8 radiculopathy. Patient verbalized understanding and would like to discuss CTR of the right hand and left hand with Dr. Delgado. She would like to do right hand first and then do left hand. Questions answered in laymen terms at the bedside. The diagnosis, home exercise plan and any ongoing restrictions/ recommendations reviewed. If unable to be reached in office, I recommend evaluation at nearest Emergency Room if any symptoms worsened or new symptoms develop for requiring urgent evaluation. Jaqueline Fatima APRN-ELECTRONIC COILS SUPERVISOR documented in this encounter [facility] 07-22-2023 Evaluation note Encounter Date Diagnosis Assessment Notes Jul, Fatty liver (ICD-10 - K76.0) Jul, Cirrhosis (ICD-10 - K74.60) [facility] [employer] Other 01-03-2024 Evaluation note* Encounter Date Diagnosis Assessment Notes Treatment Notes Treatment Clinical Notes Jun, Cervical radiculopathy (ICD-10 - M54.12) [...] consult for CTR. Follow up as needed. [facility] [employer] Other 11-07-2023 Evaluation note* Encounter Date Diagnosis Assessment Notes Treatment Notes Treatment Clinical Notes Apr, Alternating constipation and diarrhea (ICD-10 [...] eat much and gets full very fast [employer] Other 08-27-2021 NoteHNO ID: [id number] Author: Romulo Tiwari, DO Service: ? Author Type: Physician Type: Progress Notes Filed: 02/16/2021 9:09 AM Note Text: RHEUMATOLOGY NEW PATIENT NOTE 61 year old female with PMH significant for anxiety, depression, tobacco and EtOH abuse who presents for evaluation of positive BEL Consult requested by: Ashly uW HPI Over the past year: Went through [...] and low cortisol She was referred to golf teacher Has not heard back about the work [...] 12/17/20 CMP wnl, creatine 0.74, negative anti-histone, IP/MOSAIC TECHNICIAN, Sm, dsDNA, RF, SSA, SSB, ASO 64.9 12/23/20 AM cortisol 2.1 (L) 01/09/21 02/04/21 CKMB and hstrop normal, lipase 491 Past medical history Hypertension Tremors Anxiety Depression Tobacco abuse Surgical history none Family history No RA, SLE, PsO, or IBD Social history Lives in [place], [place] Retired, worked for a [employer] company Smoker 1/2 ppd Current Outpatient Medications Medication [...] tenderness Resp: light wheezin (more content not included)...[facility] Evaluation noteNo Information[facility] [employer] Other Evaluation noteNo assessment information available [facility] Work Phone: Evaluation note* Diagnosis Bilateral carpal tunnel syndrome- Primary Carpal tunnel syndrome Right wrist pain Pain in joint, forearm Left wrist pain Pain in joint, forearm documented in this encounter [facility] N[facility] - Reported* Type Description Date Medical History HTN Medical History chronic depression [employer] Other History general Narrative - Reported* Type Description Date Medical History HTN Medical History chronic depression Medical History anemia [employer] Other Hisaick general Narrative - Reported* Type Description Date Medical History HTN Medical History chronic depression Medical History anemia Surgical History none [employer] Other Summary Purpose Family History No Family [...] section and content) DATE CREATED AUTHOR 07/24/2021 [facility] DATE CREATED AUTHOR AUTHOR'S ORGANIZ ATION 10/16/2022 [facility] DATE CREATED AUTHOR AUTHOR'S ORGANIZ ATION 03/26/2023 [facility] DATE CREATED AUTHOR AUTHOR'S ORGANIZ ATION 07/02/2023 [facility] DATE CREATED AUTHOR AUTHOR'S ORGANIZ ATION 09/20/2023 [facility] EPIC REASON FOR VISIT (unrecogniz ed section and content) Reason Comments Pain Care Teams (unrecognized sec tion and content) Team Status: Active Member Role Status Dates Ashly Wu Primary Care Provider Active Team Status: Inactive Member Role Status Dates Ashly Wu Primary Care Provider Active GREGORY Ruiz Attending Provider Active Team Status: Inactive Member Role Status Dates Ashly Wu Primary Care Provider Active Mohinder Maxwell APRN Attending Provider Active Team Status: Inactive Member Role Status Dates Ashly Wu Primary Care Provider Active GREGORY Ruiz Attending Provider Active Mohinder Maxwell APRN Referring Provider Active Managed Care Nurse Relationship Specialty Start Date End Date Parker Arroyo MD [address] [address] PCP - General Family Medicine 07/28/23 Ashly Wu NP [address] [address] Referring Physician Nurse Practitioner 01/11/23 Managed Care Nurse Relationship Specialty Start Date End Date Parker Arroyo MD [address] [address] PCP - General Family Medicine 07/28/23 Ashly Wu NP [address] [address] Referring Physician Nurse Practitioner 01/11/23 Goals (unrecognized section and content) Goals may [...] BE BASED ON THE PRIMARY CLINICAL RECORDS. [facility] [employer]. provides no warranty or guarantee of the accuracy or completeness of information in this document.
--- NOTE | 2023-09-30 10:27 | ECG_ITS ---
[facility] Test Date: 2023-09-30 Pat Name: FOUZIA MA Department: Room: - Gender: Female Dish Carrier: : 1960 Requested By: CARI LOWE Order Number: [id number] Reading MD: CONCEPCIÓN VANEGAS Measurements Intervals Lena Rate: 86 P: 71 TX: 164 QRS: 65 QRSD: 88 T: 80 QT: 384 QTc: 461 Interpretive Statements SINUS RHYTHM LEFT ATRIAL ENLARGEMENT [-0.15mV P WAVE IN V1/V2] POSSIBLE RIGHT VENTRICULAR CONDUCTION DELAY [RSR (QR) IN V1/V2] Compared to ECG 12/05/2020 13:18:32 Atrial abnormality now present Electronically Signed On 09-30-2023 18:56:25 EDT by CONCEPCIÓN VANEGAS
[2023-09-30 10:29] LABS: Basophils Absolute Auto 0.1 10^3/uL (0.0-0.1); Basophils Percent Auto 0.6 % (0.2-2.0); Eosinophils Absolute Auto 0.1 10^3/uL (0.0-0.7); Eosinophils Percent Auto 1.4 % (0.9-7.0); Hematocrit 40.9 % (36.0-48.0); Hemoglobin 13.9 g/dL (12.0-16.0); Immature Granulocytes Abs Auto 0.03 10^3/uL (0.00-0.03); Immature Granulocytes Pct Auto 0.3 % (0.0-0.5); Lymphocytes Absolute Auto 1.4 10^3/uL (1.2-3.8); Lymphocytes Percent Auto 14.3 % (20.5-60.0); Mean Corpuscular Hemoglobin 35.3 pg (26.7-34.0); Mean Corpuscular Volume 103.8 fL (81.0-99.0); Mean Platelet Volume 8.7 fL (9.5-13.5); Monocytes Absolute Auto 0.8 10^3/uL (0.3-0.8); Monocytes Percent Auto 7.9 % (1.7-12.0); Neutrophils Absolute Auto 7.4 10^3/uL (1.4-6.5); Neutrophils Percent Auto 75.5 % (43.0-75.0); Platelet Count 296 10^3/uL (150-450); Red Blood Count 3.94 10^6/uL (4.20-5.40); Red Cell Distribution Width 17.5 % (11.0-15.0); White Blood Count 9.8 10^3/uL (4.0-11.0)
[2023-09-30 10:36] LABS: Bilirubin Urine SMALL (NEGATIVE); Blood Urine TRACE-I (NEGATIVE); Clarity Urine CLEAR (CLEAR); Color Urine LT. YELLOW (YELLOW); Glucose Urine UA NEGATIVE (NEGATIVE); Ketones Urine TRACE mg/dL (NEGATIVE); Leukocyte Esterase Urine LARGE (NEGATIVE); Nitrite Urine POSITIVE (NEGATIVE); Protein Urine TRACE mg/dL (NEG/TRACE); Specific Gravity Urine 1.015 (1.005-1.025); pH Urine 6.5 (5.0-9.0)
[2023-09-30 10:42] LABS: Urine Microscopic Indicated YES
--- NOTE | 2023-09-30 10:42 | XR_ITS ---
The [address] [address] Patient Name: FOUZIA MA MRN: [id number] date: 1960 Sex: F Assigned Patient Location: LAB Current Patient Location: LAB Accession/Order Number: [id number] Exam Date: 09/30/2023 10:48 Report Date: 09/30/2023 14:45 At the request of: NON-STAFF PHYSICIAN Procedure: XR cervical spine w flex/ext EXAMINATION: XR cervical spine w flex/ext HISTORY: Cervical Myelopathy G95.9 COMPARISON: CT cervical spine 03/31/2023 FINDINGS: BONES: Reversal normal lordotic curvature. No fracture spondylolisthesis. Multilevel mild degenerative facet arthropathy. DISC SPACES: Moderate disc space narrowing C4-5 through C7-T1. PARASPINOUS: Negative. No paraspinous abnormality is seen. OTHER: Negative. XR/XR cervical spine w flex/ext IMPRESSION: 1. Grossly stable moderate-marked degenerative changes of cervical spine. 2. No appreciable acute abnormality. Electronically authenticated by: DARIUS QUINONEZ Date: 09/30/2023 14:45
[2023-09-30 10:45] LABS: Bacteria Urine MODERATE #/HPF (NONE SEEN); Crystals Seen? None Seen #/HPF (None Seen); Mucus Urine TRACE (NONE SEEN); Squamous Epithelial Cell Urine MANY #/LPF (NONE/RARE); WBC Urine 50-75 #/HPF (NONE SEEN)
[2023-09-30 10:46] LABS: Cast Seen? NONE SEEN #/LPF (NONE SEEN); Urine Culture Indicated YES
[2023-09-30 11:41] LABS: INR 1.03; Partial Thromboplastin Time 26.9 sec (22.3-36.2); Prothrombin Time 10.9 sec (9.0-11.6)
[2023-09-30 11:59] LABS: Anion Gap 14.1; BUN Creatinine Ratio 15.5; Calcium 9.8 mg/dL (8.5-10.1); Carbon Dioxide 27.3 mmol/L (21.0-32.0); Chloride 100 mmol/L (98-107); Estimated GFR (African America >60 (>=60); Estimated GFR (Non-African Ame >60 (>=60); Glucose 92 mg/dL (74-106); Potassium 3.4 mmol/L (3.5-5.1); Sodium 138 mmol/L (136-145)
== END 2023-09-30 10:02 | disposition home or self-care (01) ==
LOC: LAB 10:03
PROVIDERS: PCP Nurse Practitioner
DX: Z01.810 Encounter for preprocedural cardiovascular examination (principal); M47.22 Other spondylosis with radiculopathy, cervical region; G95.9 Disease of spinal cord, unspecified; M50.30 Other cervical disc degeneration, unspecified cervical region; R82.998 Other abnormal findings in urine
CPT/HCPCS: 36415; 72052; 80048; 81001; 85025; 85610; 85730; 86900; 86901; 87086; 87150; 87186; 93005

== ENCOUNTER 2024-01-02 08:39 | Outpatient (OUT) | payer MEDICARE, SELFPAY ==
[2024-01-02 09:05] LABS: Basophils Percent Auto 0.3 % (0.2-2.0); Eosinophils Absolute Auto 0.1 10^3/uL (0.0-0.7); Eosinophils Percent Auto 0.9 % (0.9-7.0); Hematocrit 39.5 % (36.0-48.0); Hemoglobin 13.4 g/dL (12.0-16.0); Immature Granulocytes Abs Auto 0.03 10^3/uL (0.00-0.03); Immature Granulocytes Pct Auto 0.3 % (0.0-0.5); Lymphocytes Absolute Auto 1.3 10^3/uL (1.2-3.8); Mean Corpuscular HGB Conc 33.9 g/dL (29.9-35.2); Mean Corpuscular Hemoglobin 36.8 pg (26.7-34.0); Mean Corpuscular Volume 108.5 fL (81.0-99.0); Mean Platelet Volume 8.7 fL (9.5-13.5); Monocytes Absolute Auto 0.7 10^3/uL (0.3-0.8); Monocytes Percent Auto 6.8 % (1.7-12.0); Neutrophils Percent Auto 78.7 % (43.0-75.0); Platelet Count 380 10^3/uL (150-450); Red Blood Count 3.64 10^6/uL (4.20-5.40); White Blood Count 10.1 10^3/uL (4.0-11.0)
[2024-01-02 10:15] LABS: Bilirubin Urine NEGATIVE (NEGATIVE); Blood Urine NEGATIVE (NEGATIVE); Clarity Urine SL CLOUDY (CLEAR); Color Urine LT. YELLOW (YELLOW); Glucose Urine UA NEGATIVE (NEGATIVE); Ketones Urine NEGATIVE (NEGATIVE); Leukocyte Esterase Urine SMALL (NEGATIVE); Nitrite Urine POSITIVE (NEGATIVE); Protein Urine NEGATIVE (NEG/TRACE); Urobilinogen Urine 0.2 EU/dL (0.2-1.0)
[2024-01-02 10:19] LABS: Creatinine Urine Random 112.26 mg/dL (20.00-300.00); Microalbum Creatinine Ratio Ur 21.3 mg/g (0.0-29.9); Microalbumin Urine Random 2.4 mg/dL (<=30.0)
[2024-01-02 10:22] LABS: Urine Microscopic Indicated YES
[2024-01-02 10:23] LABS: Bacteria Urine LARGE #/HPF (NONE SEEN); Cast Seen? NONE SEEN #/LPF (NONE SEEN); Crystals Seen? None Seen #/HPF (None Seen); Mucus Urine TRACE (NONE SEEN); RBC Urine 0-2 #/HPF (0-2); Squamous Epithelial Cell Urine FEW #/LPF (NONE/RARE); Urine Culture Indicated ALREADY ORDERED; WBC Urine 20-50 #/HPF (NONE SEEN)
[2024-01-02 10:25] LABS: Alanine Aminotransferase 21 U/L (14-59); Albumin Globulin Ratio 0.9; Albumin Level 3.1 g/dL (3.4-5.0); Alkaline Phosphatase 199 U/L (46-116); Anion Gap 13.4; Aspartate Amino Transferase 34 U/L (15-37); BUN Creatinine Ratio 16.4; Bilirubin Total 0.5 mg/dL (0.2-1.0); Calcium 8.6 mg/dL (8.5-10.1); Carbon Dioxide 28.2 mmol/L (21.0-32.0); Chloride 102 mmol/L (98-107); Chol HDL Ratio 3.1; Cholesterol 209 mg/dL (<=200); Estimated GFR (African America >60 (>=60); Estimated GFR (Non-African Ame >60 (>=60); Globulin 3.4 g/dL; Glucose 91 mg/dL (74-106); HDL Cholesterol 67 mg/dL (40-60); Magnesium 1.7 mg/dL (1.8-2.4); Potassium 3.6 mmol/L (3.5-5.1); Sodium 140 mmol/L (136-145); Total Protein 6.5 g/dL (6.4-8.2); Triglycerides 135 mg/dL (<=150)
[2024-01-02 11:16] LABS: Red Cell Distribution Width 16.2 % (11.0-15.0)
== END 2024-01-02 08:40 | disposition home or self-care (01) ==
LOC: LAB 08:40
PROVIDERS: PCP Nurse Practitioner; Visit Provider Nurse Practitioner
DX: D64.9 Anemia, unspecified (principal); Z72.0 Tobacco use; I10 Essential (primary) hypertension; E53.8 Deficiency of other specified B group vitamins; E83.42 Hypomagnesemia; F10.20 Alcohol dependence, uncomplicated
CPT/HCPCS: 36415; 80053; 80061; 81001; 82043; 82306; 82570; 82607; 82728; 83540; 83735; 85025